=== PATIENT | male | born 1935 | race Caucasian/White ===

== ENCOUNTER 2018-02-28 07:14 | Emergency (ER) | payer MEDICARE, OTHER, SELFPAY ==
[2018-02-28 07:18] VITALS: BP 139/103; PULSE 96; RESP 18; TEMP 36.2; O2SAT 95
[2018-02-28 07:27] VITALS: BP 150/82
--- NOTE | 2018-02-28 07:30 | W.ED.GENAD ---
Discharge Plan Discharge Details Chief Complaint: Urinary Clinical Impression: Hematuria, Acute urinary retention Primary Care Provider: [facility] [facility] Provider: Alyssia Hayward Disposition Patient Disposition: HOME Home Meds and New Rx's Prescriptions: No Action tamsulosin [Flomax] 0.4 mg Capsule 0.4 mg PO DAILY RF: 0 Medical Decision Making <Ashok Padron DO - Last Filed: 02/28/18 08:05> [facility] Narrative Medical decision making narrative: This is a very pleasant 82-year-old male with a past medical history of prostate hypertrophy, who has to catheterize himself occasionally to P, presents for pressure in his bladder, and an inability to urinate, as well as mild hematuria. With the past few days he has been noticing increased urinary clots, and increased need for self-catheterization. He was on Bactrim for a full week and took this as directed. He has not seen a urologist for quite some time at the [facility]. Physical exam demonstrates no significant abnormalities. No blood at the urethral meatus. No significant suprapubic tenderness. He does not take any blood thinners. Differential as to the cause of his hematuria is broad. It may be secondary to infectious cystitis, or his multiple catheterizations. We will check the patient's hemoglobin and platelet levels. We will put in a Tinsley to wash amount. We will check for infection on urinalysis. Out of concern for the patient's multiple self catheterizations as of late feel that it may be indicated to leave the Tinsley in if he can get prompt follow-up with urology. Case will be signed out to my colleague Dr. Hayward. <Alyssia Hayward DO - Last Filed: 02/28/18 11:20> [facility] Narrative Medical decision making narrative: Please see Dr. Padron's note for initial presentation, exam and plan. 82yo M w/ a h/o BPH who has self catheterized for years who presents with worsening urinary retention, suprapubic pressure and hematuria over the past few week. Pt has a h/o dementia and is somewhat of a poor historian but is able to state that he used to self catheterize once weekly but over the past few weeks, has been doing this at least once daily. Pt states he does not think he has ever seen urology. States he was seen at the [facility] 2 weeks ago for these symptoms and was diagnosed with UTI and started on bactrim. Pt denies any change in symptoms with antibiotics. Pt denies fever, dysuria, or testicular pain. Upon my endorsement, Dr. Padron's plan was for tinsley catheter placement, labs, UA and reassessment with plan for home with tinsley and f/u with urology. Marcella Cantu is going to help arrange [facility] or Dr[facility] Rosado if possible. Upon my exam, pt has no fever and appears nontoxic. His abdomen is soft and nontender and testicles nontender and nonerythematous. Urine is clear/pinkish. Labs note a wbc 4.95, Hgb 14, platelet 154. Normal PT/INR. UA notes large blood, > 300 protein but negative nitrite, leukocyte esterase and unable to report WBC. At this point, I do not see obvious infection and would hold on antibiotics. Will send urine culture. Labs also noted a glucose of 238 and urine glucose 250. Normal bicarb and anion gap. Pt denies a h/o diabetes. States he ate a big breakfast right before coming in. Will recheck glucose. 1000 -- d/w Marcella - still awaiting call back from [facility] or Dr. Rosado for follow up. 1100 -- d/w Marcella -urology will call patient for follow-up. Patient and daughter was notified of this plan. Patient feels good to go home. He was instructed to return to the ER with any concerns. Daughter had expressed concern about some urinary leakage around Tinsley catheter. Discussed with nurse and she had placed a 16 Yi catheter which is the standard size. She was concerned about placing a larger catheter due to patient's BPH. I discussed with daughter that it is possible he could be having some bladder spasm or he may be feeling the urge to urinate and is pushing. Patient was instructed to not push and instructed that the catheter will drain his urine. I am going to hold on any urinary spasm medication at this time until patient follows up with urology. Daughter and patient notified to return immediately to the emergency department with any worsening symptoms but otherwise follow-up with urology for further recommendations. This is a pleasant 82-year-old male with past medical history of colon cancer, and prostate hypertrophy who regularly catheterizes himself multiple times throughout the week, and has not seen [facility] for quite some time. He presents today for evaluation of hematuria. Patient states that he noticed some difficulty urinating a week and a half ago, with some associated pressure and small amount of blood, he was seen at the [facility] and started on Bactrim which she has been taking as directed. He completed his course 4-5 days ago. He is continued to have pressure-like sensation, has required increased catheterizations, and is noticed blood and clots whenever he has to catheterize himself. His other symptoms have persisted. He denies any flank pain, nausea, vomiting, diarrhea, abdominal pain, groin pain, testicular pain, numbness, tingling, weakness. He denies any history of bladder cancer. He does not take any blood thinners. He does take tamsulosin and has not been missing his doses. Patient denies any other associated symptoms. Past surgical history is positive for surgery for his colon cancer. He denies any IV or illicit drug use. He denies any pertinent family history. HPI - General Adult <Ashok Padron DO - Last Filed: 02/28/18 08:05> General Date/Time Provider Initiated Documentation: 02/28/18 07:17. Related Data Home Medications Medication Instructions Recorded Confirmed tamsulosin [Flomax] 0.4 mg PO DAILY 02/28/18 02/28/18 Allergies Allergy/AdvReac Type Severity Reaction Status Date / Time No Known Allergies Allergy Unverified 02/28/18 07:25 General Stated Complaint: Urinary TINY: 3 This is a pleasant 82-year-old male with past medical history of colon cancer, and prostate hypertrophy who regularly catheterizes himself multiple times throughout the week, and has not seen [facility] for quite some time. He presents today for evaluation of hematuria. Patient states that he noticed some difficulty urinating a week and a half ago, with some associated pressure and small amount of blood, he was seen at the [facility] and started on Bactrim which she has been taking as directed. He completed his course 4-5 days ago. He is continued to have pressure-like sensation, has required increased catheterizations, and is noticed blood and clots whenever he has to catheterize himself. His other symptoms have persisted. He denies any flank pain, nausea, vomiting, diarrhea, abdominal pain, groin pain, testicular pain, numbness, tingling, weakness. He denies any history of bladder cancer. He does not take any blood thinners. He does take tamsulosin and has not been missing his doses. Patient denies any other associated symptoms. Past surgical history is positive for surgery for his colon cancer. He denies any IV or illicit drug use. He denies any pertinent family history. Review of Systems <Ashok Padron DO - Last Filed: 02/28/18 08:05> Review of Systems 10 point review of systems was performed, pertinent positives and negatives are noted in the history of present illness. Exam <Ashok Padron DO - Last Filed: 02/28/18 08:05> Narrative Exam Narrative: 1.Const: Well-nourished, Well-developed, appearing stated age 2.Eyes: PERRL, no conjunctival injection, and symmetrical lids. 3.ENT: Atraumatic external nose and ears. Moist MM. Neck: Symmetric, trachea midline, No thyromegaly. 4.CVS: +S1/S2, No murmurs or gallops. Peripheral pulses 2+ and equal in all extremities. Brisk capillary refill in all extremities. 5.RESP: Unlabored respiratory effort. Clear to auscultation bilaterally. No wheezes rales or rhonchi 6.GI: Soft, Nontender/Nondistended, No hepatosplenomegaly. No guarding or rebound. Uncircumcised penis. No penile tenderness. No blood at the urethral meatus. No testicular tenderness. 7.MSK: Normocephalic/Atraumatic, Extremities w/o deformity or ttp No cyanosis or clubbing, Normal movement of all extremities 8.Skin: Warm, Dry. No rashes or lesions. 9.Neuro: press puller II-XII grossly intact. Sensation grossly intact, no focal neurologic deficits. 10.Psych: (AAO) x3. Appropriate mood and affect Course <Ashok Padron DO - Last Filed: 02/28/18 08:05> Vital Signs Temperature 36.2 C L 02/28/18 07:18 Pulse 96 H 02/28/18 07:18 Respiratory Rate 18 02/28/18 07:18 Blood Pressure 139/103 H 02/28/18 07:18 Pulse Oximetry 95 02/28/18 07:18 Temperature 36.2 C L 02/28/18 07:18 Pulse 96 H 02/28/18 07:18 Respiratory Rate 18 02/28/18 07:18 Blood Pressure 150/82 H 02/28/18 07:27 Pulse Oximetry 95 02/28/18 07:18 Sign Out <Ashok Padron DO - Last Filed: 02/28/18 08:05> Sign Out Data: Sign Out Comment: hematuria Last updated by Ashok Padron DO at 02/28/18 07:57
--- NOTE | 2018-02-28 07:40 | ED.GENADUL_ITS ---
Discharge Plan Discharge Details Chief Complaint: Urinary Clinical Impression: Hematuria, Acute urinary retention Primary Care Provider: [facility] Provider: Alyssia Hayward Disposition Patient Disposition: HOME Home Meds and New Rx's Prescriptions: No Action tamsulosin [Flomax] 0.4 mg Capsule 0.4 mg PO DAILY RF: 0 Medical Decision Making <Ashok Padron DO - Last Filed: 02/28/18 08:05> [facility] Narrative Medical decision making narrative: This is a very pleasant 82-year-old male with a past medical history of prostate hypertrophy, who has to catheterize himself occasionally to P, presents for pressure in his bladder, and an inability to urinate, as well as mild hematuria. With the past few days he has been noticing increased urinary clots, and increased need for self- catheterization. He was on Bactrim for a full week and took this as directed. He has not seen a urologist for quite some time at the [facility]. Physical exam demonstrates no significant abnormalities. No blood at the urethral meatus. No significant suprapubic tenderness. He does not take any blood thinners. Differential as to the cause of his hematuria is broad. It may be secondary to infectious cystitis, or his multiple catheterizations. We will check the patient's hemoglobin and platelet levels. We will put in a Tinsley to wash amount. We will check for infection on urinalysis. Out of concern for the patient's multiple self catheterizations as of late feel that it may be indicated to leave the Tinsley in if he can get prompt follow-up with urology. Case will be signed out to my colleague Dr. Hayward. <Alyssia Hayward DO - Last Filed: 02/28/18 11:20> [facility] Narrative Medical decision making narrative: Please see Dr. Padron's note for initial presentation, exam and plan. 82yo M w/ a h/o BPH who has self catheterized for years who presents with worsening urinary retention, suprapubic pressure and hematuria over the past few week. Pt has a h/o dementia and is somewhat of a poor historian but is able to state that he used to self catheterize once weekly but over the past few weeks, has been doing this at least once daily. Pt states he does not think he has ever seen urology. States he was seen [facility] the [facility] for these symptoms and was diagnosed with UTI and started on bactrim. Pt denies any change in symptoms with antibiotics. Pt denies fever, dysuria, or testicular pain. Upon my endorsement, Dr. Padron's plan was for tinsley catheter placement, labs, UA and reassessment with plan for home with tinsley and f/u with urology. Marcella Cantu is going to help arrange [facility] or Dr[facility] Rosado if possible. Upon my exam, pt has no fever and appears nontoxic. His abdomen is soft and nontender and testicles nontender and nonerythematous. Urine is clear/pinkish. Labs note a wbc 4.95, Hgb 14, platelet 154. Normal PT/INR. UA notes large blood , > 300 protein but negative nitrite, leukocyte esterase and unable to report WBC. At this point, I do not see obvious infection and would hold on antibiotics. Will send urine culture. Labs also noted a glucose of 238 and urine glucose 250. Normal bicarb and anion gap. Pt denies a h/o diabetes. States he ate a big breakfast right before coming in. Will recheck glucose. 1000 -- d/w Marcella - still awaiting call back from [facility] or Dr. Rosado for follow up. 1100 -- d/w Marcella -urology will call patient for follow-up. Patient and daughter was notified of this plan. Patient feels good to go home. He was instructed to return to the ER with any concerns. Daughter had expressed concern about some urinary leakage around Tinsley catheter. Discussed with nurse and she had placed a 16 [place] catheter which is the standard size. She was concerned about placing a larger catheter due to patient's BPH. I discussed with daughter that it is possible he could be having some bladder spasm or he may be feeling the urge to urinate and is pushing. Patient was instructed to not push and instructed that the catheter will drain his urine. I am going to hold on any urinary spasm medication at this time until patient follows up with urology. Daughter and patient notified to return immediately to the emergency department with any worsening symptoms but otherwise follow-up with urology for further recommendations. This is a pleasant 82-year-old male with past medical history of colon cancer, and prostate hypertrophy who regularly catheterizes himself multiple times throughout the week, and has not seen [facility] for quite some time. He presents today for evaluation of hematuria. Patient states that he noticed some difficulty urinating a week and a half ago, with some associated pressure and small amount of blood, he was seen at the [facility] and started on Bactrim which she has been taking as directed. He completed his course 4-5 days ago. He is continued to have pressure-like sensation, has required increased catheterizations, and is noticed blood and clots whenever he has to catheterize himself. His other symptoms have persisted. He denies any flank pain, nausea, vomiting, diarrhea, abdominal pain, groin pain, testicular pain, numbness, tingling, weakness. He denies any history of bladder cancer. He does not take any blood thinners. He does take tamsulosin and has not been missing his doses. Patient denies any other associated symptoms. Past surgical history is positive for surgery for his colon cancer. He denies any IV or illicit drug use. He denies any pertinent family history. HPI - General Adult <Ashok Padron DO - Last Filed: 02/28/18 08:05> General Date/Time Provider Initiated Documentation: 02/28/18 07:17 . Related Data Home Medications Medication Instructions Recorded Confirmed tamsulosin [Flomax] 0.4 mg PO DAILY 02/28/18 02/28/18 Allergies Allergy/AdvReac Type Severity Reaction Status Date / Time No Known Allergies Allergy Unverified 02/28/18 07:25 General Stated Complaint: Urinary TINY: 3 This is a pleasant 82-year-old male with past medical history of colon cancer, and prostate hypertrophy who regularly catheterizes himself multiple times throughout the week, and has not seen [facility] urology for quite some time. He presents today for evaluation of hematuria. Patient states that he noticed some difficulty urinating a week and a half ago, with some associated pressure and small amount of blood, he was seen at the [facility] and started on Bactrim which she has been taking as directed. He completed his course 4-5 days ago. He is continued to have pressure-like sensation, has required increased catheterizations, and is noticed blood and clots whenever he has to catheterize himself. His other symptoms have persisted. He denies any flank pain, nausea, vomiting, diarrhea, abdominal pain, groin pain, testicular pain, numbness, tingling, weakness. He denies any history of bladder cancer. He does not take any blood thinners. He does take tamsulosin and has not been missing his doses. Patient denies any other associated symptoms. Past surgical history is positive for surgery for his colon cancer. He denies any IV or illicit drug use. He denies any pertinent family history. Review of Systems <Ashok Padron DO - Last Filed: 02/28/18 08:05> Review of Systems 10 point review of systems was performed, pertinent positives and negatives are noted in the history of present illness. Exam <Ashok Padron DO - Last Filed: 02/28/18 08:05> Narrative Exam Narrative: 1.Const: Well-nourished, Well-developed, appearing stated age 2.Eyes: PERRL, no conjunctival injection, and symmetrical lids. 3.ENT: Atraumatic external nose and ears. Moist MM. Neck: Symmetric, trachea midline, No thyromegaly. 4.CVS: +S1/S2, No murmurs or gallops. Peripheral pulses 2+ and equal in all extremities. Brisk capillary refill in all extremities. 5.RESP: Unlabored respiratory effort. Clear to auscultation bilaterally. No wheezes rales or rhonchi 6.GI: Soft, Nontender/Nondistended, No hepatosplenomegaly. No guarding or rebound. Uncircumcised penis. No penile tenderness. No blood at the urethral meatus. No testicular tenderness. 7.MSK: Normocephalic/Atraumatic, Extremities w/o deformity or ttp No cyanosis or clubbing, Normal movement of all extremities 8.Skin: Warm, Dry. No rashes or lesions. 9.Neuro: account coordinator II-XII grossly intact. Sensation grossly intact, no focal neurologic deficits. 10.Psych: (AAO) x3. Appropriate mood and affect Course <Ashok Padron DO - Last Filed: 02/28/18 08:05> Vital Signs Temperature 36.2 C L 02/28/18 07:18 Pulse 96 H 02/28/18 07:18 Respiratory Rate 18 02/28/18 07:18 Blood Pressure 139/103 H 02/28/18 07:18 Pulse Oximetry 95 02/28/18 07:18 Temperature 36.2 C L 02/28/18 07:18 Pulse 96 H 02/28/18 07:18 Respiratory Rate 18 02/28/18 07:18 Blood Pressure 150/82 H 02/28/18 07:27 Pulse Oximetry 95 02/28/18 07:18 Sign Out <Ashok Padron DO - Last Filed: 02/28/18 08:05> Sign Out Data: Sign Out Comment: hematuria Last updated by Ashok Padron DO at 02/28/18 07:57
[2018-02-28 07:46] LABS: Abs Immature Grans 0.01 k/cumm (0.0-0.09); Absolute Basophil Count 0.01 k/cumm (0.0-0.2); Absolute Eosinophil Count 0.01 k/cumm (0.0-0.7); Absolute Lymphocyte Count 0.83 k/cumm (1.2-3.4); Absolute Neutrophil Count 3.89 k/cumm (1.2-6.7); Basophils % 0.2; Eosinophils % 0.2; HCT 40.5 % (40.0-50.0); Immature Grans % 0.2; Lymphocytes % 16.8; Mean Corp. HGB Concentration 34.6 g/dL (32.0-36.0); Mean Corpuscular Hemoglobin 29.5 pg (27.0-33.0); Mean Corpuscular Volume 85.4 fL (80-95); Mean Platelet Volume 10.8 fL (8.0-11.0); Neutrophils % 78.6; Platelet Count 154 x1000/uL (130-400); RBC 4.74 m/cumm (4.50-6.00); RBC Distribution Width 12.8 % (11.8-14.1); White Blood Cell Count 4.95 k/cumm (4.4-10.8)
[2018-02-28 08:04] LABS: Prothrombin Time 9.9 sec (9.3-10.8)
[2018-02-28 08:08] LABS: ALT 20 U/L (12-78); AST 18 U/L (15-37); Albumin 3.8 g/dL (3.4-5.0); Alkaline Phosphatase 72 U/L (46-116); Anion Gap 5.1 mmol/L (3-11); BUN 19 mg/dL (7-18); Bilirubin, Total 0.6 mg/dL (0.2-1.0); CO2 26.9 mmol/L (21.0-32.0); CREATININE 1.64 mg/dL (0.70-1.30); Calcium 8.8 mg/dL (8.5-10.1); Chloride 102 mmol/L (98-107); Estimated GFR 40.42 (mL/min/1.73m2); Glucose 238 mg/dL (70-100); Potassium 3.6 mmol/L (3.5-5.1); Sodium 134 mmol/L (136-145); Total Protein 7.4 g/dL (6.4-8.2)
[2018-02-28 08:13] LABS: Clarity Cloudy; Glucose 250 mg/dL (Negative); Ketones 15 mg/dL (Negative); Leukocyte Esterase Negative (Negative); Nitrite Negative (Negative); Specific Gravity > 1.030 (1.005-1.025); pH 5.5 (5-8)
[2018-02-28 08:14] LABS: Blood Large (Negative); RBC >50 (0-2)
[2018-02-28 08:15] LABS: C & S Indicated? Yes
--- NOTE | 2018-02-28 10:50 | PDOC.ERCMPRO ---
Care Management Progress Note 02/28-Dr. Hayward requested assistance with a urology and Palliative Care appt. Igor is a [facility] patient. Igor and his daughter Mariam would like him to be seen in Urology at [facility]. Patient states he has never been seen in Urology at the [facility], his PCP has been managing. Discussion on cost as Igor does not have a secondary insurance. He has [facility] and [facility]. Mariam and Igor asked if this CM could get an approximate garcia for the Urology visit. Called Nya in Patient accounts. Nya stated that the new patient for urology would be $290 plus any interventions. Explained this to Igor and Mariam and they have elected to see urology at [facility]. Called Urology (Dr. Hayward had requested appt before patient was discharged) and spoke with Kailyn. Kailyn stated that she had spoken with Chyna and had requested that this CM send a written referral for which was done. Kailyn states that Urology will reach out to the patient with an appt. Patient has tinsley catheter in place and Dr. Hayward states (please see provider note) that is should be removed in one week. Dr. Hayward and daughter Mariam aware of the above urology appt. Mariam also requested a Palliative Care consult and requested Dr. Person. This CM discussed with Dr. Hayward who is in agreement and will write an order for Palliative Care. Palliative Care Referral faxed to Palliative Care this . Mariam and Dr. Hayward also aware of the Palliative referral and that Palliative Care will call them with an appt.
--- NOTE | 2018-02-28 10:55 | CMPROGNOTE_ITS ---
Care Management Progress Note 02/28-Dr. Hayward requested assistance with a urology and Palliative Care appt. Igor is a [facility] patient. Igor and his daughter Mariam would like him to be seen in Urology at [facility]. Patient states he has never been seen in [facility]rology at the [facility], his PCP has been managing. Discussion on cost as Igor does not have a secondary insurance. He has [facility] and [facility]. Mariam and Igor asked if this CM could get an approximate garcia for the Urology visit. Called Nya in Patient accounts. Nya stated that the new patient for urology would be $290 plus any interventions. Explained this to Igor and Mariam and they have elected to see urology at [facility]. Called Urology (Dr. Hayward had requested appt before patient was discharged) and spoke with Kailyn. Kailyn stated that she had spoken with Chyna and had requested that this CM send a written referral for which was done. Kailyn states that Urology will reach out to the patient with an appt. Patient has tinsley catheter in place and Dr. Hayward states (please see provider note) that is should be removed in one week. Dr. Hayward and daughter Mariam aware of the above urology appt. Mariam also requested a Palliative Care consult and requested Dr. Person. This CM discussed with Dr. Hayward who is in agreement and will write an order for Palliative Care. Palliative Care Referral faxed to Palliative Care this . Mariam and Dr. Hayward also aware of the Palliative referral and that Palliative Care will call them with an appt.
[2018-02-28 11:30] VITALS: BP 138/70; PULSE 80; RESP 16; TEMP 36.8; O2SAT 99
== END 2018-02-28 11:29 | disposition home or self-care (01) ==
PROVIDERS: Student in an Organized Health Care Education/Training Program; Emergency Provider Physician Assistant
DX: N40.1 Benign prostatic hyperplasia with lower urinary tract symptoms (principal); R33.8 Other retention of urine; R31.9 Hematuria, unspecified
CPT/HCPCS: 36415; 36416; 51702; 80053; 82962; 99283; 81003; 81015; 85025; 85610; 85730; 87086

== ENCOUNTER 2018-02-28 14:54 | Emergency (ER) | payer OTHER, SELFPAY ==
--- NOTE | 2018-02-28 16:48 | NUR.NOTE ---
Nursing Note:On assessment of this patient it seemed as if his catheter was not draining. This verse writer flushed the cath with 30cc of NS. The cath drained the 30cc's. A new cath was placed 20F with 30cc balloon. Again the cath was flushed with 30ccs and it returned back into the syringe. Bladder scanned for around 30cc of urine. Patient still having discomfort. Lots of education was provided on what to expect after having an in dwelling cath. Patient does have some bleeding around the urethral meatus which is not abnormal.
--- NOTE | 2018-02-28 16:53 | W.ED.GENAD ---
Discharge Plan Discharge Details Chief Complaint: Recheck Clinical Impression: Hematuria, Urinary retention, Chronic abdominal pain Primary Care Provider: [facility] Provider: Alyssia Hayward Disposition Patient Disposition: HOME Condition: Stable Home Meds and New Rx's Prescriptions: Continue tamsulosin [Flomax] 0.4 mg Capsule 0.4 mg PO DAILY RF: 0 Discharge Instructions Instructions: Urinary Retention in Men (ED), Chronic Pain (ED), Hematuria (ED) Additional Instructions: You should receive a call from urology regarding follow-up appointment. You should expect to see blood in the urine after Bailey catheter placement. This can occur up to a week after placement. Return to the emergency department any worsening or new concerning symptoms. Discharge Data Discharge Physician: Alyssia Hayward Medical Decision Making [facility] Narrative Medical decision making narrative: 82-year-old male who has self catheterize due to BPH for years who presents with hematuria and abdominal distention and pain. Patient was seen here earlier today for chronic abdominal distention and pain for several years and had a Bailey catheter placed and referred to urology for follow-up. Prior to discharge, patient had some leakage of urine around Bailey catheter. It was discussed with patient at that time that as we used a 16 [place], and with his concern for BPH, we kept his catheter in and instructed to follow-up with urology. Patient was noted to have blood in his urine but no obvious infection and had normal white blood cell count. His creatinine was 1.6 and GFR 40. He presents as a return today for pinkish color urine and occasional clots with persistent leakage around catheter and his chronic abdominal distention and pain. Nurse flushed catheter and it noted to be following. We will plan to change catheter to larger size to see if this resolves problem with leakage. At this point in time, patient appears nontoxic and I do not see any indication for repeat lab work and urinalysis and he is in agreement. 1700 --patient feels better after 20 catheter placed and denies any leakage. He is still complaining of his chronic abdominal distention and pain. His abdomen appears to have less tenderness to palpation. He is offered CT of his abdomen and pelvis to assess any acute abnormalities but he initially declined stating he does not want to pay for it as he is followed at the [facility]. family is requesting possible medication for bladder spasms as I discussed that this could be causing his leakage and chronic abdominal pain and distention. Call placed to Dr. Rosado. 1714 --patient is now agreeable to CT scan. Will obtain a CT abdomen and pelvis without contrast. 1744 --CT abdomen and pelvis noted an enlarged prostate and mild thickening of the bladder wall consistent with chronic urinary bladder outlet obstruction but no other acute findings. Patient states he feels better. Family was notified of CT findings and feel good to go home. There was no response from urology. Will attempt to page again and family offered to stay but they state they would rather go home. I discussed with them that if I hear from urology, I will discuss the workup today and see if there are any other recommendations, however as patient feels better, and he should expect a call from urology tomorrow, I do not see any other urgent need for consultation and they are in agreement. HPI - General Adult General Mode of arrival: ambulatory. Date/Time Provider Initiated Documentation: 02/28/18 15:09. Limitations to Documentation: no limitations. Information obtained by: patient and family. HPI Narrative: Patient is a 82-year-old male who presents with hematuria, abdominal distention and pain since Bailey catheter placed today. Patient had been seen here earlier today for urinary retention and hematuria and had a Bailey catheter placed. Patient had had leakage of urine around the catheter earlier today which he states is still present. Patient states he has had this persistent abdominal pain and distention for several years. States he mainly came here due to the hematuria and urinary leakage around catheter. Related Data Home Medications Medication Instructions Recorded Confirmed tamsulosin [Flomax] 0.4 mg PO DAILY 02/28/18 02/28/18 Allergies Allergy/AdvReac Type Severity Reaction Status Date / Time No Known Allergies Allergy Unverified 02/28/18 07:25 General Stated Complaint: Recheck TINY: 5 Review of Systems Constitutional Denies fever(s), Denies lethargy and Denies weakness Eyes Patient Denies blurry vision ENT Denies vertigo, Denies dizziness and Denies sore throat Cardiovascular Denies chest pain, Denies diaphoresis and Denies dyspnea Respiratory Denies chest congestion and Denies dyspnea Gastrointestinal Denies abdominal pain, Denies diarrhea and Denies vomiting Genitourinary Reports hematuria, Reports difficulty urinating, Denies dysuria, Denies flank pain, Denies penile discharge, Denies testicular mass and Denies testicular pain Musculoskeletal Denies joint swelling Neurologic Denies behavioral changes, Denies vertigo, Denies dizziness and Denies weakness Psychiatric Denies behavioral changes PFSH Social History Smoking/Tobacco Use Status: Never Exam Const General: cooperative and healthy appearing Orientation: alert and awake Eyes EOM: EOM intact bilaterally Neck Neck: normal visual inspection Resp Effort & Inspection: normal respiratory effort Auscultation: clear to auscultation bilaterally Cardio Rate: regular rate Rhythm: regular rhythm GI Inspection: normal to inspection Palpation: no guarding, no hernias, no masses, no pulsatile masses and tender (Diffusely moderately tender) Auscultation: normal bowel sounds Other: Bailey catheter in place with pinkish clear urine in catheter and bag. Skin General skin exam: no rashes or lesions noted Neuro General: alert and awake Extrem General: no edema Psych Appearance: grossly normal Mental Status: mental status grossly normal Speech and Movement: speech and movement normal Attitude: cooperative Thought Process: normal
--- NOTE | 2018-02-28 17:07 | ED.GENADUL_ITS ---
Discharge Plan Discharge Details Chief Complaint: Recheck Clinical Impression: Hematuria, Urinary retention, Chronic abdominal pain Primary Care Provider: [facility] Provider: Alyssia Hayward Disposition Patient Disposition: HOME Condition: Stable Home Meds and New Rx's Prescriptions: Continue tamsulosin [Flomax] 0.4 mg Capsule 0.4 mg PO DAILY RF: 0 Discharge Instructions Instructions: Urinary Retention in Men (ED), Chronic Pain (ED), Hematuria (ED) Additional Instructions: You should receive a call from urology regarding follow-up appointment. You should expect to see blood in the urine after Bailey catheter placement. This can occur up to a week after placement. Return to the emergency department any worsening or new concerning symptoms. Discharge Data Discharge Physician: Alyssia Hayward Medical Decision Making [facility] Narrative Medical decision making narrative: 82-year-old male who has self catheterize due to BPH for years who presents with hematuria and abdominal distention and pain. Patient was seen here earlier today for chronic abdominal distention and pain for several years and had a Bailey catheter placed and referred to urology for follow-up. Prior to discharge, patient had some leakage of urine around Bailey catheter. It was discussed with patient at that time that as we used a 16 [place], and with his concern for BPH, we kept his catheter in and instructed to follow-up with urology. Patient was noted to have blood in his urine but no obvious infection and had normal white blood cell count. His creatinine was 1.6 and GFR 40. He presents as a return today for pinkish color urine and occasional clots with persistent leakage around catheter and his chronic abdominal distention and pain. Nurse flushed catheter and it noted to be following. We will plan to change catheter to larger size to see if this resolves problem with leakage. At this point in time, patient appears nontoxic and I do not see any indication for repeat lab work and urinalysis and he is in agreement. 1700 --patient feels better after 20 catheter placed and denies any leakage. He is still complaining of his chronic abdominal distention and pain. His abdomen appears to have less tenderness to palpation. He is offered CT of his abdomen and pelvis to assess any acute abnormalities but he initially declined stating he does not want to pay for it as he is followed at the [facility]. family is requesting possible medication for bladder spasms as I discussed that this could be causing his leakage and chronic abdominal pain and distention. Call placed to Dr. Rosado. 1714 --patient is now agreeable to CT scan. Will obtain a CT abdomen and pelvis without contrast. 1744 --CT abdomen and pelvis noted an enlarged prostate and mild thickening of the bladder wall consistent with chronic urinary bladder outlet obstruction but no other acute findings. Patient states he feels better. Family was notified of CT findings and feel good to go home. There was no response from urology. Will attempt to page again and family offered to stay but they state they would rather go home. I discussed with them that if I hear from urology, I will discuss the workup today and see if there are any other recommendations, however as patient feels better, and he should expect a call from urology tomorrow, I do not see any other urgent need for consultation and they are in agreement. HPI - General Adult General Mode of arrival: ambulatory . Date/Time Provider Initiated Documentation: 02/28/18 15:09 . Limitations to Documentation: no limitations . Information obtained by: patient and family . HPI Narrative: Patient is a 82-year-old male who presents with hematuria, abdominal distention and pain since Bailey catheter placed today. Patient had been seen here earlier today for urinary retention and hematuria and had a Bailey catheter placed. Patient had had leakage of urine around the catheter earlier today which he states is still present. Patient states he has had this persistent abdominal pain and distention for several years. States he mainly came here due to the hematuria and urinary leakage around catheter. Related Data Home Medications Medication Instructions Recorded Confirmed tamsulosin [Flomax] 0.4 mg PO DAILY 02/28/18 02/28/18 Allergies Allergy/AdvReac Type Severity Reaction Status Date / Time No Known Allergies Allergy Unverified 02/28/18 07:25 General Stated Complaint: Recheck TINY: 5 Review of Systems Constitutional Denies fever(s), Denies lethargy and Denies weakness Eyes Patient Denies blurry vision ENT Denies vertigo, Denies dizziness and Denies sore throat Cardiovascular Denies chest pain, Denies diaphoresis and Denies dyspnea Respiratory Denies chest congestion and Denies dyspnea Gastrointestinal Denies abdominal pain, Denies diarrhea and Denies vomiting Genitourinary Reports hematuria, Reports difficulty urinating, Denies dysuria, Denies flank pain, Denies penile discharge, Denies testicular mass and Denies testicular pain Musculoskeletal Denies joint swelling Neurologic Denies behavioral changes, Denies vertigo, Denies dizziness and Denies weakness Psychiatric Denies behavioral changes PFSH Social History Smoking/Tobacco Use Status: Never Exam Const General: cooperative and healthy appearing Orientation: alert and awake Eyes EOM: EOM intact bilaterally Neck Neck: normal visual inspection Resp Effort & Inspection: normal respiratory effort Auscultation: clear to auscultation bilaterally Cardio Rate: regular rate Rhythm: regular rhythm GI Inspection: normal to inspection Palpation: no guarding, no hernias, no masses, no pulsatile masses and tender ( Diffusely moderately tender) Auscultation: normal bowel sounds Other: Bailey catheter in place with pinkish clear urine in catheter and bag. Skin General skin exam: no rashes or lesions noted Neuro General: alert and awake Extrem General: no edema Psych Appearance: grossly normal Mental Status: mental status grossly normal Speech and Movement: speech and movement normal Attitude: cooperative Thought Process: normal
--- NOTE | 2018-02-28 17:09 | DI.CT_ITS ---
SYMPTOMS/DIAGNOSIS: LOWER ABDOMINAL PAIN, DISTENTION NONCONTRAST CT OF THE ABDOMEN AND PELVIS: Comparison is made with June,. The exam is limited by significant patient motion and lack of IV and oral contrast. The patient is status post resection of a portion of the colon for history of colon cancer. There is a moderate quantity of stool. There are no dilated bowel loops or gross evidence of inflammation. No free air or free fluid is seen. The prostate is noted to be markedly enlarged. There is bladder wall thickening and an indwelling catheter. The heart size appears normal. The lung bases appear clear. There is motion at the region of the gallbladder. The liver is unremarkable. The spleen appears mildly enlarged, unchanged. There is no evidence of hydronephrosis or renal calculi. IMPRESSION: Markedly enlarged prostate with catheter in place. No evidence of hydronephrosis or renal calculi. No evidence of bowel obstruction.
--- NOTE | 2018-02-28 17:44 | DI.VRAD_ITS ---
EXAM: CT Abdomen and Pelvis Without Intravenous Contrast CLINICAL HISTORY: 82 years old, male; Signs and symptoms; Other: Hematuria, lower abd pain, distension TECHNIQUE: Axial computed tomography images of the abdomen and pelvis without intravenous contrast. Coronal and sagittal reformatted images were created and reviewed. COMPARISON: CT - ABD PELVIS WITH CONTRAST 07/20/2016 9:39 AM FINDINGS: Lung bases: Unremarkable. No mass. No consolidation. ABDOMEN: Liver: Unremarkable. Gallbladder and bile ducts: Unremarkable. No calcified stones. No ductal dilation. Pancreas: Unremarkable. No ductal dilation. Spleen: Unremarkable. No splenomegaly. Adrenals: Unremarkable. No mass. Kidneys and ureters: Unremarkable. No obstructing stones. No hydronephrosis. Stomach and bowel: Unremarkable. No obstruction. No mucosal thickening. PELVIS: Appendix: No findings to suggest acute appendicitis. Bladder: Bailey catheter within the urinary bladder. Mild thickening of the urinary bladder wall, likely secondary to underdistention versus hypertrophy from chronic urinary bladder outlet obstruction. No stones. Reproductive: Enlarged prostate measuring 7.2 cm x 6.7 cm x 8.3 cm. ABDOMEN and PELVIS: Intraperitoneal space: Multiple surgical clips and sutures within the left abdomen. No free air. No significant fluid collection. Bones/joints: No acute fracture. No dislocation. Soft tissues: Unremarkable. Vasculature: Mild atherosclerosis of the abdominal aorta and iliac arteries. No abdominal aortic aneurysm. Lymph nodes: Unremarkable. No enlarged lymph nodes. IMPRESSION: No acute findings. Dictated and Authenticated by: Milan Menjivar MD. Ordering:MATILDE TILLMAN MD
== END 2018-02-28 18:30 | disposition home or self-care (01) ==
PROVIDERS: Emergency Provider Physician Assistant
DX: T83.031A Leakage of indwelling urethral catheter, initial encounter (principal); R31.9 Hematuria, unspecified; Y84.9 Medical procedure, unspecified as the cause of abnormal reaction of the patient, or of later complication, without mention of misadventure at the time of the procedure; N40.1 Benign prostatic hyperplasia with lower urinary tract symptoms; R33.8 Other retention of urine; R10.817 Generalized abdominal tenderness; G89.29 Other chronic pain
CPT/HCPCS: 51702; 99284; 74176

== ENCOUNTER → 2018-03-08 08:57 | Outpatient (BNVA) | payer MEDICARE, SELFPAY | PROVIDERS: Visit Provider Nurse Practitioner Gerontology | DX: N40.1 Benign prostatic hyperplasia with lower urinary tract symptoms (principal); R33.8 Other retention of urine | CPT/HCPCS: 51798; 99214 ==

== ENCOUNTER → 2018-04-03 14:05 | Outpatient (BNVA) | payer MEDICARE, OTHER, SELFPAY | PROVIDERS: Visit Provider Nurse Practitioner Gerontology | DX: R31.9 Hematuria, unspecified (principal); R33.9 Retention of urine, unspecified | CPT/HCPCS: 51702; 51798; 99213 ==

== ENCOUNTER → 2018-04-04 13:39 | Outpatient (BNVA) | payer OTHER, SELFPAY | PROVIDERS: Visit Provider Nurse Practitioner Gerontology | DX: R31.9 Hematuria, unspecified (principal); R33.9 Retention of urine, unspecified | CPT/HCPCS: 51702; 99213 ==

== ENCOUNTER → 2018-04-09 10:26 | Outpatient (BNVA) | payer OTHER, MEDICARE, SELFPAY | PROVIDERS: Visit Provider Nurse Practitioner Gerontology | DX: R31.9 Hematuria, unspecified (principal); R33.9 Retention of urine, unspecified | CPT/HCPCS: 99213 ==

== ENCOUNTER 2018-04-17 13:47 | Outpatient (CLI) | payer OTHER, MEDICARE, SELFPAY | END 2018-04-17 14:07 | PROVIDERS: Visit Provider Urology | DX: R30.0 Dysuria (principal); N40.1 Benign prostatic hyperplasia with lower urinary tract symptoms | CPT/HCPCS: 87086 ==

== ENCOUNTER → 2018-05-09 15:26 | Outpatient (BNVA) | payer MEDICARE, OTHER, SELFPAY | PROVIDERS: Visit Provider Nurse Practitioner Gerontology | DX: R69 Illness, unspecified (principal) ==

== ENCOUNTER 2018-05-09 16:59 | Outpatient (CLI) | payer OTHER, SELFPAY ==
--- NOTE | 2018-05-09 16:01 | DI.US_ITS ---
SYMPTOM/DIAGNOSIS: INCREASED SCROTAL PAIN AND SWELLING, N50.82, N50.89 SCROTAL ULTRASOUND: 05/09/18 Scrotal ultrasound was performed according to the usual protocol. The testes are symmetrical in appearance with homogeneous echotexture and normal appearance on Doppler evaluation bilaterally. No intratesticular mass identified. There is a right hydrocele which is large. There is a large left hydrocele. The right hydrocele measures about 7.5 cm in greatest diameter and the left hydrocele measures about 6.1 cm in diameter. Some debris is noted in the left hydrocele and there are septations in the right hydrocele. There is a small left varicocele. CONCLUSION: Bilateral large hydroceles and left varicocele. No intratesticular mass.
== END 2018-05-09 17:19 ==
PROVIDERS: Visit Provider Nurse Practitioner Gerontology
DX: N50.82 Scrotal pain (principal); N50.89 Other specified disorders of the male genital organs; N43.2 Other hydrocele; I86.1 Scrotal varices
CPT/HCPCS: 99213; 76870

== ENCOUNTER 2018-05-16 10:34 | Emergency (ER) | payer MEDICARE, OTHER, SELFPAY ==
[2018-05-16 10:50] VITALS: BP 163/81; PULSE 65; RESP 16; TEMP 36.5; O2SAT 98
--- NOTE | 2018-05-16 11:17 | W.ED.GENAD ---
Discharge Plan Disposition Patient Disposition: HOME Condition: Good Discharge Details Chief Complaint: Urinary Clinical Impression: Urinary catheter (Tinsley) change required, Muscle strain Primary Care Provider: [facility] [place] Provider: Christofer Rojo Home Meds and New Rx's Prescriptions: New cyclobenzaprine 10 mg tablet 10 mg PO HS PRN (Reason: muscle spasm) Qty: 9 RF: 0 No Action oxybutynin chloride 5 mg tablet 5 mg PO .q8hrs PRN (Reason: bladder spasms) Qty: 10 RF: 0 amlodipine 5 mg tablet 5 mg PO DAILY RF: 0 lisinopril 2.5 mg tablet 2.5 mg PO DAILY RF: 0 simethicone 80 mg tablet 80 mg PO QID PRNRF: 0 mirabegron [Myrbetriq] 50 mg tablet extended release 24 hr 50 mg PO DAILY Qty: 30 RF: 11 tamsulosin [Flomax] 0.4 mg Capsule 0.4 mg PO DAILY RF: 0 Discharge Instructions Instructions: Muscle Strain (ED), Tinsley Catheter Placement and Care (ED) Referrals: [facility] Emergency Dept. [Outside] - Return if symptoms worsen Medical Decision Making Will ask nurse to flush the catheter if no success we will replace. Nurse did have to change the catheter. Patient tolerated well. I apprised him of the x-ray results. I will call him if the radiologist finds something I did not see. I prescribed flexeril for the the right the arm shoulder pain. Advised to take at night. Pt advised to return for for worsening symptoms. F/U with Dr. Rosado as previously scheduled. Imaging Data Radiologic Study: Attestation: I personally reviewed and interpreted this imaging study as follows: Imaging: X-Ray My impression: Normal chest and shoulder Radiologist's impression: PA CHEST AND RIGHT RIBS: PA chest and two views of the right ribs were obtained. The heart is not enlarged and the lungs are clear. No pneumothorax or pleural effusion is seen. No rib fracture identified. RIGHT SHOULDER: Four views were obtained. There are degenerative changes of the acromioclavicular and glenohumeral joints. There is no evidence of acute fracture or dislocation. HPI General Date/Time Provider Initiated Documentation: 05/16/18 10:58. Limitations to Documentation: no limitations. Information obtained by: patient and family. History of Present Illness 82 year old M presents to the emergency department with the chief complaint of blocked catheter and rib/axilla pain, described as mild, HPI Narrative: 82 y/o male here with concerns of blocked Tinsley catheter. He had a catheter placed three days ago at the [facility]. The catheter is not draining as well as it did when it was initially placed. concerned about urine leaking around the catheter. Denies any pain or fever. Has appointment with Dr. Rosado on Monday. He also c/o right axilla and shoulder pain. He describes mechanism of injury as reach above his head and feeling pull to tight rib/axilla. Related Data Home Medications Medication Instructions Recorded Confirmed tamsulosin [Flomax] 0.4 mg PO DAILY 02/28/18 05/16/18 mirabegron ER 50 mg 50 mg PO DAILY #30 tab 04/05/18 05/16/18 tablet,extended release 24 hr oxybutynin chloride 5 mg tablet 5 mg PO .q8hrs PRN #10 tab 04/09/18 05/16/18 amlodipine 5 mg tablet 5 mg PO DAILY 04/10/18 05/16/18 lisinopril 2.5 mg tablet 2.5 mg PO DAILY 04/10/18 05/16/18 simethicone 80 mg tablet 80 mg PO QID PRN 04/10/18 05/16/18 cyclobenzaprine 10 mg PO HS PRN #9 tab 05/16/18 05/16/18 Previous Rx's Medication Instructions Recorded mirabegron ER 50 mg 50 mg PO DAILY #30 tab 04/05/18 tablet,extended release 24 hr oxybutynin chloride 5 mg tablet 5 mg PO .q8hrs PRN #10 tab 04/09/18 cyclobenzaprine 10 mg PO HS PRN #9 tab 05/16/18 Allergies Allergy/AdvReac Type Severity Reaction Status Date / Time No Known Allergies Allergy Verified 05/16/18 10:52 General Stated Complaint: Urinary TINY: 3 Review of Systems Cardiovascular Reports system reviewed and no additional complaints, except as docu Respiratory Reports system reviewed and no additional complaints, except as docu Gastrointestinal Reports system reviewed and no additional complaints, except as docu Genitourinary Reports dysuria and Reports other (tinsley catheter clogged) Musculoskeletal Reports arthralgias (intermittent right axilla, chest wall and shoulder chronic. ) Hematologic/Lymphatic Reports system reviewed and no additional complaints, except as docu Exam Const General: cooperative, healthy appearing, comfortable and no acute distress Nutritional Appearance: underweight Orientation: alert, awake and oriented x3 HENMT Head: atraumatic Ears: external ears normal General nose exam: external nose normal Eyes General: appearance normal, both eyes and all related structures Neck Neck: normal visual inspection and full ROM Resp Effort & Inspection: normal respiratory effort Auscultation: clear to auscultation bilaterally Cardio Rate: regular rate Rhythm: regular rhythm GI Palpation: soft, no guarding and nontender Auscultation: normal bowel sounds General: bladder normal to inspection, bladder normal to palpation and No CVA tenderness Male General Exam: No inguinal lymphadenopathy Penis: normal penis, not erythematous and no swelling Meatus: meatus normal Scrotum: edematous (pt states it is better than usual. In scrotal sling ) bilaterally, not erythematous and no hydroceles Back/Spine/Pelvis Back: No no CVA tenderness, No CVA tenderness and No back tenderness Skin General skin exam: no rashes or lesions noted Neuro General: alert, awake, oriented x3 and gait normal Extrem General: normal to inspection, full ROM and normal capillary refill Psych Appearance: grossly normal Mental Status: mental status grossly normal Speech and Movement: speech and movement normal Mood: congruent mood Affect: normal affect Attitude: cooperative Thought Process: normal Thought Content: normal Insight: insight good Judgment: judgment good Course Vital Signs Temperature 36.5 C 05/16/18 10:50 Pulse 65 05/16/18 10:50 Respiratory Rate 16 05/16/18 10:50 Blood Pressure 163/81 H 05/16/18 10:50 Pulse Oximetry 98 05/16/18 10:50 Temperature 36.5 C 05/16/18 10:50 Temperature Source Skin 05/16/18 10:50 Pulse 65 05/16/18 10:50 Respiratory Rate 16 05/16/18 10:50 Respiratory Effort Non-Labored 05/16/18 10:50 Blood Pressure 163/81 H 05/16/18 10:50 Pulse Oximetry 98 05/16/18 10:50 Oxygen Delivery Method Room Air 05/16/18 10:50 Oxygen Flow Rate 0 05/16/18 10:50 Pain Level 0 05/16/18 10:50
--- NOTE | 2018-05-16 11:22 | ED.GENADUL_ITS ---
Discharge Plan Disposition Patient Disposition: HOME Condition: Good Discharge Details Chief Complaint: Urinary Clinical Impression: Urinary catheter (Tinsley) change required, Muscle strain Primary Care Provider: [place] Provider: Christofer Rojo Home Meds and New Rx's Prescriptions: New cyclobenzaprine 10 mg tablet 10 mg PO HS PRN (Reason: muscle spasm) Qty: 9 RF: 0 No Action oxybutynin chloride 5 mg tablet 5 mg PO .q8hrs PRN (Reason: bladder spasms) Qty: 10 RF: 0 amlodipine 5 mg tablet 5 mg PO DAILY RF: 0 lisinopril 2.5 mg tablet 2.5 mg PO DAILY RF: 0 simethicone 80 mg tablet 80 mg PO QID PRNRF: 0 mirabegron [Myrbetriq] 50 mg tablet extended release 24 hr 50 mg PO DAILY Qty: 30 RF: 11 tamsulosin [Flomax] 0.4 mg Capsule 0.4 mg PO DAILY RF: 0 Discharge Instructions Instructions: Muscle Strain (ED), Tinsley Catheter Placement and Care (ED) Referrals: [facility] Emergency Dept. [Outside] - Return if symptoms worsen Medical Decision Making Will ask nurse to flush the catheter if no success we will replace. Nurse did have to change the catheter. Patient tolerated well. I apprised him of the x-ray results. I will call him if the radiologist finds something I did not see. I prescribed flexeril for the the right the arm shoulder pain. Advised to take at night. Pt advised to return for for worsening symptoms. F/U with Dr. Rosado as previously scheduled. Imaging Data Radiologic Study: Attestation: I personally reviewed and interpreted this imaging study as follows: Imaging: X-Ray My impression: Normal chest and shoulder Radiologist's impression: PA CHEST AND RIGHT RIBS: PA chest and two views of the right ribs were obtained. The heart is not enlarged and the lungs are clear. No pneumothorax or pleural effusion is seen. No rib fracture identified. RIGHT SHOULDER: Four views were obtained. There are degenerative changes of the acromioclavicular and glenohumeral joints. There is no evidence of acute fracture or dislocation. HPI General Date/Time Provider Initiated Documentation: 05/16/18 10:58 . Limitations to Documentation: no limitations . Information obtained by: patient and family . History of Present Illness 82 year old M presents to the emergency department with the chief complaint of blocked catheter and rib/axilla pain, described as mild, HPI Narrative: 82 y/o male here with concerns of blocked Tinsley catheter. He had a catheter placed three days ago at the [facility]. The catheter is not draining as well as it did when it was initially placed. concerned about urine leaking around the catheter. Denies any pain or fever. Has appointment with Dr. Rosado on Monday. He also c/o right axilla and shoulder pain. He describes mechanism of injury as reach above his head and feeling pull to tight rib/axilla. Related Data Home Medications Medication Instructions Recorded Confirmed tamsulosin [Flomax] 0.4 mg PO DAILY 02/28/18 05/16/18 mirabegron ER 50 mg 50 mg PO DAILY #30 tab 04/05/18 05/16/18 tablet,extended release 24 hr oxybutynin chloride 5 mg tablet 5 mg PO .q8hrs PRN #10 tab 04/09/18 05/16/18 amlodipine 5 mg tablet 5 mg PO DAILY 04/10/18 05/16/18 lisinopril 2.5 mg tablet 2.5 mg PO DAILY 04/10/18 05/16/18 simethicone 80 mg tablet 80 mg PO QID PRN 04/10/18 05/16/18 cyclobenzaprine 10 mg PO HS PRN #9 tab 05/16/18 05/16/18 Previous Rx's Medication Instructions Recorded mirabegron ER 50 mg 50 mg PO DAILY #30 tab 04/05/18 tablet,extended release 24 hr oxybutynin chloride 5 mg tablet 5 mg PO .q8hrs PRN #10 tab 04/09/18 cyclobenzaprine 10 mg PO HS PRN #9 tab 05/16/18 Allergies Allergy/AdvReac Type Severity Reaction Status Date / Time No Known Allergies Allergy Verified 05/16/18 10:52 General Stated Complaint: Urinary TINY: 3 Review of Systems Cardiovascular Reports system reviewed and no additional complaints, except as docu Respiratory Reports system reviewed and no additional complaints, except as docu Gastrointestinal Reports system reviewed and no additional complaints, except as docu Genitourinary Reports dysuria and Reports other (tinsley catheter clogged) Musculoskeletal Reports arthralgias (intermittent right axilla, chest wall and shoulder chronic. ) Hematologic/Lymphatic Reports system reviewed and no additional complaints, except as docu Exam Const General: cooperative, healthy appearing, comfortable and no acute distress Nutritional Appearance: underweight Orientation: alert, awake and oriented x3 HENMT Head: atraumatic Ears: external ears normal General nose exam: external nose normal Eyes General: appearance normal, both eyes and all related structures Neck Neck: normal visual inspection and full ROM Resp Effort & Inspection: normal respiratory effort Auscultation: clear to auscultation bilaterally Cardio Rate: regular rate Rhythm: regular rhythm GI Palpation: soft, no guarding and nontender Auscultation: normal bowel sounds General: bladder normal to inspection, bladder normal to palpation and No CVA tenderness Male General Exam: No inguinal lymphadenopathy Penis: normal penis, not erythematous and no swelling Meatus: meatus normal Scrotum: edematous (pt states it is better than usual. In scrotal sling ) bilaterally, not erythematous and no hydroceles Back/Spine/Pelvis Back: No no CVA tenderness, No CVA tenderness and No back tenderness Skin General skin exam: no rashes or lesions noted Neuro General: alert, awake, oriented x3 and gait normal Extrem General: normal to inspection, full ROM and normal capillary refill Psych Appearance: grossly normal Mental Status: mental status grossly normal Speech and Movement: speech and movement normal Mood: congruent mood Affect: normal affect Attitude: cooperative Thought Process: normal Thought Content: normal Insight: insight good Judgment: judgment good Course Vital Signs Temperature 36.5 C 05/16/18 10:50 Pulse 65 05/16/18 10:50 Respiratory Rate 16 05/16/18 10:50 Blood Pressure 163/81 H 05/16/18 10:50 Pulse Oximetry 98 05/16/18 10:50 Temperature 36.5 C 05/16/18 10:50 Temperature Source Skin 05/16/18 10:50 Pulse 65 05/16/18 10:50 Respiratory Rate 16 05/16/18 10:50 Respiratory Effort Non-Labored 05/16/18 10:50 Blood Pressure 163/81 H 05/16/18 10:50 Pulse Oximetry 98 05/16/18 10:50 Oxygen Delivery Method Room Air 05/16/18 10:50 Oxygen Flow Rate 0 05/16/18 10:50 Pain Level 0 05/16/18 10:50
[2018-05-16] MEDS: Lidocaine 2% Jelly 11 ML SYR (11:45)
--- NOTE | 2018-05-16 13:40 | DI.RAD_ITS ---
SYMPTOM/DIAGNOSIS: PAIN AFTER FALL PA CHEST AND RIGHT RIBS: PA chest and two views of the right ribs were obtained. The heart is not enlarged and the lungs are clear. No pneumothorax or pleural effusion is seen. No rib fracture identified. RIGHT SHOULDER: Four views were obtained. There are degenerative changes of the acromioclavicular and glenohumeral joints. There is no evidence of acute fracture or dislocation.
[2018-05-16 14:30] VITALS: BP 143/74; PULSE 63; RESP 18; TEMP 36.7; O2SAT 97
== END 2018-05-16 14:38 | disposition home or self-care (01) ==
PROVIDERS: Emergency Provider Nurse Practitioner Family
DX: T83.098A Other mechanical complication of other urinary catheter, initial encounter (principal); S46.911A Strain of unspecified muscle, fascia and tendon at shoulder and upper arm level, right arm, initial encounter; R07.81 Pleurodynia; X50.3XXA Overexertion from repetitive movements, initial encounter
CPT/HCPCS: 51702; 99284; 71046; 71100; 73030

== ENCOUNTER 2018-05-16 18:58 | Emergency (ER) | payer OTHER, SELFPAY ==
[2018-05-16 19:04] VITALS: BP 136/78; PULSE 84; RESP 16; TEMP 36.5; O2SAT 98
[2018-05-16 19:38] LABS: Abs Immature Grans 0.02 k/cumm (0.0-0.09); Absolute Basophil Count 0.01 k/cumm (0.0-0.2); Absolute Eosinophil Count 0.05 k/cumm (0.0-0.7); Absolute Monocyte Count 0.52 k/cumm (0.11-0.7); Absolute Neutrophil Count 5.32 k/cumm (1.2-6.7); Basophils % 0.1; Eosinophils % 0.7; HCT 36.9 % (40.0-50.0); HGB 13.1 g/dL (13.5-17.5); Immature Grans % 0.3; Lymphocytes % 13.2; Mean Corp. HGB Concentration 35.5 g/dL (32.0-36.0); Mean Corpuscular Hemoglobin 30.2 pg (27.0-33.0); Mean Platelet Volume 9.9 fL (8.0-11.0); Monocytes % 7.6; Neutrophils % 78.1; Platelet Count 163 x1000/uL (130-400); RBC 4.34 m/cumm (4.50-6.00); RBC Distribution Width 12.7 % (11.8-14.1); White Blood Cell Count 6.82 k/cumm (4.4-10.8)
[2018-05-16 19:51] LABS: ALT 26 U/L (12-78); AST 20 U/L (15-37); Albumin 3.4 g/dL (3.4-5.0); Alkaline Phosphatase 68 U/L (46-116); Anion Gap 8.5 mmol/L (3-11); BUN 17 mg/dL (7-18); Bilirubin, Total 0.4 mg/dL (0.2-1.0); CO2 27.5 mmol/L (21.0-32.0); CREATININE 1.23 mg/dL (0.70-1.30); Calcium 8.7 mg/dL (8.5-10.1); Chloride 103 mmol/L (98-107); Estimated GFR 56.34 (mL/min/1.73m2); Glucose 119 mg/dL (70-100); Magnesium 2.1 mg/dL (1.8-2.4); Potassium 3.4 mmol/L (3.5-5.1); Sodium 139 mmol/L (136-145); Total Protein 6.6 g/dL (6.4-8.2)
--- NOTE | 2018-05-16 21:01 | W.ED.GENAD ---
Discharge Plan Disposition Patient Disposition: HOME Condition: Improving Discharge Details Chief Complaint: Urinary Clinical Impression: Bladder spasms, Complication of Bailey catheter Primary Care Provider: [place], [place] ED Provider: Kishor Rivera Home Meds and New Rx's Prescriptions: Continue oxybutynin chloride 5 mg tablet 5 mg PO .q8hrs PRN (Reason: bladder spasms) Qty: 10 RF: 0 amlodipine 5 mg tablet 5 mg PO DAILY RF: 0 lisinopril 2.5 mg tablet 2.5 mg PO DAILY RF: 0 simethicone 80 mg tablet 80 mg PO QID PRNRF: 0 mirabegron [Myrbetriq] 50 mg tablet extended release 24 hr 50 mg PO DAILY Qty: 30 RF: 11 cyclobenzaprine 10 mg tablet 10 mg PO HS PRN (Reason: muscle spasm) Qty: 9 RF: 0 tamsulosin [Flomax] 0.4 mg Capsule 0.4 mg PO DAILY RF: 0 Discharge Instructions Instructions: Bailey Catheter Placement and Care (ED) Additional Instructions: Return immediately to the emergency department for any new or significant worsening of symptoms otherwise keep your point with Dr. Rosado as scheduled for next week. Referrals: Rashel Rosado MD [ [facility] STAFF PHYSICIAN] - (As previous scheduled) Discharge Data Discharge Date/Time-TO BE ENTERED AT DEPARTURE: 05/16/18 22:52 Medical Decision Making Patient presenting to the emergency department for chief complaint of bladder spasms and low urine output. Patient reports that he was here earlier today and had catheter placed. Patient does state previous episodes of similar bladder spasms with catheter placement and low output. Patient reports when spasms occur at the urine leaks out around the catheter. There is scant amount of bloody urine noted in urine bag otherwise physical exam is unremarkable with no suprapubic tenderness, bilateral hydrocele is being cared for by Dr. Rosado, no other abdominal findings and patient overall well in appearance. Patient did take 10 mg of Flexeril for bladder spasms approximately 45 minutes prior to arrival which seems to have helped with the spasms. Given low urine output I do feel that labs are warranted but difficult to determine if this is more due to leaking of urine around catheter compared to into urine bag. Bedside ultrasound was utilized to attempt to visualize the bladder which does not look distended. Ordered member of technical staff to irrigate the bladder. Staff informed me that they were having a difficult time irrigating the bladder with an placed catheter to 3 Three-way catheter was ordered Review of labs is nondiagnostic. member of technical staff informed me that patient was still having difficulty with irrigating even with three-way catheter. Requested that patient change positions to see if it is more of a positional issue with the catheter. member of technical staff stated that this did not improve symptoms but when she decreased balloon size to 8ml patient having appropriate irrigation and flow. Irrigation was completely clear with no blood or clots noted. I feel that this is reassuring also given that labs were unremarkable I feel the patient can be safely discharged to keep his appointment with urology as scheduled for next week. Three-way catheter was left in place and inform patient to be very cautious about any movements as not to dislodge the catheter. After discussion of diagnosis and plan of care patient and family have no further needs, questions, or concerns and states clear understanding to return to the emergency department for any worsening symptoms. Lab Data Lab results reviewed: Yes I reviewed the patient's lab results. HPI General Mode of arrival: ambulatory. Date/Time Provider Initiated Documentation: 05/16/18 19:07. Limitations to Documentation: no limitations. Information obtained by: patient, family, RN notes reviewed and old records reviewed. History of Present Illness 82 year old M presents to the emergency department with the chief complaint of Bladder spasms/catheter not working, described as moderate and similar to prior episodes, Quality is described as sharp and other (No current discomfort), and is localized to the abdomen (Bladder). Patient reports no radiation. Patient started experiencing this day(s) (2) and it has been constant. Medication improves symptom(s), No exacerbating factors reported . Patient notes no other symptoms.. Patient did receive the following treatments prior to arrival, other (10 mg flexeril) Related Data Home Medications Medication Instructions Recorded Confirmed tamsulosin [Flomax] 0.4 mg PO DAILY 02/28/18 05/16/18 mirabegron ER 50 mg 50 mg PO DAILY #30 tab 04/05/18 05/16/18 tablet,extended release 24 hr oxybutynin chloride 5 mg tablet 5 mg PO .q8hrs PRN #10 tab 04/09/18 05/16/18 amlodipine 5 mg tablet 5 mg PO DAILY 04/10/18 05/16/18 lisinopril 2.5 mg tablet 2.5 mg PO DAILY 04/10/18 05/16/18 simethicone 80 mg tablet 80 mg PO QID PRN 04/10/18 05/16/18 cyclobenzaprine 10 mg PO HS PRN #9 tab 05/16/18 05/16/18 Previous Rx's Medication Instructions Recorded mirabegron ER 50 mg 50 mg PO DAILY #30 tab 04/05/18 tablet,extended release 24 hr oxybutynin chloride 5 mg tablet 5 mg PO .q8hrs PRN #10 tab 04/09/18 cyclobenzaprine 10 mg PO HS PRN #9 tab 05/16/18 Allergies Allergy/AdvReac Type Severity Reaction Status Date / Time No Known Allergies Allergy Verified 05/16/18 10:52 General Stated Complaint: Urinary TINY: 3 Review of Systems Constitutional Denies body ache(s), Denies chills, Denies fever(s), Denies malaise and Denies weakness Cardiovascular Denies chest pain Respiratory Reports system reviewed and no additional complaints, except as docu Gastrointestinal Denies abdominal pain, Denies nausea and Denies vomiting Genitourinary Reports as per HPI, Reports hematuria, Reports oliguria, Reports difficulty urinating, Reports dysuria and Reports scrotal swelling Neurologic Denies confusion and Denies weakness Psychiatric Denies confusion [facility] [place] Social History Smoking/Tobacco Use Status: Former Tobacco Use alcohol intake: former substance use type: does not use Exam Const General: cooperative and no acute distress Orientation: alert, awake and oriented x3 Resp Effort & Inspection: normal respiratory effort and able to speak in complete sentences GI Palpation: nontender Penis: normal penis and other Scrotum: hydrocele bilaterally Neuro General: alert, awake and oriented x3 Extrem General: normal capillary refill Course Vital Signs Temperature 36.5 C 05/16/18 19:04 Pulse 84 05/16/18 19:04 Respiratory Rate 16 05/16/18 19:04 Blood Pressure 136/78 05/16/18 19:04 Pulse Oximetry 98 05/16/18 19:04 Temperature 36.5 C 05/16/18 19:04 Temperature Source Skin 05/16/18 19:04 Pulse 84 05/16/18 19:04 Respiratory Rate 16 05/16/18 19:04 Blood Pressure 136/78 05/16/18 19:04 Blood Pressure Position Sitting 05/16/18 19:04 Pulse Oximetry 98 05/16/18 19:04 Oxygen Delivery Method Room Air 05/16/18 19:04 Oxygen Flow Rate 0 05/16/18 19:04 Lab/Test Results Lab/Test Results: Laboratory Tests Range/Units 05/16/18 05/16/18 19:30 19:30 WBC (4.4-10.8) k/cumm 6.82 RBC (4.50-6.00) m/cumm 4.34 L Hgb (13.5-17.5) g/dL 13.1 L Hct (40.0-50.0) % 36.9 L MCV (80-95) fL 85.0 MCH (27.0-33.0) pg 30.2 MCHC (32.0-36.0) g/dL 35.5 RDW (11.8-14.1) % 12.7 Plt Count (130-400) x1000/uL 163 MPV (8.0-11.0) fL 9.9 Immature Gran % 0.3 Neutrophils % 78.1 Lymphocytes % 13.2 Monocytes % 7.6 Eosinophils % 0.7 Basophils % 0.1 Absolute Neutrophils (1.2-6.7) k/cumm 5.32 Absolute Lymphocytes (1.2-3.4) k/cumm 0.90 L Absolute Monocytes (0.11-0.7) k/cumm 0.52 Absolute Eosinophils (0.0-0.7) k/cumm 0.05 Absolute Basophils (0.0-0.2) k/cumm 0.01 Sodium (136-145) mmol/L 139 Potassium (3.5-5.1) mmol/L 3.4 L Chloride (98-107) mmol/L 103 Carbon Dioxide (21.0-32.0) mmol/L 27.5 Anion Gap (3-11) mmol/L 8.5 BUN (7-18) mg/dL 17 Creatinine (0.70-1.30) mg/dL 1.23 Estimated GFR/1.73 m2 (mL/min/1.73m2) 56.34 Glucose (70-100) mg/dL 119 H Calcium (8.5-10.1) mg/dL 8.7 Magnesium (1.8-2.4) mg/dL 2.1 Total Bilirubin (0.2-1.0) mg/dL 0.4 AST (15-37) U/L 20 ALT (12-78) U/L 26 Alkaline Phosphatase (46-116) U/L 68 Total Protein (6.4-8.2) g/dL 6.6 Albumin (3.4-5.0) g/dL 3.4
--- NOTE | 2018-05-16 21:04 | ED.GENADUL_ITS ---
Discharge Plan Disposition Patient Disposition: HOME Condition: Improving Discharge Details Chief Complaint: Urinary Clinical Impression: Bladder spasms, Complication of Bailey catheter Primary Care Provider: [place] Provider: Kishor Rivera Home Meds and New Rx's Prescriptions: Continue oxybutynin chloride 5 mg tablet 5 mg PO .q8hrs PRN (Reason: bladder spasms) Qty: 10 RF: 0 amlodipine 5 mg tablet 5 mg PO DAILY RF: 0 lisinopril 2.5 mg tablet 2.5 mg PO DAILY RF: 0 simethicone 80 mg tablet 80 mg PO QID PRNRF: 0 mirabegron [Myrbetriq] 50 mg tablet extended release 24 hr 50 mg PO DAILY Qty: 30 RF: 11 cyclobenzaprine 10 mg tablet 10 mg PO HS PRN (Reason: muscle spasm) Qty: 9 RF: 0 tamsulosin [Flomax] 0.4 mg Capsule 0.4 mg PO DAILY RF: 0 Discharge Instructions Instructions: Bailey Catheter Placement and Care (ED) Additional Instructions: Return immediately to the emergency department for any new or significant worsening of symptoms otherwise keep your point with Dr. Rosado as scheduled for next week. Referrals: Rashel Rosado MD [ [facility] STAFF PHYSICIAN] - (As previous scheduled) Discharge Data Discharge Date/Time-TO BE ENTERED AT DEPARTURE: 05/16/18 22:52 Medical Decision Making Patient presenting to the emergency department for chief complaint of bladder spasms and low urine output. Patient reports that he was here earlier today and had catheter placed. Patient does state previous episodes of similar bladder spasms with catheter placement and low output. Patient reports when spasms occur at the urine leaks out around the catheter. There is scant amount of bloody urine noted in urine bag otherwise physical exam is unremarkable with no suprapubic tenderness, bilateral hydrocele is being cared for by Dr. Rosado, no other abdominal findings and patient overall well in appearance. Patient did take 10 mg of Flexeril for bladder spasms approximately 45 minutes prior to arrival which seems to have helped with the spasms. Given low urine output I do feel that labs are warranted but difficult to determine if this is more due to leaking of urine around catheter compared to into urine bag. Bedside ultrasound was utilized to attempt to visualize the bladder which does not look distended. Ordered staffing operations manager to irrigate the bladder. Staff informed me that they were having a difficult time irrigating the bladder with an placed catheter to 3 Three-way catheter was ordered Review of labs is nondiagnostic. staffing operations manager informed me that patient was still having difficulty with irrigating even with three-way catheter. Requested that patient change positions to see if it is more of a positional issue with the catheter. staffing operations manager stated that this did not improve symptoms but when she decreased balloon size to 8ml patient having appropriate irrigation and flow. Irrigation was completely clear with no blood or clots noted. I feel that this is reassuring also given that labs were unremarkable I feel the patient can be safely discharged to keep his appointment with urology as scheduled for next week. Three-way catheter was left in place and inform patient to be very cautious about any movements as not to dislodge the catheter. After discussion of diagnosis and plan of care patient and family have no further needs, questions, or concerns and states clear understanding to return to the emergency department for any worsening symptoms. Lab Data Lab results reviewed: Yes I reviewed the patient's lab results. HPI General Mode of arrival: ambulatory . Date/Time Provider Initiated Documentation: 05/16/18 19:07 . Limitations to Documentation: no limitations . Information obtained by: patient, family, RN notes reviewed and old records reviewed . History of Present Illness 82 year old M presents to the emergency department with the chief complaint of Bladder spasms/catheter not working, described as moderate and similar to prior episodes, Quality is described as sharp and other (No current discomfort ), and is localized to the abdomen (Bladder). Patient reports no radiation. Patient started experiencing this day(s) (2) and it has been constant. Medication improves symptom(s), No exacerbating factors reported . Patient notes no other symptoms.. Patient did receive the following treatments prior to arrival, other (10 mg flexeril) Related Data Home Medications Medication Instructions Recorded Confirmed tamsulosin [Flomax] 0.4 mg PO DAILY 02/28/18 05/16/18 mirabegron ER 50 mg 50 mg PO DAILY #30 tab 04/05/18 05/16/18 tablet,extended release 24 hr oxybutynin chloride 5 mg tablet 5 mg PO .q8hrs PRN #10 tab 04/09/18 05/16/18 amlodipine 5 mg tablet 5 mg PO DAILY 04/10/18 05/16/18 lisinopril 2.5 mg tablet 2.5 mg PO DAILY 04/10/18 05/16/18 simethicone 80 mg tablet 80 mg PO QID PRN 04/10/18 05/16/18 cyclobenzaprine 10 mg PO HS PRN #9 tab 05/16/18 05/16/18 Previous Rx's Medication Instructions Recorded mirabegron ER 50 mg 50 mg PO DAILY #30 tab 04/05/18 tablet,extended release 24 hr oxybutynin chloride 5 mg tablet 5 mg PO .q8hrs PRN #10 tab 04/09/18 cyclobenzaprine 10 mg PO HS PRN #9 tab 05/16/18 Allergies Allergy/AdvReac Type Severity Reaction Status Date / Time No Known Allergies Allergy Verified 05/16/18 10:52 General Stated Complaint: Urinary TINY: 3 Review of Systems Constitutional Denies body ache(s), Denies chills, Denies fever(s), Denies malaise and Denies weakness Cardiovascular Denies chest pain Respiratory Reports system reviewed and no additional complaints, except as docu Gastrointestinal Denies abdominal pain, Denies nausea and Denies vomiting Genitourinary Reports as per HPI, Reports hematuria, Reports oliguria, Reports difficulty urinating, Reports dysuria and Reports scrotal swelling Neurologic Denies confusion and Denies weakness Psychiatric Denies confusion [facility] Social History Smoking/Tobacco Use Status: Former Tobacco Use alcohol intake: former substance use type: does not use Exam Const General: cooperative and no acute distress Orientation: alert, awake and oriented x3 Resp Effort & Inspection: normal respiratory effort and able to speak in complete sentences GI Palpation: nontender Penis: normal penis and other Scrotum: hydrocele bilaterally Neuro General: alert, awake and oriented x3 Extrem General: normal capillary refill Course Vital Signs Temperature 36.5 C 05/16/18 19:04 Pulse 84 05/16/18 19:04 Respiratory Rate 16 05/16/18 19:04 Blood Pressure 136/78 05/16/18 19:04 Pulse Oximetry 98 05/16/18 19:04 Temperature 36.5 C 05/16/18 19:04 Temperature Source Skin 05/16/18 19:04 Pulse 84 05/16/18 19:04 Respiratory Rate 16 05/16/18 19:04 Blood Pressure 136/78 05/16/18 19:04 Blood Pressure Position Sitting 05/16/18 19:04 Pulse Oximetry 98 05/16/18 19:04 Oxygen Delivery Method Room Air 05/16/18 19:04 Oxygen Flow Rate 0 05/16/18 19:04 Lab/Test Results Lab/Test Results: Laboratory Tests Range/Units 05/16/18 05/16/18 19:30 19:30 WBC (4.4-10.8) k/cumm 6.82 RBC (4.50-6.00) m/cumm 4.34 L Hgb (13.5-17.5) g/dL 13.1 L Hct (40.0-50.0) % 36.9 L MCV (80-95) fL 85.0 MCH (27.0-33.0) pg 30.2 MCHC (32.0-36.0) g/dL 35.5 RDW (11.8-14.1) % 12.7 Plt Count (130-400) x1000/uL 163 MPV (8.0-11.0) fL 9.9 Immature Gran % 0.3 Neutrophils % 78.1 Lymphocytes % 13.2 Monocytes % 7.6 Eosinophils % 0.7 Basophils % 0.1 Absolute Neutrophils (1.2-6.7) k/cumm 5.32 Absolute Lymphocytes (1.2-3.4) k/cumm 0.90 L Absolute Monocytes (0.11-0.7) k/cumm 0.52 Absolute Eosinophils (0.0-0.7) k/cumm 0.05 Absolute Basophils (0.0-0.2) k/cumm 0.01 Sodium (136-145) mmol/L 139 Potassium (3.5-5.1) mmol/L 3.4 L Chloride (98-107) mmol/L 103 Carbon Dioxide (21.0-32.0) mmol/L 27.5 Anion Gap (3-11) mmol/L 8.5 BUN (7-18) mg/dL 17 Creatinine (0.70-1.30) mg/dL 1.23 Estimated GFR/1.73 m2 (mL/min/1.73m2) 56.34 Glucose (70-100) mg/dL 119 H Calcium (8.5-10.1) mg/dL 8.7 Magnesium (1.8-2.4) mg/dL 2.1 Total Bilirubin (0.2-1.0) mg/dL 0.4 AST (15-37) U/L 20 ALT (12-78) U/L 26 Alkaline Phosphatase (46-116) U/L 68 Total Protein (6.4-8.2) g/dL 6.6 Albumin (3.4-5.0) g/dL 3.4
[2018-05-16] MEDS: Lidocaine 2% Jelly 11 ML SYR (21:24)
== END 2018-05-16 22:51 | disposition home or self-care (01) ==
PROVIDERS: Emergency Provider Nurse Practitioner Family
DX: N32.89 Other specified disorders of bladder (principal); Z96.0 Presence of urogenital implants
CPT/HCPCS: 36415; 51702; 80053; 99283; 83735; 85025

== ENCOUNTER 2018-05-18 10:58 | Inpatient (IN) | payer OTHER, MEDICARE, SELFPAY ==
[2018-05-18 11:44] VITALS: BP 127/75; PULSE 81; RESP 16; TEMP 36.6; O2SAT 100
--- NOTE | 2018-05-18 12:44 | ED.GENADUL_ITS ---
Discharge Plan Disposition Patient Disposition: [facility] INPATIENT Condition: Improving Discharge Details Chief Complaint: Urinary Clinical Impression: Complication of Bailey catheter Admit Date/Time: 05/18/18 16:10 Admit Provider: Adam Harden Attending Provider: Adam Harden Primary Care Provider: [facility] [place] [place] ED Provider: Hugh Herron Discharge Instructions Additional Instructions: We were unable to confirm your appointment time with Dr Rosado today due to holiday hours in the operating room. May use oxybutynin as prescribed as well as B&O suppository as provided. Return to the ER for any acute concerns in the interim, otherwise please call Dr Rosado's office first thing Monday morning to confirm your appointment time. Medical Decision Making 82-year-old male with indwelling Bailey catheter and plans for outpatient cystoscopy on Monday with Dr. Rosado. He returns a transient obstruction of overflow incontinence of the catheter at home. Is not had a fever, back pain, vomiting. He states that he has otherwise recently been well. Bailey catheter flushed with no clear flow of urine. Bailey irrigated and seems somewhat positional and dependent on volume sufflation of balloon. Pt recently with lab analysis and do not feel it needs repeating. He has plans for outpatient followup with Dr Rosado on Monday (Cystoscopy per patient, but unable to view OR bookings). Screening urinalysis obtained and pt given B&O suppository. Patient reobstructed a number of times required placement of continuous bladder irrigation. He has ongoing bladder spasms. He will be unable to DC home. Discussed with Dr. Harden patient will be admitted for continuous bladder irrigation. As such, IV to be placed & will check basic chemistries. Patient noted good improvement with administration of Flexeril in the past and I will trial same in addition to the B and O suppository. HPI General Mode of arrival: ambulatory . Date/Time Provider Initiated Documentation: 05/18/18 11:04 . Limitations to Documentation: no limitations . Information obtained by: patient . History of Present Illness 82 year old M presents to the emergency department with the chief complaint of Recurrent Bailey catheter obstruction, described as moderate, Quality is described as aching and dull, and is localized to the abdomen and pelvis. and it has been intermittent. No relieving factors improve symptom(s), No exacerbating factors reported . Patient notes no other symptoms.. Related Data Home Medications Medication Instructions Recorded Confirmed tamsulosin [Flomax] 0.4 mg PO DAILY 02/28/18 05/18/18 mirabegron ER 50 mg 50 mg PO DAILY #30 tab 04/05/18 05/18/18 tablet,extended release 24 hr amlodipine 5 mg tablet 5 mg PO DAILY 04/10/18 05/18/18 lisinopril 2.5 mg tablet 2.5 mg PO DAILY 04/10/18 05/18/18 simethicone 80 mg tablet 80 mg PO QID PRN 04/10/18 05/18/18 cyclobenzaprine 10 mg PO HS PRN #9 tab 05/16/18 05/18/18 belladonna alkaloids-opium 1 supp [place] TID PRN #12 each 05/18/18 oxybutynin chloride 5 mg PO .q8hrs PRN #10 tab 05/18/18 Previous Rx's Medication Instructions Recorded mirabegron ER 50 mg 50 mg PO DAILY #30 tab 04/05/18 tablet,extended release 24 hr cyclobenzaprine 10 mg PO HS PRN #9 tab 05/16/18 belladonna alkaloids-opium 1 supp [place] TID PRN #12 each 05/18/18 oxybutynin chloride 5 mg PO .q8hrs PRN #10 tab 05/18/18 Allergies Allergy/AdvReac Type Severity Reaction Status Date / Time No Known Allergies Allergy Verified 05/18/18 11:49 General Stated Complaint: Urinary TINY: 4 Review of Systems Review of Systems For systems reviewed and otherwise negative PFSH Social History Smoking/Tobacco Use Status: Former Tobacco Use alcohol intake: former substance use type: does not use Exam Narrative Exam Narrative: GEN: awake, alert, oriented 3. Pleasant, well groomed, interactive. HEAD: Normocephalic, atraumatic ENT: Mucous membranes moist, oropharynx unremarkable, External ear exam unremarkable EYES: PERRL, EOMI NECK: Full ROM, no KRISTIAN, no menigismus CHEST/RESP: Nontender, clear to auscultation bilateral, no wheeze/rhonchi/rales CARDIOVASCULAR: RRR, no murmur, rub elias. 2+ Rad pulse bilateral ABDOMEN: Soft, nontender, no mass. +Bowel sounds, no distention. Bailey catheter in place. exam otherwise unremarkable. EXT: Full ROM, no edema, no rash Neuro: Grossly normal neurologic exam, conversant, interactive. Psych: Speech fluent, thoughts congruent, affect normal Course Vital Signs Temperature 36.6 C 05/18/18 11:44 Pulse 81 05/18/18 11:44 Respiratory Rate 16 05/18/18 11:44 Blood Pressure 127/75 05/18/18 11:44 Pulse Oximetry 100 05/18/18 11:44 Temperature 36.6 C 05/18/18 11:44 Temperature Source Skin 05/18/18 11:44 Pulse 81 05/18/18 11:44 Respiratory Rate 16 05/18/18 11:44 Respiratory Effort 05/18/18 11:50 Blood Pressure 127/75 05/18/18 11:44 Blood Pressure Position Sitting 05/18/18 11:44 Pulse Oximetry 100 05/18/18 11:44
[2018-05-18 15:16] LABS: Bilirubin Negative (Negative); Blood Large (Negative); Clarity Sl Cloudy; Glucose Negative (Negative); Ketones Negative (Negative); Leukocyte Esterase Trace (Negative); Nitrite Negative (Negative); Specific Gravity 1.015 (1.005-1.025); Urobilinogen 0.2 EU/dL (Up TO 0.2); pH 8.5 (5-8)
[2018-05-18 15:22] LABS: Bacteria Rare HPF (Negative); Casts Negative LPF (Negative); Crystals Negative HPF (Negative); Epithelial Cells Negative HPF (Negative); Mucus Negative (Negative); Other Cells Negative (Negative); RBC 20-50 (0-2)
[2018-05-18 15:24] LABS: WBC Negative HPF (0-5)
[2018-05-18] MEDS: Cyclobenzaprine 10 MG TAB PO ×2 (16:29→19:51)
[2018-05-18 16:41] VITALS: BP 127/75; PULSE 81; RESP 16; TEMP 36.6; O2SAT 100
[2018-05-18 16:46] LABS: Anion Gap 9.1 mmol/L (3-11); BUN 12 mg/dL (7-18); CO2 28.9 mmol/L (21.0-32.0); Calcium 9.1 mg/dL (8.5-10.1); Chloride 104 mmol/L (98-107); Glucose 107 mg/dL (70-100); Potassium 3.6 mmol/L (3.5-5.1); Sodium 142 mmol/L (136-145)
--- NOTE | 2018-05-18 17:11 | HPE_ITS ---
Date of service: 05/18/18 Time of Service: 17:09 Assessment and Plan (1) Hypertension: Current visit: Yes Status: Chronic blood pressures controlled, continue lisinopril and amlodipine (2) Hematuria: Current visit: Yes Status: Acute admit to med/surg. will continue [address] bladder irrigation. follow CBC, add INR. is scheduled for cystoscopy with Dr Rosado for MondayMay 21. continue pain management (3) BPH (benign prostatic hyperplasia): Current visit: Yes Status: Chronic has indwelling tinsley. History of Present Illness Chief Complaint: bladder spasms/hematuria Narrative: 82-year-old male with indwelling Tinsley catheter and plans for outpatient cystoscopy on Monday with Dr. Rosado. He returns a transient obstruction of overflow incontinence of the catheter at home. Is not had a fever, back pain, vomiting. He states that he has otherwise recently been well. Tinsley catheter flushed with no clear flow of urine. Tinsley irrigated and seems somewhat positional and dependent on volume sufflation of balloon. Was started on continuous irrigation in the ED with good light pink output. plan is to admit to med/surg for continuous bladder irrigation Review of Systems Review of Systems patient is a poor historian with baseline confusion/memory deficit. history obtained with assistance of daughter and All systems reviewed & are unremarkable except as noted in HPI and below Genitourinary Reports other (hematuria and bladder spasms) PFSH Social History Smoking/Tobacco Use Status: Former Tobacco Use alcohol intake: former substance use type: does not use Meds Home Medications Medication Instructions Recorded Confirmed Type tamsulosin [Flomax] 0.4 mg PO DAILY 02/28/18 05/18/18 History mirabegron ER 50 mg 50 mg PO DAILY #30 tab 04/05/18 05/18/18 Rx tablet,extended release 24 hr amlodipine 5 mg tablet 5 mg PO DAILY 04/10/18 05/18/18 History lisinopril 2.5 mg tablet 2.5 mg PO DAILY 04/10/18 05/18/18 History simethicone 80 mg tablet 80 mg PO QID PRN 04/10/18 05/18/18 History cyclobenzaprine 10 mg PO HS PRN #9 tab 05/16/18 05/18/18 Rx belladonna alkaloids-opium 1 supp [place] TID PRN #12 each 05/18/18 Rx oxybutynin chloride 5 mg PO .q8hrs PRN #10 tab 05/18/18 Rx Allergies Allergy/AdvReac Type Severity Reaction Status Date / Time No Known Allergies Allergy Verified 05/18/18 11:49 Exam Const General: cooperative, in distress mild (with spasms) and frail appearing Nutritional Appearance: thin Orientation: alert, oriented to person and confused (family reports baseline) HENMT Head: normal to inspection and atraumatic GI Inspection: normal to inspection and distended Palpation: guarding and tender Other: [address] tinsley catheter with pink tinged drainage on irrigation Neuro Cognition: abnormal cognition (memory impairment and confusion at times at baseline) Speech: speech normal Extrem General: normal to inspection, full ROM and no pedal edema Results Labs : 05/19/18 05:31 05/19/18 05:31 Laboratory Results - last 24 hr 05/18/18 05/18/18 15:05 16:33 Sodium 142 Potassium 3.6 Chloride 104 Carbon Dioxide 28.9 Anion Gap 9.1 BUN 12 Creatinine 1.00 Estimated GFR/1.73 m2 >= 60.00 Glucose 107 H Calcium 9.1 Urine Color [place] Urine Clarity Sl cloudy Urine pH 8.5 H Ur Specific [place] 1.015 Urine Protein 100 H Urine Ketones Negative Urine Blood Large H Urine Nitrite Negative Urine Bilirubin Negative Urine Urobilinogen 0.2 Ur Leukocyte Esterase Trace H Urine RBC 20-50 H Urine WBC Negative Ur Epithelial Cells Negative Urine Crystals Negative Urine Bacteria Rare Urine Casts Negative Urine Mucus Negative Urine Other Negative Ur Culture Indicated? No Urine Glucose Negative Last Vital Signs Temp 36.6 C 05/18/18 16:41 Pulse 81 05/18/18 16:41 Resp 16 05/18/18 16:41 BP 127/75 05/18/18 16:41 Pulse Ox 100 05/18/18 16:41
[2018-05-18 17:37] VITALS: BP 129/79; PULSE 73; RESP 18; TEMP 37; O2SAT 98
--- NOTE | 2018-05-18 19:01 | NUR.NOTE ---
Nursing Note: Patients urinary cath. was found to be clotted off. If was flushed at this time with normal saline multiple times. Large clots were removed. When the Cath. was not being flushed it would clot off. This prompted the order for continuous bladder irrigation.
[2018-05-18] MEDS: Oxybutynin 5 MG TAB PO (19:49)
[2018-05-18 19:56] VITALS: BP 146/83; PULSE 74; RESP 18; TEMP 36.5; O2SAT 99
[2018-05-18] MEDS: Normal Saline Flush 10 ML SYR IVP (22:20)
[2018-05-19] VITALS (9 sets, daily range): BP systolic 109–171; BP diastolic 67–92; PULSE 64–98; RESP 16–19; TEMP 36–37.3; O2SAT 97–100
[2018-05-19 00:14] LABS: C & S Indicated? Yes
[2018-05-19] MEDS: Normal Saline Flush 10 ML SYR IVP ×2 (03:35→08:41)
[2018-05-19 05:53] LABS: Abs Immature Grans 0.01 k/cumm (0.0-0.09); Absolute Basophil Count 0.01 k/cumm (0.0-0.2); Absolute Eosinophil Count 0.09 k/cumm (0.0-0.7); Absolute Lymphocyte Count 1.24 k/cumm (1.2-3.4); Absolute Monocyte Count 0.44 k/cumm (0.11-0.7); Absolute Neutrophil Count 3.37 k/cumm (1.2-6.7); Basophils % 0.2; Eosinophils % 1.7; HCT 40.3 % (40.0-50.0); Immature Grans % 0.2; Mean Corp. HGB Concentration 34.7 g/dL (32.0-36.0); Mean Corpuscular Hemoglobin 29.9 pg (27.0-33.0); Mean Corpuscular Volume 86.1 fL (80-95); Mean Platelet Volume 9.8 fL (8.0-11.0); Monocytes % 8.5; Neutrophils % 65.4; Platelet Count 166 x1000/uL (130-400); RBC 4.68 m/cumm (4.50-6.00); RBC Distribution Width 12.7 % (11.8-14.1); White Blood Cell Count 5.16 k/cumm (4.4-10.8)
[2018-05-19 05:58] LABS: Anion Gap 8.3 mmol/L (3-11); BUN 14 mg/dL (7-18); CO2 30.7 mmol/L (21.0-32.0); CREATININE 1.11 mg/dL (0.70-1.30); Calcium 8.8 mg/dL (8.5-10.1); Chloride 104 mmol/L (98-107); Glucose 87 mg/dL (70-100); Potassium 3.8 mmol/L (3.5-5.1); Sodium 143 mmol/L (136-145)
[2018-05-19 06:01] LABS: Prothrombin Time 9.6 sec (9.3-10.8)
--- NOTE | 2018-05-19 08:24 | PDOC.CMIN ---
- If Service Date Differs Date of service: 05/19/18 Time of Service: 08:24 Care Management Initial Assess REASON FOR HOSPITALIZATION:: Hematuria, BPH, hypertension PAST MEDICAL HISTORY/PAST SURGICAL HISTORY:: Alzheimer's disease, malignant neoplasm of the colon, hypertension, BPH, constipation, hearing loss PREVIOUS FUNCTIONAL STATUS/SOCIAL/FAMILY SUPPORTS:: Igor lives at home with his Tila in [place], [place]. He has 3 children that live locally. 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 We will and was in the , his spouse reports that he is not service connected. He does receive his primary care at [facility]. CURRENT FUNCTIONAL STATUS:: Igor is sitting up in bed his spouse and son Adam are present during CM assessment.Igor has a CBI in place for constant bladder irrigation, and a tinsley cath. Igor is kind and engaged, he appears confused at times. Igor did have an unwitnessed fall today, he reports he hit his head. Family is present and express frustration that he fell. CM did contact Igor's daughter Mariam and report of the fall. Nursing bulk plant supervisor is currently looking for a one-on-one to sit with Pt at the bedside. Provider has been made aware and is in to evaluate patient. CM spoke with daughter Mariam she would like a palliative consult while he is inpatient. CM to request from provider palliative consult with Dr. Person only ADVANCE DIRECTIVES:: On file at [facility] Has patient been provided with information about the portal?: Yes Did the patient sign up for the portal?: No CODE STATUS:: Full Code INSURANCE COVERAGE / FINANCIAL ISSUES:: [place] CURRENT HOME/COMMUNITY SERVICES/EQUIPMENT:: Palliative care referral from previous ED visit with Dr. Person. PRIMARY CARE PHYSICIAN:: [facility], POTENTIAL DISCHARGE NEEDS:: Follow up scheduled with chintan coley at the DC and with PATIENT/FAMILY EDUCATION NEEDS:: Discharge education, limitations and follow up plan of care. ANTICIPATED BARRIERS TO DISCHARGE:: None identified. TRANSPORTATION:: Via family at time of discharge. PLAN:: Igor will remain inpatient today he will discharge home when medically ready per provider. He is scheduled to have a cystoscopy on Monday with . Igor will have a CAT scan today related to his fall in the room. Igor to have a palliative consult while inpatient, CM to contact Dr. Person for palliative care. Anticipation of guidance and care and decision-making. CM to continue to provide support to patient, family, care team ongoing discharge planning and disposition.
[2018-05-19] MEDS: Mirabegron 50 MG TABCR PO (08:40)
[2018-05-19] MEDS: Oxybutynin 5 MG TAB PO ×3 (08:40→19:19)
[2018-05-19] MEDS: Lisinopril 5 MG TAB 2.5 MG PO (08:40)
[2018-05-19] MEDS: amLODIPine 5 MG TAB PO (08:41)
[2018-05-19] MEDS: Tamsulosin 0.4 MG CAPCR PO (08:44)
[2018-05-19] MEDS: Magnesium Oxide 400 MG TAB PO (09:08)
[2018-05-19] MEDS: Potassium Chloride 20 MEQ TABCR PO (09:11)
--- NOTE | 2018-05-19 11:40 | DI.CT_ITS ---
SYMPTOM/DIAGNOSIS: FALL INJURY, STRUCK BACK OF HEAD NONCONTRAST HEAD CT: No intracranial hemorrhage or skull fracture is seen. There is mild atrophy consistent with the patient's age. The ventricles are normal in size No mass or infarct is seen. The sinuses and mastoid air cells are unremarkable. IMPRESSION: negative head CT. CT CERVICAL SPINE: There is no evidence of fracture or subluxation. There are mild degenerative disc changes. There are degenerative changes at the anterior arch of C1 with the odontoid. IMPRESSION: No acute abnormality.
--- NOTE | 2018-05-19 12:18 | DI.VRAD_ITS ---
EXAM: CT Head Without Intravenous Contrast EXAM DATE/TIME: 05/19/2018 10:22 AM CLINICAL HISTORY: 82 years old, male; Injury or trauma; Fall; Initial encounter; Blunt trauma (contusions or hematomas); Consciousness not specified; Injury date: Unknown; Injury details: Blunt trauma to posterior skull after fall. TECHNIQUE: Axial computed tomography images of the head/brain without intravenous contrast. All CT scans at this facility use at least one of these dose optimization techniques: automated exposure control; mA and/or kV adjustment per patient size (includes targeted exams where dose is matched to clinical indication); or iterative reconstruction. Coronal and sagittal reformatted images were created and reviewed. COMPARISON: No relevant prior studies available. FINDINGS: Diffuse atrophy. Chronic white matter changes of probable small vessel disease. No evidence of hemorrhage. No mass effect. No acute intracranial abnormality. No evidence of acute fracture. IMPRESSION: No evidence of acute intracranial process. EXAM: CT Cervical Spine Without Intravenous Contrast EXAM DATE/TIME: 05/19/2018 10:22 AM CLINICAL HISTORY: 82 years old, male; Injury or trauma; Fall; Initial encounter; Blunt trauma (contusions or hematomas); Consciousness not specified; Injury date: Unknown; Injury details: Blunt trauma to posterior skull after fall. TECHNIQUE: Axial computed tomography images of the cervical spine without intravenous contrast. All CT scans at this facility use at least one of these dose optimization techniques: automated exposure control; mA and/or kV adjustment per patient size (includes targeted exams where dose is matched to clinical indication); or iterative reconstruction. Coronal and sagittal reformatted images were created and reviewed. COMPARISON: No relevant prior studies available. FINDINGS: Minimal degenerative disc and facet disease is well within normal limits for the patient's age. No focal subluxation. No acute fracture. Paraspinous soft tissues unremarkable for age. Mild chronic lung disease at the lung apices. IMPRESSION: No evidence of acute bony injury. Dictated and Authenticated by: Victorino Suarez MD. Ordering:MAYURI CHAMBERS MD
--- NOTE | 2018-05-19 12:36 | PHARADMIT ---
Addendum entered by Mario Alberto Flynn III 05/24/18 15:32: Pharmacy Note Subjective H&H down, fears may be bleeding somewhere (Stool neg). Bladder irrigation showed no further bleeding. Patient continues to require restraint and cadre, Seroquel helpful. Objective VS-OK Lytes, SCr,WBC- OK Plts-115 H&H-8.7/25.2 BM yesterday. Assessment Urine culture from yesterday shows no growth. Rocephin ccontinues Plan Continued delirium, MD unsure if it is from Anesthia, Narcotic, constipation history of dementia. Roberto delarosa Original Note: Addendum entered by Margaret Zabala 05/23/18 14:47: Pharmacy Note Subjective Family planning on having him go home on hospice at this time, with primary diagnosis vascular dementia with behavioral disturbance with the suprapubic catheter in place Objective no labs today, BC and UC ordered today Assessment ceftriaxone IV started Plan BC, UC results Original Note: Addendum entered by Mario Alberto Flynn III 05/22/18 14:19: Pharmacy Note Subjective Went to OR today, with , for clot evacuation and suprapubic catheter. Patient has dementia and was reported to be combative overnight. suspects he is and has ordered some Seroquel. Objective VS-OK No Labs FSBS-[address]Dixon spence'preet Flomax & Oxybutinin and ordered Proscar Plan Had Palliative Consult with and family to discuss future disposition Original Note: Addendum entered by Claudine Johnston 05/21/18 17:15: Pharmacy Note Subjective currently has continuous bladder irrigation Objective VS okay, no labs Assessment no med changes cefazolin ordered preop for tomorrow Plan cystoscopy tomorrow and possibly bilateral hydrocelectomy Original Note: Admission Pharmacy Clinical Review problem list: hypertension,hematuria,BPH Code Status Full Code Current Weight 48.081 kg Renally Cleared and Narrow Therapeutic Index Meds crcl ~35ml/min QTc Value / Action Taken na BP Control, Fever 120/68 afebrile Electrolytes reviewed ok DVT Prophylaxis no Opiate Usage / Scheduled Bowel Regimen Order prn/no Plt/SCr for Heparin / Enoxaparin 166/1.11 INR for Warfarin 1.0 not on warfarin H/H stable, WBC/Bands 14.0/40.3 wbc 5.16 Antibiotic appropriateness na Cultures and Sensitivities na Surgical ABX d/c within 24 hr na DM control / Insulin Dosing na Heart Failure (Check EF%) (HELENA's, B-Block, Diuretics) na IV to PO Switch all meds PO Home Meds Reviewed Home Meds Not Ordered all ordered Comments pt had fall , CT ordered, cytoscopy with Dr Rosado scheduled for Monday
--- NOTE | 2018-05-19 15:11 | W.PM.PROGNOT ---
Documented by User: Maris Bernabe NP 05/19/18 15:47 Date of Service Date of service: 05/19/18 Time of Service: 13:00 Assessment and Plan (1) Hypertension: Current visit: Yes Status: Chronic blood pressures controlled, continue lisinopril and amlodipine and monitor (2) Hematuria: Current visit: Yes Status: Acute admit to med/surg. will continue 3 way bladder irrigation, no further bleeding noted. follow CBC, add INR. is scheduled for cystoscopy with Dr Rosado for MondayMay 21. continue pain management (3) BPH (benign prostatic hyperplasia): Current visit: Yes Status: Chronic has indwelling tinsley. urology consult (4) Discharge planning issues: Current visit: Yes Status: Acute plan to discharge home if medically stable. case management following. (5) Delirium: Current visit: Yes Status: Acute safety and fall precautions. can use haldol if needed. Subjective Patient reports: no new complaints Interval history since last seen: this is a 82-year-old male patient who was admitted to medical surgical unit yesterday from the emergency department after he returned again to the emergency department with a obstructed Tinsley catheter due to blood clots and bleeding. He did require a Tinsley changed last evening as they were unable to get urine return. He has been receiving continuous bladder irrigations with no further obstruction. He has been afebrile and hemodynamically stable. This morning he was found on the floor at the side of his bed. Unable to provide us history surrounding his unwitnessed event due to his underlying dementia. Head and neck CT showed no acute findings or injury. He is currently denying any complaints he has full range of motion to all his extremities found to have an abrasion/hematoma to his left elbow and a small area of ecchymosis to his right elbow. No other obvious signs of trauma or injury appreciated. This afternoon he is noted to be more confused than his baseline. Oriented to person only. He has been pleasant and cooperative. Exam Const General: cooperative, comfortable and no acute distress Orientation: alert, awake, not oriented x3, oriented to person, not oriented to place, not oriented to time and confused Limitations: other limitations (Days before stuff just slowly doingIs adementia asked a bunch of questions) Resp Effort & Inspection: normal respiratory effort Auscultation: clear to auscultation bilaterally Cardio Rate: regular rate Rhythm: regular rhythm GI Inspection: normal to inspection Palpation: guarding Auscultation: normal bowel sounds Other: tinsley catheter intact maintained on 3 way irrigation, draining pale clear yellow returns, no further clotting or hematuria observed. Skin General skin exam: ecchymosis (right elbow, left elbow) Lesions: lesion noted (left elbow, ulnar aspect- abrasion and hematoma) Neuro General: alert and awake Cognition: abnormal cognition (demented with acute delirium) Speech: speech normal Motor: muscle tone normal throughout Extrem General: normal to inspection, full ROM and no pedal edema Objective Objective Clinical Data: Abnormal lab results 05/18/18 05/18/18 Range/Units 15:05 16:33 Glucose 107 H (70-100) mg/dL Urine pH 8.5 H (5-8) Urine Protein 100 H (Negative) mg/dL Urine Blood Large H (Negative) Ur Leukocyte Esterase Trace H (Negative) Urine RBC 20-50 H (0-2) Vital Signs Temperature 37.2 C 05/19/18 13:45 Temperature Source Temporal Artery Scan 05/19/18 13:45 Pulse 76 05/19/18 13:45 Pulse Rhythm Regular 05/19/18 08:40 Respiratory Rate 18 05/19/18 13:45 Respiratory Effort Non-Labored 05/19/18 08:40 Respiratory Depth Normal 05/19/18 08:40 Respiratory Pattern Normal 05/19/18 08:40 Blood Pressure 159/92 H 05/19/18 13:45 Blood Pressure Position Sitting 05/18/18 11:44 Pulse Oximetry 98 05/19/18 13:45 Oxygen Delivery Method Room Air 05/19/18 13:45 Oxygen Flow Rate 0 05/19/18 13:45 Pain Level 0 05/19/18 11:30 Comment 05/19/18 08:30 Intake & Output 05/18/18 05/19/18 05/19/18 23:59 11:59 23:59 Intake Total 100 / 100 110 / 110 Balance 100 / 100 110 / 110 Weight 48.081 kg Intake: IV Oral 100 / 100 100 / 100 Other: Urine Color [place] Pale Yellow Urine Appearance Hematuria Clear Clots Comment tinsley changed by machinery repair maintenance supervisor on floor previous tinsley clotted off, attempts by this nurse and machinery repair maintenance supervisor to restore flow were not successful. Hospitalist attemp[desiree to seek bed at [facility] [place] but o a bed was not available, she suggested tinsley to be changed. Suoervisor used a 3 way 24 fr and changed it using sterile technique, flow was restored and has been maintained since draining clear fluid Laboratory Results WBC 5.16 k/cumm (4.4-10.8) 05/19/18 05:31 RBC 4.68 m/cumm (4.50-6.00) 05/19/18 05:31 Hgb 14.0 g/dL (13.5-17.5) 05/19/18 05:31 Hct 40.3 % (40.0-50.0) 05/19/18 05:31 MCV 86.1 fL (80-95) 05/19/18 05:31 MCH 29.9 pg (27.0-33.0) 05/19/18 05:31 MCHC 34.7 g/dL (32.0-36.0) 05/19/18 05:31 RDW 12.7 % (11.8-14.1) 05/19/18 05:31 Plt Count 166 x1000/uL (130-400) 05/19/18 05:31 MPV 9.8 fL (8.0-11.0) 05/19/18 05:31 Immature Gran % 0.2 05/19/18 05:31 Neutrophils % 65.4 05/19/18 05:31 Lymphocytes % 24.0 05/19/18 05:31 Monocytes % 8.5 05/19/18 05:31 Eosinophils % 1.7 05/19/18 05:31 Basophils % 0.2 05/19/18 05:31 Absolute Neutrophils 3.37 k/cumm (1.2-6.7) 05/19/18 05:31 Absolute Lymphocytes 1.24 k/cumm (1.2-3.4) 05/19/18 05:31 Absolute Monocytes 0.44 k/cumm (0.11-0.7) 05/19/18 05:31 Absolute Eosinophils 0.09 k/cumm (0.0-0.7) 05/19/18 05:31 Absolute Basophils 0.01 k/cumm (0.0-0.2) 05/19/18 05:31 PT 9.6 sec (9.3-10.8) 05/19/18 05:31 INR 1.0 (1.0-3.5) 05/19/18 05:31 Sodium 143 mmol/L (136-145) 05/19/18 05:31 Potassium 3.8 mmol/L (3.5-5.1) 05/19/18 05:31 Chloride 104 mmol/L (98-107) 05/19/18 05:31 Carbon Dioxide 30.7 mmol/L (21.0-32.0) 05/19/18 05:31 Anion Gap 8.3 mmol/L (3-11) 05/19/18 05:31 BUN 14 mg/dL (7-18) 05/19/18 05:31 Creatinine 1.11 mg/dL (0.70-1.30) 05/19/18 05:31 Estimated GFR/1.73 m2 >= 60.00 (mL/min/1.73m2) 05/19/18 05:31 Glucose 87 mg/dL (70-100) 05/19/18 05:31 Calcium 8.8 mg/dL (8.5-10.1) 05/19/18 05:31 Urine Color [place] (Yellow) 05/18/18 15:05 Urine Clarity Sl cloudy 05/18/18 15:05 Urine pH 8.5 (5-8) H 05/18/18 15:05 Ur Specific [place] 1.015 (1.005-1.025) 05/18/18 15:05 Urine Protein 100 mg/dL (Negative) H 05/18/18 15:05 Urine Ketones Negative mg/dL (Negative) 05/18/18 15:05 Urine Blood Large (Negative) H 05/18/18 15:05 Urine Nitrite Negative (Negative) 05/18/18 15:05 Urine Bilirubin Negative (Negative) 05/18/18 15:05 Urine Urobilinogen 0.2 EU/dL (Up TO 0.2) 05/18/18 15:05 Ur Leukocyte Esterase Trace (Negative) H 05/18/18 15:05 Urine RBC 20-50 (0-2) H 05/18/18 15:05 Urine WBC Negative HPF (0-5) 05/18/18 15:05 Ur Epithelial Cells Negative HPF (Negative) 05/18/18 15:05 Urine Crystals Negative HPF (Negative) 05/18/18 15:05 Urine Bacteria Rare HPF (Negative) 05/18/18 15:05 Urine Casts Negative LPF (Negative) 05/18/18 15:05 Urine Mucus Negative (Negative) 05/18/18 15:05 Urine Other Negative (Negative) 05/18/18 15:05 Ur Culture Indicated? Yes 05/18/18 15:05 Urine Glucose Negative mg/dL (Negative) 05/18/18 15:05
[2018-05-19] MEDS: Melatonin 3 MG TAB PO (21:20)
[2018-05-19] MEDS: Cyclobenzaprine 10 MG TAB PO (23:27)
[2018-05-20] MEDS: Acetaminophen 325 MG TAB 650 MG PO ×2 (01:46→19:40)
[2018-05-20 04:28] VITALS: BP 121/80; PULSE 75; RESP 18; TEMP 37; O2SAT 98
[2018-05-20] MEDS: Phenazopyridine 200 MG TAB PO ×2 (04:58→18:09)
[2018-05-20 05:58] LABS: Abs Immature Grans 0.01 k/cumm (0.0-0.09); Absolute Basophil Count 0.01 k/cumm (0.0-0.2); Absolute Eosinophil Count 0.06 k/cumm (0.0-0.7); Absolute Lymphocyte Count 0.81 k/cumm (1.2-3.4); Absolute Monocyte Count 0.55 k/cumm (0.11-0.7); Absolute Neutrophil Count 4.62 k/cumm (1.2-6.7); Basophils % 0.2; HCT 37.7 % (40.0-50.0); HGB 13.4 g/dL (13.5-17.5); Immature Grans % 0.2; Lymphocytes % 13.4; Mean Corp. HGB Concentration 35.5 g/dL (32.0-36.0); Mean Corpuscular Volume 84.3 fL (80-95); Mean Platelet Volume 9.1 fL (8.0-11.0); Monocytes % 9.1; Neutrophils % 76.1; Platelet Count 165 x1000/uL (130-400); RBC 4.47 m/cumm (4.50-6.00); RBC Distribution Width 12.3 % (11.8-14.1); White Blood Cell Count 6.06 k/cumm (4.4-10.8)
[2018-05-20 06:02] LABS: Anion Gap 7.8 mmol/L (3-11); BUN 15 mg/dL (7-18); CO2 29.2 mmol/L (21.0-32.0); CREATININE 1.17 mg/dL (0.70-1.30); Calcium 8.8 mg/dL (8.5-10.1); Chloride 102 mmol/L (98-107); Estimated GFR 59.68 (mL/min/1.73m2); Glucose 101 mg/dL (70-100); Potassium 3.8 mmol/L (3.5-5.1); Sodium 139 mmol/L (136-145)
[2018-05-20 07:34] VITALS: BP 152/80; PULSE 82; RESP 18; TEMP 36.1; O2SAT 98
[2018-05-20] MEDS: Lisinopril 5 MG TAB 2.5 MG PO (07:39)
[2018-05-20] MEDS: amLODIPine 5 MG TAB PO (07:39)
[2018-05-20] MEDS: Mirabegron 50 MG TABCR PO (07:39)
[2018-05-20] MEDS: Tamsulosin 0.4 MG CAPCR PO (07:39)
[2018-05-20] MEDS: Oxybutynin 5 MG TAB PO ×3 (07:39→19:40)
[2018-05-20] MEDS: Magnesium Oxide 400 MG TAB PO (09:00)
--- NOTE | 2018-05-20 10:01 | PDOC.CMPRO ---
- If Service Date Differs Date of service: 05/20/18 Time of Service: 10:01 Care Management Progress Note S/O: CM met with family and patient at the bedside, Igor continues to be confused and requires a one on one patient observer. He will have a palliative consult with today and his family. Igor has a urology consult with plan for Cystoscope on Monday which was originally scheduled for Monday per report. He continues to have continuos bladder irrigation, per report he was having spasms over night after the irrigation was decreased and his urine became dark again. No changes in status today. Family does plan to take Igor home at time of discharge. Anticipate he will discharged over the next 48 hours with continue follow up with Palliative services and follow up with primary care and . He has a history of straight cath at home and currently has a chronic tinsley in place. A: Igor is a 82 year old male admitted with hematuria, BPH and hypertension with chronic tinsley P: Igor will have no change in status today he is currently awaiting Urology consult for procedure on Monday. Anticipate he will discharged over the next 48 hours with continue follow up with Palliative services and follow up with primary care and . He has a history of straight cath at home and currently has a chronic tinsley in place. Family will transport Igor home at time of discharge.
[2018-05-20 11:47] VITALS: BP 116/75; PULSE 71; RESP 17; TEMP 36.9; O2SAT 96
--- NOTE | 2018-05-20 12:46 | W.PM.PROGNOT ---
Date of Service Date of service: 05/20/18 Time of Service: 12:46 Assessment and Plan (1) Hematuria: Current visit: Yes Status: Acute Currently on Continuous Bladder Irrigation, with no further bleeding noted. Continue to monitor Hgb. Reinitiated patient's Myrbetriq due to noted spasms. Urology consultation scheduled for MondayMay 21. (2) Hypertension: Current visit: Yes Status: Chronic Continue HELENA-I and CCB. (3) BPH (benign prostatic hyperplasia): Current visit: Yes Status: Chronic Chronic Tinsley Catheter. Per discussion, if easier for patient's ultimate care family is interested in Suprapubic Catheter and other such procedures in a palliative sense. Will defer ultimate decision to Urology. (4) Delirium: Current visit: Yes Status: Acute Acute delirium in the setting of hospitalization, administration of narcotics in ED, discomfort, and constipation. No further narcotics on board. Bowel regimen initiated. No evidence of infection, and CT Head without significant acute abnormalities. Appears somewhat improved today, but remains away from baseline. Continue fall precautions. Minimal dose Haloperidol if needed. (5) Advance directive discussed with patient: Current visit: Yes Status: Acute DNR/DNI per discussion with Palliative Care. Subjective Patient reports: no new complaints Interval history since last seen: 82-year-old man admitted on 05/18 from [facility] Emergency Department with an obstructed Tinsley catheter due to blood clots and bleeding. Patient remains on CBI without any further evidence of obstruction, clots, or hematuria. Awaiting Urology evaluation. He continues to be afebrile and hemodynamically stable but still confused worse than his baseline dementia. on 05/19 he was found on the floor at the side of his bed. Unable to provide us history surrounding his unwitnessed event due to his underlying dementia. Head and neck CT were performed and showed no acute findings or injury, and other than an abrasion to his left elbow and a small area of ecchymosis to his right elbow no signs of injury were found. Patient's urinalysis showed no evidence of infection. He has complained of spasms and discomfort from the tinsley cather and CBI. Palliative Medicine has met with family, and he is now considered DNR/DNI, with a move towards palliative care in the future. No other events reported. He remains afebrile. Exam Narrative Exam Narrative: GEN: awake, alert, not oriented to time or place. Remains very pleasant and interactive. NECK: supple CHEST/RESP: Clear to auscultation bilaterally, no wheeze/rhonchi/crackles CARDIOVASCULAR: RRR, no murmur, rub elias. ABDOMEN: Soft, nontender, no mass. +Bowel sounds, no distention. : Tinsley catheter in place. Vasc: No edema Objective Objective Clinical Data: Abnormal lab results 05/20/18 05/20/18 Range/Units 05:47 05:47 RBC 4.47 L (4.50-6.00) m/cumm Hgb 13.4 L (13.5-17.5) g/dL Hct 37.7 L (40.0-50.0) % Absolute Lymphocytes 0.81 L (1.2-3.4) k/cumm Glucose 101 H (70-100) mg/dL Vital Signs Temperature 36.1 C L 05/20/18 07:34 Temperature Source Tympanic 05/20/18 07:34 Pulse 82 05/20/18 07:34 Pulse Rhythm Regular 05/20/18 10:34 Respiratory Rate 18 05/20/18 07:34 Respiratory Effort Non-Labored 05/20/18 10:34 Respiratory Depth Normal 05/20/18 10:34 Respiratory Pattern Normal 05/20/18 10:34 Blood Pressure 152/80 H 05/20/18 07:34 Blood Pressure Position Sitting 05/18/18 11:44 Pulse Oximetry 98 05/20/18 07:34 Oxygen Delivery Method Room Air 05/20/18 07:34 Oxygen Flow Rate 0 05/20/18 07:34 Pain Level 0 05/20/18 07:34 Comment 05/19/18 08:30 Intake & Output 05/19/18 05/20/18 05/20/18 23:59 11:59 23:59 Intake Total 270 / 270 Balance 270 / 270 Intake: Oral 270 / 270 Other: Urine Color [place] Comment draining clear fluid, appears to be leaking around urethra, campground manager notified and came to bedside, balloon inflated with additional 10cc NS , will continue to monitor bladder scan for 107cc Laboratory Results WBC 6.06 k/cumm (4.4-10.8) 05/20/18 05:47 RBC 4.47 m/cumm (4.50-6.00) L 05/20/18 05:47 Hgb 13.4 g/dL (13.5-17.5) L 05/20/18 05:47 Hct 37.7 % (40.0-50.0) L 05/20/18 05:47 MCV 84.3 fL (80-95) 05/20/18 05:47 MCH 30.0 pg (27.0-33.0) 05/20/18 05:47 MCHC 35.5 g/dL (32.0-36.0) 05/20/18 05:47 RDW 12.3 % (11.8-14.1) 05/20/18 05:47 Plt Count 165 x1000/uL (130-400) 05/20/18 05:47 MPV 9.1 fL (8.0-11.0) 05/20/18 05:47 Immature Gran % 0.2 05/20/18 05:47 Neutrophils % 76.1 05/20/18 05:47 Lymphocytes % 13.4 05/20/18 05:47 Monocytes % 9.1 05/20/18 05:47 Eosinophils % 1.0 05/20/18 05:47 Basophils % 0.2 05/20/18 05:47 Absolute Neutrophils 4.62 k/cumm (1.2-6.7) 05/20/18 05:47 Absolute Lymphocytes 0.81 k/cumm (1.2-3.4) L 05/20/18 05:47 Absolute Monocytes 0.55 k/cumm (0.11-0.7) 05/20/18 05:47 Absolute Eosinophils 0.06 k/cumm (0.0-0.7) 05/20/18 05:47 Absolute Basophils 0.01 k/cumm (0.0-0.2) 05/20/18 05:47 PT 9.6 sec (9.3-10.8) 05/19/18 05:31 INR 1.0 (1.0-3.5) 05/19/18 05:31 Sodium 139 mmol/L (136-145) 05/20/18 05:47 Potassium 3.8 mmol/L (3.5-5.1) 05/20/18 05:47 Chloride 102 mmol/L (98-107) 05/20/18 05:47 Carbon Dioxide 29.2 mmol/L (21.0-32.0) 05/20/18 05:47 Anion Gap 7.8 mmol/L (3-11) 05/20/18 05:47 BUN 15 mg/dL (7-18) 05/20/18 05:47 Creatinine 1.17 mg/dL (0.70-1.30) 05/20/18 05:47 Estimated GFR/1.73 m2 59.68 (mL/min/1.73m2) 05/20/18 05:47 Glucose 101 mg/dL (70-100) H 05/20/18 05:47 Calcium 8.8 mg/dL (8.5-10.1) 05/20/18 05:47 Urine Color [place] (Yellow) 05/18/18 15:05 Urine Clarity Sl cloudy 05/18/18 15:05 Urine pH 8.5 (5-8) H 05/18/18 15:05 Ur Specific [place] 1.015 (1.005-1.025) 05/18/18 15:05 Urine Protein 100 mg/dL (Negative) H 05/18/18 15:05 Urine Ketones Negative mg/dL (Negative) 05/18/18 15:05 Urine Blood Large (Negative) H 05/18/18 15:05 Urine Nitrite Negative (Negative) 05/18/18 15:05 Urine Bilirubin Negative (Negative) 05/18/18 15:05 Urine Urobilinogen 0.2 EU/dL (Up TO 0.2) 05/18/18 15:05 Ur Leukocyte Esterase Trace (Negative) H 05/18/18 15:05 Urine RBC 20-50 (0-2) H 05/18/18 15:05 Urine WBC Negative HPF (0-5) 05/18/18 15:05 Ur Epithelial Cells Negative HPF (Negative) 05/18/18 15:05 Urine Crystals Negative HPF (Negative) 05/18/18 15:05 Urine Bacteria Rare HPF (Negative) 05/18/18 15:05 Urine Casts Negative LPF (Negative) 05/18/18 15:05 Urine Mucus Negative (Negative) 05/18/18 15:05 Urine Other Negative (Negative) 05/18/18 15:05 Ur Culture Indicated? Yes 05/18/18 15:05 Urine Glucose Negative mg/dL (Negative) 05/18/18 15:05
[2018-05-20] MEDS: Cyclobenzaprine 10 MG TAB PO (13:24)
[2018-05-20 18:30] VITALS: BP 124/72; PULSE 80; RESP 18; TEMP 37.2; O2SAT 95
[2018-05-20] MEDS: Polyethylene Glycol 3350 17 GM PACKET PO (19:40)
[2018-05-20] MEDS: Senna TAB 2 TAB PO (21:39)
[2018-05-20] MEDS: Melatonin 3 MG TAB PO (21:39)
[2018-05-21] VITALS (7 sets, daily range): BP systolic 105–135; BP diastolic 66–79; PULSE 56–88; RESP 16–18; TEMP 36.4–37.7; O2SAT 95–99
[2018-05-21] MEDS: Haloperidol 5 MG/ML VIAL 2 MG IM (00:23)
[2018-05-21] MEDS: Phenazopyridine 200 MG TAB PO (06:54)
[2018-05-21] MEDS: Cyclobenzaprine 10 MG TAB PO (06:54)
[2018-05-21] MEDS: Polyethylene Glycol 3350 17 GM PACKET PO ×2 (08:27→19:56)
[2018-05-21] MEDS: Mirabegron 50 MG TABCR PO (08:28)
[2018-05-21] MEDS: Oxybutynin 5 MG TAB PO ×3 (08:28→19:56)
[2018-05-21] MEDS: Tamsulosin 0.4 MG CAPCR PO (08:28)
[2018-05-21] MEDS: Lisinopril 5 MG TAB 2.5 MG PO (08:28)
[2018-05-21] MEDS: amLODIPine 5 MG TAB PO (08:28)
--- NOTE | 2018-05-21 12:35 | PGE_ITS ---
Documented by User: Nahomi Ramirez NP 05/21/18 13:03 Date of Service Date of service: 05/21/18 Time of Service: 12:34 Assessment and Plan (1) Hematuria: Current visit: Yes Status: Acute Currently on Continuous Bladder Irrigation, with no further bleeding noted. Continue to monitor Hgb. Continue Myrbetriq secondary to spasms. Urology consultation pending, however spoke with Dr. Rosado via telephone who plans to take the patient down for cystoscopy, possible bladder biopsy, suprapubic tube and repair of bilateral hydroceles tomorrow 05/22/18. NPO at midnight. (2) Hypertension: Current visit: Yes Status: Chronic Continue HELENA-I and CCB. (3) BPH (benign prostatic hyperplasia): Current visit: Yes Status: Chronic Chronic Tinsley Catheter. Plan of care as above (4) Delirium: Current visit: Yes Status: Acute Acute delirium likely secondary to hospitalization and administration of pain medication. This has improved substantially in the last 24 hrs. Continue PRN Haldol. (5) Advance directive discussed with patient: Current visit: Yes Status: Acute DNR/DNI, Will be discharged on Hospice. Subjective Patient reports: no new complaints Interval history since last seen: Igor is an 82 yo man with acute delirium, alzheimers dementia, hx colon CA, HTN, BPH with chronic tinsley catheter who is currently admitted due to worsening hematuria requiring continuous bladder irrigation. Was planning to undergo outpatient cystoscopy today with Dr. Rosado, however family became increasingly concerned due to clot formation in the tinsley tubing. Yesterday Igor was quite disoriented and combative at times, however family at the bedside report he is doing well today. They have not noticed any blood in the tubing. Marycruz daughter, Mariam, expresses some frustration over her father falling out of bed despite her warning nursing staff that he was a fall risk. She also notice a small skin tear to his L forearm that she believes he sustained after the fall. Exam Narrative Exam Narrative: General: 82 yo cachectic appearing male. Well developed and well nourished. No acute distress. A/Ox2, to self and place. Pleasant and cooperative. HEENT: Normocephalic, Atraumatic. Conjunctiva clear, sclera non-icteric. PERRL. EOMI. Moist mucous membranes, oropharynx clear. Neck supple, no JVD, thyromegaly or lymphadenopathy. Cardiovascular: Regular rate and rhythm, S1S2, no S3 or S4. No murmur, rub, gallop. Respiratory: Chest expansion symmetrical, respirations unlabored. Lungs clear to auscultation, no adventitious breath sounds. GI: Abdomen round, soft, non-tender to palpation. Normoactive bowel sounds in all 4 quadrants. No hepatosplenomegaly or prominent masses. : tinsley draining clear fluid, CBI running Extremities: Lower extremities without deformity or edema Neurological: non-focal. CN 2-12 grossly intact. Psychiatric: pleasant and cooperative. Speech clear and articulate. Mood and affect normal. Objective Objective Clinical Data: Vital Signs Temperature 36.4 C L 05/21/18 08:34 Temperature Source Tympanic 05/21/18 08:34 Pulse 85 05/21/18 08:34 Pulse Rhythm Regular 05/21/18 08:59 Respiratory Rate 18 05/21/18 08:34 Respiratory Effort Non-Labored 05/21/18 08:59 Respiratory Depth Normal 05/21/18 08:59 Respiratory Pattern Normal 05/21/18 08:59 Blood Pressure 105/68 05/21/18 08:34 Blood Pressure Position Sitting 05/18/18 11:44 Pulse Oximetry 98 05/21/18 08:34 Oxygen Delivery Method Room Air 05/21/18 08:34 Oxygen Flow Rate 0 05/21/18 08:34 Pain Level 0 05/21/18 08:34 Comment 05/20/18 16:17 Intake & Output 05/20/18 05/21/18 05/21/18 23:59 11:59 23:59 Intake Total 730 / 730 Balance 730 / 730 Intake: Oral 730 / 730 Other: Urine Color Yellow Yellow Comment no leaking at this time will continue to monitor. Laboratory Results WBC 6.06 k/cumm (4.4-10.8) 05/20/18 05:47 RBC 4.47 m/cumm (4.50-6.00) L 05/20/18 05:47 Hgb 13.4 g/dL (13.5-17.5) L 05/20/18 05:47 Hct 37.7 % (40.0-50.0) L 05/20/18 05:47 MCV 84.3 fL (80-95) 05/20/18 05:47 MCH 30.0 pg (27.0-33.0) 05/20/18 05:47 MCHC 35.5 g/dL (32.0-36.0) 05/20/18 05:47 RDW 12.3 % (11.8-14.1) 05/20/18 05:47 Plt Count 165 x1000/uL (130-400) 05/20/18 05:47 MPV 9.1 fL (8.0-11.0) 05/20/18 05:47 Immature Gran % 0.2 05/20/18 05:47 Neutrophils % 76.1 05/20/18 05:47 Lymphocytes % 13.4 05/20/18 05:47 Monocytes % 9.1 05/20/18 05:47 Eosinophils % 1.0 05/20/18 05:47 Basophils % 0.2 05/20/18 05:47 Absolute Neutrophils 4.62 k/cumm (1.2-6.7) 05/20/18 05:47 Absolute Lymphocytes 0.81 k/cumm (1.2-3.4) L 05/20/18 05:47 Absolute Monocytes 0.55 k/cumm (0.11-0.7) 05/20/18 05:47 Absolute Eosinophils 0.06 k/cumm (0.0-0.7) 05/20/18 05:47 Absolute Basophils 0.01 k/cumm (0.0-0.2) 05/20/18 05:47 PT 9.6 sec (9.3-10.8) 05/19/18 05:31 INR 1.0 (1.0-3.5) 05/19/18 05:31 Sodium 139 mmol/L (136-145) 05/20/18 05:47 Potassium 3.8 mmol/L (3.5-5.1) 05/20/18 05:47 Chloride 102 mmol/L (98-107) 05/20/18 05:47 Carbon Dioxide 29.2 mmol/L (21.0-32.0) 05/20/18 05:47 Anion Gap 7.8 mmol/L (3-11) 05/20/18 05:47 BUN 15 mg/dL (7-18) 05/20/18 05:47 Creatinine 1.17 mg/dL (0.70-1.30) 05/20/18 05:47 Estimated GFR/1.73 m2 59.68 (mL/min/1.73m2) 05/20/18 05:47 Glucose 101 mg/dL (70-100) H 05/20/18 05:47 Calcium 8.8 mg/dL (8.5-10.1) 05/20/18 05:47 Urine Color [place] (Yellow) 05/18/18 15:05 Urine Clarity Sl cloudy 05/18/18 15:05 Urine pH 8.5 (5-8) H 05/18/18 15:05 Ur Specific [place] 1.015 (1.005-1.025) 05/18/18 15:05 Urine Protein 100 mg/dL (Negative) H 05/18/18 15:05 Urine Ketones Negative mg/dL (Negative) 05/18/18 15:05 Urine Blood Large (Negative) H 05/18/18 15:05 Urine Nitrite Negative (Negative) 05/18/18 15:05 Urine Bilirubin Negative (Negative) 05/18/18 15:05 Urine Urobilinogen 0.2 EU/dL (Up TO 0.2) 05/18/18 15:05 Ur Leukocyte Esterase Trace (Negative) H 05/18/18 15:05 Urine RBC 20-50 (0-2) H 05/18/18 15:05 Urine WBC Negative HPF (0-5) 05/18/18 15:05 Ur Epithelial Cells Negative HPF (Negative) 05/18/18 15:05 Urine Crystals Negative HPF (Negative) 05/18/18 15:05 Urine Bacteria Rare HPF (Negative) 05/18/18 15:05 Urine Casts Negative LPF (Negative) 05/18/18 15:05 Urine Mucus Negative (Negative) 05/18/18 15:05 Urine Other Negative (Negative) 05/18/18 15:05 Ur Culture Indicated? Yes 05/18/18 15:05 Urine Glucose Negative mg/dL (Negative) 05/18/18 15:05
--- NOTE | 2018-05-21 14:18 | W.UROLOGYCON ---
Date of service: 05/21/18 Time of Service: 14:18 History of Present Illness Chief Complaint: Hematuria Narrative: This is an 82-year-old gentleman who has a long history of urinary retention. He had been performing intermittent catheterization for 5-10 years with no significant issues. I initially saw him about 2 months ago. His primary care provider had diagnosed him with a urinary tract infection. He had a Bailey catheter placed when he developed gross hematuria. Our recommendations included a cystoscopy and retrograde pyelogram. Patient initially agreed to this plan, but he canceled multiple scheduled procedures That catheter was successfully removed. He resumed his intermittent catheterization, but more recently his primary care providers report that the patient is not catheterizing. He presented to their office with with abdominal distention. A Bailey catheter was placed. He was unable to tolerate the catheter due to spasms. His family members removed the catheter. He then presented to our emergency room unable to urinate. He catheter was initially placed, but he returned when he again developed gross hematuria. He is now admitted with continuous bladder irrigation. He has no history of urologic malignancy, but does have a history of colon cancer. He has been a smoker in the past. He has not had any type of pelvic radiation. He has had a noncontrast CT scan within the past 2 months. He has not had evidence of kidney stones or renal masses. More recently, he has been complaining of scrotal swelling and pain. He had a scrotal ultrasound which documented bilateral hydroceles. He was originally scheduled for an elective hydrocelectomy this week Review of Systems Review of Systems Unobtainable due to mental status [facility] Social History Smoking/Tobacco Use Status: Former Tobacco Use alcohol intake: former substance use type: does not use Exam Narrative Exam Narrative: He is a thin frail appearing gentleman in no current distress. He does not appear septic or toxic. His abdomen is somewhat distended but nontender. He has a urethral catheter in place. The catheter is an irrigating type catheter but irrigation is not running at this time. His urine is grossly clear. The scrotum is enlarged bilaterally. There is no erythema or ecchymosis. There is no fluctuance. He is awake and alert. Results Last Vital Signs Temp 37.1 C 05/21/18 12:44 Pulse 74 05/21/18 12:44 Resp 16 05/21/18 12:44 BP 107/66 05/21/18 12:44 Pulse Ox 98 05/21/18 12:44 Labs : 05/20/18 05:47 05/20/18 05:47 Assessment and Plan (1) Gross hematuria: Current visit: Yes Status: Acute I had a discussion with the patient's , his daughter and his son earlier this morning. We had the patient scheduled for an outpatient surgery today, but I went ahead and canceled that procedure. Instead, I asked our anesthesia providers to come up to the floor to see this gentleman and weigh in on their comfort level in providing him with anesthetic. I would prioritize treatment of his hematuria over that of his hydroceles. He and his family are agreeable to cystoscopy and possible transurethral resection/biopsy of the any visible tumor in the bladder or in the prostate. He is not tolerating his urethral catheter very well and he is certainly no longer able to perform intermittent catheterization, so we will plan on placing a suprapubic tube at the time of his cystoscopy. If he is not able to tolerate the suprapubic tube either, we need may need to consider bigger procedures such as a vaporization of the prostate or transurethral resection of the prostate. Before undertaking this type of procedure, a urodynamic study would be recommended. At this time, after being in retention for so long, we have no be what type of bladder function this gentleman might have. If his bladder is not functioning relatively normally, he might not be able to void on his own even with a TURP. If he tolerates the bladder portion of his procedure tomorrow with no issues, we can certainly still do the bilateral hydrocelectomy under the same anesthetic. If he is not tolerating the procedure or anesthesia very well, the scrotal surgery can wait for another time. After our anesthesia providers had a chance to see this gentleman today, they are in agreement that he is stable for his procedure. We have rescheduled him for tomorrow morning.
--- NOTE | 2018-05-21 15:42 | PDOC.CMPRO ---
- If Service Date Differs Date of service: 05/21/18 Time of Service: 15:43 Care Management Progress Note S/O: CM attempted to meet with the patient he is asleep at this time. His family is present and have several questions r/t DNR/DNI status and hospice care. CM reviewed code status and CM educated on status. Daughter states I just want to know if we can change our mind. Reassured daughter that we would support the patient to honor their decisions. Igor and family met with today for planned procedure tomorrow. CM provided family with resources and explanation of benefits hand outs education on hospice care through [facility]. CM also reviewed medicare benefits in r/t SNF vs home with hospice. No changes in Pt status today. A: Igor is a 82 year old male admitted with hematuria, BPH and hypertension with chronic tinsley P: Igor will have no change in status today, he will have his urology procedure on Monday. CM will contact hospice for consult post surgery for possible discharge with hospice services and to assist with facilitation.
--- NOTE | 2018-05-21 16:07 | CMPROGNOTE_ITS ---
- If Service Date Differs Date of service: 05/21/18 Time of Service: 15:43 Care Management Progress Note S/O: CM attempted to meet with the patient he is asleep at this time. His family is present and have several questions r/t DNR/DNI status and hospice care. CM reviewed code status and CM educated on status. Daughter states I just want to know if we can change our mind. Reassured daughter that we would support the patient to honor their decisions. Igor and family met with today for planned procedure tomorrow. CM provided family with resources and explanation of benefits hand outs education on hospice care through [facility]. CM also reviewed medicare benefits in r/t SNF vs home with hospice. No changes in Pt status today. A: Igor is a 82 year old male admitted with hematuria, BPH and hypertension with chronic tinsley P: Igor will have no change in status today, he will have his urology procedure on Monday. CM will contact hospice for consult post surgery for possible discharge with hospice services and to assist with facilitation.
--- NOTE | 2018-05-21 20:36 | PCNE_ITS ---
Date of service: 05/20/18 History of Present Illness Chief Complaint: weight loss,hematuria, severe BPH,incontinence Narrative: Igor Reyes has been declining over the last year. He has had 3 or 4 ER visits in less than 3 months, mostly around his difficulty urinating and increased confusion. He self-caths. His urine is usually bloody, according to his , Tila. He is unable to tell me. 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 I met with his three children and for about an hour prior to meeting with Igor. They all agree that Igor hates coming to the ER and to the hospital. He doesn't even like going to the [facility], which provides his primary care. He gets easily agitated and confused. He's been talking about dying with his daughter, and has been trying to give things away. His language is not fluent nor am I able to have a meaningful conversation with him. He appears quite anxious. He had been a FULL CODE up until this admission. Dr De La Rosa, the hospitalist on service, asked that I discuss his code wishes with his family. They are all clear that he would not want an extended surgery or admission. They note that he has been losing weight over the last year. His usual weight was about 135 lbs; on admission, he weighed 106, giving him a BMI of 16.6. He has a history of colon cancer treated with surgery by Dr. Fernandez here at [facility] about 8 years ago. He never had chemotherapy or radiation. He did have a colostomy for about 6 months. Reconnecting his colon was a long and complicated surgery. The family reported that they were told to expect a 3-4 hour surgery. Mr. Reyes's surgery, they report, lasted 12 + hours. He said he would never have surgery again. He has agreed--and his family supports his decision--to have a cystoscopy with Dr. Rosado, scheduled for 05/21. Mr Reyes has had terrible problems self- cathing. His family doesn't know if he is repeatedly injuring himself, and thus has hematuria, or if he has gross hematuria at baseline. IF he has a bladder cancer, he and his family do not want any further interventions other than those that would keep him comfortable. We discussed nephrostomy tubes and a suprapubic catheter as possible interventions. They would try to convince their father to accept these if they made him comfortable. We talked about the possibility of him pulling out the tubes. He also suffers from chronic constipation, requiring regular enemas and suppositories. He has not had a recent CT scan of his abdomen and pelvis. He has had a renal u/ s. His kidney function labs are normal. Overall, Igor cannot tell me much about his recent health issues. He said his daughter was his granddaughter at first, then corrected himself. He is anxious, agitated and would like to go home as soon as possible. Consults Consult date: 05/20/18 Requesting physician: Dudley De La Rosa Assessment and Plan (1) Advance directive discussed with patient: Current visit: Yes Status: Acute Discussed Igor's wishes at length with his family, and a bit with him, though he is not able to make his own medical decisions due to his moderate to advanced AD. After discussion of what a code blue would entail, and Igor's stated preference for minimal interventions, family opted to change his CODE STATUS to DNR/DNI. COLST form was filled out. Original to go home with his . Copy put into chart. (2) Discharge planning issues: Current visit: Yes Status: Acute Family states that they would want Igor to go home on hospice for his dementia and multiple co-morbidities regardless of what Dr. Rosado finds on his cystoscopy. Will need hospice admission once he returns home IF Dr. De La Rosa or Igor's PCP , Rachael Rivers from the [facility] in [place], agree that he has life expectancy of 6 months. (3) Gross hematuria: Current visit: Yes Status: Acute CHRONIC issue for Iogr. Seeing Dr. Rosado on 05/21. Unclear cause. To be determined by urology. IF caused by self-cath, family would like to discuss possible placement of suprapubic catheter. (4) Delirium: Current visit: Yes Status: Acute Family reports waxing and waning levels of attentiveness. This could be deliruim (apparently he had morphine in the ER ? during this admission) due to medication or could be HALLMARK of VASCULAR DEMENTIA, giving Igor at least a mixed dementia diagnosis, rather than AD. (5) Constipation: Current visit: No Status: Acute mass and tenderness in RLQ could be stool reliant upon suppositories and enemas. 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, not straightforward AD due to type of progression and other symptoms c/w vascular dementia Risk factors for VD include hypertension and h.o smoking Review of Systems Review of Systems All systems reviewed & are unremarkable except as noted in HPI and below Constitutional Reports difficulty sleeping, Reports fatigue, Reports poor appetite, Reports weakness and Reports weight loss Eyes Reports requires corrective lenses ENT Reports dry mouth and Reports disequilibrium Cardiovascular Reports dyspnea on exertion Respiratory Reports dyspnea on exertion Gastrointestinal Reports abdominal pain, Reports bloating, Reports constipation and Reports cramping Genitourinary Reports hematuria, Reports difficulty urinating, Reports scrotal swelling, Reports urinary incontinence and Reports urinary urgency Musculoskeletal Reports back pain and Reports muscle weakness Neurologic Reports abnormal speech, Reports behavioral changes, Reports confusion, Reports memory loss, Reports disequilibrium and Reports weakness Psychiatric Reports anxiety, Reports behavioral changes, Reports confusion and Reports memory loss Endocrine Reports fatigue PFSH Family History Mother Dementia Father COPD (chronic obstructive pulmonary disease) Sister Pancreatic cancer Nephew Bladder cancer Brother COPD (chronic obstructive pulmonary disease) Medical History Counseling regarding advance directives and goals of care (Acute) Hematuria (Acute) Anxiety (Chronic) BPH (benign prostatic hyperplasia) (Chronic) History of colon cancer (Chronic) History of smoking 25-50 pack years (Chronic) Hypertension (Chronic) Moderate dementia with behavioral disturbance (Chronic) Underweight (Chronic) Unintentional weight loss (Chronic) Social History caregiver/support person: Yes household members: spouse housing: house marital status: lives independently: No number of children: 3 number of grandchildren: 5 retirement: No current occupational status: retired leisure activities: other well-balanced diet: rarely or never eating out: rarely or never reads food labels: seldom or never during the past year weight has: decreased > 10 lbs Smoking/Tobacco Use Status: Former Tobacco Use how long ago did patient quit smoking: about 40 years ago alcohol intake: former substance use type: does not use Surgical History History of partial colectomy (Acute) Exam Const General: cooperative, anxious, frail appearing and ill appearing Nutritional Appearance: thin and underweight Orientation: alert, oriented to person and confused Limitations: altered mental status HENMT Head: normocephalic and atraumatic Ears: hearing grossly impaired General nose exam: external nose normal Face and sinus: dry mucous membranes Eyes Conjunctivae: conjunctivae normal Sclera: sclerae normal Neck Neck: no lymphadenopathy and no JVD Resp Effort & Inspection: normal respiratory effort and able to speak in complete sentences Auscultation: clear to auscultation bilaterally and diminished lung sounds Cardio Jugular venous pressure: no JVD Rate: bradycardic Rhythm: regular rhythm Heart Sounds: S1 normal and S2 normal GI Inspection: distended and scar Palpation: firm and tender Auscultation: hyperactive bowel sounds General: bladder abnormal (tender to palpation in suprapubic region) Penis: normal penis Scrotum: hydrocele Skin General skin exam: dry skin Hair: general thinning Neuro General: alert and moves all extremities Cognition: abnormal cognition Speech: abnormal speech and anomia Sensory Exam: no sensory deficits noted Extrem General: muscle atrophy Psych Appearance: grossly normal Speech and Movement: agitated and restless Mood: anxious mood Affect: anxious affect Attitude: cooperative Thought Process: impoverished Insight: poor Judgment: poor Results Last Vital Signs Temp 99.1 F 05/21/18 18:44 Pulse 56 L 05/21/18 18:44 Resp 17 05/21/18 18:44 BP 111/70 05/21/18 18:44 Pulse Ox 95 05/21/18 18:44 Labs : 05/20/18 05:47 05/20/18 05:47
[2018-05-21] MEDS: Melatonin 3 MG TAB PO (21:18)
[2018-05-21] MEDS: Haloperidol 5 MG/ML VIAL (21:19)
[2018-05-21] MEDS: Senna TAB 2 TAB PO (21:19)
[2018-05-22] VITALS (14 sets, daily range): BP systolic 81–114; BP diastolic 37–84; PULSE 63–95; RESP 12–23; TEMP 36–37.9; O2SAT 92–98
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
[2018-05-22] MEDS: Acetaminophen 325 MG TAB 650 MG PO (06:00)
[2018-05-22] MEDS: Lactated Ringers 1,000 ML 200 ML IV ×3 (07:25→12:37)
[2018-05-22] MEDS: Lidocaine 2% Jelly 11 ML SYR (08:12)
--- NOTE | 2018-05-22 09:41 | BLADDER_PTH ---
PATIENT: Igor Reyes Sr LOC: U#:[id number] AGE/SX: 82/M ROOM: 209 RE05/18/[address]: Dudley De La Rosa : 1935 BED: A DIS: 05/25/2018 SPEC #: [id number] RECD: 05/22/18 12:49 STATUS: ZOHRA REQ #: [id number] KAEL: 05/22/18 09:[address]: Adam Harden DEPT: Surgical Specimen RECD BY: Larissa Lentz ENTERED: 05/22/18 12:51 SP TYPE: Bladder OTHR DR: Rashel Rosado MD [facility] Tissues: 1 - BLADDER CURRETTINGS Procedures: GROSS AND MICRO LEVEL 5 Comments: [id number]
[2018-05-22] MEDS: Bupivacaine 0.25% Pres-Free 30 ML VIAL (10:06)
--- NOTE | 2018-05-22 13:19 | ROE_ITS ---
REPORT OF OPERATIVE PROCEDURE DATE OF PROCEDURE May 22, 2018 PREOPERATIVE DIAGNOSES 1. Hematuria. 2. Bilateral hydroceles. POSTOPERATIVE DIAGNOSES 1. Hematuria. 2. Bilateral spermatoceles. PROCEDURES 1. Cystoscopy, fulguration of prostate and bladder mucosa, clot evacuation, insert suprapubic tube. 2. Bilateral spermatocelectomy. SURGEON Rashel Rosado M.D. ANESTHESIA Spinal with MAC and local. ESTIMATED BLOOD LOSS 100 cc COMPLICATIONS None. HISTORY This is an 82-year-old gentleman who has a long history of urinary retention. He had been performing intermittent catheterization, but this has been more and more difficult for him recently. He has had multiple episodes of abdominal distention for which he has had Bailey catheters. Some of the catheters have been associated with gross hematuria. He currently is admitted with a catheter in place and kiera dder irrigation running. He also has bilateral scrotal swelling which has been causing him symptoms. He had a scrotal ultrasou nd that was read as showing bilateral hydroceles, since he is symptomatic, he is interested in having the hydroceles addressed. DESCRIPTION OF PROCEDURE The patient was brought to the Operating Room on 05/22/2018. He was given a spinal anesthetic and james perry in the dorsal lithotomy position. His indwelling urethral catheter was removed. A #22-Cymro rigid cystoscope was then passed through the urethra into the bladder. The urethra and b ladder were inspected with the 30-degree lens. The pendulous, bulbous and membranous urethras appeared normal with no strictures. Once we got to the prostatic urethra however, there was a large amount of adherent clot and irregularity, especially up at the bladder neck region. There appeared to be some false passages at the bladder neck itself. We were able to maneuver the scope into the bladder. The bladder was fairly small, but had some bullo us edema throughout. There was also quite a bit of erythema on the bladder wall posteriorly along the inspected course of the catheter. I did not identify, what would be what would be a typical appearance of a papillary or nodular bladde r tumor. The overall appearance of the bladder and prostate appeared much more inflammatory. I then switched to a resectoscope and took a few tissue samples from the bladder neck area. I did thi s by transurethral resection. I then switched to a plasma button and cauterized all the visible prost ate and bladder mucosa. Once the cauterization was completed, the urine was just a light pink. We went ahead and placed a sup rapubic tube, as the patient is no longer able to perform intermittent catheterization. I used a curv ed Lowsley retractor to pass the instrument through the urethra to the bladder. I then brought the ti p of the Lowsley retractor up against the abdominal wall. We made an incision in this area and sagar t the tip of the Lowsley retractor, through the incision. We opened the jaws, and grasped an #18-Cymro catheter and pulled the catheter back down through the suprapubic tract into the bladder. The positioning of the catheter was confirmed with cystoscopy. The catheter balloon was inflated with 10 cc of sterile water. In irrigating the catheter, we still obtained some clots, so we decided to place a urethral catheter that would allow us to run bladder irrigation, just temporarily. I passed a #20-Cymro Coude tip cath eter through the urethra into the bladder. We inflated the catheter balloon with 10 cc of sterile raoul er. We ran continuous bladder irrigation with saline through the suprapubic tube and back out the ure thral catheter. This should allow the suprapubic tube to remain free of clots. I would expect that we would be able to remove both the irrigation and urethral catheter within 24 hours. His spinal anesthetic was still working well and he was comfortable throughout the case, so we went a head and addressed his scrotal masses. We made a midline scrotal incision and extended our incision d own through the dartos muscle. We began on the patient's right side and entered the right hemiscrotu m. We delivered the testis through the incision and on inspection of his anatomy, it appeared that he had a large spermatocele rather than a hydrocele. We dissected the spermatocele free down to its sma ll attachment to the epididymis. We transected the spermatocele in this region. We cauterized its att achment to the epididymis. We then closed the defect caused by the spermatocele using a simple interrupted #2-0 Chromic suture. We did a cord block with 0.25% Marcaine and delivered the testis back within the right hemiscrotum. W e then closed the dartos over top of the testis using a segment of running #2-0 Chromic suture. The same procedure was then performed on the patient's left side. Again, on entering the left hemiscr otum, we identified a large spermatocele rather than a hydrocele, the spermatocele was dissected off of the epididymis, and was transected. We elected not to send either of these specimens to pathology. The base of the spermatocele was then cauterized. The defect was closed with a simple interrupted #2- 0 Chromic suture. The testis was then delivered back within the left hemiscrotum. We closed the dartos muscle using a s egment of running #4-0 Chromic. We then closed the scrotal skin using simple interrupted #2-0 Chromic . Fluff dressing and scrotal support were then applied. The patient tolerated this procedure well with no complications. He was taken to the Recovery Room in stable condition.
[2018-05-22] MEDS: Mirabegron 50 MG TABCR PO (14:20)
[2018-05-22] MEDS: Ketorolac 15 MG/ML VIAL IVP ×2 (15:06→21:09)
[2018-05-22] MEDS: Simethicone 80 MG CHEW PO (15:12)
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
--- NOTE | 2018-05-22 15:41 | PDOC.CMPRO ---
- If Service Date Differs Date of service: 05/22/18 Time of Service: 15:41 Care Management Progress Note S/O:CM met patient at the bedside and his family he did have a procedure today and a supra pubic cath placed. Igor will return home with family and hospice services. CM contacted Home health and spoke with admission. CM did provide the family with a Hospice guide and reviewed services. A: Igor is a 82 year old male admitted with hematuria, BPH and hypertension now status post, Cystoscopy, fulguration of prostate and bladder mucosa, clot evacuation, insert suprapubic tube. Bilateral spermatocelectomy. P: Igor will have no change in status today, he will be discharged home when medically ready on Hospice services and to assist with facilitation. [facility] aware of the plan will need a CTI completed by and hospitalist.
--- NOTE | 2018-05-22 16:11 | CMPROGNOTE_ITS ---
- If Service Date Differs Date of service: 05/22/18 Time of Service: 15:41 Care Management Progress Note S/O:CM met patient at the bedside and his family he did have a procedure today and a supra pubic cath placed. Igor will return home with family and hospice services. CM contacted Home health and spoke with admission. CM did provide the family with a Hospice guide and reviewed services. A: Igor is a 82 year old male admitted with hematuria, BPH and hypertension now status post, Cystoscopy, fulguration of prostate and bladder mucosa, clot evacuation, insert suprapubic tube. Bilateral spermatocelectomy. P: Igor will have no change in status today, he will be discharged home when medically ready on Hospice services and to assist with facilitation. [facility] aware of the plan will need a CTI completed by and hospitalist.
[2018-05-22] MEDS: QUEtiapine 25 MG TAB PO ×2 (16:17→19:47)
[2018-05-22] MEDS: Lactated Ringers 1,000 ML 75 ML IV (19:28)
[2018-05-22] MEDS: Polyethylene Glycol 3350 17 GM PACKET PO (19:47)
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
[2018-05-22] MEDS: Melatonin 3 MG TAB PO (21:10)
[2018-05-22] MEDS: Normal Saline Flush 10 ML SYR IVP (21:10)
[2018-05-22] MEDS: Senna TAB 2 TAB PO (21:10)
[2018-05-23] VITALS (11 sets, daily range): BP systolic 94–128; BP diastolic 61–76; PULSE 76–95; RESP 16–20; TEMP 37–38.4; O2SAT 93–98
[2018-05-23] MEDS: Ketorolac 15 MG/ML VIAL IVP ×4 (03:57→21:15)
[2018-05-23] MEDS: Normal Saline 500 ML 999 ML IV (08:10)
[2018-05-23] MEDS: QUEtiapine 25 MG TAB PO ×2 (09:17→19:56)
[2018-05-23] MEDS: Finasteride 5 MG TAB PO (09:17)
[2018-05-23] MEDS: Mirabegron 50 MG TABCR PO (09:17)
[2018-05-23] MEDS: Polyethylene Glycol 3350 17 GM PACKET PO (09:17)
[2018-05-23] MEDS: Lactated Ringers 1,000 ML 75 ML IV (09:22)
--- NOTE | 2018-05-23 10:30 | DI.RAD_ITS ---
SYMPTOM/DIAGNOSIS: ELEVATED TEMP PORTABLE AP CHEST: Comparison is made with05/16/18. The heart size is normal. The lungs are reasonably well inflated and appear clear. No infiltrate or effusion is seen. IMPRESSION: No acute abnormality.
[2018-05-23 11:36] LABS: Bilirubin Small (Negative); Blood Large (Negative); Clarity Cloudy; Glucose Negative (Negative); Ketones 40 mg/dL (Negative); Leukocyte Esterase Trace (Negative); Nitrite Positive (Negative); Urobilinogen 0.2 EU/dL (Up TO 0.2); pH 5.5 (5-8)
[2018-05-23 11:50] LABS: C & S Indicated? C&S Done As Ordered; RBC >50 (0-2)
[2018-05-23 11:56] LABS: Abs Immature Grans 0.02 k/cumm (0.0-0.09); Absolute Basophil Count 0.01 k/cumm (0.0-0.2); Absolute Eosinophil Count 0.03 k/cumm (0.0-0.7); Absolute Lymphocyte Count 0.54 k/cumm (1.2-3.4); Absolute Monocyte Count 0.57 k/cumm (0.11-0.7); Absolute Neutrophil Count 6.62 k/cumm (1.2-6.7); Basophils % 0.1; Eosinophils % 0.4; HCT 28.4 % (40.0-50.0); Immature Grans % 0.3; Lymphocytes % 6.9; Mean Corp. HGB Concentration 35.2 g/dL (32.0-36.0); Mean Corpuscular Hemoglobin 30.2 pg (27.0-33.0); Mean Corpuscular Volume 85.8 fL (80-95); Mean Platelet Volume 10.6 fL (8.0-11.0); Monocytes % 7.3; Platelet Count 140 x1000/uL (130-400); RBC 3.31 m/cumm (4.50-6.00); RBC Distribution Width 12.2 % (11.8-14.1); White Blood Cell Count 7.79 k/cumm (4.4-10.8)
[2018-05-23 12:09] LABS: BUN 34 mg/dL (7-18); CREATININE 1.01 mg/dL (0.70-1.30); Chloride 102 mmol/L (98-107); Glucose 126 mg/dL (70-100); Potassium 4.4 mmol/L (3.5-5.1); Sodium 134 mmol/L (136-145)
[2018-05-23 12:14] LABS: Calcium 7.8 mg/dL (8.5-10.1)
--- NOTE | 2018-05-23 12:32 | PDOC.CMPRO ---
- If Service Date Differs Date of service: 05/23/18 Time of Service: 12:32 Care Management Progress Note S/O: Igor was sleeping with his , Tila, at bedside when CM visited this morning. Per Tila, Igor has been sleeping all morning since experiencing complications with the discontinuation of his tinsley catheter. CM spoke with Tila regarding discharge plan; patient will discharge on home hospice. MATHEW spoke with [facility] regarding Igor's plan for hospice. Katerina at [facility] inquired about Igor's [facility] connection; Tila is uncertain of the percentage of his connection but reports that Igor has his MD appointments with them. A: Igor is a 82 year old male admitted with hematuria, BPH and hypertension now status post, Cystoscopy, fulguration of prostate and bladder mucosa, clot evacuation, insert suprapubic tube. Bilateral spermatocelectomy. P: Igor will have no change in status today, he will be discharged home when medically ready on Hospice services. will assist with facilitation and will meet again with Igor and his family prior to discharge or at home if necessary. Per [facility], CTI will be completed with Dr. Person and faxed to for hospitalist's signature. Igor will transport via private vehicle with his family at discharge. will continue to offer support to patient, family, and care team regarding discharge planning and disposition.
--- NOTE | 2018-05-23 12:39 | CMPROGNOTE_ITS ---
- If Service Date Differs Date of service: 05/23/18 Time of Service: 12:32 Care Management Progress Note S/O: Igor was sleeping with his , Tila, at bedside when CM visited this morning. Per Tila, Igor has been sleeping all morning since experiencing complications with the discontinuation of his tinsley catheter. CM spoke with Tila regarding discharge plan; patient will discharge on home hospice. MATHEW spoke with [facility] regarding Igor's plan for hospice. Katerina at [facility] inquired about Igor's [facility] connection; Tila is uncertain of the percentage of his connection but reports that Igor has his MD appointments with them. A: gIor is a 82 year old male admitted with hematuria, BPH and hypertension now status post, Cystoscopy, fulguration of prostate and bladder mucosa, clot evacuation, insert suprapubic tube. Bilateral spermatocelectomy. P: Igor will have no change in status today, he will be discharged home when medically ready on Hospice services. will assist with facilitation and will meet again with Igor and his family prior to discharge or at home if necessary. Per [facility], CTI will be completed with Dr. Person and faxed to for hospitalist's signature. Igor will transport via private vehicle with his family at discharge. will continue to offer support to patient, family, and care team regarding discharge planning and disposition.
[2018-05-23] MEDS: Acetaminophen 325 MG TAB 650 MG PO (14:14)
--- NOTE | 2018-05-23 14:20 | W.PM.HP.N ---
Assessment and Plan (1) Hematuria: Current visit: Yes Status: Acute Underwent Continuous Bladder Irrigation, with no further bleeding noted. Had a cystoscopy today with fulguration of prostate and bladder mucosa, clot evacuation, and insertion of a suprapubic tube. Mr. Reyes also underwent bilateral Spermatocelectomy. Appears stable with clear urine output currently. (2) Hypertension: Current visit: Yes Status: Chronic Continue HELENA-I and CCB. (3) BPH (benign prostatic hyperplasia): Current visit: Yes Status: Chronic Chronic Bailey Catheter, now s/p cystoscopy and change to suprapubic catheter. (4) Delirium: Current visit: Yes Status: Chronic Acute delirium in the setting of hospitalization, administration of narcotics in ED, discomfort, and constipation. No further narcotics on board. Bowel regimen initiated and patient reportedly moving his bowels. No evidence of infection, and CT Head without significant acute abnormalities. Became combative overnight and likely sundowning. Will initiate very low dose Seroquel in addition to minimal dose Haloperidol. Continue fall precautions. Patient will likely do well with return to home once stable. (5) Advance directive discussed with patient: Current visit: Yes Status: Acute DNR/DNI per discussion with Palliative Care. (6) Fever: Current visit: Yes Status: Acute Meds Home Medications Medication Instructions Recorded Confirmed Type tamsulosin [Flomax] 0.4 mg PO DAILY 02/28/18 05/18/18 History amlodipine 5 mg tablet 5 mg PO DAILY 04/10/18 05/18/18 History lisinopril 2.5 mg tablet 2.5 mg PO DAILY 04/10/18 05/18/18 History simethicone 80 mg tablet 80 mg PO QID PRN 04/10/18 05/18/18 History cyclobenzaprine 10 mg PO HS PRN #9 tab 05/16/18 05/18/18 Rx belladonna alkaloids-opium 1 supp AR TID PRN #12 each 05/18/18 Rx oxybutynin chloride 5 mg PO .q8hrs PRN #10 tab 05/18/18 Rx mirabegron ER 50 mg 50 mg PO DAILY #30 tab 05/22/18 05/22/18 Rx tablet,extended release 24 hr Allergies Allergy/AdvReac Type Severity Reaction Status Date / Time morphine AdvReac Intermediate Agitation Unverified 05/19/18 16:55 Exam Narrative Exam Narrative: Exam Deferred as patient is post-op and resting. Results Imaging Additional studies: Exam(s) a RAD:XR portable chest AP SYMPTOM/DIAGNOSIS: ELEVATED TEMP PORTABLE AP CHEST: Comparison is made with05/16/18. The heart size is normal. The lungs are reasonably well inflated and appear clear. No infiltrate or effusion is seen. IMPRESSION: No acute abnormality. Labs : 05/23/18 11:15 05/23/18 11:15 Laboratory Results - last 24 hr 05/23/18 05/23/18 05/23/18 11:15 11:15 11:28 WBC 7.79 RBC 3.31 L Hgb 10.0 L Hct 28.4 L MCV 85.8 MCH 30.2 MCHC 35.2 RDW 12.2 Plt Count 140 MPV 10.6 Immature Gran % 0.3 Neutrophils % 85.0 Lymphocytes % 6.9 Monocytes % 7.3 Eosinophils % 0.4 Basophils % 0.1 Absolute Neutrophils 6.62 Absolute Lymphocytes 0.54 L Absolute Monocytes 0.57 Absolute Eosinophils 0.03 Absolute Basophils 0.01 Sodium 134 L Potassium 4.4 Chloride 102 Carbon Dioxide 26.0 Anion Gap 6.0 BUN 34 H Creatinine 1.01 Estimated GFR/1.73 m2 >= 60.00 Glucose 126 H Calcium 7.8 L Magnesium 2.0 Urine Color Brown Urine Clarity Cloudy Urine pH 5.5 Ur Specific [place] 1.020 Urine Protein >=300 H Urine Ketones 40 H Urine Blood Large H Urine Nitrite Positive H Urine Bilirubin Small H Urine Urobilinogen 0.2 Ur Leukocyte Esterase Trace H Urine RBC >50 H Urine WBC Not Applicable Ur Epithelial Cells Not Applicable Urine Crystals Not Applicable Urine Bacteria Not Applicable Urine Mucus Not Applicable Ur Culture Indicated? C&s done as ordered Urine Glucose Negative Last Vital Signs Temp 38.4 C H 05/23/18 14:14 Pulse 92 H 05/23/18 12:30 Resp 20 05/23/18 12:30 BP 118/67 05/23/18 12:30 Pulse Ox 97 05/23/18 12:30
--- NOTE | 2018-05-23 14:51 | PGE_ITS ---
Date of Service Date of service: 05/23/18 Time of Service: 15:16 Assessment and Plan (1) Hematuria: Current visit: Yes Status: Acute Underwent Continuous Bladder Irrigation, with no further bleeding noted. Had a cystoscopy 05/22 with fulguration of prostate and bladder mucosa, clot evacuation, and insertion of a suprapubic tube. Mr. Reyes also underwent bilateral Spermatocelectomy. Bleeding this morning following removal of tinsley cath expected per discussion with Urology, and based on creation of numerous false lumens with prior patient self catheterizations, and the bleeding stopped following application of pressure and ice. If recurs could consider application of repeat tinsley cath to act as tamponade on the area of bleeding. For now appears stable, with a mild drop in Hgb which will be monitored closely. (2) Fever: Current visit: Yes Status: Acute CXR negative. Patient over 24 hours post-op, with now 2 seperate occurances of fevers. Urinalysis with positive Nitrite and LE, Microscopic evaluation for WBCs was not undertaken due to the presence of copious RBCs obscuring the field. CBC without leukocytosis. Will initiate Ceftriaxone and monitor gram stain and culture closely. Blood Cultures also obtained. (3) Hypertension: Current visit: Yes Status: Chronic Continue HELENA-I and CCB. Current blood pressure appropriate, but did require IVF bolus during bleeding episode this morning. (4) BPH (benign prostatic hyperplasia): Current visit: Yes Status: Chronic Chronic Tinsley Catheter, now s/p cystoscopy and change to suprapubic catheter. (5) Delirium: Current visit: Yes Status: Chronic Acute delirium in the setting of hospitalization, administration of narcotics in ED, discomfort, and constipation. No further narcotics on board. Bowel regimen initiated and patient reportedly moving his bowels. No evidence of infection previously, now with potential UTI, and CT Head without significant acute abnormalities. Became combative overnight and likely sundowning previously. Appears to have done well with very low dose standing Seroquel in addition to minimal dose Haloperidol on a prn basis. Continue fall precautions. Patient will likely do well with return to home once stable. (6) Advance directive discussed with patient: Current visit: Yes Status: Acute DNR/DNI per discussion with Palliative Care. Subjective Patient reports: no new complaints Interval history since last seen: 82-year-old man admitted on 05/18 from [facility] Emergency Department with an obstructed Tinsley catheter due to blood clots and bleeding. Mr. Reyes has a history of advanced Dementia, likely Alzheimer's. He also has a history of BPH with urinary retention that he had performed intermittent self catherization for, but with increasing difficulty in recent times leading to insertion of a tinsley catheterization. He had onset of hematuria with blood clots, with a repeat ED visit and this time leading to admission for a planned cystoscopy. Patient remained on CBI without any further evidence of obstruction, clots, or hematuria. He underwent Urology evaluation, and on 05/22 underwent a cystoscopy with insertion of a suprapubic catheter. This morning following removal of his tinsley catheter there was significant bleeding from the penis. Per discussion with Urology this was expected secondary to formation of numerous false lumens with prior patient self catheterizations, and the bleeding stopped following application of pressure and ice. Later in the morning however his temperature became elevated and he had a fever with a temp of 38.1 and again at 38.4. Labwork was unremarkable with the exception of a mild drop in hgb. Urinalysis however was positive for Nitrite and trace Leukocyte Esterase - Microscopic evaluation for WBCs was not undertaken due to the presence of copious RBCs obscuring the field. His CXR was negative. The patient has been experiencing intermittently worsening mental status, with initial work-up negative, combative overnight previously. He was started on low dose seroquel with good results since.Palliative Medicine has also met with family, and he is now considered DNR/DNI, with a move towards palliative care in the future, with plans for discharge with home hospice. No other events reported. He remains afebrile. Exam Narrative Exam Narrative: General:Thin appearing male. Awake, not oriented. NAD. Neck: Supple CV: RRR, S1S2, no r/m/g Pulmonary: CTAB without crackles, rhonchi, wheezing Abdomen: +BS, s/nt/nd : Suprapubic catheter noted. Copious bleeding from tip of penis following removal of tinsley catheter - stopped following application of pressure. Extremities: No edema Objective Objective Clinical Data: Abnormal lab results 05/23/18 05/23/18 05/23/18 Range/Units 11:15 11:15 11: RBC 3.31 L (4.50-6.00) m/cumm Hgb 10.0 L (13.5-17.5) g/dL Hct 28.4 L (40.0-50.0) % Absolute Lymphocytes 0.54 L (1.2-3.4) k/cumm Sodium 134 L (136-145) mmol/L BUN 34 H (7-18) mg/dL Glucose 126 H (70-100) mg/dL Calcium 7.8 L (8.5-10.1) mg/dL Urine Protein >=300 H (Negative) mg/dL Urine Ketones 40 H (Negative) mg/dL Urine Blood Large H (Negative) Urine Nitrite Positive H (Negative) Urine Bilirubin Small H (Negative) Ur Leukocyte Esterase Trace H (Negative) Urine RBC >50 H (0-2) Vital Signs Temperature 38.4 C H 05/23/18 14:14 Temperature Source Tympanic 05/23/18 12:30 Pulse 92 H 05/23/18 12:30 Pulse Rhythm Regular 05/23/18 07:40 Respiratory Rate 20 05/23/18 12:30 Respiratory Effort Non-Labored 05/23/18 07:40 Respiratory Depth Normal 05/23/18 07:40 Respiratory Pattern Normal 05/23/18 07:40 Blood Pressure 118/67 05/23/18 12:30 Blood Pressure Position Sitting 05/18/18 11:44 Pulse Oximetry 97 05/23/18 12:30 Respiratory End-tidal CO2 32 05/22/18 12:00 Oxygen Delivery Method Room Air 05/23/18 12:30 Oxygen Flow Rate 0 05/23/18 12:30 Pain Level 0 05/23/18 09:27 Comment 05/23/18 07:50 Intake & Output 05/22/18 05/23/18 05/23/18 23:59 11:59 23:59 Intake Total 1553.333 / 6962.747 8836 / 1120 Output Total 1300 / 1300 Balance 253.333 / 540.153 1964 / 1120 Intake: IV 1553.333 / 4694.422 1162 / 1000 Oral 120 / 120 Output: Urine 1300 / 1300 Other: Urine Color Yellow Light Arabella Straw Urine Appearance Clear Clear Comment TITRATED FOR FLOW AND COLOR urethral catherter d/c'd. multiple large clots came out of urethra. large amount of spurting blood coming from penile opening. pressure and ice applied for 20 minuets. Chyna from urology came down to assist. presuure relive and bleeding had stopped. will continue to monitor Pt. for s/sx of bleeding and hypovolemia. Stool Size Large Small Stool Characteristics Soft Soft Liquid Brown Brown Emesis Description None Laboratory Results WBC 7.79 k/cumm (4.4-10.8) 05/23/18 11:15 RBC 3.31 m/cumm (4.50-6.00) L 05/23/18 11:15 Hgb 10.0 g/dL (13.5-17.5) L 05/23/18 11:15 Hct 28.4 % (40.0-50.0) L 05/23/18 11:15 MCV 85.8 fL (80-95) 05/23/18 11:15 MCH 30.2 pg (27.0-33.0) 05/23/18 11:15 MCHC 35.2 g/dL (32.0-36.0) 05/23/18 11:15 RDW 12.2 % (11.8-14.1) 05/23/18 11:15 Plt Count 140 x1000/uL (130-400) 05/23/18 11:15 MPV 10.6 fL (8.0-11.0) 05/23/18 11:15 Immature Gran % 0.3 05/23/18 11:15 Neutrophils % 85.0 05/23/18 11:15 Lymphocytes % 6.9 05/23/18 11:15 Monocytes % 7.3 05/23/18 11:15 Eosinophils % 0.4 05/23/18 11:15 Basophils % 0.1 05/23/18 11:15 Absolute Neutrophils 6.62 k/cumm (1.2-6.7) 05/23/18 11:15 Absolute Lymphocytes 0.54 k/cumm (1.2-3.4) L 05/23/18 11:15 Absolute Monocytes 0.57 k/cumm (0.11-0.7) 05/23/18 11:15 Absolute Eosinophils 0.03 k/cumm (0.0-0.7) 05/23/18 11:15 Absolute Basophils 0.01 k/cumm (0.0-0.2) 05/23/18 11:15 PT 9.6 sec (9.3-10.8) 05/19/18 05:31 INR 1.0 (1.0-3.5) 05/19/18 05:31 Sodium 134 mmol/L (136-145) L 05/23/18 11:15 Potassium 4.4 mmol/L (3.5-5.1) 05/23/18 11:15 Chloride 102 mmol/L (98-107) 05/23/18 11:15 Carbon Dioxide 26.0 mmol/L (21.0-32.0) 05/23/18 11:15 Anion Gap 6.0 mmol/L (3-11) 05/23/18 11:15 BUN 34 mg/dL (7-18) H 05/23/18 11:15 Creatinine 1.01 mg/dL (0.70-1.30) 05/23/18 11:15 Estimated GFR/1.73 m2 >= 60.00 (mL/min/1.73m2) 05/23/18 11:15 Glucose 126 mg/dL (70-100) H 05/23/18 11:15 Calcium 7.8 mg/dL (8.5-10.1) L 05/23/18 11:15 Magnesium 2.0 mg/dL (1.8-2.4) 05/23/18 11:15 Urine Color Brown (Yellow) 05/23/18 11:28 Urine Clarity Cloudy 05/23/18 11:28 Urine pH 5.5 (5-8) 05/23/18 11:28 Ur Specific [place] 1.020 (1.005-1.025) 05/23/18 11:28 Urine Protein >=300 mg/dL (Negative) H 05/23/18 11:28 Urine Ketones 40 mg/dL (Negative) H 05/23/18 11:28 Urine Blood Large (Negative) H 05/23/18 11:28 Urine Nitrite Positive (Negative) H 05/23/18 11:28 Urine Bilirubin Small (Negative) H 05/23/18 11:28 Urine Urobilinogen 0.2 EU/dL (Up TO 0.2) 05/23/18 11:28 Ur Leukocyte Esterase Trace (Negative) H 05/23/18 11:28 Urine RBC >50 (0-2) H 05/23/18 11:28 Urine WBC Not Applicable 05/23/18 11:28 Ur Epithelial Cells Not Applicable 05/23/18 11:28 Urine Crystals Not Applicable 05/23/18 11:28 Urine Bacteria Not Applicable 05/23/18 11:28 Urine Casts Negative LPF (Negative) 05/18/18 15:05 Urine Mucus Not Applicable 05/23/18 11:28 Urine Other Negative (Negative) 05/18/18 15:05 Ur Culture Indicated? C&s done as ordered 05/23/18 11:28 Urine Glucose Negative mg/dL (Negative) 05/23/18 11:28 Objective Narrative Objective Narrative: Exam(s) a RAD:XR portable chest AP SYMPTOM/DIAGNOSIS: ELEVATED TEMP PORTABLE AP CHEST: Comparison is made with05/16/18. The heart size is normal. The lungs are reasonably well inflated and appear clear. No infiltrate or effusion is seen. IMPRESSION: No acute abnormality.
[2018-05-23] MEDS: Normal Saline Flush 10 ML SYR IVP ×2 (15:56→21:16)
[2018-05-23] MEDS: Senna TAB 2 TAB PO (21:16)
[2018-05-23] MEDS: Melatonin 3 MG TAB PO (21:16)
[2018-05-24] MEDS: Lactated Ringers 1,000 ML 75 ML IV (01:12)
[2018-05-24 04:00] VITALS: BP 113/67; PULSE 89; RESP 18; TEMP 37.5; O2SAT 94
[2018-05-24] MEDS: Ketorolac 15 MG/ML VIAL IVP ×2 (04:04→10:55)
[2018-05-24] MEDS: Normal Saline Flush 10 ML SYR IVP ×3 (04:05→15:10)
[2018-05-24 07:09] LABS: Abs Immature Grans 0.01 k/cumm (0.0-0.09); Absolute Basophil Count 0.01 k/cumm (0.0-0.2); Absolute Eosinophil Count 0.05 k/cumm (0.0-0.7); Absolute Lymphocyte Count 0.64 k/cumm (1.2-3.4); Absolute Monocyte Count 0.46 k/cumm (0.11-0.7); Absolute Neutrophil Count 4.11 k/cumm (1.2-6.7); Basophils % 0.2; Eosinophils % 0.9; HCT 25.7 % (40.0-50.0); HGB 8.7 g/dL (13.5-17.5); Immature Grans % 0.2; Lymphocytes % 12.1; Mean Corp. HGB Concentration 33.9 g/dL (32.0-36.0); Mean Corpuscular Hemoglobin 29.5 pg (27.0-33.0); Mean Corpuscular Volume 87.1 fL (80-95); Mean Platelet Volume 10.3 fL (8.0-11.0); Monocytes % 8.7; Neutrophils % 77.9; Platelet Count 115 x1000/uL (130-400); RBC 2.95 m/cumm (4.50-6.00); RBC Distribution Width 12.2 % (11.8-14.1); White Blood Cell Count 5.28 k/cumm (4.4-10.8)
[2018-05-24 07:15] LABS: Anion Gap 6.7 mmol/L (3-11); BUN 20 mg/dL (7-18); CO2 27.3 mmol/L (21.0-32.0); CREATININE 0.93 mg/dL (0.70-1.30); Calcium 7.7 mg/dL (8.5-10.1); Chloride 104 mmol/L (98-107); Glucose 95 mg/dL (70-100); Potassium 4.4 mmol/L (3.5-5.1); Sodium 138 mmol/L (136-145)
[2018-05-24 07:35] VITALS: O2SAT 94
[2018-05-24 08:00] VITALS: BP 146/60; PULSE 98; RESP 17; TEMP 37.4; O2SAT 96
[2018-05-24] MEDS: Acetaminophen 325 MG TAB 650 MG PO (08:27)
[2018-05-24] MEDS: Finasteride 5 MG TAB PO (08:27)
[2018-05-24] MEDS: Lisinopril 5 MG TAB 2.5 MG PO (08:27)
[2018-05-24] MEDS: amLODIPine 5 MG TAB PO (08:27)
[2018-05-24] MEDS: Mirabegron 50 MG TABCR PO (08:27)
[2018-05-24] MEDS: QUEtiapine 25 MG TAB PO ×2 (08:27→19:53)
[2018-05-24] MEDS: Simethicone 80 MG CHEW PO ×2 (08:42→18:49)
--- NOTE | 2018-05-24 12:30 | W.PM.PROGNOT ---
Date of Service Date of service: 05/24/18 Time of Service: 12:31 Assessment and Plan (1) Gross hematuria: Current visit: Yes Status: Acute After seeing the amount of trauma and the false passage in his urethra, I was not surprised by the release of blood from the urethra after his catheter was removed. In fact, he had similar episodes around his catheter in the days leading up to his hospitalization. As long as his urine is diverted by the suprapubic tube, and his bladder/urethral spasms have subsided, the urethral mucosa will heal itself without any particular intervention Once his labs have stabilized and his fever has resolved, he should be able to go home just with the suprapubic tube to gravity. We should probably start teaching his family to change the dressing around the catheter daily. They should already be familiar with catheter drainage bag care. He would need a follow-up appointment in 4-6 weeks for his first suprapubic tube change. I have discontinued his anticholinergics as well as his BNO suppositories. Both of these can be associated with mental status change. I have also discontinued his [id number] Toradol and switch to as needed oral Toradol should he develop any pain. Again, we want to avoid narcotics in this gentleman with dementia. Subjective Interval history since last seen: The patients urethral catheter was removed yesterday morning. He had a large release of blood products (from all of his urethral trauma/false passages) initially, but has had much less urethral bleeding since. More importantly, he has had no bladder/urethral spasms since his urethral catheter was removed. He tells me he feels great and is comfortable with his SP tube. He still has some scrotal discomfort after his spermatocele surgery. Exam Narrative Exam Narrative: He looks remarkably well sitting up in the chair and eating lunch. His vital signs are stable. His urine is draining through the suprapubic tube. The urine output is clear. He has ecchymosis on the penile and scrotal skin. There is minimal bloody drainage from the urethra. He is awake and alert Objective Objective Clinical Data: Abnormal lab results 05/24/18 05/24/18 Range/Units 06:38 06:38 RBC 2.95 L (4.50-6.00) m/cumm Hgb 8.7 L (13.5-17.5) g/dL Hct 25.7 L (40.0-50.0) % Plt Count 115 L (130-400) x1000/uL Absolute Lymphocytes 0.64 L (1.2-3.4) k/cumm BUN 20 H D (7-18) mg/dL Calcium 7.7 L (8.5-10.1) mg/dL Vital Signs Temperature 37.4 C 05/24/18 08:00 Temperature Source Tympanic 05/24/18 08:00 Pulse 98 H 05/24/18 08:00 Pulse Rhythm Regular 05/24/18 11:23 Respiratory Rate 17 05/24/18 08:00 Respiratory Effort Non-Labored 05/24/18 11:23 Respiratory Depth Normal 05/24/18 11:23 Respiratory Pattern Normal 05/24/18 11:23 Blood Pressure 146/60 H 05/24/18 08:00 Blood Pressure Position Sitting 05/18/18 11:44 Pulse Oximetry 96 05/24/18 08:00 Respiratory End-tidal CO2 32 05/22/18 12:00 Oxygen Delivery Method Room Air 05/24/18 08:00 Oxygen Flow Rate 0 05/24/18 08:00 Pain Level 0 05/24/18 10:55 Comment 05/23/18 07:50 Intake & Output 05/23/18 05/24/18 05/24/18 23:59 11:59 23:59 Intake Total 1810 / 1810 10 10 Output Total 1500 / 1500 1650 / 1650 Balance 310 / 310 -1640 / -1640 Intake: IV 1570 / 1570 10 Oral 240 / 240 Output: Urine 1500 / 1500 1650 / 1650 Other: Urine Color Dark Arabella Yellow Dark Red Urine Appearance Clear Clear Comment pt had a small amount of bleeding from his penis Stool Size Moderate Stool Characteristics Liquid Brown Laboratory Results WBC 5.28 k/cumm (4.4-10.8) D 05/24/18 06:38 RBC 2.95 m/cumm (4.50-6.00) L 05/24/18 06:38 Hgb 8.7 g/dL (13.5-17.5) L 05/24/18 06:38 Hct 25.7 % (40.0-50.0) L 05/24/18 06:38 MCV 87.1 fL (80-95) 05/24/18 06:38 MCH 29.5 pg (27.0-33.0) 05/24/18 06:38 MCHC 33.9 g/dL (32.0-36.0) 05/24/18 06:38 RDW 12.2 % (11.8-14.1) 05/24/18 06:38 Plt Count 115 x1000/uL (130-400) L 05/24/18 06:38 MPV 10.3 fL (8.0-11.0) 05/24/18 06:38 Immature Gran % 0.2 05/24/18 06:38 Neutrophils % 77.9 05/24/18 06:38 Lymphocytes % 12.1 05/24/18 06:38 Monocytes % 8.7 05/24/18 06:38 Eosinophils % 0.9 05/24/18 06:38 Basophils % 0.2 05/24/18 06:38 Absolute Neutrophils 4.11 k/cumm (1.2-6.7) 05/24/18 06:38 Absolute Lymphocytes 0.64 k/cumm (1.2-3.4) L 05/24/18 06:38 Absolute Monocytes 0.46 k/cumm (0.11-0.7) 05/24/18 06:38 Absolute Eosinophils 0.05 k/cumm (0.0-0.7) 05/24/18 06:38 Absolute Basophils 0.01 k/cumm (0.0-0.2) 05/24/18 06:38 PT 9.6 sec (9.3-10.8) 05/19/18 05:31 INR 1.0 (1.0-3.5) 05/19/18 05:31 Sodium 138 mmol/L (136-145) 05/24/18 06:38 Potassium 4.4 mmol/L (3.5-5.1) 05/24/18 06:38 Chloride 104 mmol/L (98-107) 05/24/18 06:38 Carbon Dioxide 27.3 mmol/L (21.0-32.0) 05/24/18 06:38 Anion Gap 6.7 mmol/L (3-11) 05/24/18 06:38 BUN 20 mg/dL (7-18) H D 05/24/18 06:38 Creatinine 0.93 mg/dL (0.70-1.30) 05/24/18 06:38 Estimated GFR/1.73 m2 >= 60.00 (mL/min/1.73m2) 05/24/18 06:38 Glucose 95 mg/dL (70-100) 05/24/18 06:38 Calcium 7.7 mg/dL (8.5-10.1) L 05/24/18 06:38 Magnesium 2.0 mg/dL (1.8-2.4) 05/23/18 11:15 Urine Color Brown (Yellow) 05/23/18 11:28 Urine Clarity Cloudy 05/23/18 11:28 Urine pH 5.5 (5-8) 05/23/18 11:28 Ur Specific [place] 1.020 (1.005-1.025) 05/23/18 11:28 Urine Protein >=300 mg/dL (Negative) H 05/23/18 11:28 Urine Ketones 40 mg/dL (Negative) H 05/23/18 11:28 Urine Blood Large (Negative) H 05/23/18 11:28 Urine Nitrite Positive (Negative) H 05/23/18 11:28 Urine Bilirubin Small (Negative) H 05/23/18 11:28 Urine Urobilinogen 0.2 EU/dL (Up TO 0.2) 05/23/18 11:28 Ur Leukocyte Esterase Trace (Negative) H 05/23/18 11:28 Urine RBC >50 (0-2) H 05/23/18 11:28 Urine WBC Not Applicable 05/23/18 11:28 Ur Epithelial Cells Not Applicable 05/23/18 11:28 Urine Crystals Not Applicable 05/23/18 11:28 Urine Bacteria Not Applicable 05/23/18 11:28 Urine Casts Negative LPF (Negative) 05/18/18 15:05 Urine Mucus Not Applicable 05/23/18 11:28 Urine Other Negative (Negative) 05/18/18 15:05 Ur Culture Indicated? C&s done as ordered 05/23/18 11:28 Urine Glucose Negative mg/dL (Negative) 05/23/18 11:28
--- NOTE | 2018-05-24 12:55 | PDOC.CMPRO ---
- If Service Date Differs Date of service: 05/24/18 Time of Service: 12:55 Care Management Progress Note S/O: Igor was lying in bed when CM visits this morning. His , Tila, is at his bedside. He is engaged in conversation, is talkative, and seems much clearer mentation barnett than in past days. Igor will be returning home on hospice and CM spoke with Igor and Tila about equipment needs. Tila is unsure if she has room for a hospital bed at home. She and Igor have raised toilets but no commode, and have DME equipment. MATHEW relayed this information to Katerina at [facility]. Katerina will be faxing the CTI form to for signing by the hospitalist. A: Igor is a 82 year old male admitted with hematuria, BPH and hypertension now status post, Cystoscopy, fulguration of prostate and bladder mucosa, clot evacuation, insert suprapubic tube. Bilateral spermatocelectomy. P: Igor will discharge home with hospice services when medically ready per MD. Dr. Person will assist with facilitation and will meet again with Igor and his family prior to discharge or at home if necessary. Per [facility], CTI will be completed with Dr. Person and faxed to for hospitalist's signature. Igor will transport via private vehicle with his family at discharge. CM will continue to offer support to patient, family, and care team regarding discharge planning and disposition.
--- NOTE | 2018-05-24 13:24 | PGE_ITS ---
Date of Service Date of service: 05/24/18 Time of Service: 13:15 Assessment and Plan (1) Hematuria: Current visit: Yes Status: Acute Underwent Continuous Bladder Irrigation, with no further bleeding noted. Had a cystoscopy 05/22 with fulguration of prostate and bladder mucosa, clot evacuation, and insertion of a suprapubic tube. Mr. Reyes also underwent bilateral Spermatocelectomy. Bleeding on the morning of 05/23 following removal of tinsley cath expected per discussion with Urology, and based on creation of numerous false lumens with prior patient self catheterizations, and the bleeding stopped following application of pressure and ice. If recurs could consider application of repeat tinsley cath to act as tamponade on the area of bleeding. For now appears stable, but with a continued drop in Hgb which will be monitored closely - repeat H/H this afternoon. (2) Fever: Current visit: Yes Status: Acute CXR negative. Patient was over 24 hours post-op, but with 2 seperate occurances of fevers. Urinalysis with positive Nitrite and LE, Microscopic evaluation for WBCs was not undertaken due to the presence of copious RBCs obscuring the field. CBC without leukocytosis. Urine Culture so far without growth. Continue Ceftriaxone day #2 and monitor gram stain and culture closely. Blood Cultures also obtained. (3) Hypertension: Current visit: Yes Status: Chronic Continue HELENA-I and CCB. Current blood pressure appropriate. (4) BPH (benign prostatic hyperplasia): Current visit: Yes Status: Chronic Chronic Tinsley Catheter, now s/p cystoscopy and change to suprapubic catheter. (5) Delirium: Current visit: Yes Status: Chronic Acute delirium in the setting of hospitalization, administration of narcotics in ED, discomfort, and constipation in patient with history of Dementia. No further narcotics on board. Bowel regimen initiated and patient reportedly moving his bowels. No evidence of infection previously, now with potential UTI on antibiotics, and CT Head without significant acute abnormalities. Became combative overnight and likely ing previously. Appears to have done well with very low dose standing Seroquel in addition to minimal dose Haloperidol on a prn basis. Continue fall precautions. Patient will likely do well with return to home once stable. (6) Advance directive discussed with patient: Current visit: Yes Status: Acute DNR/DNI per discussion with Palliative Care. (7) DVT prophylaxis: Current visit: Yes Status: Acute SCDs, TEDS in setting of continued bleeding. (8) Advanced directives, counseling/discussion: Current visit: Yes Status: Acute DNR/DNI Subjective Patient reports: no new complaints Interval history since last seen: 82-year-old man admitted on 05/18 from [facility] Emergency Department with an obstructed Tinsley catheter due to blood clots and bleeding. Mr. Reyes has a history of advanced Dementia, likely Alzheimer's. He also has a history of BPH with urinary retention that he had performed intermittent self catherization for, but with increasing difficulty in recent times leading to insertion of a tinsley catheterization. He had onset of hematuria with blood clots, with a repeat ED visit and this time leading to admission for a planned cystoscopy. Patient remained on CBI without any further evidence of obstruction, clots, or hematuria. He underwent Urology evaluation, and on 05/22 underwent a cystoscopy with concurrent insertion of a suprapubic catheter. On the morning of 05/23 following removal of his tinsley catheter there was significant bleeding from the penis. Per discussion with Urology this was expected secondary to formation of numerous false lumens with prior patient self catheterizations, and the bleeding stopped following application of pressure and ice. Later in the morning however the patient's temperature became elevated and he had a fever with a temp of 38.1 and again at 38.4. Labwork was unremarkable with the exception of a mild drop in hgb. Urinalysis however was positive for Nitrite and trace Leukocyte Esterase - Microscopic evaluation for WBCs was not undertaken due to the presence of copious RBCs obscuring the field. His CXR was negative. He was started on IV Ceftriaxone and defervesced - however cultures so far are negative. Mr. Reyes's Hgb as also continued to drop this morning in setting of recent cystoscopy, bleeding episode yesterday, and IVF administration. The patient had also been experiencing intermittently worsening mental status, with initial work -up negative. He had an episode of combative behavior previously requiring administration of Haldol and restraints. He was started on low dose seroquel with good results since. Palliative Medicine has also met with family, and he is now considered DNR/DNI, with a move towards palliative care in the future, with plans for discharge with home hospice. No other events reported. He remains afebrile. Exam Narrative Exam Narrative: General:Thin appearing male. Awake, not oriented. NAD. Very pleasant and cooperative. Neck: Supple CV: RRR, S1S2, no r/m/g Pulmonary: CTAB without crackles, rhonchi, wheezing Abdomen: +BS, s/nt/nd : Suprapubic catheter noted. Extremities: No edema Objective Objective Clinical Data: Abnormal lab results 05/24/18 05/24/18 Range/Units 06:38 06:38 RBC 2.95 L (4.50-6.00) m/cumm Hgb 8.7 L (13.5-17.5) g/dL Hct 25.7 L (40.0-50.0) % Plt Count 115 L (130-400) x1000/uL Absolute Lymphocytes 0.64 L (1.2-3.4) k/cumm BUN 20 H D (7-18) mg/dL Calcium 7.7 L (8.5-10.1) mg/dL Vital Signs Temperature 37.4 C 05/24/18 08:00 Temperature Source Tympanic 05/24/18 08:00 Pulse 98 H 05/24/18 08:00 Pulse Rhythm Regular 05/24/18 11:23 Respiratory Rate 17 05/24/18 08:00 Respiratory Effort Non-Labored 05/24/18 11:23 Respiratory Depth Normal 05/24/18 11:23 Respiratory Pattern Normal 05/24/18 11:23 Blood Pressure 146/60 H 05/24/18 08:00 Blood Pressure Position Sitting 05/18/18 11:44 Pulse Oximetry 96 05/24/18 08:00 Respiratory End-tidal CO2 32 05/22/18 12:00 Oxygen Delivery Method Room Air 05/24/18 08:00 Oxygen Flow Rate 0 05/24/18 08:00 Pain Level 0 05/24/18 10:55 Comment 05/23/18 07:50 Intake & Output 05/23/18 05/24/18 05/24/18 23:59 11:59 23:59 Intake Total 1810 / 1810 Output Total 1500 / 1500 1650 / 1650 Balance 310 / 310 -1640 / -1640 Intake: IV 1570 / 1570 Oral 240 / 240 Output: Urine 1500 / 1500 1650 / 1650 Other: Urine Color Dark Arabella Yellow Dark Red Urine Appearance Clear Clear Comment pt had a small amount of bleeding from his penis Stool Size Moderate Stool Characteristics Liquid Brown Laboratory Results WBC 5.28 k/cumm (4.4-10.8) D 05/24/18 06:38 RBC 2.95 m/cumm (4.50-6.00) L 05/24/18 06:38 Hgb 8.7 g/dL (13.5-17.5) L 05/24/18 06:38 Hct 25.7 % (40.0-50.0) L 05/24/18 06:38 MCV 87.1 fL (80-95) 05/24/18 06:38 MCH 29.5 pg (27.0-33.0) 05/24/18 06:38 MCHC 33.9 g/dL (32.0-36.0) 05/24/18 06:38 RDW 12.2 % (11.8-14.1) 05/24/18 06:38 Plt Count 115 x1000/uL (130-400) L 05/24/18 06:38 MPV 10.3 fL (8.0-11.0) 05/24/18 06:38 Immature Gran % 0.2 05/24/18 06:38 Neutrophils % 77.9 05/24/18 06:38 Lymphocytes % 12.1 05/24/18 06:38 Monocytes % 8.7 05/24/18 06:38 Eosinophils % 0.9 05/24/18 06:38 Basophils % 0.2 05/24/18 06:38 Absolute Neutrophils 4.11 k/cumm (1.2-6.7) 05/24/18 06:38 Absolute Lymphocytes 0.64 k/cumm (1.2-3.4) L 05/24/18 06:38 Absolute Monocytes 0.46 k/cumm (0.11-0.7) 05/24/18 06:38 Absolute Eosinophils 0.05 k/cumm (0.0-0.7) 05/24/18 06:38 Absolute Basophils 0.01 k/cumm (0.0-0.2) 05/24/18 06:38 PT 9.6 sec (9.3-10.8) 05/19/18 05:31 INR 1.0 (1.0-3.5) 05/19/18 05:31 Sodium 138 mmol/L (136-145) 05/24/18 06:38 Potassium 4.4 mmol/L (3.5-5.1) 05/24/18 06:38 Chloride 104 mmol/L (98-107) 05/24/18 06:38 Carbon Dioxide 27.3 mmol/L (21.0-32.0) 05/24/18 06:38 Anion Gap 6.7 mmol/L (3-11) 05/24/18 06:38 BUN 20 mg/dL (7-18) H D 05/24/18 06:38 Creatinine 0.93 mg/dL (0.70-1.30) 05/24/18 06:38 Estimated GFR/1.73 m2 >= 60.00 (mL/min/1.73m2) 05/24/18 06:38 Glucose 95 mg/dL (70-100) 05/24/18 06:38 Calcium 7.7 mg/dL (8.5-10.1) L 05/24/18 06:38 Magnesium 2.0 mg/dL (1.8-2.4) 05/23/18 11:15 Urine Color Brown (Yellow) 05/23/18 11:28 Urine Clarity Cloudy 05/23/18 11:28 Urine pH 5.5 (5-8) 05/23/18 11:28 Ur Specific [place] 1.020 (1.005-1.025) 05/23/18 11:28 Urine Protein >=300 mg/dL (Negative) H 05/23/18 11:28 Urine Ketones 40 mg/dL (Negative) H 05/23/18 11:28 Urine Blood Large (Negative) H 05/23/18 11:28 Urine Nitrite Positive (Negative) H 05/23/18 11:28 Urine Bilirubin Small (Negative) H 05/23/18 11:28 Urine Urobilinogen 0.2 EU/dL (Up TO 0.2) 05/23/18 11:28 Ur Leukocyte Esterase Trace (Negative) H 05/23/18 11:28 Urine RBC >50 (0-2) H 05/23/18 11:28 Urine WBC Not Applicable 05/23/18 11:28 Ur Epithelial Cells Not Applicable 05/23/18 11:28 Urine Crystals Not Applicable 05/23/18 11:28 Urine Bacteria Not Applicable 05/23/18 11:28 Urine Casts Negative LPF (Negative) 05/18/18 15:05 Urine Mucus Not Applicable 05/23/18 11:28 Urine Other Negative (Negative) 05/18/18 15:05 Ur Culture Indicated? C&s done as ordered 05/23/18 11:28 Urine Glucose Negative mg/dL (Negative) 05/23/18 11:28
[2018-05-24 14:26] LABS: HCT 25.2 % (40.0-50.0); HGB 8.7 g/dL (13.5-17.5)
--- NOTE | 2018-05-24 15:04 | CMPROGNOTE_ITS ---
- If Service Date Differs Date of service: 05/24/18 Time of Service: 12:55 Care Management Progress Note S/O: Igor was lying in bed when CM visits this morning. His , Tila, is at his bedside. He is engaged in conversation, is talkative, and seems much clearer mentation barnett than in past days. Igor will be returning home on hospice and CM spoke with Igor and Tila about equipment needs. Tila is unsure if she has room for a hospital bed at home. She and Igor have raised toilets but no commode, and have DME equipment. MATHEW relayed this information to Katerina at [facility]. Katerina will be faxing the CTI form to for signing by the hospitalist. A: Igor is a 82 year old male admitted with hematuria, BPH and hypertension now status post, Cystoscopy, fulguration of prostate and bladder mucosa, clot evacuation, insert suprapubic tube. Bilateral spermatocelectomy. P: Igor will discharge home with hospice services when medically ready per MD. Dr. Person will assist with facilitation and will meet again with Igor and his family prior to discharge or at home if necessary. Per [facility], CTI will be completed with Dr. Person and faxed to for hospitalist's signature. Igor will transport via private vehicle with his family at discharge. CM will continue to offer support to patient, family, and care team regarding discharge planning and disposition.
[2018-05-24 16:00] VITALS: BP 117/74; PULSE 77; RESP 18; TEMP 37.4; O2SAT 96
[2018-05-24] MEDS: Polyethylene Glycol 3350 17 GM PACKET PO (19:53)
[2018-05-24] MEDS: Senna TAB 2 TAB PO (19:53)
[2018-05-24] MEDS: Melatonin 3 MG TAB PO (19:53)
[2018-05-24 20:43] VITALS: BP 123/69; PULSE 79; RESP 17; TEMP 37.3; O2SAT 98
[2018-05-24 23:35] VITALS: BP 114/69; PULSE 87; RESP 20; TEMP 36.3; O2SAT 100
[2018-05-25 08:30] VITALS: BP 110/50; PULSE 69; RESP 17; TEMP 36.4; O2SAT 95
[2018-05-25] MEDS: Mirabegron 50 MG TABCR PO (08:40)
[2018-05-25] MEDS: Finasteride 5 MG TAB PO (08:40)
[2018-05-25] MEDS: Polyethylene Glycol 3350 17 GM PACKET PO (08:40)
[2018-05-25] MEDS: Lisinopril 5 MG TAB 2.5 MG PO (08:40)
[2018-05-25] MEDS: amLODIPine 5 MG TAB PO (08:40)
[2018-05-25] MEDS: QUEtiapine 25 MG TAB PO (08:40)
[2018-05-25] MEDS: Simethicone 80 MG CHEW PO ×2 (09:09→15:39)
--- NOTE | 2018-05-25 09:13 | PGE_ITS ---
Date of Service Date of service: 05/25/18 Time of Service: 07:03 Assessment and Plan (1) Urinary retention: Current visit: Yes Status: Acute He seems to have stabilized quite nicely. I suspect the fever that he developed after his catheter was removed was related to a release of colonized bacteria in the lower urinary tract. As long as his urine culture is negative, I do not think he will need additional antibiotics other than the IV ceftriaxone given acutely. We will need to teach the family to change the dressing around the suprapubic tube daily. He will need to come into my office in about 4 weeks for the first suprapubic tube change. Subjective Interval history since last seen: The patient was seen earlier this morning, but I was then able to document on the chart at that time. He had a good night with no fevers. He is quite comfortable with no bladder spasms. He is hoping to go home today Exam Narrative Exam Narrative: His vital signs are documented in the chart. His urine is clear from his suprapubic tube. His urethral bleeding is minimal. Objective Objective Clinical Data: Abnormal lab results 05/24/18 Range/Units 14:08 Hgb 8.7 L (13.5-17.5) g/dL Hct 25.2 L (40.0-50.0) % Vital Signs Temperature 36.3 C L 05/24/18 23:35 Temperature Source Tympanic 05/24/18 23:35 Pulse 87 05/24/18 23:35 Pulse Rhythm Regular 05/24/18 23:35 Respiratory Rate 20 05/24/18 23:35 Respiratory Effort Non-Labored 05/24/18 23:35 Respiratory Depth Normal 05/24/18 23:35 Respiratory Pattern Normal 05/24/18 23:35 Blood Pressure 114/69 05/24/18 23:35 Blood Pressure Position Sitting 05/18/18 11:44 Pulse Oximetry 100 05/24/18 23:35 Respiratory End-tidal CO2 32 05/22/18 12:00 Oxygen Delivery Method Room Air 05/24/18 23:35 Oxygen Flow Rate 0 05/24/18 23:35 Pain Level 0 05/24/18 23:35 Comment 05/23/18 07:50 Intake & Output 05/24/18 05/24/18 05/25/18 11:59 23:59 11:59 Intake Total 592.5 / 592.5 Output Total 1650 / 1650 1200 / 1200 1150 / 1150 Balance -1640 / -1640 -607.5 / -607.5 -1150 / -1150 Intake: IV 52.5 / 52.5 Oral 540 / 540 Output: Urine 1650 / 1650 1200 / 1200 1150 / 1150 Other: Urine Color Yellow Yellow Yellow Urine Appearance Clear Clear Clots Urine Odor Normal Voiding Methods Indwelling Catheter Laboratory Results WBC 5.28 k/cumm (4.4-10.8) D 05/24/18 06:38 RBC 2.95 m/cumm (4.50-6.00) L 05/24/18 06:38 Hgb 8.7 g/dL (13.5-17.5) L 05/24/18 14:08 Hct 25.2 % (40.0-50.0) L 05/24/18 14:08 MCV 87.1 fL (80-95) 05/24/18 06:38 MCH 29.5 pg (27.0-33.0) 05/24/18 06:38 MCHC 33.9 g/dL (32.0-36.0) 05/24/18 06:38 RDW 12.2 % (11.8-14.1) 05/24/18 06:38 Plt Count 115 x1000/uL (130-400) L 05/24/18 06:38 MPV 10.3 fL (8.0-11.0) 05/24/18 06:38 Immature Gran % 0.2 05/24/18 06:38 Neutrophils % 77.9 05/24/18 06:38 Lymphocytes % 12.1 05/24/18 06:38 Monocytes % 8.7 05/24/18 06:38 Eosinophils % 0.9 05/24/18 06:38 Basophils % 0.2 05/24/18 06:38 Absolute Neutrophils 4.11 k/cumm (1.2-6.7) 05/24/18 06:38 Absolute Lymphocytes 0.64 k/cumm (1.2-3.4) L 05/24/18 06:38 Absolute Monocytes 0.46 k/cumm (0.11-0.7) 05/24/18 06:38 Absolute Eosinophils 0.05 k/cumm (0.0-0.7) 05/24/18 06:38 Absolute Basophils 0.01 k/cumm (0.0-0.2) 05/24/18 06:38 PT 9.6 sec (9.3-10.8) 05/19/18 05:31 INR 1.0 (1.0-3.5) 05/19/18 05:31 Sodium 138 mmol/L (136-145) 05/24/18 06:38 Potassium 4.4 mmol/L (3.5-5.1) 05/24/18 06:38 Chloride 104 mmol/L (98-107) 05/24/18 06:38 Carbon Dioxide 27.3 mmol/L (21.0-32.0) 05/24/18 06:38 Anion Gap 6.7 mmol/L (3-11) 05/24/18 06:38 BUN 20 mg/dL (7-18) H D 05/24/18 06:38 Creatinine 0.93 mg/dL (0.70-1.30) 05/24/18 06:38 Estimated GFR/1.73 m2 >= 60.00 (mL/min/1.73m2) 05/24/18 06:38 Glucose 95 mg/dL (70-100) 05/24/18 06:38 Calcium 7.7 mg/dL (8.5-10.1) L 05/24/18 06:38 Magnesium 2.0 mg/dL (1.8-2.4) 05/23/18 11:15 Urine Color Brown (Yellow) 05/23/18 11:28 Urine Clarity Cloudy 05/23/18 11:28 Urine pH 5.5 (5-8) 05/23/18 11:28 Ur Specific [place] 1.020 (1.005-1.025) 05/23/18 11:28 Urine Protein >=300 mg/dL (Negative) H 05/23/18 11:28 Urine Ketones 40 mg/dL (Negative) H 05/23/18 11:28 Urine Blood Large (Negative) H 05/23/18 11:28 Urine Nitrite Positive (Negative) H 05/23/18 11:28 Urine Bilirubin Small (Negative) H 05/23/18 11:28 Urine Urobilinogen 0.2 EU/dL (Up TO 0.2) 05/23/18 11:28 Ur Leukocyte Esterase Trace (Negative) H 05/23/18 11:28 Urine RBC >50 (0-2) H 05/23/18 11:28 Urine WBC Not Applicable 05/23/18 11:28 Ur Epithelial Cells Not Applicable 05/23/18 11:28 Urine Crystals Not Applicable 05/23/18 11:28 Urine Bacteria Not Applicable 05/23/18 11:28 Urine Casts Negative LPF (Negative) 05/18/18 15:05 Urine Mucus Not Applicable 05/23/18 11:28 Urine Other Negative (Negative) 05/18/18 15:05 Ur Culture Indicated? C&s done as ordered 05/23/18 11:28 Urine Glucose Negative mg/dL (Negative) 05/23/18 11:28
[2018-05-25 11:20] VITALS: BP 102/61; PULSE 66; RESP 18; TEMP 36.9; O2SAT 97
[2018-05-25] MEDS: Normal Saline Flush 10 ML SYR IVP (13:13)
--- NOTE | 2018-05-25 14:30 | PDOC.CMDIS ---
- If Service Date Differs Date of service: 05/25/18 Time of Service: 14:30 LACE Index Scoring Tool - Questions: Length of Stay (in days): 7 - 13 Acuity (Admit via E.D.?): Yes Comorbidities: Any Tumor, Dementia, Metastatic Solid Tumor E.D. Visits: 3 - Answers: Total Score: 16 Risk of Readmission: High Risk Care Management Discharge Reason for Hospitalization: Hematuria, BPH, hypertension Discharge Plan: Igor will discharge home with hospice when medically ready per MD. MATHEW has faxed the signed CTI to [facility] and hospice will arrange for any needed equipment. Equipment list has been discussed with patient and Jacqueline at [facility]. Igor will transport via private vehicle with his , Tila. Patient/Family Education Needs: Discharge education, any limitations and follow up plan of care. Ask Me Three discussion. Services Needed at Discharge: Home Health Care Services (Hospice care. )
--- NOTE | 2018-05-25 14:33 | CMDISCH_ITS ---
- If Service Date Differs Date of service: 05/25/18 Time of Service: 14:30 LACE Index Scoring Tool - Questions: Length of Stay (in days): 7 - 13 Acuity (Admit via E.D.?): Yes Comorbidities: Any Tumor, Dementia, Metastatic Solid Tumor E.D. Visits: 3 - Answers: Total Score: 16 Risk of Readmission: High Risk Care Management Discharge Reason for Hospitalization: Hematuria, BPH, hypertension Discharge Plan: Igor will discharge home with hospice when medically ready per MD. MATHEW has faxed the signed CTI to [facility] and hospice will arrange for any needed equipment. Equipment list has been discussed with patient and Jacqueline at [facility]. Igor will transport via private vehicle with his , Tila. Patient/Family Education Needs: Discharge education, any limitations and follow up plan of care. Ask Me Three discussion. Services Needed at Discharge: Home Health Care Services (Hospice care. )
--- NOTE | 2018-05-25 14:43 | W.PM.DS.N ---
Date of service: 05/25/18 Time of Service: 14:44 DS: Diagnosis Discharge Diagnosis (1) Urinary retention: Status: Acute (2) Fever: Status: Acute (3) Gross hematuria: Status: Acute (4) Delirium: Status: Chronic (5) Constipation: Status: Acute Discharge Plan Disposition Patient Disposition: HOME Condition: Improving Discharge Details Reason For Visit: HEMATURIA Admit Date/Time: 05/18/18 16:10 Admit Provider: Adam Harden Attending Provider: Adam Harden Primary Care Provider: [facility],[place] Hospital Course Hospital Course: CC: Hematuria HPI: 82-year-old man admitted on 05/18 from [facility] Emergency Department with an obstructed Tinsley catheter due to blood clots and bleeding. Mr. Reyes has a history of advanced Dementia, likely Alzheimer's. He also has a history of BPH with urinary retention that he had performed intermittent self catherization for, but with increasing difficulty in recent times leading to insertion of a tinsley catheterization. He had onset of hematuria with blood clots, with a repeat ED visit and this time leading to admission for a planned cystoscopy. Patient remained on CBI without any further evidence of obstruction, clots, or hematuria. He underwent Urology evaluation, and on 05/22 underwent a cystoscopy with concurrent insertion of a suprapubic catheter. On the morning of 05/23 following removal of his tinsley catheter there was significant bleeding from the penis. Per discussion with Urology this was expected secondary to formation of numerous false lumens with prior patient self catheterizations, and the bleeding stopped following application of pressure and ice. Later in the morning however the patient's temperature became elevated and he had a fever with a temp of 38.1 and again at 38.4. Labwork was unremarkable with the exception of a mild drop in hgb. Urinalysis however was positive for Nitrite and trace Leukocyte Esterase - Microscopic evaluation for WBCs was not undertaken due to the presence of copious RBCs obscuring the field. Urine Culture however with No Growth X24 hours. His CXR was negative. He was started on IV Ceftriaxone and defervesced. Blood Cultures also remained negative. Mr. Reeys's Hgb dropped yesterday morning in setting of recent cystoscopy, bleeding episode following tinsley removal, and IVF administration. The patient had also been experiencing intermittently worsening mental status, with initial work-up negative. He had an episode of combative behavior previously requiring administration of Haldol and restraints. He was started on low dose seroquel with good results since. Palliative Medicine has also met with family, and he is now considered DNR/DNI, with a move towards palliative care in the future, with plans for discharge with home hospice. No other events reported. He remains afebrile. Hospital Course: (1) Hematuria: Underwent Continuous Bladder Irrigation, with no further bleeding noted. Had a cystoscopy 05/22 with fulguration of prostate and bladder mucosa, clot evacuation, and insertion of a suprapubic tube. Mr. Reyes also underwent bilateral Spermatocelectomy. Bleeding on the morning of 05/23 following removal of tinsley cath expected per discussion with Urology, and based on creation of numerous false lumens with prior patient self catheterizations, and the bleeding stopped following application of pressure and ice. Appears stable. Follow-up with Urology has been scheduled. (2) Fever: CXR negative. Patient was over 24 hours post-op, but with 2 seperate occurances of fevers. Urinalysis with positive Nitrite and LE, Microscopic evaluation for WBCs was not undertaken due to the presence of copious RBCs obscuring the field. Urine Culture negative. CBC without leukocytosis. Urine Culture so far without growth. Likely due to release of colonized bacteria in the lower urinary tract following removal of tinsley catheter, with a transient bacteremia. Per review of Urology recommendations no further antibiotics will be provided other than what was already given here - 3 days of Ceftriaxone. Blood Cultures also negative. (3) Hypertension: Continue HELENA-I and CCB. (4) BPH (benign prostatic hyperplasia): Chronic Tinsley Catheter, now s/p cystoscopy and change to suprapubic catheter. (5) Delirium: Acute delirium in the setting of hospitalization, administration of narcotics in ED, discomfort, and constipation in patient with history of Dementia. No further narcotics on board. Bowel regimen initiated and patient reportedly moving his bowels. No evidence of infection previously, with fever work-up as above, and CT Head without significant acute abnormalities. Became combative overnight and likely sundowning previously. Appears to have done well with very low dose standing Seroquel in addition to minimal dose Haloperidol on a prn basis. Patient will be discharged with low dose Seroquel, to be reevaluated as an outpatient. (6) Advance directive discussed with patient: DNR/DNI per discussion with Palliative Care. (7) Disposition Home with home hospice Home Meds and New Rx's Prescriptions: New belladonna alkaloids-opium 16.2-60 mg suppository 1 supp DC TID PRN (Reason: bladder spasms) Qty: 12 RF: 0 quetiapine 25 mg Tablet 25 mg PO BID Qty: 60 RF: 0 mirabegron [Myrbetriq] 50 mg Tablet Extended Release 24 Hr 50 mg PO DAILY Qty: 30 RF: 0 oxybutynin chloride 5 mg tablet 5 mg PO BID Qty: 60 RF: 0 Continue amlodipine 5 mg tablet 5 mg PO DAILY RF: 0 lisinopril 2.5 mg tablet 2.5 mg PO DAILY RF: 0 simethicone 80 mg tablet 80 mg PO QID PRNRF: 0 mirabegron [Myrbetriq] 50 mg tablet extended release 24 hr 50 mg PO DAILY Qty: 30 RF: 11 cyclobenzaprine 10 mg tablet 10 mg PO HS PRN (Reason: muscle spasm) Qty: 9 RF: 0 tamsulosin [Flomax] 0.4 mg Capsule 0.4 mg PO DAILY RF: 0 Discontinued oxybutynin chloride 5 mg tablet 5 mg PO .q8hrs PRN (Reason: bladder spasms) Qty: 10 RF: 0 Discharge Instructions Instructions: Hematuria (GEN) Additional Instructions: We were unable to confirm your appointment time with Dr Rosado today due to holiday hours in the operating room. May use oxybutynin as prescribed as well as B&O suppository as provided. Return to the ER for any acute concerns in the interim, otherwise please call Dr Rosado's office first thing Monday to confirm your appointment time. Stand Alone Forms: Nursing Discharge Form Referrals: Rashel Rosado MD [ [facility] STAFF PHYSICIAN] - 06/21/18 10:00 am Activity:: No strenuous activity Equipment/Supplies:: No Equipment Needed Diet:: As Tolerated Discharge Orders Discharge Orders: Discharge Order (Routine); Ordered 05/25/18 Ordered By: Dudley De La Rosa Exam Narrative Exam Narrative: General:Thin appearing male. Awake, not oriented. NAD. Very pleasant and cooperative, dementia at baseline. Neck: Supple CV: RRR, S1S2, no r/m/g Pulmonary: CTAB without crackles, rhonchi, wheezing Abdomen: +BS, s/nt/nd : Suprapubic catheter noted. Extremities: No edema DS: Data Vitals/I&O Vitals and I&O: Vital Signs Temperature 36.9 C 05/25/18 11:20 Temperature Source Temporal Artery Scan 05/25/18 11:20 Pulse 66 05/25/18 11:20 Pulse Rhythm Regular 05/25/18 08:30 Respiratory Rate 18 05/25/18 11:20 Respiratory Effort 05/25/18 08:30 Respiratory Depth Normal 05/25/18 08:30 Respiratory Pattern Normal 05/25/18 08:30 Blood Pressure 102/61 05/25/18 11:20 Blood Pressure Position Sitting 05/18/18 11:44 Pulse Oximetry 97 05/25/18 11:20 Respiratory End-tidal CO2 32 05/22/18 12:00 Oxygen Delivery Method Room Air 05/25/18 11:20 Oxygen Flow Rate 0 05/25/18 11:20 Pain Level 0 05/24/18 23:35 Comment 05/23/18 07:50 Intake & Output 05/24/18 05/25/18 05/25/18 23:59 11:59 23:59 Intake Total 592.5 / 592.5 250 / 250 50 / 50 Output Total 1200 / 1200 1150 / 1150 225 / 225 Balance -607.5 / -607.5 -900 / -900 -175 / -175 Intake: IV 52.5 / 52.5 10 / 10 50 / 50 Oral 540 / 540 240 / 240 Output: Urine 1200 / 1200 1150 / 1150 225 / 225 Other: Urine Color Yellow Yellow Yellow Urine Appearance Clear Clear Clots Urine Odor Normal Comment 1 small blood clot noted in tinsley bag. Voiding Methods Indwelling Catheter Completed studies during hospitalization [Text1]: Exam(s) a RAD:XR portable chest AP SYMPTOM/DIAGNOSIS: ELEVATED TEMP PORTABLE AP CHEST: Comparison is made with05/16/18. The heart size is normal. The lungs are reasonably well inflated and appear clear. No infiltrate or effusion is seen. IMPRESSION: No acute abnormality. Labs on day of discharge: Preliminary micro results at discharge 05/23/18 14:50 Blood Culture - Preliminary Blood NO GROWTH 24 HOURS 05/23/18 14:35 Blood Culture - Preliminary Blood NO GROWTH 24 HOURS 05/23/18 10:32 Urine Culture - Preliminary Urine - Voided PFSH Counseling regarding advance directives and goals of care (Acute) Hematuria (Acute) Anxiety (Chronic) BPH (benign prostatic hyperplasia) (Chronic) History of colon cancer (Chronic) History of smoking 25-50 pack years (Chronic) Hypertension (Chronic) Moderate dementia with behavioral disturbance (Chronic) Underweight (Chronic) Unintentional weight loss (Chronic) Family History Mother Dementia Father COPD (chronic obstructive pulmonary disease) Sister Pancreatic cancer Nephew Bladder cancer Brother COPD (chronic obstructive pulmonary disease) History of partial colectomy (Acute) Social History caregiver/support person: Yes household members: spouse housing: house lives independently: No number of children: 3 number of grandchildren: 5 fpc: No current occupational status: retired leisure activities: other well-balanced diet: rarely or never eating out: rarely or never reads food labels: seldom or never during the past year weight has: decreased > 10 lbs Smoking/Tobacco Use Status: Former Tobacco Use how long ago did patient quit smoking: about 40 years ago alcohol intake: former substance use type: does not use
[2018-05-25 15:56] VITALS: BP 117/71; PULSE 79; RESP 18; TEMP 37.4; O2SAT 96
== END 2018-05-25 17:02 | disposition home or self-care (01) | DRG 666 ==
LOC: ER 16:11 → MS 17:43
PROVIDERS: Nurse Practitioner Acute Care; Urology; Admitting Provider Family Medicine; Emergency Provider Emergency Medicine; Visit Provider Internal Medicine
PROC: 0V508ZZ Destruction of Prostate, Via Natural or Artificial Opening Endoscopic (ICD-10-PCS; CPT 52214; 2018-05-22 07:30)
PROC: 0V508ZZ Destruction of Prostate, Via Natural or Artificial Opening Endoscopic (ICD-10-PCS; CPT 51102; 2018-05-22 07:30)
DX: N30.01 Acute cystitis with hematuria (principal); F05 Delirium due to known physiological condition; F02.81 Dementia in other diseases classified elsewhere, unspecified severity, with behavioral disturbance; F01.51 Vascular dementia, unspecified severity, with behavioral disturbance; N30.21 Other chronic cystitis with hematuria; N43.3 Hydrocele, unspecified; T83.091A Other mechanical complication of indwelling urethral catheter, initial encounter; N36.5 Urethral false passage; R50.9 Fever, unspecified; R82.998 Other abnormal findings in urine; N40.1 Benign prostatic hyperplasia with lower urinary tract symptoms; R33.8 Other retention of urine; G30.9 Alzheimer's disease, unspecified; Z66 Do not resuscitate; I10 Essential (primary) hypertension; S50.312A Abrasion of left elbow, initial encounter; W06.XXXA Fall from bed, initial encounter; Z91.81 History of falling; Y92.230 Patient room in hospital as the place of occurrence of the external cause; Z51.5 Encounter for palliative care; K59.09 Other constipation
CPT/HCPCS: 52214; 52204; 51102; 54840; 36410; 36415; 80048; 87040; 88305; 99221; 99223; 99232; 99233; 99239; 99252; 99255; 99285; NC; 70450; 71045; 72125; 81003; 81015; 83735; 85014; 85018; 85025; 85610; 87086; 88307; 99284; J0690; J0696; J1630; J1885

== ENCOUNTER → 2018-05-21 08:00 | Outpatient (BNVA) | payer MEDICARE, SELFPAY | PROVIDERS: Visit Provider Urology | DX: N30.01 Acute cystitis with hematuria (principal); N30.21 Other chronic cystitis with hematuria; N43.3 Hydrocele, unspecified; T83.091A Other mechanical complication of indwelling urethral catheter, initial encounter; N36.5 Urethral false passage; N40.1 Benign prostatic hyperplasia with lower urinary tract symptoms; R33.8 Other retention of urine | CPT/HCPCS: 51102; 52204; 52214; 54840; 99221 ==

== ENCOUNTER 2018-07-16 11:48 | Outpatient (REF) | payer OTHER, MEDICARE, SELFPAY | END 2018-07-16 12:08 | LOC: LBN 11:48 | PROVIDERS: Visit Provider Urology | DX: R31.0 Gross hematuria (principal) | CPT/HCPCS: 87077; 87086; 87186 ==

== ENCOUNTER → 2018-10-01 08:58 | Outpatient (BNVA) | payer MEDICARE, SELFPAY | PROVIDERS: Visit Provider Nurse Practitioner Gerontology | DX: R33.9 Retention of urine, unspecified (principal) | CPT/HCPCS: 51705; 99213 ==

== ENCOUNTER → 2018-12-03 08:01 | Outpatient (BNVA) | payer MEDICARE, SELFPAY | PROVIDERS: Visit Provider Urology | DX: R33.9 Retention of urine, unspecified; Z46.6 Encounter for fitting and adjustment of urinary device; I10 Essential (primary) hypertension; N32.89 Other specified disorders of bladder | CPT/HCPCS: 51705; 99212; 99213 ==

== ENCOUNTER 2019-02-28 06:26 | Day surgery (SDC) | payer OTHER, MEDICARE, SELFPAY ==
[2019-02-28 06:33] VITALS: BP 162/97; PULSE 67; RESP 16; TEMP 36.7; O2SAT 99
--- NOTE | 2019-02-28 06:51 | W.PM.HP.N ---
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 If his spasms decrease, we can eventually switch back to every month. History of Present Illness Chief Complaint: Bladder spasm Narrative: This is an 83-year-old gentleman who has a history of urinary retention. Initially, he was performing intermittent catheterization. Eventually, he was no longer able to self cath, so we placed a suprapubic tube. We have been changing his tube monthly. He continues to have symptomatic bladder spasms in spite of the use of beta 3 agonists. He has been unable to tolerate anticholinergics because of mental status changes. He presents now for an injection of Botox into the detrusor muscle. Since he has a catheter in place already, we will use the 200 unit dose of Botox. Review of Systems Review of Systems No fevers or chills No vision change or dysphasia. Decreased hearing acuity. No diabetes or thyroid No shortness of breath, cough or hemoptysis No chest pain or palpitations No nausea, vomiting, hepatitis, ulcers, jaundice No seizures, strokes or peripheral neuropathy No bleeding disorders or anemia No gout PFSH Social History Smoking/Tobacco Use Status: Former Tobacco Use Alcohol Intake: former Drug use: Never Substance use type: does not use Caregiver/Support person: Yes Household members: spouse Housing: house Number of Children: 3 number of grandchildren: 5 What type of physical activity do you participate in: walking Do you feel safe in your relationship?: Yes Meds Home Medications Medication Instructions Recorded Confirmed Type simethicone 80 mg tablet 80 mg PO QID PRN 04/10/18 02/28/19 History docusate sodium [Dulcolax Stool 100 mg PO DAILY 07/19/18 02/28/19 History Softener (dss)] docusate sodium [Enemeez] 283 mg NC DAILY PRN 07/19/18 02/28/19 History glycerin (adult) 1 supp NC DAILY PRN 07/19/18 02/28/19 History sennosides [senna] 8.6 mg PO BID PRN 07/19/18 02/28/19 History mirabegron 50 mg tablet,extended 50 mg PO DAILY #30 tab 07/25/18 02/28/19 Rx release 24 hr urinary bag #4 packet 08/14/18 02/12/19 Rx Allergies Allergy/AdvReac Type Severity Reaction Status Date / Time oxybutynin Allergy cognitive Verified 02/28/19 06:30 changes haloperidol [From Haldol] AdvReac Severe Lasting Verified 02/28/19 06:30 agitation, hallucination quetiapine [From Seroquel] AdvReac Severe Lasting Verified 02/28/19 06:30 agitation, hallucination morphine AdvReac Intermediate Agitation Verified 02/28/19 06:30 Exam Narrative Exam Narrative: He is a pleasant older gentleman in no current distress. He is cooperative but confused. His vital signs are documented elsewhere. His neck is supple with no mass. His chest wall motion is normal. His lungs are clear Cardiac exam reveals a regular rate and rhythm His abdomen is flat and soft with no masses. His suprapubic tube is in place and is draining He is awake and alert. Results Last Vital Signs Temp 36.7 C 02/28/19 06:33 Pulse 67 02/28/19 06:33 Resp 16 02/28/19 06:33 BP 162/97 H 02/28/19 06:33 Pulse Ox 99 02/28/19 06:33
[2019-02-28] MEDS: Lactated Ringers 1,000 ML 80 ML IV (07:00)
[2019-02-28] MEDS: ceFAZolin 1 GM/50 ML BAG IVPB (07:43)
[2019-02-28] MEDS: Lidocaine 2% Jelly 6 ML SYR (07:50)
--- NOTE | 2019-02-28 08:06 | W.PM.DSUDISC ---
Discharge Plan Disposition Patient Disposition: HOME Condition: Stable Discharge Details Attending Provider: Rashel Rosado Primary Care Provider: Rachael Godinez Home Meds and New Rx's Prescriptions: No Action simethicone 80 mg tablet 80 mg PO QID PRNRF: 0 Myrbetriq 50 mg tablet extended release 24 hr 50 mg PO DAILY Qty: 30 RF: 12 (DME) Urinary Leg Bag misc See Dose Instructions .ROUTE .MEDSUPPLY Qty: 4 RF: 12 sennosides [senna] 8.6 mg Tablet 8.6 mg PO BID PRNRF: 0 docusate sodium [Dulcolax Stool Softener (dss)] 100 mg Capsule 100 mg PO DAILY RF: 0 glycerin (adult) Suppository 1 supp FL DAILY PRNRF: 0 Enemeez 283 mg/5 mL Enema 283 mg FL DAILY PRNRF: 0 Discharge Instructions Additional Instructions: Pt already has appt for his next catheter change Activity:: Activity as Tolerated Shower/Bathe:: 24 hours Diet:: As Tolerated Discharge Orders Discharge Orders: Discharge Order (Routine); Ordered 02/28/19 Ordered By: Rashel Rosado DS: Diagnosis Discharge Diagnosis (1) Bladder spasms: Status: Acute (2) Suprapubic catheter: Status: Chronic
[2019-02-28] MEDS: Phenazopyridine 200 MG TAB PO (08:30)
[2019-02-28 08:35] VITALS: BP 119/80; PULSE 55; RESP 14; TEMP 36.1; O2SAT 99
--- NOTE | 2019-03-01 07:04 | ROE_ITS ---
REPORT OF OPERATIVE PROCEDURE DATE OF SURGERY: February 28, 2019 PREOPERATIVE DIAGNOSIS: Bladder spasms. POSTOPERATIVE DIAGNOSIS: Bladder spasms. PROCEDURE PERFORMED: Cystoscopy with transurethral injection of Botox into the detrusor muscle. SURGEON: Rashel Rosado M.D. ANESTHESIA: Monitored Anesthesia Care. COMPLICATIONS: None. HISTORY: The patient is an 83-year-old gentleman who has a history of urinary retention. He has an indwelling suprapubic tube, but has continued bladder spasms. He has had adverse reactions to anticholinergic medications. He is already on a maximum dose of beta 3 agonist. 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 OPERATIVE REPORT: The patient was brought to the Operating Room on 02/28/2019. He was left in the supine position. His indwelling suprapubic tube was removed. The stoma site was then prepped and draped. A #20-Persian urethrotome sheath was passed through the suprapubic tract into the bladder. The bladder was inspected with the 30-degree lens. The bladder mucosa was hemorrhagic, but I did not see any evidence of papillary or nodular lesions. I injected a total of 200 units of Botox into the detrusor muscle. We injected in a total of 20 diffe rent locations. The solution that we injected was 200 units of Botox and 20 ml of saline. At the completion of the procedure, the scope was removed and a new #18-Persian catheter was passed th rough the suprapubic tract back into the bladder. The catheter balloon was inflated with 10 cc of tone rile water and the catheter was hooked to gravity drainage. The patient tolerated the procedure well with no complications. CC: Rachael Godinez M.D.
== END 2019-02-28 09:08 | disposition home or self-care (01) ==
PROVIDERS: PCP Nurse Practitioner Primary Care; Visit Provider Urology
PROC: (CPT 52287; principal; 2019-02-28 07:30)
DX: N32.89 Other specified disorders of bladder (principal); Z93.59 Other cystostomy status; R33.9 Retention of urine, unspecified
CPT/HCPCS: 52287; 51705; J0585; NC; J0690

== ENCOUNTER 2019-06-21 23:34 | Emergency (ER) | payer OTHER, MEDICARE, SELFPAY ==
[2019-06-21 23:37] VITALS: BP 158/95; PULSE 78; RESP 18; TEMP 36.7; O2SAT 100
--- NOTE | 2019-06-21 23:50 | ED.GENADUL_ITS ---
Discharge Plan Disposition Patient Disposition: HOME Condition: Stable Discharge Details Chief Complaint: Urinary Clinical Impression: Bladder spasm Primary Care Provider: Rachael Godinez ED Provider: Christofer Go Home Meds and New Rx's Prescriptions: New cyclobenzaprine 10 mg tablet 10 mg PO TID PRN (Reason: muscle spasm) Qty: 14 RF: 0 Continued simethicone 80 mg tablet 80 mg PO QID PRNRF: 0 Myrbetriq 50 mg tablet extended release 24 hr 50 mg PO DAILY Qty: 90 RF: 3 (DME) Urinary Leg Bag misc See Dose Instructions .ROUTE .MEDSUPPLY Qty: 4 RF: 12 sennosides [senna] 8.6 mg Tablet 8.6 mg PO BID PRNRF: 0 glycerin (adult) Suppository 1 supp MN DAILY PRNRF: 0 docusate sodium [Enemeez] 283 mg/5 mL Enema 283 mg MN DAILY PRNRF: 0 docusate sodium [Dulcolax Stool Softener (dss)] 100 mg capsule 100 mg PO BID RF: 0 Discharge Instructions Additional Instructions: follow up with Dr. 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 Denies any vomit, fevers, changes in urinary drainage and urine in catheter bag is clear. Has spasms around suprapubic region, no testicle swelling or pain and feels like prior bladder spasms. No abdominal tenderness. Seems consistent with bladder spasms, would like to try additional meds so he can at least sleep, will try flexeril as he can't take oxybutynin and reassess. pt's pain is gone. Had discussion with family of side effects of flexeril and they would like to have this in case spasms return and understand he will be drowsy and need to stay in bed for a few horus. He has f/u with Dr. Rosado, return precautions given Differential Diagnosis Differential Diagnosis: bladder spasm, muscle spasm HPI General Mode of arrival: ambulatory . Date/Time Provider Initiated Documentation: 06/21/19 23:35 . Limitations to Documentation: no limitations . Information obtained by: patient and family . History of Present Illness 83 year old M presents to the emergency department with the chief complaint of bladder spasms, described as moderate, Quality is described as other (spasm), and it has been intermittent. No relieving factors improve symptom(s), No exacerbating factors reported . Related Data Home Medications Medication Instructions Recorded Confirmed simethicone 80 mg tablet 80 mg PO QID PRN 04/10/18 06/21/19 docusate sodium [Enemeez] 283 mg MN DAILY PRN 07/19/18 06/21/19 glycerin (adult) 1 supp MN DAILY PRN 07/19/18 06/21/19 sennosides [senna] 8.6 mg PO BID PRN 07/19/18 06/21/19 urinary bag #4 packet 08/14/18 05/29/19 docusate sodium 100 mg capsule 100 mg PO BID cap 05/02/19 06/21/19 mirabegron 50 mg tablet,extended 50 mg PO DAILY #90 tab 05/29/19 06/21/19 release 24 hr cyclobenzaprine 10 mg PO TID PRN #14 tab 06/22/19 Previous Rx's Medication Instructions Recorded urinary bag #4 packet 08/14/18 mirabegron 50 mg tablet,extended 50 mg PO DAILY #90 tab 05/29/19 release 24 hr cyclobenzaprine 10 mg PO TID PRN #14 tab 06/22/19 Allergies Allergy/AdvReac Type Severity Reaction Status Date / Time oxybutynin Allergy cognitive Verified 06/21/19 23:40 changes haloperidol [From Haldol] AdvReac Severe Lasting Verified 06/21/19 23:40 agitation, hallucination quetiapine [From Seroquel] AdvReac Severe Lasting Verified 06/21/19 23:40 agitation, hallucination morphine AdvReac Intermediate Agitation Verified 06/21/19 23:40 General Stated Complaint: Urinary TINY: 4 Review of Systems All systems reviewed & are unremarkable except as noted in HPI and below Constitutional Constitutional: Denies chills, Denies fever(s) and Denies weakness Cardiovascular Cardiovascular: Denies dyspnea Respiratory Respiratory: Denies cough and Denies dyspnea Gastrointestinal Gastrointestinal: Denies nausea and Denies vomiting Genitourinary Genitourinary: Denies dysuria Musculoskeletal Musculoskeletal: Denies joint swelling Neurologic Neurologic: Denies weakness [facility] Medical History (Updated 03/05/19 @ 19:13 by Blanche Person MD) Anxiety (Chronic) 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 Bladder spasms (Acute) BPH (benign prostatic hyperplasia) (Chronic) Counseling regarding advance directives and goals of care (Acute) Hematuria (Acute) History of colon cancer (Chronic) History of smoking 25-50 pack years (Chronic) Hypertension (Chronic) Moderate dementia with behavioral disturbance (Chronic) Palliative care patient (Chronic) Suprapubic catheter (Chronic) Underweight (Chronic) Unintentional weight loss (Resolved) Vascular dementia (Chronic) Surgical History History of partial colectomy (Acute) Social History (Updated 03/05/19 @ 18:52 by Blanche Person MD) Smoking/Tobacco Use Status: Former Tobacco Use Tobacco: How many years used: 45 Second Hand Exposure: No Alcohol Intake: former Drug use: Never Substance use type: does not use Caregiver/Support person: Yes Household members: spouse Housing: house Number of Children: 3 number of grandchildren: 5 Communication Needs: Hard of Hearing and Corrective Lenses Education Level: high school Do you need help understanding health information?: Always current occupation: retired What is your relationship status?: How often do you talk on the phone with friends or family?: once per week How often do you get together with friends or relatives?: three or more times per week Panel score (0-1 are the most socially isolated patients): 2 What type of physical activity do you participate in: walking Duration: 45-60 minutes/day Frequency: 5-6 times per week Special carissa needs: No Seatbelt use: always Working smoke detector in home: Yes Do you feel safe at home: Yes Do you feel safe in your relationship?: Yes Additional Social history: daughter Mariam and Tila are his caregivers; Tila there all the time; Mariam lives across the street and sees her father nearly daily. Mariam worries about his climbing ladders; his balance is worse lately. Would like to investigate [facility] as possible option. Wants PT for help with balance. Exam Const General: no acute distress Orientation: alert HENMT Head: normal to inspection Ears: external ears normal General nose exam: external nose normal Mouth: moist mucous membranes Eyes General: appearance normal, both eyes and all related structures Neck Neck: normal visual inspection Resp Effort & Inspection: normal respiratory effort and able to speak in complete sentences Cardio Rate: regular rate Skin General skin exam: no rashes or lesions noted Neuro General: alert and oriented x3 Extrem General: normal to inspection Psych Mental Status: mental status grossly normal Course Vital Signs Vital signs: Vital Signs Temperature 36.7 C 06/21/19 23:37 Pulse 78 06/21/19 23:37 Respiratory Rate 18 06/21/19 23:37 Blood Pressure 158/95 H 06/21/19 23:37 Pulse Oximetry 100 06/21/19 23:37 Temperature 36.7 C 06/21/19 23:37 Temperature Source Temporal Artery Scan 06/21/19 23:37 Pulse 78 06/21/19 23:37 Respiratory Rate 18 06/21/19 23:37 Respiratory Effort Non-Labored 06/21/19 23:37 Blood Pressure 158/95 H 06/21/19 23:37 Blood Pressure Position Sitting 06/21/19 23:37 Pulse Oximetry 100 06/21/19 23:37 Oxygen Delivery Method Room Air 06/21/19 23:37 Oxygen Flow Rate 0 06/21/19 23:37 Pain Level 8 06/21/19 23:37
[2019-06-21] MEDS: Ibuprofen 600 MG TAB PO (23:51)
[2019-06-21] MEDS: Cyclobenzaprine 10 MG TAB PO (23:51)
[2019-06-22] MEDS: Cyclobenzaprine 10 MG TAB, 3 TABS/BTL PO (00:40)
== END 2019-06-22 00:45 | disposition home or self-care (01) ==
PROVIDERS: Emergency Provider Emergency Medicine; PCP Nurse Practitioner Primary Care
DX: N32.89 Other specified disorders of bladder (principal); Z96.0 Presence of urogenital implants; I10 Essential (primary) hypertension
CPT/HCPCS: 99283

== ENCOUNTER 2019-06-22 19:39 | Emergency (ER) | payer OTHER, MEDICARE, SELFPAY ==
[2019-06-22 19:50] VITALS: BP 189/90; PULSE 84; RESP 20; TEMP 37.1; O2SAT 98
[2019-06-22 20:12] VITALS: BP 135/72
--- NOTE | 2019-06-22 20:27 | W.ED.GENAD ---
Discharge Plan Disposition Patient Disposition: HOME Condition: Good Discharge Details Chief Complaint: Urinary Clinical Impression: Catheter (urine) change required Primary Care Provider: Rachael Godinez ED Provider: Ashok Padron Home Meds and New Rx's Prescriptions: No Action simethicone 80 mg tablet 80 mg PO QID PRNRF: 0 Myrbetriq 50 mg tablet extended release 24 hr 50 mg PO DAILY Qty: 90 RF: 3 (DME) Urinary Leg Bag misc See Dose Instructions .ROUTE .MEDSUPPLY Qty: 4 RF: 12 sennosides [senna] 8.6 mg Tablet 8.6 mg PO BID PRNRF: 0 glycerin (adult) Suppository 1 supp [place] DAILY PRNRF: 0 docusate sodium [Enemeez] 283 mg/5 mL Enema 283 mg [place] DAILY PRNRF: 0 docusate sodium [Dulcolax Stool Softener (dss)] 100 mg capsule 100 mg PO BID RF: 0 morphine concentrate 100 mg/5 mL (20 mg/mL) Solution 0.25 mg PO PRN PRNRF: 0 cyclobenzaprine 10 mg tablet 10 mg PO TID PRN (Reason: muscle spasm) Qty: 14 RF: 0 Discharge Instructions Additional Instructions: At this time you do not show any clinical evidence of urinary tract infection. If you do develop fever chills flank pain mental status change or any evidence of concerning symptoms return immediately for reassessment. I believe that the pain that you were having was secondary to your Bailey catheter not working appropriately. With a now being changed this will likely resolve the issue. Drink plenty of fluids! Please continue to follow closely with Dr. Rosado. We will send your urine for culture, if there are concerning abnormalities on the urine culture he will be contacted. If you notice any worsening of your symptoms, or any new symptoms such as vomiting, diarrhea, fever, chills, shortness of breath, chest pain, numbness, weakness, or fainting , please return immediately to the emergency department for reevaluation. Please follow up with your primary care provider as soon as possible for reassessment and reevaluation. As always, it was a pleasure participating in your medical care today. Referrals: Rashel Rosado MD [ [facility] STAFF PHYSICIAN] - Medical Decision Making Pleasant 83-year-old male with a past medical history of suprapubic catheter who presents for spasm. Exam demonstrates a distended bladder, we are unable to draw a urine from the Bailey catheter. Suprapubic region does demonstrate mild distention though, bedside ultrasound reveals a notably distended bladder with an enlarged prostate. Does have tenderness on palpation. Suprapubic catheter was draining slightly, we did slightly decrease the balloon size and this led to no change. We are not able to retract any urine from the catheter with syringe. Balloon was deflated and catheter was removed and urine immediately squirted out. He self drained his entire bladder this way. Utilizing sterile technique a new suprapubic 16 [place]i catheter was placed successfully and is draining urine well. Urine is slightly cloudy. The patient and family who is at bedside notably deny fever or chills, exam after urine drainage demonstrates no suprapubic tenderness, flank tenderness. Signs and symptoms are inconsistent with pyelonephritis or significant infection. I do suspect that there is notable colonization. We will get urinalysis and send for culture. Currently the patient is notably asymptomatic with no evidence of clinical infection whatsoever. I did contact Dr. Rosado and did discuss the case to him prior to removal of the suprapubic catheter, he did recommend an additional alternative for spasm if it continued would be belladonna opium suppositories, however after removal of the catheter and complete drainage of urine with replacement Bailey, the patient has no pain or symptoms whatsoever family is requesting to hold off on any additional medications. Dr. Rosado did agree with holding off on treatment until cultures return as the patient is asymptomatic at this time. I had a long discussion with family regarding red flags which to return as well as signs and symptoms concerning for clinical evidence of infection. Patient will follow closely with Dr. Rosado at his scheduled appointment. Discussed red flags which to return. I have extensively reviewed the treatment plan and discharge instructions with the patient and their family. I have addressed all patient concerns at this time. The patient and family was made aware of what symptoms to monitor for that would warrant a return to the emergency department. Discussed the plan with the patient and family, they demonstrate verbal understanding and agreement with our assessment and plan at this time. HPI General Date/Time Provider Initiated Documentation: 06/22/19 19:52. HPI Narrative: This is an 83-year-old male with a past medical history of notable prostatic hypertrophy who used to have multiple chronic Bailey catheters and now has transitioned to a suprapubic catheter. He presents today for suprapubic pain and spasm. He has been taking Myrbetriq but has not been helping. He is also been taking Flexeril without significant improvement. He was here last night, Bailey cath, as well as Flexeril but these have not been helping. The suprapubic catheter has been draining urine. He was seen last night, his catheter was draining well, his pain resolved, and he was discharged home. He states that he has been in pain throughout the day, he describes it as a spasm-like sensation. He denies any fever, chills, hematuria, nausea vomiting or diarrhea. He did have an enema today and had a regular bowel movement. He denies any other complaints at this time. He does see Dr. Rosado in scheduled follow-up in 6 days. No other complaints at this time. No other modifying factors. Related Data Home Medications Medication Instructions Recorded Confirmed simethicone 80 mg tablet 80 mg PO QID PRN 04/10/18 06/22/19 docusate sodium [Enemeez] 283 mg [place] DAILY PRN 07/19/18 06/22/19 glycerin (adult) 1 supp [place] DAILY PRN 07/19/18 06/22/19 sennosides [senna] 8.6 mg PO BID PRN 07/19/18 06/22/19 urinary bag #4 packet 08/14/18 05/29/19 docusate sodium 100 mg capsule 100 mg PO BID cap 05/02/19 06/22/19 mirabegron 50 mg tablet,extended 50 mg PO DAILY #90 tab 05/29/19 06/22/19 release 24 hr cyclobenzaprine 10 mg PO TID PRN #14 tab 06/22/19 06/22/19 morphine concentrate 0.25 mg PO PRN PRN 06/22/19 06/22/19 Previous Rx's Medication Instructions Recorded urinary bag #4 packet 08/14/18 mirabegron 50 mg tablet,extended 50 mg PO DAILY #90 tab 05/29/19 release 24 hr cyclobenzaprine 10 mg PO TID PRN #14 tab 06/22/19 Allergies Allergy/AdvReac Type Severity Reaction Status Date / Time oxybutynin Allergy cognitive Verified 06/22/19 19:57 changes haloperidol [From Haldol] AdvReac Severe Lasting Verified 06/22/19 19:57 agitation, hallucination quetiapine [From Seroquel] AdvReac Severe Lasting Verified 12 19:57 agitation, hallucination morphine AdvReac Intermediate Agitation Verified 06/22/19 19:57 General Stated Complaint: Urinary TINY: 3 Review of Systems All systems reviewed & are unremarkable except as noted in HPI and below PFSH Medical History (Updated 03/05/19 @ 19:13 by Blanche Person MD) Anxiety (Chronic) 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 Bladder spasms (Acute) BPH (benign prostatic hyperplasia) (Chronic) Counseling regarding advance directives and goals of care (Acute) Hematuria (Acute) History of colon cancer (Chronic) History of smoking 25-50 pack years (Chronic) Hypertension (Chronic) Moderate dementia with behavioral disturbance (Chronic) Palliative care patient (Chronic) Suprapubic catheter (Chronic) Underweight (Chronic) Unintentional weight loss (Resolved) Vascular dementia (Chronic) Surgical History History of partial colectomy (Acute) Social History (Updated 03/05/19 @ 18:52 by Blanche Person MD) Smoking/Tobacco Use Status: Former Tobacco Use Tobacco: How many years used: 45 Second Hand Exposure: No Alcohol Intake: former Drug use: Never Substance use type: does not use Caregiver/Support person: Yes Household members: spouse Housing: house Number of Children: 3 number of grandchildren: 5 Communication Needs: Hard of Hearing and Corrective Lenses Education Level: high school Do you need help understanding health information?: Always current occupation: retired What is your relationship status?: How often do you talk on the phone with friends or family?: once per week How often do you get together with friends or relatives?: three or more times per week Panel score (0-1 are the most socially isolated patients): 2 What type of physical activity do you participate in: walking Duration: 45-60 minutes/day Frequency: 5-6 times per week Special carissa needs: No Seatbelt use: always Working smoke detector in home: Yes Do you feel safe at home: Yes Do you feel safe in your relationship?: Yes Additional Social history: daughter Mariam and Tila are his caregivers; Tila there all the time; Mariam lives across the street and sees her father nearly daily. Mariam worries about his climbing ladders; his balance is worse lately. Would like to investigate [place] as possible option. Wants PT for help with balance. Exam Narrative Exam Narrative: 1.Const: Well-nourished, Well-developed, appearing stated age 2.Eyes: PERRL, no conjunctival injection, and symmetrical lids. 3.ENT: Atraumatic external nose and ears. Moist MM. Neck: Symmetric, trachea midline, No thyromegaly. 4.CVS: +S1/S2, No murmurs or gallops. Peripheral pulses 2+ and equal in all extremities. Brisk capillary refill in all extremities. 5.RESP: Unlabored respiratory effort. Clear to auscultation bilaterally. No wheezes rales or rhonchi 6.GI: Soft, Nontender/Nondistended, No hepatosplenomegaly. No guarding or rebound. Suprapubic region does demonstrate mild distention though, bedside ultrasound reveals a notably distended bladder with an enlarged prostate. Does have tenderness on palpation. Suprapubic catheter was draining slightly, we did slightly decrease the balloon size and this led to no change. We are not able to retract any urine from the catheter with syringe. Balloon was deflated and catheter was removed and urine immediately squirted out. He self drained his entire bladder this way. Utilizing sterile technique a new suprapubic 16 [place] catheter was placed successfully and is draining urine well. Urine is slightly cloudy. No flank tenderness. Genital exam demonstrates an uncircumcised penis, no urethral drainage, no tenderness, not tender testicles, normal cremasteric reflex bilaterally. No abnormality on genital exam. 7.MSK: Normocephalic/Atraumatic, Extremities w/o deformity or ttp No cyanosis or clubbing, Normal movement of all extremities 8.Skin: Warm, Dry. No rashes or lesions. 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 Sensation grossly intact, no focal neurologic deficits. 10.Psych: (AAO) x3. Appropriate mood and affect Course Vital Signs Vital signs: Vital Signs Temperature 37.1 C 06/22/19 19:50 Pulse 84 06/22/19 19:50 Respiratory Rate 20 06/22/19 19:50 Blood Pressure 189/90 H 06/22/19 19:50 Pulse Oximetry 98 06/22/19 19:50 Temperature 37.1 C 06/22/19 19:50 Temperature Source Temporal Artery Scan 06/22/19 19:50 Pulse 84 06/22/19 19:50 Respiratory Rate 20 06/22/19 19:50 Blood Pressure 189/90 H 06/22/19 19:50 Blood Pressure Position Supine 06/22/19 19:50 Pulse Oximetry 98 06/22/19 19:50 Oxygen Delivery Method Room Air 06/22/19 19:50 Oxygen Flow Rate 0 06/22/19 19:50 Comment 06/22/19 19:50
[2019-06-22 21:08] LABS: Bilirubin Negative (Negative); Blood Large (Negative); Clarity Cloudy (Clear); Glucose Negative (Negative); Ketones Negative (Negative); Leukocyte Esterase Large (Negative); Nitrite Positive (Negative); Specific Gravity 1.015 (1.005-1.025); Urobilinogen 0.2 EU/dL (Up TO 0.2); pH 8.5 (5-8)
[2019-06-22 21:13] LABS: C & S Indicated? C&S Done As Ordered
[2019-06-22 21:15] LABS: Bacteria Many HPF (Negative); Casts Negative LPF (Negative); Crystals Negative HPF (Negative); Mucus Negative (Negative); RBC >50 HPF (0-2); WBC >50 HPF (0-5)
--- NOTE | 2019-06-22 21:42 | NUR.NOTE ---
pt verbalized that he felt much better. his abd is no longer distended . he put out 500 cc urine plus the stoma leaked urine when old caatheter was removed Nursing Note:
== END 2019-06-22 21:20 | disposition home or self-care (01) ==
PROVIDERS: Emergency Provider Student in an Organized Health Care Education/Training Program; PCP Nurse Practitioner Primary Care
DX: T83.091A Other mechanical complication of indwelling urethral catheter, initial encounter (principal); N40.1 Benign prostatic hyperplasia with lower urinary tract symptoms; R33.8 Other retention of urine; Z97.0 Presence of artificial eye; I10 Essential (primary) hypertension
CPT/HCPCS: 51702; 87077; 99283; 81003; 81015; 87086; 87186

== ENCOUNTER 2019-07-12 05:37 | Emergency (ER) | payer OTHER, MEDICARE, SELFPAY ==
[2019-07-12 05:39] VITALS: BP 207/107; PULSE 68; RESP 16; TEMP 36.4; O2SAT 99
--- NOTE | 2019-07-12 05:57 | W.ED.GENAD ---
Discharge Plan Disposition Patient Disposition: HOME Condition: Good Discharge Details Chief Complaint: Urinary Clinical Impression: Suprapubic catheter dysfunction Primary Care Provider: Rachael Godinez ED Provider: Dong Trent Home Meds and New Rx's Prescriptions: Continued simethicone 80 mg tablet 80 mg PO QID PRNRF: 0 Myrbetriq 50 mg tablet extended release 24 hr 50 mg PO DAILY Qty: 90 RF: 3 (DME) Urinary Leg Bag misc See Dose Instructions .ROUTE .MEDSUPPLY Qty: 4 RF: 12 sennosides [senna] 8.6 mg Tablet 8.6 mg PO BID PRNRF: 0 glycerin (adult) Suppository 1 supp [place] DAILY PRNRF: 0 docusate sodium [Enemeez] 283 mg/5 mL Enema 283 mg [place] DAILY PRNRF: 0 docusate sodium [Dulcolax Stool Softener (dss)] 100 mg capsule 100 mg PO BID RF: 0 morphine concentrate 100 mg/5 mL (20 mg/mL) Solution 0.25 mg PO PRN PRNRF: 0 cyclobenzaprine 10 mg tablet 10 mg PO TID PRN (Reason: muscle spasm) Qty: 14 RF: 0 Discharge Instructions Additional Instructions: Resume previous care and medications. Contact Dr. Rosado's office for follow-up and catheter change every 3 to 4 weeks as before. Return to ED for problems. Referrals: Rashel Rosado MD [ [facility] STAFF PHYSICIAN] - Rachael Godinez [Primary Care Provider] - Medical Decision Making Old suprapubic catheter removed and new 18 [place] Bailey placed without difficulty. Immediate return of urine. Patient afebrile and does otherwise not feel ill. Urine not sent for culture as he is likely colonized. Patient discharged home. HPI General Mode of arrival: ambulatory. Date/Time Provider Initiated Documentation: 07/12/19 05:57. Limitations to Documentation: no limitations. Information obtained by: patient, family and RN notes reviewed. HPI Narrative: Patient presents to ED with a blocked suprapubic catheter. He has significant suprapubic pressure and distention. He has had no fevers or chills. He otherwise feels well. Related Data Home Medications Medication Instructions Recorded Confirmed simethicone 80 mg tablet 80 mg PO QID PRN 04/10/18 06/22/19 docusate sodium [Enemeez] 283 mg [place] DAILY PRN 07/19/18 06/22/19 glycerin (adult) 1 supp [place] DAILY PRN 07/19/18 06/22/19 sennosides [senna] 8.6 mg PO BID PRN 07/19/18 06/22/19 urinary bag #4 packet 08/14/18 05/29/19 docusate sodium 100 mg capsule 100 mg PO BID cap 05/02/19 06/22/19 mirabegron 50 mg tablet,extended 50 mg PO DAILY #90 tab 05/29/19 06/22/19 release 24 hr cyclobenzaprine 10 mg PO TID PRN #14 tab 06/22/19 06/22/19 morphine concentrate 0.25 mg PO PRN PRN 06/22/19 06/22/19 Previous Rx's Medication Instructions Recorded urinary bag #4 packet 08/14/18 mirabegron 50 mg tablet,extended 50 mg PO DAILY #90 tab 05/29/19 release 24 hr cyclobenzaprine 10 mg PO TID PRN #14 tab 06/22/19 Allergies Allergy/AdvReac Type Severity Reaction Status Date / Time oxybutynin Allergy cognitive Verified 07/12/19 05:45 changes haloperidol [From Haldol] AdvReac Severe Lasting Verified 07/12/19 05:45 agitation, hallucination quetiapine [From Seroquel] AdvReac Severe Lasting Verified 07/12/19 05:45 agitation, hallucination morphine AdvReac Intermediate Agitation Verified 07/12/19 05:45 General Stated Complaint: Urinary TINY: 3 Review of Systems Constitutional Constitutional: Denies chills and Denies fever(s) Genitourinary Genitourinary: Denies hematuria and Denies flank pain [facility] Medical History Anxiety (Chronic) 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 Bladder spasms (Acute) BPH (benign prostatic hyperplasia) (Chronic) Counseling regarding advance directives and goals of care (Acute) Hematuria (Acute) History of colon cancer (Chronic) History of smoking 25-50 pack years (Chronic) Hypertension (Chronic) Moderate dementia with behavioral disturbance (Chronic) Palliative care patient (Chronic) Suprapubic catheter (Chronic) Underweight (Chronic) Unintentional weight loss (Resolved) Vascular dementia (Chronic) Surgical History History of partial colectomy (Acute) Social History Smoking/Tobacco Use Status: Former Tobacco Use Tobacco: How many years used: 45 Second Hand Exposure: No Alcohol Intake: former Drug use: Never Substance use type: does not use Caregiver/Support person: Yes Household members: spouse Housing: house Number of Children: 3 number of grandchildren: 5 Communication Needs: Hard of Hearing and Corrective Lenses Education Level: high school Do you need help understanding health information?: Always current occupation: retired What is your relationship status?: How often do you talk on the phone with friends or family?: once per week How often do you get together with friends or relatives?: three or more times per week Panel score (0-1 are the most socially isolated patients): 2 What type of physical activity do you participate in: walking Duration: 45-60 minutes/day Frequency: 5-6 times per week Special carissa needs: No Seatbelt use: always Working smoke detector in home: Yes Do you feel safe at home: Yes Do you feel safe in your relationship?: Yes Additional Social history: daughter Mariam and Tila are his caregivers; Tila there all the time; Mariam lives across the street and sees her father nearly daily. Mariam worries about his climbing ladders; his balance is worse lately. Would like to investigate [place] as possible option. Wants PT for help with balance. Exam Const General: cooperative, comfortable and no acute distress GI Other: Suprapubic catheter in place with obvious suprapubic/bladder distention and tenderness. Abdomen otherwise benign. Course Vital Signs Vital signs: Vital Signs Temperature 97.5 F L 07/12/19 05:39 Pulse 68 07/12/19 05:39 Respiratory Rate 16 07/12/19 05:39 Blood Pressure 207/107 H 07/12/19 05:39 Pulse Oximetry 99 07/12/19 05:39 Temperature 97.5 F L 07/12/19 05:39 Temperature Source Oral 07/12/19 05:39 Pulse 68 07/12/19 05:39 Respiratory Rate 16 07/12/19 05:39 Respiratory Effort 07/12/19 05:39 Blood Pressure 207/107 H 07/12/19 05:39 Pulse Oximetry 99 07/12/19 05:39 Oxygen Delivery Method Room Air 07/12/19 05:39 Oxygen Flow Rate 0 07/12/19 05:39 Procedures Catheter Insertion (Urinary) Patient has the following: other Prophylactic Antibiotics Given: No Bladder Scan/US before Catheterization: No Preparation: Other Type of Catheter Inserted: Bailey Catheter [place] Size: 18 Catheter Balloon Size (mls): 5 Topical Anesthesia Used: No Results: successfully catherized-immediate flow Patient Tolerated Procedure: well Complications: none Additional Comments: Suprapubic catheter site prepped with chlorhexidine. Old catheter removed and new 18 [place] Bailey placed without difficulty with immediate drainage of urine in decompression of distended bladder.
[2019-07-12 06:05] VITALS: BP 149/68; PULSE 74; RESP 16; O2SAT 99
== END 2019-07-12 06:05 | disposition home or self-care (01) ==
PROVIDERS: Emergency Provider Emergency Medicine; PCP Nurse Practitioner Primary Care
DX: T83.091A Other mechanical complication of indwelling urethral catheter, initial encounter (principal); N40.1 Benign prostatic hyperplasia with lower urinary tract symptoms; R33.8 Other retention of urine; Z96.0 Presence of urogenital implants; I10 Essential (primary) hypertension
CPT/HCPCS: 51702; 99283

== ENCOUNTER → 2019-08-14 08:59 | Outpatient (BNVA) | payer MEDICARE, SELFPAY | PROVIDERS: PCP Nurse Practitioner Primary Care; Referring Provider Nurse Practitioner Primary Care; Visit Provider Nurse Practitioner Gerontology | DX: R33.9 Retention of urine, unspecified (principal) | CPT/HCPCS: 51705; 99213 ==

== ENCOUNTER → 2019-08-20 14:20 | Outpatient (BNVA) | payer OTHER, SELFPAY | PROVIDERS: PCP Nurse Practitioner Primary Care; Referring Provider Nurse Practitioner Primary Care; Visit Provider Nurse Practitioner Gerontology | DX: N40.1 Benign prostatic hyperplasia with lower urinary tract symptoms (principal); R33.9 Retention of urine, unspecified | CPT/HCPCS: 51705; 99213 ==

== ENCOUNTER 2019-08-30 03:37 | Outpatient (CLI) | payer OTHER, SELFPAY ==
--- NOTE | 2019-08-30 14:37 | DI.RAD_ITS ---
EXAM: XR ABDOMEN FLAT UPRIGHT INDICATION: ASSESS FOR STOOL, ? STRICTURE CAUSING CONSTIPATION, [place]IP[place], [place] [id number] COMPARISON: [facility] from 02/28/2018 TECHNIQUE: 2D digital imaging was performed. FINDINGS: There are surgical clips seen in the left side of the abdomen. There is a large quantity of stool s een throughout the colon, greatest in the rectum. There are no dilated loops of small bowel. The josep ng bases are clear. The heart size appears normal. No urinary tract calculi or organomegaly is visi ble. IMPRESSION: Large quantity of fecal material. DATA REPOSITORY: RADIATION DOSE DELIVERED:
== END 2019-08-30 03:57 ==
PROVIDERS: PCP Nurse Practitioner Primary Care; Visit Provider Nurse Practitioner Primary Care
DX: K59.00 Constipation, unspecified (principal)
CPT/HCPCS: 74019

== ENCOUNTER → 2019-09-17 09:49 | Outpatient (BNVA) | payer OTHER, SELFPAY | PROVIDERS: PCP Nurse Practitioner Primary Care; Referring Provider Nurse Practitioner Primary Care; Visit Provider Nurse Practitioner Gerontology | DX: R33.9 Retention of urine, unspecified (principal) | CPT/HCPCS: 51705; 99213 ==

== ENCOUNTER 2019-09-25 21:45 | Emergency (ER) | payer OTHER, SELFPAY ==
--- NOTE | 2019-09-25 21:50 | ED.GENADUL_ITS ---
Discharge Plan Disposition Patient Disposition: HOME Condition: Good Discharge Details Chief Complaint: Urinary Clinical Impression: Encounter for suprapubic catheter care Primary Care Provider: Rashel Rosado ED Provider: Dong Trent Home Meds and New Rx's Prescriptions: Continued simethicone 80 mg tablet 80 mg PO QID PRNRF: 0 Myrbetriq 50 mg tablet extended release 24 hr 50 mg PO DAILY Qty: 90 RF: 3 (DME) Urinary Leg Bag misc See Dose Instructions .ROUTE .MEDSUPPLY Qty: 4 RF: 12 cyclobenzaprine 10 mg tablet 10 mg PO TID PRN (Reason: muscle spasm) Qty: 30 RF: 12 sennosides [senna] 8.6 mg Tablet 8.6 mg PO BID PRNRF: 0 glycerin (adult) Suppository 1 supp FL DAILY PRNRF: 0 docusate sodium [Enemeez] 283 mg/5 mL Enema 283 mg FL DAILY PRNRF: 0 docusate sodium [Dulcolax Stool Softener (dss)] 100 mg capsule 100 mg PO BID RF: 0 morphine concentrate 100 mg/5 mL (20 mg/mL) Solution 0.25 mg PO PRN PRNRF: 0 Discharge Instructions Additional Instructions: Resume previous care and medications. Follow-up with primary care and/or urolo gy as needed. Return to ED if problems. Referrals: Primary Care Provider [Outside] Rashel Rosado MD [Primary Care Provider] - Medical Decision Making Patient here with blockage of his suprapubic catheter. He does have small amount of drainage but he clearly has a distended, tender bladder. A new 18 [place] Bailey was obtained. Skin was swabbed with chlorhexidine. Old suprapubic tube was removed and new suprapubic tube passed without any difficulty. Patient drained over a liter of urine out. Feels much better. Will discharge home. F ollow-up with primary care and/or urology as needed. Return to ED for further problems. Medical Records Medical records reviewed: Yes I reviewed the patient's medical records. HPI General Mode of arrival: ambulatory . Date/Time Provider Initiated Documentation: 09/25/19 21:46 . Limitations to Documentation: no limitations . Information obtained by: patient and old records reviewed . HPI Narrative: Patient presents to ED with blocked suprapubic catheter. He is having a lot of suprapubic discomfort and pain. He has otherwise been well. He has had no fever. Catheter blocked just a few hours ago. Related Data Home Medications Medication Instructions Recorded Confirmed simethicone 80 mg tablet 80 mg PO QID PRN 04/10/18 09/25/19 docusate sodium [Enemeez] 283 mg FL DAILY PRN 07/19/18 09/25/19 glycerin (adult) 1 supp FL DAILY PRN 07/19/18 09/25/19 sennosides [senna] 8.6 mg PO BID PRN 07/19/18 09/25/19 urinary bag #4 packet 08/14/18 09/25/19 docusate sodium 100 mg capsule 100 mg PO BID cap 05/02/19 09/25/19 mirabegron 50 mg tablet,extended 50 mg PO DAILY #90 tab 05/29/19 09/25/19 release 24 hr morphine concentrate 0.25 mg PO PRN PRN 06/22/19 09/25/19 cyclobenzaprine 10 mg tablet 10 mg PO TID PRN #30 tab 07/30/19 09/25/19 Previous Rx's Medication Instructions Recorded urinary bag #4 packet 08/14/18 mirabegron 50 mg tablet,extended 50 mg PO DAILY #90 tab 05/29/19 release 24 hr cyclobenzaprine 10 mg tablet 10 mg PO TID PRN #30 tab 07/30/19 Allergies Allergy/AdvReac Type Severity Reaction Status Date / Time oxybutynin Allergy cognitive Verified 09/25/19 22:17 changes haloperidol [From Haldol] AdvReac Severe Lasting Verified 09/25/19 22:17 agitation, hallucination quetiapine [From Seroquel] AdvReac Severe Lasting Verified 09/25/19 22:17 agitation, hallucination morphine AdvReac Intermediate Agitation Verified 09/25/19 22:17 General TINY: 3 Review of Systems Constitutional Constitutional: Denies chills and Denies fever(s) Cardiovascular Cardiovascular: Denies dyspnea Respiratory Respiratory: Denies cough and Denies dyspnea Gastrointestinal Gastrointestinal: Reports abdominal pain Genitourinary Comments: blocked catheter [facility] Medical History Anxiety (Chronic) 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 Bladder spasms (Acute) BPH (benign prostatic hyperplasia) (Chronic) Counseling regarding advance directives and goals of care (Acute) Hematuria (Acute) History of colon cancer (Chronic) History of smoking 25-50 pack years (Chronic) Hypertension (Chronic) Moderate dementia with behavioral disturbance (Chronic) Palliative care patient (Chronic) Suprapubic catheter (Chronic) Underweight (Chronic) Unintentional weight loss (Resolved) Vascular dementia (Chronic) Surgical History History of partial colectomy (Acute) Social History Smoking/Tobacco Use Status: Former Tobacco Use Tobacco: How many years used: 45 Second Hand Exposure: No Alcohol Intake: former Drug use: Never Substance use type: does not use Caregiver/Support person: Yes Household members: spouse Housing: house Number of Children: 3 number of grandchildren: 5 Communication Needs: Hard of Hearing and Corrective Lenses Education Level: high school Do you need help understanding health information?: Always current occupation: retired What is your relationship status?: How often do you talk on the phone with friends or family?: once per week How often do you get together with friends or relatives?: three or more times per week Panel score (0-1 are the most socially isolated patients): 2 What type of physical activity do you participate in: walking Duration: 45-60 minutes/day Frequency: 5-6 times per week Special carissa needs: No Seatbelt use: always Working smoke detector in home: Yes Do you feel safe at home: Yes Do you feel safe in your relationship?: Yes Additional Social history: daughter Mariam and Tila are his caregivers; Tila there all the time; Maraim lives across the street and sees her father nearly daily. Mariam worries about his climbing ladders; his balance is worse lately. Would like to investigate [facility] as possible option. Wants PT for help with balance. Exam Const General: cooperative, comfortable and no acute distress Orientation: alert and awake Resp Effort & Inspection: normal respiratory effort GI Inspection: distended (suprapubic ) Palpation: tender suprapubicly
[2019-09-25 21:51] VITALS: PULSE 85; RESP 20; TEMP 36.5; O2SAT 97
[2019-09-25 22:10] VITALS: PULSE 85; RESP 20; TEMP 36.5; O2SAT 97
== END 2019-09-25 22:20 | disposition home or self-care (01) ==
PROVIDERS: Emergency Provider Emergency Medicine; PCP Urology
DX: T83.090A Other mechanical complication of cystostomy catheter, initial encounter (principal); I10 Essential (primary) hypertension
CPT/HCPCS: 51705

== ENCOUNTER → 2019-10-02 12:59 | Outpatient (BNVA) | payer MEDICARE, OTHER, SELFPAY | PROVIDERS: PCP Urology; Referring Provider Nurse Practitioner Primary Care; Visit Provider Nurse Practitioner Gerontology | DX: R33.8 Other retention of urine; Z46.6 Encounter for fitting and adjustment of urinary device | CPT/HCPCS: 51705; 99213 ==

== ENCOUNTER → 2019-10-16 08:38 | Outpatient (BNVA) | payer OTHER, SELFPAY | PROVIDERS: PCP Urology; Referring Provider Nurse Practitioner Primary Care; Visit Provider Nurse Practitioner Gerontology | DX: R33.8 Other retention of urine (principal); Z46.6 Encounter for fitting and adjustment of urinary device | CPT/HCPCS: 51705; 99213 ==

== ENCOUNTER 2019-10-25 10:47 | Emergency (ER) | payer OTHER, SELFPAY ==
[2019-10-25 10:50] VITALS: BP 183/109; PULSE 68; RESP 18; TEMP 36.5; O2SAT 98
--- NOTE | 2019-10-25 11:00 | DI.CT_ITS ---
EXAM: CT ABDOMEN AND PELVIS W CLINICAL HISTORY: LOWER ABDOMINAL DISCOMFORT AND FIRMNESS TECHNIQUE: Imaging Protocol: Axial computed tomography images with coronal and sagittal reformatted images were created and reviewed CONTRAST MATERIAL: Intravenous: Omnipaque 350 Contrast volume:100 mL Oral: Yes COMPARISON: ABD PELVIS WITH CONTRAST from 03/15/2011 DI.CTAPWO from 02/28/2018 FINDINGS: ABDOMEN: Lung Bases: Atelectatic changes in the lung bases. Liver: Normal density. No measurable mass. Portal, Superior Mesenteric, and Splenic Veins: Unremarkable. Gallbladder and Biliary Tract: No radiodense calculus or dilation. Pancreas: Normal density, no abnormal calcifications or inflammatory process. Spleen: Normal. Stable cysts seen within the spleen. Adrenals: Stable adrenal nodularity. Kidneys: Normal size, contour and axis. No radiodense stones or obstructive uropathy. No masses seen. Tiny hypodensity seen in the kidneys. They are too small for further characterization but likely re flect small cysts. Abdominal Aorta: Abdominal portion non-dilated. Atherosclerosis. Bowel: No obstruction or bowel wall thickening. No evidence to suggest an acute appendicitis. Large amount of retained stool throughout the colon. No transition point to suggest obstruction. Peritoneal Cavity: No ascites, collection or mesenteric inflammatory response. There is a trace amoun t of free fluid in the pelvis. Lymph Nodes: Within normal limits. Bones: Degenerative changes. Osteopenia. Soft Tissues: Unremarkable. PELVIS: Bladder: There is again seen diffuse thickening of the wall of the urinary bladder, likely reflecting chronic bladder outlet obstruction. Inflammatory/infectious process cannot be excluded. Please cor relate clinically. There has been interval placement of a suprapubic catheter. No focal fluid colle ction or inflammatory changes are seen around the catheter. Reproductive Organs: There is again seen marked enlargement of the prostate gland. It measures 8.4 x 7.3 cm. Lymph Nodes: Within normal limits. Bones: Degenerative changes. Osteopenia. IMPRESSION: 1. Suprapubic catheter in place. No inflammatory process is seen around the catheter. 2. There is again seen diffuse thickening of the wall of the urinary bladder. This likely reflects c hronic bladder outlet obstruction. Inflammatory or infectious process cannot be entirely excluded. Please correlate clinically. 3. Large amount of retained stool throughout the colon. 4. The findings were discussed with the Emergency Department on the date of the examination. RADIATION DOSE DELIVERED: Total DLP DATA REPOSITORY: All CT scans at this facility are submitted to the National Radiology Data Registry (NRDR) Dose Index Registry (DIR) with the [employer] (ACR). RADIATION OPTIMIZATION: All CT scans at this facility use at least one of these dose optimization te chniques: automated exposure control; mA and/or kV adjustment per patient size (includes targeted exa ms where dose is matched to clinical indication); or iterative reconstruction.
--- NOTE | 2019-10-25 11:01 | ED.GENADUL_ITS ---
Discharge Plan Disposition Patient Disposition: HOME Condition: Good Discharge Details Chief Complaint: Abd Prob Clinical Impression: Constipation Primary Care Provider: Rashel Rosado ED Provider: Cora Brody Home Meds and New Rx's Prescriptions: Continued simethicone 80 mg tablet 80 mg PO QID PRNRF: 0 Myrbetriq 50 mg tablet extended release 24 hr 50 mg PO DAILY Qty: 90 RF: 3 (DME) Urinary Leg Bag misc See Dose Instructions .ROUTE .MEDSUPPLY Qty: 4 RF: 12 cyclobenzaprine 10 mg tablet 10 mg PO TID PRN (Reason: muscle spasm) Qty: 30 RF: 12 sennosides [senna] 8.6 mg Tablet 8.6 mg PO BID PRNRF: 0 glycerin (adult) Suppository 1 supp [place] DAILY PRNRF: 0 docusate sodium [Enemeez] 283 mg/5 mL Enema 283 mg [place] DAILY PRNRF: 0 docusate sodium [Dulcolax Stool Softener (dss)] 100 mg capsule 100 mg PO BID RF: 0 morphine concentrate 100 mg/5 mL (20 mg/mL) Solution 0.25 mg PO PRN PRNRF: 0 Discharge Instructions Instructions: Constipation (ED) Additional Instructions: Please continue to encourage water intake. Labs are very reassuring at this time. Imaging suggests constipation a large amount of stool and gas. This may be causing some of the discomfort. Please continue with the simethicone as needed for gas discomfort. Please contact primary care provider to schedule follow-up appointment next week. If you develop fever/chills, vomiting no blood in your stool or other new/worsening symptoms please seek care urgently once again. Referrals: Rashel Rosado MD [Primary Care Provider] - Discharge Data Discharge Date/Time-TO BE ENTERED AT DEPARTURE: 10/25/19 14:28 Medical Decision Making Patient is a pleasantly confused 84 year old male who initially presented for unknown reason. At this time, we are limiting visitors secondary to COVID-19. Patient denies any ailments, pain, nausea, CHAVEZ, visual changes, change in appetite, cough, fevers/chills, CP, SOB, issues with his suprapubic catheter. He does report chronic constipation but he states that this is chronic and that he has found a daily regimen that works well for him. Spoke with patients daughter in law, Deidre, . She advised that patient has been endorsing abdominal pain. He has a suprapubic catheter. He has been evaluated by urologist and they do not believe that this is linked to the catheter. She states that pain has been intermittent but pain has been more consistent since last night. No fevers/chills. She does not know about his bowel habits. [facility] for CT [facility]. She states that the patients daughter, Mariam, more closely follows his daily activities and may be able to describe his discomfort furhter. In the patients confused state, I have asked that Deidre come in with him, she brought him to the ED today. Spoke with patients daughter, Mariam [phone]. She states that Monday the patient was endorse severe abdominal pain. She states that she followed the direction of urology and was able to flush the catheter well. She states that they have been having issues with his suprapubic catheter clogging and that she was taught how to care for this at home. She has been doing well so far. States that the pain has been intermittent. He indicates around the umbilicus as area of pain. She denies change in his appetite, no N/V. She states he has chronic constipation as was noted by the patient. She noted a hard area of his abdomen this morning prompting them to seek care. States that his current state is baseline, his confusion often worsens when not in his home environment. On exam, he appears nervous and confused but very pleasant. His lungs are clear, normal cardiac exam. Abdomen is generally soft but there is an area of firmness between the suprapubic catheter and his umbilicus. He expresses no pain with palpation about this area. Catheter appears to be draining clear yellow urine, appears appropriately placed. He has a small area of scar tissue on the left inferior boarder but no fluctuance, warmth or pain with palpation. Unable to palpate his bladder. No CVA tenderness. No peritoneal findings. With the area of firmness and difficulty obtaining history from the patient, plan for CT and labs. Discussed with patient and family who are in agreement. Labs reviewed. No leukocytosis. CMP is without abnormality. Lipase is within normal limits. Lactate is not elevated. Creatinine is normal. Urinalysis significant for large no leukocyte esterase and few RBCs. He has few bacteria. He has had his catheter manipulated recently and I am wondering if this is what could be leading to some of the pyuria. As he is otherwise asymptomatic, I would prefer to hold off on antibiotics at this time until culture has been obtained. I did discuss this plan at length with the patient as well as his [id number]. CT was reviewed by radiologist. He notes an enlarged prostate and stool burden. He does not see any evidence of obstruction or mass. No acute abnormality noted on his abdominal CT. I did note a large amount of gas which may have been the area that was palpable. This may, along with eh stool burden, contributed to his abdominal discomfort. Discussed findings with patient and both family members. He continues to be pain free at this time. Will give simethicone to help with gas. We discussed his enlarged prostate. Family seems to be doing a good job with the care of the catheter. I encouraged close f/u with PCP to continue to discuss his stool burden and continued regimen. I did encourage water intake. They were given strict return precautions. At the tiem of his discharge, BP 155/101, this is baseline for the patient. All of their questions and concerns were addressed, they are in agreement with this plan. HPI General Mode of arrival: ambulatory . Date/Time Provider Initiated Documentation: 10/25/19 11:01 . Limitations to Documentation: altered mental status (hx of dementia) . Information obtained by: patient, family and EMS . HPI Narrative: Patient is a pleasant 84 year old male, brought in by daughter in law with c/c of abdominal pain. PMH includes bladder spasms, urinary retention, vascular dementia with behavior disturbance, delirium, constipation, Alzheimer's, neoplasm of colon, HTN, BPH. Patient is currently confused on why he is here. He denies any pain. He states he has struggled with constipation for years but has been brigida routine regimen. He does not believe he has had any fevers. He denies N/V. Has a suprapubic catheter but states this has been in place for quite some time without issue. While patient is agreeable, he is very confused and history will need to be obtained by family. They are not here seconary to pandemic. Related Data Home Medications Medication Instructions Recorded Confirmed simethicone 80 mg tablet 80 mg PO QID PRN 04/10/18 10/16/19 docusate sodium [Enemeez] 283 mg IA DAILY PRN 07/19/18 10/16/19 glycerin (adult) 1 supp IA DAILY PRN 07/19/18 10/16/19 sennosides [senna] 8.6 mg PO BID PRN 07/19/18 10/16/19 urinary bag #4 packet 08/14/18 10/16/19 docusate sodium 100 mg capsule 100 mg PO BID cap 05/02/19 10/25/19 mirabegron 50 mg tablet,extended 50 mg PO DAILY #90 tab 05/29/19 10/25/19 release 24 hr morphine concentrate 0.25 mg PO PRN PRN 06/22/19 10/16/19 cyclobenzaprine 10 mg tablet 10 mg PO TID PRN #30 tab 07/30/19 10/16/19 Previous Rx's Medication Instructions Recorded urinary bag #4 packet 08/14/18 mirabegron 50 mg tablet,extended 50 mg PO DAILY #90 tab 05/29/19 release 24 hr cyclobenzaprine 10 mg tablet 10 mg PO TID PRN #30 tab 07/30/19 Allergies Allergy/AdvReac Type Severity Reaction Status Date / Time oxybutynin Allergy cognitive Verified 10/25/19 12:06 changes haloperidol [From Haldol] AdvReac Severe Lasting Verified 10/25/19 12:06 agitation, hallucination quetiapine [From Seroquel] AdvReac Severe Lasting Verified 10/25/19 12:06 agitation, hallucination morphine AdvReac Intermediate Agitation Verified 10/25/19 12:06 General Stated Complaint: Abd Prob TINY: 3 Review of Systems Unobtainable due to mental condition [facility] Medical History Anxiety (Chronic) 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 Bladder spasms (Acute) BPH (benign prostatic hyperplasia) (Chronic) Counseling regarding advance directives and goals of care (Acute) Hematuria (Acute) History of colon cancer (Chronic) History of smoking 25-50 pack years (Chronic) Hypertension (Chronic) Moderate dementia with behavioral disturbance (Chronic) Palliative care patient (Chronic) Suprapubic catheter (Chronic) Underweight (Chronic) Unintentional weight loss (Resolved) Vascular dementia (Chronic) Surgical History History of partial colectomy (Acute) Social History Smoking/Tobacco Use Status: Former Tobacco Use Tobacco: How many years used: 45 Second Hand Exposure: No Alcohol Intake: former Drug use: Never Substance use type: does not use Caregiver/Support person: Yes Household members: spouse Housing: house Number of Children: 3 number of grandchildren: 5 Communication Needs: Hard of Hearing and Corrective Lenses Education Level: high school Do you need help understanding health information?: Always current occupation: retired What is your relationship status?: How often do you talk on the phone with friends or family?: once per week How often do you get together with friends or relatives?: three or more times per week Panel score (0-1 are the most socially isolated patients): 2 What type of physical activity do you participate in: walking Duration: 45-60 minutes/day Frequency: 5-6 times per week Special carissa needs: No Seatbelt use: always Working smoke detector in home: Yes Do you feel safe at home: Yes Do you feel safe in your relationship?: Yes Additional Social history: daughter Mariam and Tila are his caregivers; Tila there all the time; Mariam lives across the street and sees her father nearly daily. Mariam worries about his climbing ladders; his balance is worse lately. Would like to investigate [facility] as possible option. Wants PT for help with balance. Exam Const General: cooperative, healthy appearing, comfortable, no acute distress and well developed Nutritional Appearance: average body habitus and well nourished Orientation: alert, awake, oriented to person, oriented to place and confused HENMT Head: normal to inspection Mouth: moist mucous membranes Resp Effort & Inspection: normal respiratory effort, able to speak in complete sentences and no respiratory distress Auscultation: clear to auscultation bilaterally, no rales, no rhonchi and no wheezes Cardio Rate: regular rate Rhythm: regular rhythm Heart Sounds: S1 normal and S2 normal GI Inspection: scar (well healed surgical incisions), no visible pulsation, No visible peristalsis and other (suprapubic catheter in place) Palpation: no hepatosplenomegaly, firm (firm area superior to catheter to the umbilicus), guarding, no hernias, no pulsatile masses, not rigid and nontender Percussion: normal to percussion Auscultation: normal bowel sounds Back/Spine/Pelvis Back: no CVA tenderness Skin General skin exam: no rashes or lesions noted Trauma: no lacerations or abrasions Neuro General: patient alert, patient awake and oriented Patient Orientation: Person, Place and Confused (pleasantly confused) Cognition: normal cognition Speech: speech normal Gait: normal gait Psych Appearance: grossly normal and well kempt Mental Status: mental status grossly normal Speech and Movement: speech and movement normal Course Vital Signs Vital signs: Vital Signs Temperature 36.5 C 10/25/19 10:50 Pulse 68 10/25/19 10:50 Respiratory Rate 18 10/25/19 10:50 Blood Pressure 183/109 H 10/25/19 10:50 Pulse Oximetry 98 10/25/19 10:50 Temperature 36.5 C 10/25/19 10:50 Temperature Source Skin 10/25/19 10:50 Pulse 68 10/25/19 10:50 Respiratory Rate 18 10/25/19 10:50 Respiratory Effort 10/25/19 11:00 Blood Pressure 183/109 H 10/25/19 10:50 Pulse Oximetry 98 10/25/19 10:50 Pain Level 0 10/25/19 10:50
[2019-10-25 11:26] LABS: Abs Immature Grans 0.02 k/cumm (0.0-0.09); Absolute Basophil Count 0.01 k/cumm (0.0-0.2); Absolute Eosinophil Count 0.03 k/cumm (0.0-0.7); Absolute Lymphocyte Count 1.36 k/cumm (1.2-3.4); Absolute Monocyte Count 0.39 k/cumm (0.11-0.7); Absolute Neutrophil Count 5.57 k/cumm (1.2-6.7); Basophils % 0.1; Eosinophils % 0.4; HGB 14.8 g/dL (13.5-17.5); Immature Grans % 0.3 %; Lymphocytes % 18.4; Mean Corp. HGB Concentration 36.1 g/dL (32.0-36.0); Mean Corpuscular Hemoglobin 30.6 pg (27.0-33.0); Mean Corpuscular Volume 84.9 fL (80-95); Monocytes % 5.3; Neutrophils % 75.5; Platelet Count 156 x1000/uL (130-400); RBC 4.83 m/cumm (4.50-6.00); RBC Distribution Width 12.7 % (11.8-14.1); White Blood Cell Count 7.38 k/cumm (4.4-10.8)
[2019-10-25] MEDS: Omnipaque 350 MG/ML 50 ML BTL IJ (11:29)
[2019-10-25] MEDS: Normal Saline 1,000 ML 500 ML IV (11:30)
[2019-10-25] MEDS: Breeza Beverage 473 ML BTL PO (11:31)
[2019-10-25 11:33] LABS: Lactate 0.7 mmol/L (0.6-1.4)
[2019-10-25 11:33] LABS: Lipase 100 U/L (73-393)
[2019-10-25 11:44] LABS: ALT 27 U/L (16-63); AST 28 U/L (15-37); Alkaline Phosphatase 66 U/L (46-116); Anion Gap 6.4 mmol/L (3-11); BUN 17 mg/dL (7-18); Bilirubin, Total 0.5 mg/dL (0.2-1.0); CO2 31.6 mmol/L (21.0-32.0); CREATININE 1.07 mg/dL (0.70-1.30); Chloride 102 mmol/L (98-107); Glucose 101 mg/dL (74-106); Magnesium 2.3 mg/dL (1.8-2.4); Sodium 140 mmol/L (136-145); Total Protein 7.6 g/dL (6.4-8.2)
[2019-10-25 11:57] LABS: Bilirubin Negative (Negative); Blood Trace-intact (Negative); Clarity Clear (Clear); Glucose Negative (Negative); Ketones Negative (Negative); Leukocyte Esterase Large (Negative); Nitrite Negative (Negative); Specific Gravity 1.015 (1.005-1.025); Urobilinogen 0.2 EU/dL (Up TO 0.2); pH 7.5 (5-8)
[2019-10-25 12:08] LABS: Bacteria Few HPF (Negative); Epithelial Cells Rare HPF (Negative); Other Cells Rare Renal (Negative); WBC >50 HPF (0-5)
[2019-10-25 12:09] LABS: C & S Indicated? Yes; Casts Negative LPF (Negative); Crystals Negative HPF (Negative); Mucus Negative (Negative)
[2019-10-25] MEDS: Omnipaque 350 MG/ML 100 ML BTL IJ (13:07)
[2019-10-25] MEDS: Normal Saline - Diluent 50 ML VIAL IV (13:08)
[2019-10-25] MEDS: Simethicone 80 MG CHEW 160 MG PO (13:32)
[2019-10-25 13:35] VITALS: BP 155/101; PULSE 67; RESP 14; O2SAT 99
[2019-10-25 14:16] VITALS: BP 155/101; PULSE 67; RESP 14; O2SAT 99
== END 2019-10-25 14:28 | disposition home or self-care (01) ==
PROVIDERS: Emergency Provider Physician Assistant; PCP Urology
DX: K59.09 Other constipation (principal); F01.51 Vascular dementia, unspecified severity, with behavioral disturbance; I10 Essential (primary) hypertension; Z96.0 Presence of urogenital implants; N40.1 Benign prostatic hyperplasia with lower urinary tract symptoms; R33.8 Other retention of urine; Z85.038 Personal history of other malignant neoplasm of large intestine
CPT/HCPCS: 36415; 80053; 83690; 87077; 96360; 96361; 99285; 74177; 81003; 81015; 83605; 83735; 85025; 87086; 87186; J3490; Q9967

== ENCOUNTER → 2020-04-29 14:33 | Outpatient (BNVA) | payer MEDICARE, SELFPAY | PROVIDERS: PCP Nurse Practitioner Gerontology; Referring Provider Nurse Practitioner Gerontology; Visit Provider Nurse Practitioner Gerontology | DX: N40.1 Benign prostatic hyperplasia with lower urinary tract symptoms (principal); R33.8 Other retention of urine; Z46.6 Encounter for fitting and adjustment of urinary device; K59.00 Constipation, unspecified; I10 Essential (primary) hypertension | CPT/HCPCS: 51705; 99213 ==

== ENCOUNTER 2020-06-24 15:59 | Outpatient (REF) | payer MEDICARE, SELFPAY ==
[2020-06-24 13:39] LABS: Abs Immature Grans 0.02 10^3/uL (0.0-0.06); Absolute Basophil Count 0.02 10^3/uL (0.0-0.2); Absolute Eosinophil Count 0.08 10^3/uL (0.0-0.7); Absolute Lymphocyte Count 1.01 10^3/uL (1.2-3.4); Absolute Monocyte Count 0.33 10^3/uL (0.1-0.8); Absolute Neutrophil Count 4.33 10^3/uL (1.2-6.7); Basophils % 0.3; Eosinophils % 1.4; HCT 40.4 % (40.0-50.0); HGB 13.9 g/dL (13.5-17.5); Immature Grans % 0.3; Lymphocytes % 17.4; MCH 30.3 pg (27.0-33.0); MCHC 34.4 % (32.0-36.0); MPV 11.2 fL (8.0-11.0); Monocytes % 5.7; Neutrophils % 74.9; Nucleated RBC 0 %; Platelet Count 150 10^3/uL (130-400); RBC 4.59 10^6/uL (4.36-5.78); RDW 12.6 % (11.8-14.1); RDW-SD 40.2 fL; WBC 5.79 10^3/uL (4.4-10.8)
[2020-06-24 13:46] LABS: ALT 41 U/L (16-63); AST 31 U/L (15-37); Albumin 3.6 g/dL (3.4-5.0); Alkaline Phosphatase 65 U/L (46-116); Anion Gap 7.6 mmol/L (3-11); BUN 17 mg/dL (7-18); Bilirubin, Total 0.5 mg/dL (0.2-1.0); CO2 29.4 mmol/L (21.0-32.0); CREATININE 1.06 mg/dL (0.70-1.30); Calcium 8.9 mg/dL (8.5-10.1); Chloride 104 mmol/L (98-107); Glucose 98 mg/dL (74-106); Potassium 3.9 mmol/L (3.5-5.1); Sodium 141 mmol/L (136-145); Total Protein 6.6 g/dL (6.4-8.2)
[2020-06-24 13:55] LABS: Bilirubin Negative (Negative); Blood Trace-intact (Negative); Clarity Clear (Clear); Glucose Negative (Negative); Ketones Negative (Negative); Leukocyte Esterase Large (Negative); Nitrite Positive (Negative); Urobilinogen 0.2 EU/dL (Up TO 0.2); pH 7.5 (5-8)
[2020-06-24 14:04] LABS: Bacteria Few HPF (Negative); C & S Indicated? Yes; Casts Negative LPF (Negative); Crystals Negative HPF (Negative); Epithelial Cells Rare HPF (Negative); Mucus Negative (Negative)
== END 2020-06-24 16:19 ==
LOC: LBN 15:59
PROVIDERS: PCP Nurse Practitioner Gerontology; Visit Provider Internal Medicine
DX: I10 Essential (primary) hypertension (principal); F02.81 Dementia in other diseases classified elsewhere, unspecified severity, with behavioral disturbance; G30.9 Alzheimer's disease, unspecified; R82.998 Other abnormal findings in urine
CPT/HCPCS: 80053; 81003; 81015; 84443; 85025; 87086

== ENCOUNTER 2020-08-14 11:22 | Emergency (ER) | payer MEDICARE, OTHER, SELFPAY ==
[2020-08-14 11:26] VITALS: BP 184/97; PULSE 80; RESP 18; TEMP 36.3; O2SAT 98
--- NOTE | 2020-08-14 12:01 | W.ED.GENAD ---
Discharge Plan Disposition Patient Disposition: HOME Condition: Improving Discharge Details Clinical Impression: Bladder spasms Primary Care Provider: Rashel Rosado ED Provider: Hugh Herron Home Meds and New Rx's Prescriptions: New hyoscyamine sulfate [Levsin/SL] 0.125 mg tablet, sublingual 0.125 mg PO BID-QID PRN (Reason: spasms) Qty: 14 RF: 0 Continued Myrbetriq 50 mg tablet extended release 24 hr 50 mg PO DAILY Qty: 90 RF: 3 (DME) Urinary Leg Bag misc See Dose Instructions .ROUTE .MEDSUPPLY Qty: 4 RF: 12 divalproex [Depakote] 125 mg tablet,delayed release (DR/EC) 125 mg PO TID Qty: 90 RF: 1 sennosides [senna] 8.6 mg Tablet 8.6 mg PO BID PRNRF: 0 docusate sodium [Enemeez] 283 mg/5 mL Enema 283 mg [place] DAILY PRNRF: 0 docusate sodium [Dulcolax Stool Softener (dss)] 100 mg capsule 100 mg PO BID RF: 0 amlodipine 2.5 mg Tablet 2.5 mg PO DAILY RF: 0 simethicone 80 mg Tablet,Chewable 80 mg PO BID RF: 0 Discharge Instructions Additional Instructions: Continue your regularly prescribed medications including Myrbetriq. May also use the prescribed Levsin as needed for persistent spasms. Many of the other medications used to treat spasms can cause confusion or sedation. I discussed your case with Dr. Rosado. The urology clinic is available to see you in follow-up. Home to rest today. May benefit from increase oral hydration today. Return to the ER for any acute concerns. Medical Decision Making 84-year-old male with indwelling suprapubic catheter for which she is followed by Dr. Rosado in urology. Develop intermittent low pelvis spasms over the past 2 to 3 days time. No fever, no vomiting. He does take mirabegron which he took this morning. No changes to medications. Patient is afebrile, interactive, no acute distress. His suprapubic catheter site appears to have a well-healed tract and no signs of cellulitis. Patient given a B&O suppository, urinalysis obtained. UA: With large leuk esterase, small blood, negative nitrites. Culture pending. Discussed with Dr. Rosado. Will await urine culture. Given the patient's history of wandering behavior, ataxia, agitation and dementia, we will continue his Myrbetriq, and add as needed use of Levsin sublingual. He is improved following B and O suppository. Stable for outpatient management. HPI General Mode of arrival: ambulatory. Date/Time Provider Initiated Documentation: 08/14/20 11:28. Limitations to Documentation: no limitations. Information obtained by: patient. History of Present Illness 84 year old M presents to the emergency department with the chief complaint of Bladder spasm, indwelling suprapubic catheter, described as moderate and similar to prior episodes, Quality is described as dull, and is localized to the abdomen, pelvis and genitals. Patient started experiencing this day(s) and it has been intermittent. No relieving factors improve symptom(s), No exacerbating factors reported . Patient notes denies fever/chills, loss of appetite and nausea/vomiting. Patient did receive the following treatments prior to arrival, none and other (Took regular medications) Related Data Home Medications Medication Instructions Recorded Confirmed docusate sodium [Enemeez] 283 mg [place] DAILY PRN 07/19/18 08/14/20 sennosides [senna] 8.6 mg PO BID PRN 07/19/18 08/14/20 urinary bag #4 packet 08/14/18 12/19/19 docusate sodium 100 mg capsule 100 mg PO BID cap 05/02/19 08/14/20 mirabegron 50 mg tablet,extended 50 mg PO DAILY #90 tab 05/29/19 08/14/20 release 24 hr divalproex 125 mg tablet,delayed 125 mg PO TID #90 tab 07/03/20 08/14/20 release amlodipine 2.5 mg PO DAILY 08/14/20 08/14/20 hyoscyamine sulfate [Levsin/SL] 0.125 mg PO BID-QID PRN #14 tab 08/14/20 simethicone 80 mg PO BID 08/14/20 08/14/20 Previous Rx's Medication Instructions Recorded urinary bag #4 packet 08/14/18 mirabegron 50 mg tablet,extended 50 mg PO DAILY #90 tab 05/29/19 release 24 hr divalproex 125 mg tablet,delayed 125 mg PO TID #90 tab 07/03/20 release hyoscyamine sulfate [Levsin/SL] 0.125 mg PO BID-QID PRN #14 tab 08/14/20 Allergies Allergy/AdvReac Type Severity Reaction Status Date / Time oxybutynin Allergy cognitive Verified 08/14/20 11:59 changes haloperidol [From Haldol] AdvReac Severe Lasting Verified 08/14/20 11:59 agitation, hallucination quetiapine [From Seroquel] AdvReac Severe Lasting Verified 08/14/20 11:59 agitation, hallucination morphine AdvReac Intermediate Agitation Verified 08/14/20 11:59 General Stated Complaint: Urinary TINY: 3 Review of Systems Narrative: No fever, no back pain, no vomiting or abdominal pain. Pain is intermittent and spasmodic. Took his mirabegron this morning. Follows with Dr. Rosado. 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 Bladder spasms BPH (benign prostatic hyperplasia) Counseling regarding advance directives and goals of care Discharge planning issues DNI (do not intubate) DNR (do not resuscitate) Hallucinations due to late onset dementia Hematuria History of colon cancer History of smoking 25-50 pack years Hypertension Mixed type delusional disorder Moderate dementia with behavioral disturbance Palliative care patient POLST (Physician Orders for Life-Sustaining Treatment) Suprapubic catheter Underweight Unintentional weight loss Vascular dementia his dementia is mixed AD and vascular Wandering behavior due to his dementia worse when daughter away Surgical History History of partial colectomy Family History Mother , age 87 from dementia Dementia Father , age 78 from COPD COPD (chronic obstructive pulmonary disease) Sister , age 70 from pancreatic cancer Pancreatic cancer Nephew Bladder cancer Brother , of COPD aged 80 COPD (chronic obstructive pulmonary disease) Daughter Visual acuity reduced Anxiety Caregiver stress Son No problems noted. Son No problems noted. Social History (Updated 05/28/20 @ 19:07 by Blanche Person MD) Smoking/Tobacco Use Status: Former Tobacco Use Tobacco: How many years used: 45 Second Hand Exposure: No Smoking risk assessment performed?: Yes Alcohol Intake: former Drug use: Never Substance use type: does not use Caregiver/Support person: Yes Household members: spouse Housing: house Number of Children: 3 number of grandchildren: 5 Communication Needs: Hard of Hearing and Corrective Lenses Education Level: high school Do you need help understanding health information?: Always current occupation: retired Pets and animals: No Current gender identity: male What is your relationship status?: How often do you talk on the phone with friends or family?: once per week How often do you get together with friends or relatives?: three or more times per week Panel score (0-1 are the most socially isolated patients): 2 What type of physical activity do you participate in: walking Duration: 45-60 minutes/day Frequency: 5-6 times per week Special carissa needs: No Seatbelt use: always Working smoke detector in home: Yes Fire extinguisher in home: Yes Do you feel safe at home: Yes Do you feel safe in your relationship?: Yes Additional Social history: daughter Mariam and Tila are his caregivers; Tila there all the time; Mariam lives across the street and sees her father nearly daily. Mariam worries about his climbing ladders; his balance is worse lately. Mariam does take her father for walks nearly every day. Encouraged them to continue this. Gait wnl on 05/28/20 visit. Exam Narrative Exam Narrative: GEN: awake, alert, oriented 3. Pleasant, well groomed, interactive. HEAD: Normocephalic, atraumatic ENT: Mucous membranes moist, oropharynx unremarkable, External ear exam unremarkable EYES: PERRL, EOMI NECK: Full ROM, no KRISTIAN, no menigismus CHEST/RESP: Nontender, clear to auscultation bilateral, no wheeze/rhonchi/rales CARDIOVASCULAR: RRR, no murmur, rub elias. 2+ Rad pulse bilateral ABDOMEN: Soft, nontender, no mass. +Bowel sounds, suprapubic catheter in place, clean dry and intact. EXT: Full ROM, no edema, no rash Neuro: Grossly normal neurologic exam, conversant, interactive. Psych: Speech fluent, thoughts congruent, affect normal Course Vital Signs Vital signs: Vital Signs Temperature 36.3 C L 08/14/20 11:26 Pulse 80 08/14/20 11:26 Respiratory Rate 18 08/14/20 11:26 Blood Pressure 184/97 H 08/14/20 11:26 Pulse Oximetry 98 08/14/20 11:26 Temperature 36.3 C L 08/14/20 11:26 Temperature Source Skin 08/14/20 11:26 Pulse 80 08/14/20 11:26 Respiratory Rate 18 08/14/20 11:26 Respiratory Effort 08/14/20 11:34 Blood Pressure 184/97 H 08/14/20 11:26 Blood Pressure Position Sitting 08/14/20 11:26 Pulse Oximetry 98 08/14/20 11:26 Oxygen Delivery Method Room Air 08/14/20 11:26 Oxygen Flow Rate 0 08/14/20 11:26 Pain Level 7 08/14/20 11:36
[2020-08-14 12:28] LABS: Bilirubin Negative (Negative); Blood Small (Negative); Clarity Cloudy (Clear); Glucose Negative (Negative); Ketones Negative (Negative); Leukocyte Esterase Large (Negative); Nitrite Negative (Negative); Specific Gravity 1.015 (1.005-1.025); Urobilinogen 0.2 EU/dL (Up TO 0.2); pH >= 9.0 (5-8)
[2020-08-14 12:43] LABS: Bacteria Many HPF (Negative); Casts Negative LPF (Negative); Crystals Negative HPF (Negative); Epithelial Cells Negative HPF (Negative); Mucus Negative (Negative); RBC 20-50 HPF (0-2); WBC >50 HPF (0-5)
[2020-08-14 12:44] LABS: C & S Indicated? Yes
[2020-08-14] MEDS: Hyoscyamine 0.125 MG SL/ORAL/CHEW SL (13:14)
[2020-08-14 13:41] VITALS: BP 170/105; PULSE 88; RESP 20; O2SAT 98
--- NOTE | 2020-08-17 09:33 | W.ED.FU ---
Follow Up Plan: Urine cultures returned as positive for Klebsiella. Patient currently not being treated for UTI. I discussed patient with Chyna Hunter of urology, who reports the patient has an appointment with urology today in 30 minutes (10am), states she is aware of culture results and will discuss with patient.
== END 2020-08-14 13:50 | disposition home or self-care (01) ==
PROVIDERS: Emergency Provider Emergency Medicine; PCP Urology
DX: N32.89 Other specified disorders of bladder (principal); Z93.59 Other cystostomy status; I10 Essential (primary) hypertension
CPT/HCPCS: 87077; 99283; 81003; 81015; 87086; 87186; J3490

== ENCOUNTER 2020-10-06 18:06 | Outpatient (REF) | payer MEDICARE, SELFPAY ==
[2020-10-12 10:44] LABS: COVID-19 RT-PCR UVMMC Result Positive (Negative)
== END 2020-10-06 18:07 | disposition home or self-care (01) ==
LOC: LBN 18:06
PROVIDERS: PCP Urology; Visit Provider Nurse Practitioner Primary Care
DX: Z20.822 Contact with and (suspected) exposure to COVID-19 (principal)
CPT/HCPCS: U0003

== ENCOUNTER → 2020-11-16 10:57 | Outpatient (BNVA) | payer MEDICARE, SELFPAY | PROVIDERS: PCP Urology; Referring Provider Urology; Visit Provider Nurse Practitioner Gerontology | DX: R33.8 Other retention of urine (principal); R23.8 Other skin changes; Z93.59 Other cystostomy status; Z46.6 Encounter for fitting and adjustment of urinary device | CPT/HCPCS: 51705; 99214 ==

== ENCOUNTER 2020-12-15 15:44 | Outpatient (REF) | payer MEDICARE, SELFPAY ==
[2020-12-15 17:47] LABS: Bilirubin Negative (Negative); Blood Trace-lysed (Negative); Clarity Sl Cloudy (Clear); Glucose Negative (Negative); Ketones Negative (Negative); Leukocyte Esterase Small (Negative); Nitrite Positive (Negative); Urobilinogen 0.2 EU/dL (Up TO 0.2)
[2020-12-15 17:56] LABS: Bacteria Many HPF (Negative); C & S Indicated? C&S Done As Ordered; Crystals Negative HPF (Negative); Epithelial Cells Negative HPF (Negative); Mucus Negative (Negative); Other Cells Mod Transitional (Negative); WBC >50 HPF (0-5)
== END 2020-12-15 15:45 | disposition home or self-care (01) ==
LOC: LBN 15:44
PROVIDERS: PCP Urology; Visit Provider Family Medicine
DX: C18.9 Malignant neoplasm of colon, unspecified (principal); G30.9 Alzheimer's disease, unspecified; F01.51 Vascular dementia, unspecified severity, with behavioral disturbance; R33.9 Retention of urine, unspecified; R82.998 Other abnormal findings in urine
CPT/HCPCS: 87077; 81003; 81015; 87086; 87186

== ENCOUNTER 2020-12-18 18:59 | Emergency (ER) | payer MEDICARE, OTHER, SELFPAY ==
[2020-12-18 19:04] VITALS: BP 134/106; PULSE 82; RESP 16; TEMP 36.7; O2SAT 99
--- NOTE | 2020-12-18 19:19 | W.ED.GENAD ---
Discharge Plan Disposition Patient Disposition: HOME Condition: Stable Discharge Details Clinical Impression: Hematuria, UTI (urinary tract infection) Primary Care Provider: Rashel Rosado ED Provider: Leeann Hassan Home Meds and New Rx's Prescriptions: New cephalexin 500 mg tablet 500 mg PO BID 7 Days Qty: 14 RF: 0 No Action Myrbetriq 50 mg tablet extended release 24 hr 50 mg PO DAILY Qty: 90 RF: 3 cephalexin 500 mg capsule 500 mg PO Q8H PRN (Reason: recurrent UTIs) Qty: 21 RF: 1 acetic acid 0.25 % solution 1 irrig irrigation .weekly Qty: 1000 RF: 2 divalproex [Depakote] 125 mg tablet,delayed release (DR/EC) 125 mg PO BID RF: 0 (DME) Urinary Leg Bag misc See Dose Instructions .ROUTE .MEDSUPPLY Qty: 4 RF: 12 sennosides [senna] 8.6 mg Tablet 8.6 mg PO BID PRNRF: 0 docusate sodium [Enemeez] 283 mg/5 mL Enema 283 mg [place] DAILY PRNRF: 0 docusate sodium [Dulcolax Stool Softener (dss)] 100 mg capsule 100 mg PO BID RF: 0 simethicone 80 mg Tablet,Chewable 80 mg PO BID RF: 0 Discharge Instructions Instructions: Urinary Tract Infection in Men (ED), Hematuria (ED) Additional Instructions: Continue to observe catheter output. Irrigate with 250 cc of sterile normal saline or sterile water as needed for clot and blood in the catheter. Take antibiotics as directed. He was given the first dose here in the department. A prescription was sent to the pharmacy we have on file. Follow up with primary care provider in 3-5 days. Return to ED sooner if any worsening or concerns. Increase oral fluids. Follow-up with urology Dr. Rosado in the next 3 to 5 days. Return to the ED if catheter is not draining any complaints of abdominal pain or pressure Referrals: Rashel Rosado MD [Primary Care Provider] - Medical Decision Making 85-year-old male presents with his caregiver with chief complaint of hematuria noted to his suprapubic catheter which began today. Caregiver states that his catheter was changed out 2 days ago by hospice nurse and was clear until about 3 PM this afternoon. On initial exam there is dark red blood noted in the Bailey catheter bag no active drainage at this time. There is a large clot noted in Bailey bag. Patient denies any abdominal pain or pressure however abdomen is distended bladder does feel full upon examination. Patient has a past medical history Alzheimer's dementia he is a hospice care patient, has a recurrent UTI, BPH, colon cancer, bladder spasm, he is a DNR/DNI, 1933: Bladder scan shows 145 cc, bladder irrigated with 250 cc by senior staff specialized employment, did get pink-tinged return of 200 cc no clots. At this time Bailey is clamped to obtain a urinalysis. We will continue to observe for drainage and blood return. Urinalysis shows large blood positive nitrite small leukocytes greater than 50 RBCs inconclusive micro culture is pending at this time. We will place patient on cephalexin for presumed UTI. Discussed home care of Bailey catheter with patient's family who verbalized understanding. Bailey was draining pink-tinged yellow urine prior to discharge. Bailey bag was changed out by senior staff specialized employment prior to discharge. Instructed to follow-up with PCP discussed strict return instructions. Patient remained hemodynamically stable and was improved upon this disposition. HPI General Mode of arrival: ambulatory. Date/Time Provider Initiated Documentation: 12/18/20 19:00. Limitations to Documentation: no limitations. Information obtained by: patient and family (Caregiver). HPI Narrative: 85-year-old male presents with his caregiver with chief complaint of hematuria noted to his suprapubic catheter which began today. Caregiver states that his catheter was changed out 2 days ago by hospice nurse and was clear until about 3 PM this afternoon. On initial exam there is dark red blood noted in the Bailey catheter bag no active drainage at this time. There is a large clot noted in Bailey bag. Patient denies any abdominal pain or pressure however abdomen is distended bladder does feel full upon examination. Patient has a past medical history Alzheimer's dementia he is a hospice care patient, has a recurrent UTI, BPH, colon cancer, bladder spasm, he is a DNR/DNI, Related Data Home Medications Medication Instructions Recorded Confirmed docusate sodium [Enemeez] 283 mg [place] DAILY PRN 07/19/18 11/16/20 sennosides [senna] 8.6 mg PO BID PRN 07/19/18 11/16/20 urinary bag #4 packet 08/14/18 12/07/20 docusate sodium 100 mg capsule 100 mg PO BID cap 05/02/19 11/16/20 mirabegron 50 mg tablet,extended 50 mg PO DAILY #90 tab 05/29/19 12/07/20 release 24 hr simethicone 80 mg PO BID 08/14/20 11/16/20 acetic acid 0.25 % irrigation 1 irrig IRRIGATION .weekly #1000 ml 08/25/20 11/16/20 solution cephalexin 500 mg capsule 500 mg PO Q8H PRN #21 cap 09/30/20 09/30/20 divalproex 125 mg tablet,delayed 125 mg PO BID tab 11/16/20 11/16/20 release cephalexin 500 mg PO BID 7 Days #14 tab 12/18/20 Previous Rx's Medication Instructions Recorded urinary bag #4 packet 08/14/18 mirabegron 50 mg tablet,extended 50 mg PO DAILY #90 tab 05/29/19 release 24 hr acetic acid 0.25 % irrigation 1 irrig IRRIGATION .weekly #1000 ml 08/25/20 solution cephalexin 500 mg capsule 500 mg PO Q8H PRN #21 cap 09/30/20 cephalexin 500 mg PO BID 7 Days #14 tab 12/18/20 Allergies Allergy/AdvReac Type Severity Reaction Status Date / Time oxybutynin Allergy cognitive Verified 12/18/20 19:10 changes risperidone [From Risperdal] Allergy AMS Verified 12/18/20 19:10 haloperidol [From Haldol] AdvReac Severe Lasting Verified 12/18/20 19:10 agitation, hallucination quetiapine [From Seroquel] AdvReac Severe Lasting Verified 12/18/20 19:10 agitation, hallucination morphine AdvReac Intermediate Agitation Verified 12/18/20 19:10 General Stated Complaint: Urinary TINY: 3 Review of Systems All systems reviewed & are unremarkable except as noted in HPI and below Genitourinary Genitourinary: Reports as per HPI, Reports hematuria and Reports difficulty urinating [facility] Medical History Agitation due to dementia Anxiety 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 Bladder spasms BPH (benign prostatic hyperplasia) Cachexia Counseling regarding advance directives and goals of care COVID-19 Discharge planning issues DNI (do not intubate) DNR (do not resuscitate) Hallucinations due to late onset dementia Hematuria History of colon cancer History of smoking 25-50 pack years Hospice care patient admitted 10/14/20 Hypertension 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 Moderate dementia with behavioral disturbance Obtunded Palliative care patient Paranoia (psychosis) POLST (Physician Orders for Life-Sustaining Treatment) Recurrent UTI Suprapubic catheter Underweight Unintentional weight loss Vascular dementia his dementia is mixed 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 vascular Wandering behavior due to his dementia Surgical History History of partial colectomy Family History Mother , age 87 from dementia Dementia Father , age 78 from COPD COPD (chronic obstructive pulmonary disease) Sister , age 70 from pancreatic cancer Pancreatic cancer Nephew Bladder cancer Brother , of COPD aged 80 COPD (chronic obstructive pulmonary disease) Daughter Visual acuity reduced Anxiety Caregiver stress Son Migraine Son Migraine Social History Smoking/Tobacco Use Status: Former Tobacco Use Tobacco: How many years used: 45 Second Hand Exposure: No Smoking risk assessment performed?: Yes Alcohol Intake: former Drug use: Never Substance use type: does not use Caregiver/Support person: Yes Household members: spouse Housing: house Number of Children: 3 number of grandchildren: 5 Communication Needs: Hard of Hearing and Corrective Lenses Education Level: high school Do you need help understanding health information?: Always current occupation: retired Pets and animals: No Current gender identity: male What is your relationship status?: How often do you talk on the phone with friends or family?: once per week How often do you get together with friends or relatives?: three or more times per week Panel score (0-1 are the most socially isolated patients): 2 What type of physical activity do you participate in: walking Duration: 45-60 minutes/day Frequency: 5-6 times per week Special carissa needs: No Seatbelt use: always Working smoke detector in home: Yes Fire extinguisher in home: Yes Do you feel safe at home: Yes Do you feel safe in your relationship?: Yes Additional Social history: daughter Mariam and Tila and now his son Adam are his caregivers; Tila there all the time; Mariam lives across the street. Adam or other son Amrit. Both Igor and Tila are covid +. Igor's son Adam and daughter Mariam are hands on caring for him during my visit. Amrit and Tila in other room. Igor appears to be actively dying on 10/14/20, but I did share stories of recovery from Covid-19 even in older frail patients. We will see. Exam Narrative Exam Narrative: Constitutional: Alert pleasantly confused. Appears stated age. Thin body habitus. Head: Normocephalic, no trauma. Eyes: Pupils PERRLA, Red reflex noted, EOM's intact. Eyelids symmetrical without lesions, discharge, or swelling. ENT: Bilateral TM's WNL, External ear normal to inspection, no mastoid TTP, swelling, or erythema, Nasal turbinates WNL, no nasal discharge. Normal dentition, Posterior pharynx WNL, no exudate. Chest: RRR, Normal S1, S2, distal pulses intact. Resp: Lungs clear to auscultation bilaterally, no wheezes, rales, or rhonchi. Abdomen: See exam below Musculoskeletal: Normal gait, 5/5 strength to all four extremities. Skin: No suspicious rashes or lesions. Capillary refill less than 2 sec. Neurologic: Cranial nerves II-XII intact. Alert and oriented x 3. DTR's intact. Hematologic/Lymphatic: No ecchymosis, no lymphadenopathy. Suprapubic catheter noted, there is dried blood around the insertion site, letter is distended. Dark red blood noted in the Bailey bag and clot. General: bladder abnormal distended Distended: Yes Up to where: umbillicus and other Course Vital Signs Vital signs: Vital Signs Temperature 36.7 C 12/18/20 19:04 Pulse 82 12/18/20 19:04 Respiratory Rate 16 12/18/20 19:04 Blood Pressure 134/106 H 12/18/20 19:04 Pulse Oximetry 99 12/18/20 19:04 Temperature 36.7 C 12/18/20 19:04 Temperature Source Temporal Artery Scan 12/18/20 19:04 Pulse 82 12/18/20 19:04 Respiratory Rate 16 12/18/20 19:04 Respiratory Effort Non-Labored 12/18/20 19:07 Blood Pressure 134/106 H 12/18/20 19:04 Blood Pressure Position Sitting 12/18/20 19:04 Pulse Oximetry 99 12/18/20 19:04 Oxygen Delivery Method Room Air 12/18/20 19:04 Oxygen Flow Rate 0 12/18/20 19:04 Pain Level 0 12/18/20 19:04
[2020-12-18 20:35] LABS: Bilirubin Negative (Negative); Blood Large (Negative); Clarity Cloudy (Clear); Glucose Negative (Negative); Ketones Negative (Negative); Leukocyte Esterase Small (Negative); Nitrite Positive (Negative); Urobilinogen 0.2 EU/dL (Up TO 0.2)
[2020-12-18 20:43] LABS: C & S Indicated? Yes; RBC >50 HPF (0-2)
[2020-12-18] MEDS: Cephalexin 500 MG CAP PO (21:48)
[2020-12-18] MEDS: Cephalexin 500 MG CAP, 4 CAPS/BTL PO (21:48)
[2020-12-18 21:49] VITALS: BP 134/70; PULSE 82; RESP 16; TEMP 36.7; O2SAT 99
== END 2020-12-18 21:50 | disposition home or self-care (01) ==
PROVIDERS: Emergency Provider Registered Nurse Emergency; PCP Urology
DX: N39.0 Urinary tract infection, site not specified (principal); R31.9 Hematuria, unspecified
CPT/HCPCS: 87077; 99283; 81003; 81015; 87086; 87186

== ENCOUNTER 2020-12-29 16:49 | Emergency (ER) | payer OTHER, MEDICARE, SELFPAY ==
[2020-12-29 17:02] VITALS: BP 193/102; PULSE 79; RESP 16; TEMP 36.8; O2SAT 98
--- NOTE | 2020-12-29 17:48 | W.ED.GENAD ---
Discharge Plan Disposition Patient Disposition: HOME Condition: Stable Discharge Details Clinical Impression: Recurrent UTI Primary Care Provider: Rashel Rosado ED Provider: Larissa Hawkins Home Meds and New Rx's Prescriptions: No Action Myrbetriq 50 mg tablet extended release 24 hr 50 mg PO DAILY Qty: 90 RF: 3 acetic acid 0.25 % solution 1 irrig irrigation .weekly Qty: 1000 RF: 2 divalproex [Depakote] 125 mg tablet,delayed release (DR/EC) 125 mg PO BID RF: 0 (DME) Urinary Leg Bag misc See Dose Instructions .ROUTE .MEDSUPPLY Qty: 4 RF: 12 sennosides [senna] 8.6 mg Tablet 8.6 mg PO BID PRNRF: 0 docusate sodium [Enemeez] 283 mg/5 mL Enema 283 mg OK DAILY PRNRF: 0 docusate sodium [Dulcolax Stool Softener (dss)] 100 mg capsule 100 mg PO BID RF: 0 simethicone 80 mg Tablet,Chewable 80 mg PO BID PRNRF: 0 cyclobenzaprine 10 mg tablet 10 mg PO PRN PRN (Reason: Bladder Spasms) RF: 0 lorazepam 1 mg tablet 0.5 - 1 mg PO Q4H PRN PRNRF: 0 Discharge Instructions Additional Instructions: Dr Justin has evaluated you and will follow-up with regarding your urine specimen please return and follow-up with Dr Justin should new concerns arise Medical Decision Making Patient is alert and cooperative throughout my brief evaluation This is a hospice care patient therefore Dr. Justin was involved in the emergency room immediately upon presentation which is quite helpful She has made joint decision making with patient's daughter and will follow up on a urinalysis that was ordered in the emergency room, patient is found prior to the results of this urinalysis interpretation They are instructed to call Dr. Justin should any new concerns arise they will return with any concerns at the direction of Dr. Justin No additional laboratory evaluation or additional diagnostic ordered at the direction of hospice who is managing this patient's care, decision for me and in the presence of patient's daughter and DPOA Differential Diagnosis Differential Diagnosis: Urinary tract infection, dementia, acute psychosis, paranoia Medical Records Medical records reviewed: Yes I reviewed the patient's medical records. HPI General Mode of arrival: ambulatory. Date/Time Provider Initiated Documentation: 12/29/20 17:14. Limitations to Documentation: no limitations. Information obtained by: patient. HPI Narrative: This 85-year-old gentleman with history of mixed Alzheimer's dementia, hospice care, recurrent urinary tract infection presents with some increasing agitation reportedly at home. Patient is cared for by his daughter reportedly. Dr. Justin contacted and will be presenting to the emergency room for assessment. Daughter is requesting testing for urinary tract infection as she states that her father typically presents in this manner when he is ill Related Data Home Medications Medication Instructions Recorded Confirmed docusate sodium [Enemeez] 283 mg OK DAILY PRN 07/19/18 12/29/20 sennosides [senna] 8.6 mg PO BID PRN 07/19/18 12/29/20 urinary bag #4 packet 08/14/18 12/07/20 docusate sodium 100 mg capsule 100 mg PO BID cap 05/02/19 12/29/20 mirabegron 50 mg tablet,extended 50 mg PO DAILY #90 tab 05/29/19 12/29/20 release 24 hr simethicone 80 mg PO BID PRN 08/14/20 12/29/20 acetic acid 0.25 % irrigation 1 irrig IRRIGATION .weekly #1000 ml 08/25/20 12/29/20 solution divalproex 125 mg tablet,delayed 125 mg PO BID tab 11/16/20 12/29/20 release cyclobenzaprine 10 mg PO PRN PRN 12/29/20 12/29/20 lorazepam 0.5 - 1 mg PO Q4H PRN PRN 12/29/20 12/29/20 Previous Rx's Medication Instructions Recorded urinary bag #4 packet 08/14/18 mirabegron 50 mg tablet,extended 50 mg PO DAILY #90 tab 05/29/19 release 24 hr acetic acid 0.25 % irrigation 1 irrig IRRIGATION .weekly #1000 ml 08/25/20 solution Allergies Allergy/AdvReac Type Severity Reaction Status Date / Time oxybutynin Allergy cognitive Verified 12/29/20 16:59 changes risperidone [From Risperdal] Allergy AMS Verified 12/29/20 16:59 haloperidol [From Haldol] AdvReac Severe Lasting Verified 12/29/20 16:59 agitation, hallucination quetiapine [From Seroquel] AdvReac Severe Lasting Verified 12/29/20 16:59 agitation, hallucination morphine AdvReac Intermediate Agitation Verified 12/29/20 16:59 General Stated Complaint: GenMedical TINY: 2 [facility] Medical History Agitation due to dementia Anxiety 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 Bladder spasms BPH (benign prostatic hyperplasia) Cachexia Counseling regarding advance directives and goals of care COVID-19 Discharge planning issues DNI (do not intubate) DNR (do not resuscitate) Hallucinations due to late onset dementia Hematuria History of colon cancer History of smoking 25-50 pack years Hospice care patient admitted 10/14/20 Hypertension 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 Moderate dementia with behavioral disturbance Obtunded Palliative care patient Paranoia (psychosis) POLST (Physician Orders for Life-Sustaining Treatment) Recurrent UTI Suprapubic catheter Underweight Unintentional weight loss Vascular dementia his dementia is mixed AD and vascular Wandering behavior due to his dementia Surgical History History of partial colectomy Family History Mother , age 87 from dementia Dementia Father , age 78 from COPD COPD (chronic obstructive pulmonary disease) Sister , age 70 from pancreatic cancer Pancreatic cancer Nephew Bladder cancer Brother , of COPD aged 80 COPD (chronic obstructive pulmonary disease) Daughter Visual acuity reduced Anxiety Caregiver stress Son Migraine Son Migraine Social History Smoking/Tobacco Use Status: Former Tobacco Use Tobacco: How many years used: 45 Second Hand Exposure: No Smoking risk assessment performed?: Yes Alcohol Intake: former Drug use: Never Substance use type: does not use Caregiver/Support person: Yes Household members: spouse Housing: house Number of Children: 3 number of grandchildren: 5 Communication Needs: Hard of Hearing and Corrective Lenses Education Level: high school Do you need help understanding health information?: Always current occupation: retired Pets and animals: No Current gender identity: male What is your relationship status?: How often do you talk on the phone with friends or family?: once per week How often do you get together with friends or relatives?: three or more times per week Panel score (0-1 are the most socially isolated patients): 2 What type of physical activity do you participate in: walking Duration: 45-60 minutes/day Frequency: 5-6 times per week Special carissa needs: No Seatbelt use: always Working smoke detector in home: Yes Fire extinguisher in home: Yes Do you feel safe at home: Yes Do you feel safe in your relationship?: Yes Additional Social history: daughter Mariam and Tila and now his son Adam are his caregivers; Tila there all the time; Mariam lives across the street. Adam or other son Amrit. Both Igor and Tila are covid +. Igor's son Adam and daughter Mariam are hands on caring for him during my visit. Amrit and Tila in other room. Igor appears to be actively dying on 10/14/20, but I did share stories of recovery from Covid-19 even in older frail patients. We will see. Exam Const General: cooperative, comfortable and no acute distress Orientation: alert and awake HENMT Head: normal to inspection Eyes Pupils: PERRL Resp Effort & Inspection: normal respiratory effort Cardio Rate: regular rate Neuro General: patient alert Course Vital Signs Vital signs: Vital Signs Temperature 36.8 C 12/29/20 17:02 Pulse 79 12/29/20 17:02 Respiratory Rate 16 12/29/20 17:02 Blood Pressure 193/102 H 12/29/20 17:02 Pulse Oximetry 98 12/29/20 17:02 Temperature 36.8 C 12/29/20 17:02 Temperature Source Temporal Artery Scan 12/29/20 17:02 Pulse 79 12/29/20 17:02 Respiratory Rate 16 12/29/20 17:02 Respiratory Effort Non-Labored 12/29/20 17:07 Blood Pressure 193/102 H 12/29/20 17:02 Blood Pressure Position Sitting 12/29/20 17:02 Pulse Oximetry 98 12/29/20 17:02 Oxygen Delivery Method Room Air 12/29/20 17:02 Oxygen Flow Rate 0 12/29/20 17:02 Pain Level 0 12/29/20 17:02
[2020-12-29 18:05] LABS: Bilirubin Negative (Negative); Blood Small (Negative); Clarity Clear (Clear); Glucose Negative (Negative); Ketones Negative (Negative); Leukocyte Esterase Trace (Negative); Nitrite Negative (Negative); Specific Gravity 1.015 (1.005-1.025); Urobilinogen 0.2 EU/dL (Up TO 0.2); pH 7.5 (5-8)
[2020-12-29 18:18] LABS: WBC 0-2 HPF (0-5)
[2020-12-29 18:19] LABS: Bacteria Negative HPF (Negative); C & S Indicated? Yes; Crystals Negative HPF (Negative); Epithelial Cells Negative HPF (Negative); Mucus Negative (Negative)
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
== END 2020-12-29 18:02 | disposition home or self-care (01) ==
PROVIDERS: Emergency Provider Physician Assistant; PCP Urology
DX: N39.0 Urinary tract infection, site not specified (principal); Z87.440 Personal history of urinary (tract) infections; G30.9 Alzheimer's disease, unspecified; F02.81 Dementia in other diseases classified elsewhere, unspecified severity, with behavioral disturbance; F01.51 Vascular dementia, unspecified severity, with behavioral disturbance; Z51.5 Encounter for palliative care
CPT/HCPCS: 99283; 81003; 81015; 87086

== ENCOUNTER 2021-01-04 10:04 | Emergency (ER) | payer OTHER, SELFPAY ==
[2021-01-04 10:06] VITALS: BP 181/80; PULSE 69; TEMP 36.4; O2SAT 100
--- NOTE | 2021-01-04 10:30 | DI.RAD_ITS ---
Exam(s) XR LUMBAR SPINE COMPLETE EXAM: XR LUMBAR SPINE COMPLETE CLINICAL HISTORY: fall/pain. TECHNIQUE: 2D digital imaging was performed. COMPARISON: No exams were available for comparison FINDINGS: There is no evidence of acute fracture or listhesis. No pars defects. Disc spaces exhibit normal he ight at each level in the lumbar spine. There is age-related osteopenia. No osseous lesions. No pr ominent facet arthropathy. IMPRESSION: Osteopenia. No fractures. No disc space narrowing. DATA REPOSITORY: RADIATION DOSE DELIVERED:
--- NOTE | 2021-01-04 10:30 | DI.RAD_ITS ---
Exam(s) XR SACRUM COCCYX EXAM: XR SACRUM COCCYX CLINICAL HISTORY: fall/pain. TECHNIQUE: 2D digital imaging was performed. COMPARISON: No exams were available for comparison FINDINGS: No obvious sacral fracture nor abnormal widening of the presacral-retrorectal space. No diastasis of the sacroiliac joints. There is a radiopaque density which has density of a foreign body within the pelvis bowel loops. IMPRESSION: No fracture evident. Radiopaque foreign body in the pelvis. This round foreign body measures approximately 9 x 9 millimet ers. DATA REPOSITORY: RADIATION DOSE DELIVERED:
--- NOTE | 2021-01-04 10:30 | DI.RAD_ITS ---
Exam(s) XR CHEST 2V PA LATERAL EXAM: XR CHEST 2V PA LATERAL CLINICAL HISTORY: fall/ pain. TECHNIQUE: 2D digital imaging was performed. COMPARISON: CR XR shoulder RT complete 2+V from 05/16/2018 CR XR ribs RT PA chest 3V from 05/16/2018 CR XR ribs RT PA chest 3V from 05/16/2018 CR XR PORTABLE CHEST AP from 05/23/2018 FINDINGS: Heart size is normal. The mediastinum is not widened. Right lung is clear. There is some vertical platelike atelectasis in the left lower lobe posterior basal segment. No pleu ral effusions. No pneumothorax. IMPRESSION: Vertical platelike atelectasis versus scarring left lower lobe.This is more evident on prior studies. No other pulmonary findings nor pleural effusions DATA REPOSITORY: RADIATION DOSE DELIVERED:
--- NOTE | 2021-01-04 11:00 | DI.RAD_ITS ---
Exam(s) XR HIP RT COMPLETE AP PELVIS EXAM: XR HIP RT COMPLETE AP PELVIS CLINICAL HISTORY: fall/pain. TECHNIQUE: 2D digital imaging was performed. COMPARISON: No exams were available for comparison FINDINGS: There is no evidence of pelvic nor obvious right hip fracture. No hip joint space narrowing. No cristobal stasis of the symphysis pubis and sacroiliac joints. Incidentally noted is a round 9 millimeter metallic radiopaque foreign body which is shown to be with in the pelvis as per lateral view of the sacrum performed today. This is probably ingested foreign b juan. IMPRESSION: DATA REPOSITORY: RADIATION DOSE DELIVERED:
[2021-01-04 11:01] VITALS: BP 178/87; PULSE 67; RESP 16; TEMP 36.3; O2SAT 100
--- NOTE | 2021-01-04 11:53 | ED.GENADUL_ITS ---
Discharge Plan Disposition Patient Disposition: HOME Condition: Stable Discharge Details Clinical Impression: Back pain, Fall Primary Care Provider: Rashel Rosado ED Provider: Lorenzo Yusuf Home Meds and New Rx's Prescriptions: Continued Myrbetriq 50 mg tablet extended release 24 hr 50 mg PO DAILY Qty: 90 RF: 3 acetic acid 0.25 % solution 1 irrig irrigation .weekly Qty: 1000 RF: 2 divalproex [Depakote] 125 mg tablet,delayed release (DR/EC) 125 mg PO BID RF: 0 (DME) Urinary Leg Bag misc See Dose Instructions .ROUTE .MEDSUPPLY Qty: 4 RF: 12 sennosides [senna] 8.6 mg Tablet 8.6 mg PO BID PRNRF: 0 docusate sodium [Enemeez] 283 mg/5 mL Enema 283 mg PA DAILY PRNRF: 0 docusate sodium [Dulcolax Stool Softener (dss)] 100 mg capsule 100 mg PO BID RF: 0 simethicone 80 mg Tablet,Chewable 80 mg PO BID PRNRF: 0 morphine concentrate 100 mg/5 mL (20 mg/mL) solution 0.25 - 1 mg PO Q1H RF: 0 prochlorperazine maleate 10 mg tablet 10 mg PO Q6H PRNRF: 0 hyoscyamine sulfate 0.125 mg tablet, sublingual 0.125 mg PO Q4H RF: 0 cyclobenzaprine 10 mg tablet 10 mg PO PRN PRN (Reason: Bladder Spasms) RF: 0 lorazepam 1 mg tablet 0.5 - 1 mg PO Q4H PRN PRNRF: 0 Discharge Instructions Instructions: Back Pain (ED) Additional Instructions: X-rays do not reveal any obvious bony abnormality. Incidental bowel foreign body. Please watch for new or worsening symptoms and return to the ER for any concerns. You could have a repeat outpatient abdominal plain film to be sure that foreign body has passed in the next 48 hours. Gentle stretching as tolerated. Cool compresses every 2 hours for 20 minutes. [id number] Tylenol and/or Lidoderm patches as directed for symptomatic control. Please contact your hospice team to discuss ER visit and need for outpatient reevaluation. Medical Decision Making This is a very pleasant 85-year-old gentleman, DNR, DNI, hospice patient, presenting via EMS with his daughter for evaluation of a fall over the weekend. Daughter states that he has been complaining of intermittent back and leg pain. Patient has no complaints at this time. The fall was not witnessed but there is no signs of head injury and he appears to be acting at his baseline mental status. I was able to speak with both the patient's daughter and son, given he is a hospice patient, they do not want aggressive therapy but would like to obtain plain films and treat his discomfort. Right now he has no discomfort, no indication for pain medication to be given. Plan was to obtain chest x-ray and lumbar spine, family request that we also obtain x-ray of his right hip and coccyx. X-rays of chest, lumbar spine, right hip and pelvis, coccyx no acute bony abnormality, incidental foreign body Upon reevaluation patient is resting comfortably, sleeping, wakes easily to verbal stimuli. He is pleasant, no acute distress, denies any pain. Discussed results with patient and family. Recommend [id number] Tylenol and Lidoderm patches if they are able to pinpoint a location of discomfort. Otherwise they will reach out to their hospice team for outpatient reevaluation. Standard discharge and return precautions given. We did discuss the incidental foreign body, will likely pass over the next 24-48 hours. They will watch for abdominal pain, fever, nausea, vomiting and return to the ER for new or wo rsening symptoms. Discussed to be thorough they could get a repeat plain film of the abdomen and pelvis in 48 hours to see if the foreign body has passed. Patient's daughter is comfortable this plan and has no additional questions or concerns. Medical Records Medical records reviewed: Yes I reviewed the patient's medical records. Imaging Data Radiologic Study: Attestation: I personally reviewed and interpreted this imaging study as follows: Radiologist's impression: XR CHEST 2V PA LATERAL EXAM: XR CHEST 2V PA LATERAL CLINICAL HISTORY: fall/ pain. TECHNIQUE: 2D digital imaging was performed. COMPARISON: CR XR shoulder RT complete 2+V from 05/16/2018 CR XR ribs RT PA chest 3V from 05/16/2018 CR XR ribs RT PA chest 3V from 05/16/2018 CR XR PORTABLE CHEST AP from 05/23/2018 FINDINGS: Heart size is normal. The mediastinum is not widened. Right lung is clear. There is some vertical platelike atelectasis in the left lower lobe posterior basal segment. No pleural effusions. No pneumothorax. Radiologic Study #2: Attestation: I personally reviewed and interpreted this imaging study as follows: Imaging: X-Ray Radiologist's impression: XR LUMBAR SPINE COMPLETE EXAM: XR LUMBAR SPINE COMPLETE CLINICAL HISTORY: fall/pain. TECHNIQUE: 2D digital imaging was performed. COMPARISON: No exams were available for comparison FINDINGS: There is no evidence of acute fracture or listhesis. No pars defects. Disc spaces exhibit normal height at each level in the lumbar spine. There is age-related osteopenia. No osseous lesions. No prominent facet arthropathy. IMPRESSION: Osteopenia. No fractures. No disc space narrowing. Radiologic Study #3: Attestation: I personally reviewed and interpreted this imaging study as follows: Imaging: X-Ray Radiologist's impression: XR SACRUM COCCYX EXAM: XR SACRUM COCCYX CLINICAL HISTORY: fall/pain. TECHNIQUE: 2D digital imaging was performed. COMPARISON: No exams were available for comparison FINDINGS: No obvious sacral fracture nor abnormal widening of the presacral-retrorectal space. No diastasis of the sacroiliac joints. There is a radiopaque density which has density of a foreign body within the pelvis bowel loops. IMPRESSION: No fracture evident. Radiopaque foreign body in the pelvis. This round foreign body measures approximately 9 x 9 millimeters. Radiologic Study #4: Attestation: I personally reviewed and interpreted this imaging study as follows: Imaging: X-Ray Radiologist's impression: XR HIP RT COMPLETE AP PELVIS EXAM: XR HIP RT COMPLETE AP PELVIS CLINICAL HISTORY: fall/pain. TECHNIQUE: 2D digital imaging was performed. COMPARISON: No exams were available for comparison FINDINGS: There is no evidence of pelvic nor obvious right hip fracture. No hip joint space narrowing. No diastasis of the symphysis pubis and sacroiliac joints. Incidentally noted is a round 9 millimeter metallic radiopaque foreign body which is shown to be within the pelvis as per lateral view of the sacrum performed today. This is probably ingested foreign body. HPI General Mode of arrival: EMS . Date/Time Provider Initiated Documentation: 01/04/21 10:12 . Limitations to Documentation: other (Dementia) . Information obtained by: patient, family and EMS . HPI Narrative: This is a 85-year-old gentleman, DNR, DNI, hospice patient, past medical history includes hypertension, dementia, paranoia, anxiety, BPH, presenting to the ER via EMS with his daughter, complaining of back pain after a fall on Monday. Patient apparently fell out of bed on Monday morning, this was not witnessed. Since that time has been complaining intermittently of back and leg pain. Patient has been ambulatory and able to bear weight ever since. No other obvious injuries. Currently patient denies any pain whatsoever. Denies headache, visual changes, neck pain, chest pain, shortness of breath, abdominal pain, change in bowel or bladder function, numbness, tingling, weakness. I was able to speak with the patient's daughter and son, they state that there is confusion, they are not sure whether he is a hospice or palliative care patient. Discussed expectations of today's visit, they would like x-rays to be obtained and adequate pain control. I was able to talk with our palliative care-hospice team here, they confirmed the patient is a hospice patient. Related Data Home Medications Medication Instructions Recorded Confirmed docusate sodium [Enemeez] 283 mg PA DAILY PRN 07/19/18 01/04/21 sennosides [senna] 8.6 mg PO BID PRN 07/19/18 01/04/21 urinary bag #4 packet 08/14/18 12/07/20 docusate sodium 100 mg capsule 100 mg PO BID cap 05/02/19 01/04/21 mirabegron 50 mg tablet,extended 50 mg PO DAILY #90 tab 05/29/19 01/04/21 release 24 hr simethicone 80 mg PO BID PRN 08/14/20 01/04/21 acetic acid 0.25 % irrigation 1 irrig IRRIGATION .weekly #1000 ml 08/25/20 01/04/21 solution divalproex 125 mg tablet,delayed 125 mg PO BID tab 11/16/20 01/04/21 release cyclobenzaprine 10 mg PO PRN PRN 12/29/20 01/04/21 lorazepam 0.5 - 1 mg PO Q4H PRN PRN 12/29/20 01/04/21 hyoscyamine sulfate 0.125 mg PO Q4H 01/04/21 01/04/21 morphine concentrate 0.25 - 1 mg PO Q1H 01/04/21 01/04/21 prochlorperazine maleate 10 mg PO Q6H PRN 01/04/21 01/04/21 Previous Rx's Medication Instructions Recorded urinary bag #4 packet 08/14/18 mirabegron 50 mg tablet,extended 50 mg PO DAILY #90 tab 05/29/19 release 24 hr acetic acid 0.25 % irrigation 1 irrig IRRIGATION .weekly #1000 ml 08/25/20 solution Allergies Allergy/AdvReac Type Severity Reaction Status Date / Time oxybutynin Allergy cognitive Verified 01/04/21 11:14 changes risperidone [From Risperdal] Allergy AMS Verified 01/04/21 11:14 haloperidol [From Haldol] AdvReac Severe Lasting Verified 01/04/21 11:14 agitation, hallucination quetiapine [From Seroquel] AdvReac Severe Lasting Verified 01/04/21 11:14 agitation, hallucination morphine AdvReac Intermediate Agitation Verified 01/04/21 11:14 General Stated Complaint: Nk/Back Pain TINY: 3 Review of Systems Constitutional Constitutional: Denies fever(s) and Denies headache(s) ENT Ears, Nose, Mouth, and Throat: Denies headache(s) Cardiovascular Cardiovascular: Denies chest pain and Denies dyspnea Respiratory Respiratory: Denies dyspnea Gastrointestinal Gastrointestinal: Denies abdominal pain, Denies nausea and Denies vomiting Genitourinary Genitourinary: Denies dysuria Musculoskeletal Musculoskeletal: Reports back pain, Denies numbness, Denies stiffness and Reports tingling (Right leg paresthesias over the weekend?) Integumentary/Breasts Skin/Breast: Denies rash Neurologic Neurologic: Denies headache(s) and Denies numbness [facility] Medical History Agitation due to dementia Anxiety 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 Bladder spasms BPH (benign prostatic hyperplasia) Cachexia Counseling regarding advance directives and goals of care COVID-19 Discharge planning issues DNI (do not intubate) DNR (do not resuscitate) Hallucinations due to late onset dementia Hematuria History of colon cancer History of smoking 25-50 pack years Hospice care patient admitted 10/14/20 Hypertension 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 Moderate dementia with behavioral disturbance Obtunded Palliative care patient Paranoia (psychosis) POLST (Physician Orders for Life-Sustaining Treatment) Recurrent UTI Suprapubic catheter Underweight Unintentional weight loss Vascular dementia his dementia is mixed AD and vascular Wandering behavior due to his dementia Surgical History History of partial colectomy Family History Mother , age 87 from dementia Dementia Father , age 78 from COPD COPD (chronic obstructive pulmonary disease) Sister , age 70 from pancreatic cancer Pancreatic cancer Nephew Bladder cancer Brother , of COPD aged 80 COPD (chronic obstructive pulmonary disease) Daughter Visual acuity reduced Anxiety Caregiver stress Son Migraine Son Migraine Social History Smoking/Tobacco Use Status: Former Tobacco Use Tobacco: How many years used: 45 Second Hand Exposure: No Smoking risk assessment performed?: Yes Alcohol Intake: former Drug use: Never Substance use type: does not use Caregiver/Support person: Yes Household members: spouse Housing: house Number of Children: 3 number of grandchildren: 5 Communication Needs: Hard of Hearing and Corrective Lenses Education Level: high school Do you need help understanding health information?: Always current occupation: retired Pets and animals: No Current gender identity: male What is your relationship status?: How often do you talk on the phone with friends or family?: never How often do you get together with friends or relatives?: three or more times per week Panel score (0-1 are the most socially isolated patients): 2 What type of physical activity do you participate in: walking Duration: 45-60 minutes/day Frequency: daily Special carissa needs: No Seatbelt use: always Working smoke detector in home: Yes Fire extinguisher in home: Yes Do you feel safe at home: Yes Do you feel safe in your relationship?: Yes Additional Social history: daughter Mariam and Tila and his son Adam are his caregivers; Tila there all the time; Mariam lives across the street. Igor appeared to be actively dying on 10/14/20, at time of admission to hospice, but I did share stories of recovery from Covid-19 even in older frail patients. Obviously, Igor recovered. Daughter Mariam gets very stressed. Brother Adam tends to present as calmer. Tila not present in ER on 12/29. Exam Const General: cooperative, healthy appearing, comfortable and no acute distress Orientation: alert, awake, oriented to person and oriented to place [facility] Head: normal to inspection, normocephalic and atraumatic Face and sinus: normal facial exam Mouth: moist mucous membranes Eyes General: appearance normal, both eyes and all related structures Conjunctivae: conjunctivae normal Neck Neck: normal visual inspection, full ROM, trachea midline, supple and nontender Chest Chest: normal inspection of the chest and normal palpation of entire chest wall Resp Effort & Inspection: normal respiratory effort and able to speak in complete sentences Auscultation: clear to auscultation bilaterally Cardio Rate: regular rate Rhythm: regular rhythm GI Palpation: soft and nontender Back/Spine/Pelvis Back: no CVA tenderness, ecchymosis and back tenderness Thoracic/Lumbar Spine: straight leg raise negative bilaterally Pelvis: no pain with anterior-posterior compression and no pain with lateral compression Back/spine/pelvis image: 1. Mild ecchymosis with minimal discomfort to palpation. Skin General skin exam: no rashes or lesions noted Neuro General: patient alert, patient awake, moves all extremities and no focal motor deficits Speech: speech normal Gait: normal gait Motor: muscle tone normal throughout and strength 5/5 throughout Sensory Exam: no sensory deficits noted Extrem General: normal to inspection, full ROM and capillary refill normal Psych Appearance: grossly normal Mental Status: mental status grossly normal Course Vital Signs Vital signs: Vital Signs Temperature 36.4 C L 01/04/21 10:06 Pulse 69 01/04/21 10:06 Blood Pressure 181/80 H 01/04/21 10:06 Pulse Oximetry 100 01/04/21 10:06 Temperature 36.3 C L 01/04/21 11:01 Temperature Source Skin 01/04/21 11:01 Pulse 67 01/04/21 11:01 Respiratory Rate 16 01/04/21 11:01 Respiratory Effort Non-Labored 01/04/21 10:51 Blood Pressure 178/87 H 01/04/21 11:01 Blood Pressure Position Sitting 01/04/21 10:06 Pulse Oximetry 100 01/04/21 11:01 Oxygen Delivery Method Room Air 01/04/21 11:01 Oxygen Flow Rate 0 01/04/21 11:01 Pain Level 0 01/04/21 11:01
[2021-01-04 14:22] VITALS: BP 152/77; PULSE 62; RESP 16; TEMP 36.3; O2SAT 100
== END 2021-01-04 15:08 | disposition home or self-care (01) ==
PROVIDERS: Emergency Provider Physician Assistant; PCP Urology
DX: M54.9 Dorsalgia, unspecified (principal); W06.XXXA Fall from bed, initial encounter
CPT/HCPCS: 36416; 82962; 99284; 71046; 72110; 72220; 73502

== ENCOUNTER 2021-02-05 19:21 | Outpatient (REF) | payer MEDICARE, SELFPAY ==
[2021-02-05 21:17] LABS: Bilirubin Small (Negative); Blood Large (Negative); Clarity Cloudy (Clear); Glucose Negative (Negative); Ketones 15 mg/dL (Negative); Leukocyte Esterase Large (Negative); Nitrite Positive (Negative); Specific Gravity 1.015 (1.005-1.025); pH 8.5 (5-8)
[2021-02-05 21:23] LABS: Bacteria Moderate HPF (Negative); C & S Indicated? C&S Done As Ordered; Casts Negative LPF (Negative); Crystals Negative HPF (Negative); Epithelial Cells Rare HPF (Negative); Mucus Negative (Negative); WBC >50 HPF (0-5)
== END 2021-02-05 19:22 | disposition home or self-care (01) ==
LOC: LBN 19:21
PROVIDERS: Visit Provider Student in an Organized Health Care Education/Training Program
DX: R30.0 Dysuria (principal)
CPT/HCPCS: 81003; 81015; 87086

== ENCOUNTER → 2021-02-19 13:52 | Outpatient (BNVA) | payer MEDICARE, SELFPAY | PROVIDERS: PCP Family Medicine; Referring Provider Family Medicine; Visit Provider Urology | DX: R69 Illness, unspecified (principal) ==

== ENCOUNTER 2021-03-29 20:17 | Outpatient (REF) | payer MEDICARE, SELFPAY ==
[2021-03-30 10:00] LABS: Bilirubin Negative (Negative); Blood Small (Negative); Clarity Sl Cloudy (Clear); Glucose Negative (Negative); Ketones 15 mg/dL (Negative); Leukocyte Esterase Small (Negative); Nitrite Negative (Negative); Specific Gravity 1.025 (1.005-1.025); Urobilinogen 0.2 EU/dL (Up TO 0.2); pH 6.5 (5-8)
[2021-03-30 10:09] LABS: Bacteria Many HPF (Negative); C & S Indicated? Yes; Casts 3-5 Coarse Granular LPF (Negative); Crystals Negative HPF (Negative); Epithelial Cells Few HPF (Negative); Mucus Trace (Negative)
== END 2021-03-29 20:18 | disposition home or self-care (01) ==
LOC: LBN 20:17
PROVIDERS: PCP Family Medicine; Visit Provider Nurse Practitioner
DX: R30.0 Dysuria (principal)
CPT/HCPCS: 87077; 81003; 81015; 87086; 87186

== ENCOUNTER 2021-04-26 21:32 | Outpatient (REF) | payer MEDICARE, SELFPAY ==
[2021-04-26 18:50] LABS: Bilirubin Color Interference (Negative); Blood Color Interference (Negative); Clarity Cloudy (Clear); Ketones Color Interference mg/dL (Negative); Urobilinogen Color Interference EU/dL (Up TO 0.2)
[2021-04-26 18:51] LABS: Glucose Color Interference mg/dL (Negative); Leukocyte Esterase Color Interference (Negative); Nitrite Color Interference (Negative)
[2021-04-26 18:56] LABS: WBC Negative HPF (0-5)
[2021-04-26 18:57] LABS: C & S Indicated? No; RBC >50 HPF (0-2)
== END 2021-04-26 21:33 | disposition home or self-care (01) ==
LOC: LBN 21:32
PROVIDERS: PCP Family Medicine; Visit Provider Family Medicine
DX: N39.0 Urinary tract infection, site not specified (principal); R31.9 Hematuria, unspecified
CPT/HCPCS: 81003; 81015

== ENCOUNTER 2021-06-02 17:08 | Outpatient (REF) | payer MEDICARE, SELFPAY ==
[2021-06-02 19:05] LABS: Bilirubin Negative (Negative); Blood Moderate (Negative); Clarity Cloudy (Clear); Glucose Negative (Negative); Ketones Trace mg/dL (Negative); Leukocyte Esterase Large (Negative); Nitrite Positive (Negative); pH 7.5 (5-8)
[2021-06-02 19:43] LABS: Bacteria Many HPF (Negative); C & S Indicated? C&S Done As Ordered; Casts Negative LPF (Negative); Crystals Negative HPF (Negative); Epithelial Cells Negative HPF (Negative); Mucus Negative (Negative); RBC >50 HPF (0-2); WBC >50 HPF (0-5)
== END 2021-06-02 17:09 | disposition home or self-care (01) ==
LOC: LBN 17:08
PROVIDERS: PCP Family Medicine; Visit Provider Family Medicine
DX: F01.51 Vascular dementia, unspecified severity, with behavioral disturbance (principal); U07.1 COVID-19; G30.9 Alzheimer's disease, unspecified
CPT/HCPCS: 87077; 81003; 81015; 87086; 87186

== ENCOUNTER 2021-07-19 15:11 | Outpatient (REF) | payer MEDICARE, SELFPAY ==
[2021-07-21 10:56] LABS: COVID-19 RT-PCR UVMMC Result Negative (Negative)
== END 2021-07-19 15:12 | disposition home or self-care (01) ==
LOC: LBN 15:11
PROVIDERS: PCP Family Medicine; Visit Provider Family Medicine
DX: Z20.822 Contact with and (suspected) exposure to COVID-19 (principal)
CPT/HCPCS: U0003; U0005

== ENCOUNTER 2021-09-09 12:45 | Inpatient (IN) | payer OTHER, SELFPAY ==
[2021-09-09 16:41] VITALS: BP 230/112; PULSE 74; RESP 12; TEMP 36.7; O2SAT 99
[2021-09-09 17:01] VITALS: BP 230/112; PULSE 74; RESP 12; TEMP 36.7; O2SAT 99
--- NOTE | 2021-09-09 17:35 | HPE_ITS ---
Date of service: 09/09/21 Time of Service: 17:36 Assessment and Plan Assessment and plan (1) Mixed Alzheimer's and vascular dementia: Status: Acute Assessment and plan: Advanced. He is on hospice for this Dx. (2) Cachexia: Status: Acute Assessment and plan: He is thin but his family reports that he is eating and drinking well. (3) Hypertension: Status: Chronic Assessment and plan: >200/100 on admission. He was in pain at the time of admission. Improved after his catheter was flushed. Continue amlodipine. (4) Fall: Status: Acute Assessment and plan: He has had falls at home in the past. (5) Recurrent UTI: Status: Acute (6) Bladder spasms: Status: Chronic Assessment and plan: Severe and continuous as reported by family. He had urine in his bladder on bladder scan at time of admission. His suprapubic catheter was flushed which appears to have helped. They have tried MS oral concentrate and lorazepam, which helps at times and appears to increase agitation at times. Trial valium 2 mg BID. Continue morphine and lorazepam PRN. (7) Suprapubic catheter: Status: Chronic Assessment and plan: As above. (8) Constipation: Status: Acute Assessment and plan: His family gives enemas PRN. He has been moving his bowels with this regimen. (9) DNI (do not intubate): Status: Acute (10) DNR (do not resuscitate): Status: Acute (11) Hospice care patient: Status: Acute Assessment and plan: He is admitted to [facility] for hospice symptom management for bladder spasms, HTN. Plan as above. History of Present Illness Narrative: Igor is an 85 year old man with a past medical history significant for advanced dementia, for which he is on hospice, as well as urinary retention with a suprapubic catheter, frequent UTIs, HTN who is being admitted to hospice symptom management. He has been having bladder spasms for a couple of weeks, after his catheter was changed. The spasms have been consistent throughout the day. He has also had increased agitation intermittently at home. The history was provided by his daughter due to his advanced dementia and inability to accurately give history. His family has been using lorazepam PRN and morphine PRN for the spasms. Mariam reports that the lorazepam and morphine sometimes help and sometimes seem to cause increased agitation. They recently tried flexaril but he became more confused, agitated and had increased hallucinations. They were concerned that the flexaril was interacting with his celexa and stopped both medications. His celexa has since been restarted. Upon admission, nursing did a bladder scan and noted that he had urine in his bladder. His catheter was flushed and he appears more comfortable. His daughter and primary caregiver, Mariam, is questioning whether Dr. Rosado will see him during his hospitalization. We will see how he does with the catheter being flushed and with the addition of valium before consulting urology. She has agreed to trying valium for the spasms. His BP was also checked on admission and noted to be >200/100. Upon recheck it was 183/98. Review of Systems Narrative: Hx provided by his daughter, Mariam. He is unable to provide history due to ad vanced dementia. 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) DNI (do not intubate) (Acute) DNR (do not resuscitate) (Acute) POLST (Physician Orders for Life-Sustaining Treatment) (Acute) Wandering behavior (Chronic) due to his dementia Anxiety (Chronic) 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 Bladder spasms (Chronic) Hearing aid worn (Chronic) Palliative care patient (Chronic) Suprapubic catheter (Chronic) Vascular dementia (Chronic) his dementia is mixed AD and vascular Urinary retention (Acute) Advanced directives, counseling/discussion (Acute) DVT prophylaxis (Acute) Fever (Acute) Vascular dementia with behavior disturbance (Chronic) Gross hematuria (Acute) Advance directive discussed with patient (Acute) Delirium (Chronic) Constipation (Acute) Sensorineural hearing loss, bilateral (Acute) Alzheimer's disease (Chronic) Malignant neoplasm of colon (Chronic) Hypertension (Chronic) Benign prostatic hyperplasia with lower urinary tract symptoms (Acute) Medical History (Updated 09/10/21 @ 10:11 by Blanche Person MD) BPH (benign prostatic hyperplasia) Counseling regarding advance directives and goals of care COVID-19 Discharge planning issues Hematuria History of colon cancer History of smoking 25-50 pack years Moderate dementia with behavioral disturbance Obtunded Underweight Unintentional weight loss Surgical History History of partial colectomy Family History Mother , age 87 from dementia Dementia Father , age 78 from COPD COPD (chronic obstructive pulmonary disease) Sister , age 70 from pancreatic cancer Pancreatic cancer Nephew Bladder cancer Brother , of COPD aged 80 COPD (chronic obstructive pulmonary disease) Daughter Visual acuity reduced Anxiety Caregiver stress Son Migraine Son Migraine Social History Smoking/Tobacco Use Status: Former Tobacco Use Tobacco: How many years used: 45 Second Hand Exposure: No Smoking risk assessment performed?: Yes Alcohol Intake: former Drug use: Never Substance use type: does not use Caregiver/Support person: Yes Household members: spouse Housing: house Number of Children: 3 number of grandchildren: 5 Communication Needs: Hard of Hearing and Corrective Lenses Education Level: high school Do you need help understanding health information?: Always current occupation: retired Pets and animals: No Current gender identity: male What is your relationship status?: How often do you talk on the phone with friends or family?: never How often do you get together with friends or relatives?: three or more times per week Panel score (0-1 are the most socially isolated patients): 2 What type of physical activity do you participate in: walking Duration: 45-60 minutes/day Frequency: daily Special carissa needs: No Seatbelt use: always Working smoke detector in home: Yes Fire extinguisher in home: Yes Do you feel safe at home: Yes Do you feel safe in your relationship?: Yes Additional Social history: daughter Mariam and Tila and his son Adam are his caregivers; Tila there all the time; Mariam lives across the street. Igor appeared to be actively dying on 10/14/20, at time of admission to hospice, but I did share stories of recovery from Covid-19 even in older frail patients. Obviously, Igor recovered. Daughter Mariam gets very stressed. Brother Adam tends to present as calmer. Tila not present in ER on 12/29. Meds Allergies and Home Medications Allergies Allergy/AdvReac Type Severity Reaction Status Date / Time oxybutynin Allergy cognitive Verified 01/04/21 11:14 changes risperidone [From Risperdal] Allergy AMS Verified 09/09/21 17:58 haloperidol [From Haldol] AdvReac Severe Lasting Verified 09/09/21 17:58 agitation, hallucination quetiapine [From Seroquel] AdvReac Severe Lasting Verified 09/09/21 17:58 agitation, hallucination cyclobenzaprine AdvReac Intermediate Agitation Verified 09/09/21 17:58 donepezil [From Aricept] AdvReac Intermediate Other (See Unverified 09/09/21 17:58 Comment) morphine AdvReac Intermediate Agitation Verified 01/04/21 11:14 Home Medications Medication Instructions Recorded Confirmed Type docusate sodium 283 mg/5 mL enema 283 mg ME DAILY PRN 07/19/18 09/09/21 History (Enemeez) urinary bag (Urinary Leg Bag) #4 packet 08/14/18 09/09/21 Rx mirabegron 50 mg tablet,extended 50 mg PO DAILY #90 tab 05/29/19 09/09/21 Rx release 24 hr (Myrbetriq) cyclobenzaprine 10 mg tablet 10 mg PO PRN PRN 12/29/20 09/09/21 History lorazepam 1 mg tablet 0.5 - 1 mg PO Q4H PRN PRN 12/29/20 09/09/21 History hyoscyamine sulfate 0.125 mg 0.125 mg PO Q4H 01/04/21 09/09/21 History sublingual tablet fentanyl 12 mcg/hr transdermal 1 patch TRANSDERMAL Q72H #5 ea MDD 03/26/21 09/09/21 Rx patch 1 patch divalproex 125 mg tablet,delayed 125 mg PO BID #60 tab 04/23/21 09/09/21 Rx release (Depakote) cephalexin 500 mg capsule 500 mg PO TID #21 cap 04/26/21 09/09/21 Rx citalopram 10 mg tablet 10 mg PO DAILY #14 tab 08/11/21 09/09/21 Rx morphine concentrate 100 mg/5 mL 5 mg PO Q1H MDD 24 ml 09/09/21 09/09/21 History (20 mg/mL) oral solution Exam Narrative Exam Narrative: General: very thin, elderly man, laying in hospital bed, awake and alert, watching TV. He is pleasant and talkative. He does not answer questions appropriately. HEENT: normocephalic, atraumatic, EOMI, wearing glasses, mucous membranes moist. Neck: supple, no JVD. Cardiovascular: heart sounds regular, nontachycardic. Respiratory: respirations appear even and unlabored, lung sounds are clear throughout. GI: +BS, abdomen is soft, nontender on palpation, nondistended. : suprapubic catheter in place, +granuloma at site. Draining clear yellow urine. Extremities: moves all 4 extremities freely. Results Last Vital Signs Temp 36.7 C 09/09/21 17:01 Pulse 74 09/09/21 17:01 Resp 12 09/09/21 17:01 BP 230/112 H 09/09/21 17:01 Pulse Ox 99 09/09/21 17:01
[2021-09-09] MEDS: Divalproex 125 MG TABEC PO (21:23)
[2021-09-09] MEDS: diazePAM 2 MG TAB PO (21:23)
[2021-09-10] MEDS: Mirabegron 50 MG TABCR PO (08:54)
[2021-09-10] MEDS: amLODIPine 2.5 MG TAB PO (08:54)
[2021-09-10] MEDS: diazePAM 2 MG TAB PO ×2 (08:54→19:43)
[2021-09-10] MEDS: Divalproex 125 MG TABEC PO ×2 (08:55→19:43)
[2021-09-10] MEDS: Citalopram 20 MG TAB 10 MG PO (08:55)
--- NOTE | 2021-09-10 09:59 | PGE_ITS ---
Date of Service Date of service: 09/10/21 Time of Service: 09:10 Assessment and Plan Assessment and plan (1) Painful bladder spasm: Status: Acute Assessment and plan: Will continue with myrbetriq for now. Consult placed to urology for help managing these spasms. Also added vinegar to his daily diet to see if this helps with reduction of bladder sediment. (2) Hypertension: Status: Chronic Assessment and plan: please check BP daily expect the very high values on admission were due to anxiety (3) Mixed Alzheimer's and vascular dementia: Status: Acute Assessment and plan: reason he is on hospice family is not sure they can continue to care for him at home Igor is a [facility] patient will check with Allyssa Tena RN from the [facility] about possible placement (4) Hospice care patient: Status: Acute Assessment and plan: Remains on symptom management Expect he will be here through the weekend (5) Paranoia (psychosis): Status: Acute Assessment and plan: Refused to take meds from nurses this am He likes to feel he is control A significant part of his dementia.... (6) Cachexia: Status: Acute Assessment and plan: Ate 50% of his meals Offer snacks (7) Agitation due to dementia: Status: Chronic (8) Anxiety: Status: Chronic Assessment and plan: Has both scheduled oral diazepam and prn IM ordered (9) Mixed type delusional disorder: Status: Chronic Subjective Subjective Interval history since last seen: Igor was admitted last night with bladder spasms and increased agitation. He is here on hospice symptom management. His BP was very high on admission. He was quite anxious. We have not taken it again. Order entered for daily BP while he is here--unless he gets agitated. Then ok to d/c. He refused to take his medication this am, spitting it out when given by the nurse. When I visited, he was calmer. He appeared to recognize me. He took his diazepam and his myrbetriq. We did not force the issue on other meds. He ate about half his breakfast. He is quite cachectic, but has always been thin. Our goal is get his bladder spasms and agitation under better control. I spoke to his daughter and DPOA, Mariam Guevara, this am. She is willing to have her father trial a new anti-psychotic, invega, but this has to be ordered as it is not in our usual formulary. It will not arrive until Monday. Nursing also reported a lot of sediment in his catheter tube. Suggest 1 table of vinegar orally daily to see if this helps. Exam Narrative Exam Narrative: General: very thin, elderly man, lying in hospital bed, awake and alert. Had been refusing medications from nurses prior to my arrival. Was able to convince him to take diazepam and myrbetriq while I was in the room. HEENT: normocephalic, atraumatic, EOMI, wearing glasses, mucous membranes moist. No oral lesions. Neck: supple, no JVD, no LAD Cardiovascular: heart sounds regular, nontachycardic. no murmur noted. Respiratory: respirations appear even and unlabored, lung sounds are clear throughout. No increased work of breathing. GI: +BS, abdomen is firm, due to lack of abdominal adiposity, nontender on palpation, nondistended. : suprapubic catheter in place, +granuloma at site. Draining clear yellow urine. No obvious sediment in the tube this am, but was there earlier, per nurses. Extremities: moves all 4 extremities freely. Neuro. He is oriented to self only. He cannot hold a conversation. He talks but he is not focused at all. Sentences make no sense. Psych: was paranoid with nurses prior to my arrival. willing to take his diazepam. agreed to having [employer]ark[employer] music playing, to see if this calms him, too. Advised his daughter NOT to visit today, to see if we can calm him a bit first. Skin: no rashes. He does bruise easily. Objective Last Vital Signs Temp 98.1 F 09/09/21 17:01 Pulse 74 09/09/21 17:01 Resp 12 09/09/21 17:01 BP 230/112 H 09/09/21 17:01 Pulse Ox 99 09/09/21 17:01 Laboratory Results - last 24 hr 09/09/21 17:03 COVID-19 Source Cancelled SARS-CoV-2 (PCR) Cancelled
--- NOTE | 2021-09-10 10:58 | PDOC.CMPRO ---
- If Service Date Differs Date of service: 09/10/21 Time of Service: 10:58 Care Management Progress Note S/O: Igor is at [facility] for Hospice symptom management. Per Hospice provider, his family is unsure if they can continue to care for him at home. [facility]. Per report, he has been agitated, refusing to take medications. The goal for this hospice symptom management admission is to get his bladder spasms and agitation under better control. He was sitting up in bed using his busy blanket, provided by CM, and he was very pleasant in conversation. CM will continue to follow. A: Igor is an 85 year old male admitted to [facility] on 09/09/21 for Hospice symptom management for AMS, bladder spasms. P: Igor will likely return home once his symptoms have been effectively managed. He may require SNF placement, which Hospice will arrange. Transport will likely be EMS due to confusion. He will follow up with her PCP and discharge plan of care. CM will continue to follow.
[2021-09-10 15:02] LABS: Source Nasal/Nares
[2021-09-10 15:43] LABS: COVID-19 PCR Negative (Negative)
[2021-09-10] MEDS: LORazepam 1 MG TAB PO (16:43)
[2021-09-11] MEDS: Acetaminophen 500 MG TAB PO ×2 (06:40→17:18)
[2021-09-11] MEDS: Divalproex 125 MG TABEC PO ×2 (07:37→21:32)
[2021-09-11] MEDS: diazePAM 2 MG TAB PO ×3 (07:37→21:32)
[2021-09-11] MEDS: Mirabegron 50 MG TABCR PO (07:37)
[2021-09-11] MEDS: amLODIPine 2.5 MG TAB PO (07:38)
[2021-09-11] MEDS: Citalopram 20 MG TAB 10 MG PO (07:38)
--- NOTE | 2021-09-11 09:32 | W.PM.PROGNOT ---
Date of Service Date of service: 09/11/21 Time of Service: 08:30 Assessment and Plan Assessment and plan (1) Painful bladder spasm: Status: Acute Assessment and plan: Will continue with myrbetriq for now. Dr. Person placed a Consult for urology to help managing the spasms. He appears to be tolerating valium 2 mg BID but he continues to have spasms. Increase Valium to 2 mg TID. (2) Hypertension: Status: Chronic Assessment and plan: Improved. Continue home Rx, amlodipine 2.5 mg daily. (3) Cachexia: Status: Acute Assessment and plan: He is eating well at this point. (4) Agitation due to dementia: Status: Chronic Assessment and plan: Invega ordered by Dr. Person (will be available 09/13). His daughter is aware and agrees to try for mood stabilization. (5) Constipation: Status: Acute Assessment and plan: He has not moved his bowels since he was admitted. His family uses enemas at home. Try adding senna at . (6) Anxiety: Status: Chronic Assessment and plan: Has both scheduled oral diazepam and prn IM ordered (7) Mixed Alzheimer's and vascular dementia: Status: Acute Assessment and plan: He is on hospice for this diagnosis. His family is not sure they can continue to care for him at home. [facility] Plan is to check with [facility] Tena RN [facility] the [place] about possible placement. (8) Hospice care patient: Status: Acute Assessment and plan: Continue Hospice symptom management. Subjective Subjective Interval history since last seen: Igor remains at [facility] for hospice symptom management. Nursing reports that he appeared to be in pain this morning and was holding his abdomen. He received the scheduled valium and appears more comfortable. Nursing does not think that the valium has made him more sleepy. His catheter is draining clear, yellow urine. He has not moved his bowels since he was admitted, which could potentially contribute to his abdominal pain. He is eating all of his meals. He was agitated with nursing and spit his morning medications out yesterday. He denies pain when questioned. Exam Narrative Exam Narrative: General: very thin, elderly man, lying in hospital bed. He was sleeping with his breakfast sitting in front of him but he awakened easily to verbal stimuli. HEENT: normocephalic, atraumatic, EOMI, wearing glasses, mucous membranes moist. No oral lesions. Neck: supple, no JVD. Cardiovascular: heart sounds regular, nontachycardic. no murmur noted. Respiratory: respirations appear even and unlabored, lung sounds are clear throughout. No increased work of breathing. GI: +BS, abdomen is soft, nontender on palpation, nondistended. : suprapubic catheter in place, +granuloma at site. Draining clear yellow urine. No obvious sediment in the tube. Extremities: moves all 4 extremities freely. Neuro. He is oriented to self only. He cannot hold a conversation. He talks but he is not focused at all. Sentences make no sense. Objective Last Vital Signs Temp 36.7 C 09/09/21 17:01 Pulse 74 09/09/21 17:01 Resp 12 09/09/21 17:01 BP 230/112 H 09/09/21 17:01 Pulse Ox 99 09/09/21 17:01 Laboratory Results - last 24 hr 09/10/21 14:45 COVID-19 Source Nasal/Nares SARS-CoV-2 (PCR) Negative
[2021-09-11] MEDS: MORPHine Oral Concentrate 20 MG/ML 5 MG JT (17:19)
[2021-09-11] MEDS: Senna TAB 1 TAB PO (21:32)
[2021-09-12] MEDS: MORPHine Oral Concentrate 20 MG/ML 5 MG JT ×3 (07:24→20:12)
[2021-09-12 08:49] VITALS: BP 122/69; PULSE 69
[2021-09-12] MEDS: Citalopram 20 MG TAB 10 MG PO (08:51)
[2021-09-12] MEDS: amLODIPine 2.5 MG TAB PO (08:51)
[2021-09-12] MEDS: Divalproex 125 MG TABEC PO ×2 (08:52→19:28)
[2021-09-12] MEDS: Mirabegron 50 MG TABCR PO (08:52)
[2021-09-12] MEDS: diazePAM 2 MG TAB PO ×3 (08:52→19:28)
--- NOTE | 2021-09-12 13:13 | W.PM.PROGNOT ---
Date of Service Date of service: 09/12/21 Time of Service: 13:14 Assessment and Plan Assessment and plan (1) Painful bladder spasm: Status: Acute Assessment and plan: Will continue with myrbetriq for now. Dr. Person placed a Consult for urology to help managing the spasms. He appears to be having less spasms with Valium to 2 mg TID. (2) Hypertension: Status: Chronic Assessment and plan: Improved. Continue home Rx, amlodipine 2.5 mg daily. (3) Cachexia: Status: Acute Assessment and plan: He is eating well. (4) Agitation due to dementia: Status: Chronic Assessment and plan: Invega ordered by Dr. Person (will be available 09/13). His daughter is aware and agrees to try for mood stabilization. (5) Constipation: Status: Acute Assessment and plan: He has not moved his bowels since he was admitted. His family uses enemas at home. Increase PO fluid intake. Increase Senna to BID. Add miralax. (6) Anxiety: Status: Chronic Assessment and plan: Has both scheduled oral diazepam and prn IM ordered (7) Mixed Alzheimer's and vascular dementia: Status: Acute Assessment and plan: He is on hospice for this diagnosis. His family is not sure they can continue to care for him at home. [facility]. Plan is to check with Allyssa Tena RN from the [place] about possible placement. (8) Hospice care patient: Status: Acute Assessment and plan: Continue Hospice symptom management. I left a voicemail for his daughter, Mariam, I was calling to check in and update her on Igor. Subjective Subjective Interval history since last seen: Nursing reports that Igor had one episode that they suspected was a bladder spasm last night. He reported pain and held his abdomen. The night nurse tried to medicate him with APAP but he spit it out. He continues to have intermittent agitation. He is currently taking valium 2 mg TID for bladder spasms, which may also help with agitation. He has been awake and alert during the day. He had an episode this morning where he was slumped over in the chair and he did not respond to nursing. His eyes were open. By the time they bathed him, he had returned to his baseline. He is eating well. After the episode this morning he ate all of his breakfast and by the time I arrived to see him, he was calm and pleasant. He has not had a BM since he was admitted. Nursing is encouraging him to drink more fluids. Will add more bowel medications. Exam Narrative Exam Narrative: General: very thin, elderly man, sitting up in the recliner in his hospital room, watching TV. He appears calm and comfortable. He does not appear to be in any distress. HEENT: normocephalic, atraumatic, EOMI, wearing glasses, mucous membranes moist. No oral lesions. Neck: supple, no JVD. Cardiovascular: heart sounds regular, nontachycardic. no murmur noted. Respiratory: respirations appear even and unlabored, lung sounds are clear throughout. No increased work of breathing. GI: +BS, abdomen is soft/flat, nontender on palpation, nondistended. : suprapubic catheter in place, +granuloma at site. Draining clear yellow urine. No obvious sediment in the tube. Extremities: moves all 4 extremities freely. Neuro. He is oriented to self only. He cannot hold a conversation. He talks but he is not focused at all. Sentences make no sense. Objective Last Vital Signs Temp 36.7 C 09/09/21 17:01 Pulse 69 09/12/21 08:49 Resp 12 09/09/21 17:01 BP 122/69 09/12/21 08:49 Pulse Ox 99 09/09/21 17:01
[2021-09-12] MEDS: Bisacodyl 10 MG SUPP PR (14:30)
--- NOTE | 2021-09-13 07:48 | W.PM.PROGNOT ---
Date of Service Date of service: 09/13/21 Time of Service: 07:48 Assessment and Plan Assessment and plan (1) Painful bladder spasm: Status: Acute Assessment and plan: per staff, still present. ON diazepam. Clear urine. WIll assess again tonight (2) Fall: Status: Acute Assessment and plan: Falls at home. Presently no falling (3) Hypertension: Status: Chronic Assessment and plan: presently stable. Was very high at admission (4) Hematuria: Status: Acute Assessment and plan: resolving Should be receiving antibiotic today (5) Cachexia: Status: Acute Assessment and plan: secondary to dementia (6) Mixed Alzheimer's and vascular dementia: Status: Acute Assessment and plan: Difficult historian. WIll visit again this evening when family will probably be here (7) Hospice care patient: Status: Acute Assessment and plan: Remains on symptom management. If bowels and bladder remain stable, may d/c Tues or Wed Subjective Subjective Interval history since last seen: Pt was unable to give me any hx. Staff states that he is still having bladder spasms, did have a BM yesterday and hasbeen having a good UO Exam Const Nutritional Appearance: thin Orientation: confused Limitations: altered mental status Eyes Eyelids: eyelids normal Neck Neck: normal visual inspection Resp Effort & Inspection: normal respiratory effort Auscultation: diminished lung sounds Cardio Rate: regular rate GI Palpation: soft and no hepatosplenomegaly Other: suprapubic cath in place. UO is clear Neuro General: patient confused Extrem Other: Left sock off; right sock on; no edema Psych Appearance: disheveled Objective Last Vital Signs Temp 98.1 F 09/09/21 17:01 Pulse 69 09/12/21 08:49 Resp 12 09/09/21 17:01 BP 122/69 09/12/21 08:49 Pulse Ox 99 09/09/21 17:01
[2021-09-13 08:56] VITALS: BP 128/73; PULSE 73; RESP 16
--- NOTE | 2021-09-13 10:23 | W.NUTRFU ---
Date of service: 09/13/21 Time of Service: 10:23 Nutrition Note NOTE: Igor here on symptom management and in hospice. Will provide meal preferences, support and follow. Time Spent in Nutritional Counseling and Treatment: 0
[2021-09-13] MEDS: amLODIPine 2.5 MG TAB PO (10:45)
[2021-09-13] MEDS: Citalopram 20 MG TAB 10 MG PO (10:45)
[2021-09-13] MEDS: Mirabegron 50 MG TABCR PO (10:46)
[2021-09-13] MEDS: Polyethylene Glycol 3350 17 GM PACKET PO (10:46)
[2021-09-13] MEDS: Divalproex 125 MG TABEC PO (10:46)
[2021-09-13] MEDS: diazePAM 2 MG TAB PO (10:46)
[2021-09-13] MEDS: [UNRECOGNIZED DRUG - OTHER] PO (10:47)
[2021-09-13] MEDS: Senna TAB 1 TAB PO (10:47)
--- NOTE | 2021-09-13 11:00 | CMPROGNOTE_ITS ---
- If Service Date Differs Date of service: 09/13/21 Time of Service: 11:00 Care Management Progress Note S/O: Igor was sleeping when CM attempted to meet with him. CM chose not to wake him, as he remains at [facility] for hospice symptom management. Per report, he will likely return home once his symptoms are well controlled. He had a urology consult today, who made recommendations for treatment of his bladder spasms. CM will continue to follow. A: Igor is an 85 year old male admitted to [facility] on 09/09/21 for Hospice symptom management for AMS, bladder spasms. P: Igor will likely return home once his symptoms have been effectively managed. He may require SNF placement, which Hospice will arrange. Transport will likely be EMS due to confusion. He will follow up with her PCP and discharge plan of care. CM will continue to follow.
--- NOTE | 2021-09-13 16:26 | W.UROLOGYCON ---
Date of service: 09/13/21 Time of Service: 16:26 Assessment and Plan Assessment and plan (1) Painful bladder spasm: Status: Acute Assessment and plan: He is already on Myrbetriq. The other class of bladder relaxers (anticholinergics) can be associated with worsening mental status changes. I certainly would not want to use longer term anticholinergic medicines, but we could consider some of the shorter acting preparations to use on a as needed basis. These 2 options would be sublingual Hyoscamine or Belladonna and Opium rectal suppositories. Both of these options should wear out of his system in 4 to 6 hours, so any side effects would not last termite renewal inspector. It sounds as if his spasms are especially severe after catheter changes. Premedicating him with 1 of these bladder relaxers may be helpful. The only other treatment I can think of would involve a surgical injection of Botox into the detrusor muscle. These injections may help for up to 6 months, but the patient would need to be anesthetized which may worsen his mental status even more. In terms of the debris within the catheter drainage tubing, we generally recommend increasing fluids and increasing citric acid intake. I do not believe we can expect this patient to do so on his own, but we have sometimes been able to add a vitamin C supplement (500 mg up to 4 times a day). In addition to the vitamin C, he has already been started on apple cider vinegar which can also be helpful. History of Present Illness History of Present Illness Chief Complaint: Bladder spasms Narrative: This is an 85-year-old gentleman who has a history of urinary retention. He is managed with an indwelling suprapubic tube. He has developed a smaller contracted bladder which has led to issues with bladder spasms and pain. He has dementia and mental status changes, so we have utilized Myrbetriq but have avoided anticholinergics for this gentleman. Previously, he had some cognitive changes when he was on an extended release oxybutynin. He has received single doses of B and O suppositories and hyoscamine when he has presented to the emergency room previously. He is currently hospitalized as a respite patient. His and daughter are his primary caregivers at home and his behavior has made it difficult for them to manage him. When I saw him today, his and daughter are at the bedside. The patient himself is sedated. I did not interact with the patient but was able to discuss the situation with his and daughter. It sounds as if some of the worst bladder spasms are triggered by his catheter changes and by catheter irrigation. In addition to the spasms, he has had some blood in the urine with each catheter change. He is also had some whitish, mucousy debris in the catheter drainage bag. The catheter has not actually become occluded from this debris. 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) DNI (do not intubate) (Acute) DNR (do not resuscitate) (Acute) POLST (Physician Orders for Life-Sustaining Treatment) (Acute) Wandering behavior (Chronic) due to his dementia Anxiety (Chronic) 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 Bladder spasms (Chronic) Hearing aid worn (Chronic) Palliative care patient (Chronic) Suprapubic catheter (Chronic) Vascular dementia (Chronic) his dementia is mixed AD and vascular Urinary retention (Acute) Advanced directives, counseling/discussion (Acute) DVT prophylaxis (Acute) Fever (Acute) Vascular dementia with behavior disturbance (Chronic) Gross hematuria (Acute) Advance directive discussed with patient (Acute) Delirium (Chronic) Constipation (Acute) Sensorineural hearing loss, bilateral (Acute) Alzheimer's disease (Chronic) Malignant neoplasm of colon (Chronic) Hypertension (Chronic) Benign prostatic hyperplasia with lower urinary tract symptoms (Acute) Medical History (Updated 09/10/21 @ 10:11 by Blanche Person MD) BPH (benign prostatic hyperplasia) Counseling regarding advance directives and goals of care COVID-19 Discharge planning issues Hematuria History of colon cancer History of smoking 25-50 pack years Moderate dementia with behavioral disturbance Obtunded Underweight Unintentional weight loss Surgical History History of partial colectomy Family History Mother , age 87 from dementia Dementia Father , age 78 from COPD COPD (chronic obstructive pulmonary disease) Sister , age 70 from pancreatic cancer Pancreatic cancer Nephew Bladder cancer Brother , of COPD aged 80 COPD (chronic obstructive pulmonary disease) Daughter Visual acuity reduced Anxiety Caregiver stress Son Migraine Son Migraine Social History Smoking/Tobacco Use Status: Former Tobacco Use Tobacco: How many years used: 45 Second Hand Exposure: No Smoking risk assessment performed?: Yes Alcohol Intake: former Drug use: Never Substance use type: does not use Caregiver/Support person: Yes Household members: spouse Housing: house Number of Children: 3 number of grandchildren: 5 Communication Needs: Hard of Hearing and Corrective Lenses Education Level: high school Do you need help understanding health information?: Always current occupation: retired Pets and animals: No Current gender identity: male What is your relationship status?: How often do you talk on the phone with friends or family?: never How often do you get together with friends or relatives?: three or more times per week Panel score (0-1 are the most socially isolated patients): 2 What type of physical activity do you participate in: walking Duration: 45-60 minutes/day Frequency: daily Special carissa needs: No Seatbelt use: always Working smoke detector in home: Yes Fire extinguisher in home: Yes Do you feel safe at home: Yes Do you feel safe in your relationship?: Yes Additional Social history: daughter Mariam and Tila and his son Adam are his caregivers; Tila there all the time; Mariam lives across the street. Igor appeared to be actively dying on 10/14/20, at time of admission to hospice, but I did share stories of recovery from Covid-19 even in older frail patients. Obviously, Igor recovered. Daughter Mariam gets very stressed. Brother Adam tends to present as calmer. Tila not present in ER on 12/29. Exam Narrative Exam Narrative: The patient is sedated. His catheter is draining yellow urine with some whitish debris in the drainage tubing Results Last Vital Signs Temp 36.7 C 09/09/21 17:01 Pulse 73 09/13/21 08:56 Resp 16 09/13/21 08:56 BP 128/73 09/13/21 08:56 Pulse Ox 99 09/09/21 17:01
[2021-09-14] MEDS: MORPHine Oral Concentrate 20 MG/ML 5 MG JT ×2 (03:37→19:08)
--- NOTE | 2021-09-14 11:36 | W.PM.PROGNOT ---
Date of Service Date of service: 09/14/21 Time of Service: 10:50 Assessment and Plan Assessment and plan (1) Painful bladder spasm: Status: Acute Assessment and plan: Will continue with jeremiahtriq for now. Appreciate Urology consult and recommendations. He appeared to be doing well with the valium, however, he is overly sedated today so this will be held as well as other sedating medications. PRN morphine or valium may be used for spasms. (2) Hypertension: Status: Chronic Assessment and plan: Improved. Continue home Rx, amlodipine 2.5 mg daily if he becomes more alert. (3) Cachexia: Status: Acute Assessment and plan: Secondary to dementia. He is too sedated to eat or drink at this time. (4) Agitation due to dementia: Status: Chronic Assessment and plan: Invega started yesterday. He only had one dose and was sedated prior to the dose yesterday. He is not agitated at this time. Hold all sedating medications. PRN lorazepam available. (5) Constipation: Status: Acute Assessment and plan: He had a suppository and moved his bowels 2 days ago. (6) Anxiety: Status: Chronic Assessment and plan: He is unresponsive at this time. (7) Mixed Alzheimer's and vascular dementia: Status: Acute Assessment and plan: He is on hospice for this diagnosis. His family is not sure they can continue to care for him at home. Consider placement if he returns to baseline, however, if he continues to decline, his family would want to take him home to . [facility]. (8) Hospice care patient: Status: Acute Assessment and plan: Continue Hospice symptom management. Subjective Subjective Interval history since last seen: Igor was seen in his hospital room, he is very sedated. Nursing reports that he was sedated yesterday morning. He was not given his oral mediations until 1100 due to his level of sedation. He took his first dose of Invega at that time. He was not given any of his evening medications due to sedation. This morning, nursing reports that he has not awakened despite repositioning and personal care. His morning medications were held again this morning. Discussed his care with his daughter, Mariam. Plan to hold all sedating medications and monitor. It is possible that he is over-sedated due to medications, however he may also be transitioning to the end of his life. Mariam verbalizes understanding. She will visit today. Nursing reports that he was alert enough to eat at one point yesterday. He also moved his bowels 2 days ago. He has not taken in anything by mouth yet today. He received MS oral concentrate overnight for pain. Exam Narrative Exam Narrative: General: very thin, elderly man, laying in bed. He is sedated, he did not respond to verbal or tactile stimuli. He does not appear to be in any distress. HEENT: normocephalic, atraumatic. He opened his eyes briefly but did not make eye contact, he looked up towards the ceiling. Neck: supple, no JVD. Cardiovascular: heart sounds regular, no murmur appreciated. Respiratory: respirations appear even and unlabored, lung sounds are clear throughout. No increased work of breathing. GI: +BS, abdomen is soft/flat, does not appear tender on palpation, nondistended. : suprapubic catheter in place, +granuloma at site. Draining medium yellow urine. Extremities: thin, no edema. Neuro: He is unresponsive at this time. Objective Last Vital Signs Temp 36.7 C 09/09/21 17:01 Pulse 73 09/13/21 08:56 Resp 16 09/13/21 08:56 BP 128/73 09/13/21 08:56 Pulse Ox 99 09/09/21 17:01
--- NOTE | 2021-09-14 12:23 | PDOC.CMPRO ---
- If Service Date Differs Date of service: 09/14/21 Time of Service: 12:23 Care Management Progress Note S/O: Igor was sleeping when CM attempted to meet with him. Per report, he has been sedated since starting a new medication yesterday. It is unclear if the sedation is due to starting the new medication, or a general decline. His medications will be stopped today to see if he perks up at all. If his symptoms are managed well, he will likely return home. If the family does not think they can manage his behaviors, they may need to place him either in a facility or in a private intermediate. Mariam, his daughter, will reach out to [facility], to inquire about space in her home. CM will assist Hospice's case management social worker with placement, if needed. CM reviewed the visitor policy with Mariam. Mariam stated that if Igor was to have any significant change overnight (or any time), she would like to be contacted. CM will continue to follow. A: Igor is an 85 year old male admitted to [facility] on 09/09/21 for Hospice symptom management for AMS, bladder spasms. P: Igor will likely return home once his symptoms have been effectively managed. He may require SNF placement, which Hospice will arrange. Transport will likely be EMS due to confusion. He will follow up with her PCP and discharge plan of care. CM will continue to follow.
--- NOTE | 2021-09-14 16:34 | CHAPLAIN ---
Igor was sleeping when I visited. His daughter, Mariam, was with him. He is a hospice patient here for symptom management. Mariam explained that hospice staff have taken Igor off his medication to determine which is making him so sedated. It has been a roller coaster, Mariam said of Igor's behavior. He has been agitated at times and difficult to deal with at times. He lives at home with his . Mariam said this is giving her mom a needed rest as well, as she is determined to care for him. 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 Mariam said he did not sit still often and that is likely why he as been restless, until yesterday when he became sedated. Mariam asked if Newton Restrepo RN was working in the ICU. (He's stone spreader operator and not scheduled until 09/17) Newton was Igor home health nurse, and Igor like him, Mariam said and gave me permission to let Newton know that Igor his here so he can visit if Igor is still here. I sent Newton an email to let him know that Igor is here.
[2021-09-14] MEDS: Senna TAB 1 TAB PO (20:16)
[2021-09-15 07:51] VITALS: BP 126/73; PULSE 66; RESP 13; TEMP 36.4; O2SAT 98
[2021-09-15] MEDS: Mirabegron 50 MG TABCR PO (09:38)
[2021-09-15] MEDS: Senna TAB 1 TAB PO ×2 (09:38→19:29)
[2021-09-15] MEDS: amLODIPine 2.5 MG TAB PO (09:39)
[2021-09-15] MEDS: Polyethylene Glycol 3350 17 GM PACKET PO (09:41)
--- NOTE | 2021-09-15 17:13 | W.PM.PROGNOT ---
Date of Service Date of service: 09/15/21 Time of Service: 16:15 Assessment and Plan Assessment and plan (1) Painful bladder spasm: Status: Acute Assessment and plan: Continue with [place]. Appreciate Urology consult and recommendations. Discussed with Mariam, she plans to pre-medicate prior to catheter changes. Continue PRN morphine or valium for spasms. (2) Hypertension: Status: Chronic Assessment and plan: Improved. Continue home Rx, amlodipine 2.5 mg daily. (3) Cachexia: Status: Acute Assessment and plan: Secondary to dementia. He is eating and drinking well. (4) Agitation due to dementia: Status: Chronic Assessment and plan: He is not agitated at this time. All sedating medications placed on hold due to somnolence yesterday and the day before. He is alert today. Add medications back in slowly as needed. PRN lorazepam available. (5) Constipation: Status: Acute Assessment and plan: Continue bowel regimen. He is having small BMs. (6) Anxiety: Status: Chronic Assessment and plan: He is calm and pleasant today. (7) Mixed Alzheimer's and vascular dementia: Status: Acute Assessment and plan: He is on hospice for this diagnosis. His family is not sure they can continue to care for him at home. They have been provided with names of facilities that are contracted with [facility] since [facility] is [facility]. They would like to take him home and hire a caregiver to help. They are currently looking for a caregiver. They will consider placement if it is too difficult at home. (8) Hospice care patient: Status: Acute Assessment and plan: Continue Hospice symptom management. He is likely for discharge tomorrow if he remains calm and comfortable. Mariam is aware and plans to pick him up. Subjective Subjective Interval history since last seen: Igor was seen in his hospital room with his daughter, Mariam and his son, Igor were present. Igor is on Hospice Symptom Management. He was agitated and having painful bladder spasms at home prior to his admission. He went on to be somnolent for nearly 2 days. All sedating medications were held. Nursing reports that he has had a better day today. He has been up walking around in the halls with staff. He has been eating and drinking well. At the time of his visit today, he is sitting up in the recliner. He is alert, he is talkative. He is calm and pleasant. He fed himself dinner. His daughter and primary caregiver, Mariam, would prefer to monitor him and only add back medications as needed. She is agreeable to taking him home tomorrow if he remains calm and comfortable. Exam Narrative Exam Narrative: General: very thin, pleasant, elderly man, sitting up in the recliner with his feet elevated. He appears calm, comfortable and relaxed. He does not appear to be in any distress. HEENT: normocephalic, atraumatic, EOMI, wearing glasses, mucous membranes moist. Neck: supple, no JVD. Cardiovascular: heart sounds regular, no murmur appreciated. Respiratory: respirations appear even and unlabored, lungs sound clear throughout. No increased work of breathing. He is unable to follow directions to take deep breaths. GI: +BS, abdomen is soft/flat, does not appear tender on palpation, nondistended. : suprapubic catheter in place, +granuloma at site. Draining light yellow urine. Extremities: thin, moves all 4 extremities freely, no edema. Objective Last Vital Signs Temp 36.4 C L 09/15/21 07:51 Pulse 66 09/15/21 07:51 Resp 13 09/15/21 07:51 BP 126/73 09/15/21 07:51 Pulse Ox 98 09/15/21 07:51
--- NOTE | 2021-09-15 18:42 | PDOC.CMPRO ---
- If Service Date Differs Date of service: 09/15/21 Time of Service: 18:42 Care Management Progress Note S/O: Igor was sitting up in his chair when CM met with him. He was pleasant in interaction, although his speech was difficult to understand, as he mumbles most words. CM brought the busy blanket over to him, which he enjoys looking at. Per provider, he may return home tomorrow if his symptoms continue to improve. CM will continue to follow. A: Igor is an 85 year old male admitted to [facility] on 09/09/21 for Hospice symptom management for AMS, bladder spasms. P: Igor will likely return home once his symptoms have been effectively managed. He may require SNF placement, which Hospice will arrange. Transport will likely be EMS due to confusion. He will follow up with her PCP and discharge plan of care. CM will continue to follow.
[2021-09-15] MEDS: Acetaminophen 500 MG TAB PO (19:29)
[2021-09-15] MEDS: LORazepam 2 MG/1 ML Oral Concentrate PO (19:30)
[2021-09-16 07:41] VITALS: BP 99/46; PULSE 69; RESP 14; TEMP 37; O2SAT 98
[2021-09-16] MEDS: Senna TAB 1 TAB PO (08:20)
[2021-09-16] MEDS: Mirabegron 50 MG TABCR PO (08:20)
[2021-09-16] MEDS: amLODIPine 2.5 MG TAB PO (08:20)
[2021-09-16] MEDS: Polyethylene Glycol 3350 17 GM PACKET PO (08:21)
--- NOTE | 2021-09-16 09:40 | W.PM.DS.N ---
DS: Diagnosis Discharge Diagnosis (1) Painful bladder spasm: Status: Acute Asessment and Plan: Better with acidification of his diet and with minimal manipulation of his catheter. Thanks to Dr Rosado for his help. Agree with plan to use hyocyamine PRN for spasms and to pretreat with this med prior to catheter changes. Added vitamin C to his scheduled med list to help limit sludge. (2) Hypertension: Status: Chronic Asessment and Plan: When Igor is stressed, his BP gets critically elevated. Was low today. He is only on amlodipine 2.5 mg daily. Encourage fluid intake to help with hypotension noted today. (3) Cachexia: Status: Acute Asessment and Plan: Igor has always been thin. When he is stressed, he gets suspicious and doesn't eat what is offered. Doing better today. Feed ad eli. 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 Was over-sedated until yesterday, when Amy Lopez NP help all his sedating meds. Had a great day on 09/15. Was a bit suspicious of nursing this am when they suggested a shower. Will try invega at renal dosing of 1.5 mg daily. Has not had a true trial of this medication yet. If he tolerates it today, will send him home with it. (5) Constipation: Status: Acute Asessment and Plan: Has bowel meds ordered. Better. (6) Anxiety: Status: Chronic Asessment and Plan: Lifelong problem but worse with his dementia. Had a great day yesterday. Will continue to use lorazepam prn. Trying invega for longer-term control. (7) Mixed Alzheimer's and vascular dementia: Status: Acute Asessment and Plan: Primary Hospice diagnosis. Family very much needed a break during his admission for symptom management. Symptoms are under better control. Therefore, will be discharged later today, late afternoon at family's request. (8) Hospice care patient: Status: Acute Asessment and Plan: Continue with hospice care at home for now. [place]gor [place] and does have a benefit for inpatient/[place]NF [place] care at a [place] facility. Discharge Plan Disposition Patient Disposition: HOME W/HOME HEALTH SERVICE Condition: Fair Discharge Details Reason For Visit: AMS,Bladder Spasms Admit Date/Time: 09/09/21 12:45 Admit Provider: Blanche Person Attending Provider: Blanche Person Primary Care Provider: Blanche Person Hospital Course Hospital Course: Admitted with painful bladder spasms and agitated dementia. Bladder spasms better. Changes include using hyoscyamine prior to catheter changes, addition of vitamin C to help decrease sludge. Continue with myrbetriq. Continue with advice from urology NOT to adjust or touch his catheter if at all possible. Any manipulation of his catheter increases his spasm intensity and duration. His agitation was treated with benzodiazepines primarily. Was supposed to try invega, a new anti-psychotic, starting on 09/13 but given his over-sedation from the benzos, he only received one dose, not enough for a sufficient trial. Restarted this medication on day of discharge. Home Meds and New Rx's Prescriptions: New Acetaminophen [Tylenol] 325 mg PO Q6H PRN PRNQty: 90 1RF amlodipine 2.5 mg Tablet 2.5 mg PO DAILY 14 Days Qty: 14 0RF ascorbic acid (vitamin C) [Vitamin C] 500 mg Tablet 500 mg PO TID Qty: 90 0RF sennosides [Senokot] 8.6 mg Tablet 8.6 mg PO BID Qty: 30 3RF polyethylene glycol 3350 17 gram Powder In Packet 17 g PO DAILY PRN PRN (Reason: Constipation) Qty: 14 0RF bisacodyl 10 mg Suppository 10 mg [place] DAILY PRN PRNQty: 14 0RF lorazepam 2 mg/mL Concentrate 0.5 - 1 mg PO QID PRN PRNQty: 30 2RF paliperidone 1.5 mg Tablet Extended Release 24 Hr 1.5 mg PO DAILY Qty: 14 0RF Continued Myrbetriq 50 mg tablet extended release 24 hr 50 mg PO DAILY Qty: 90 3RF divalproex [Depakote] 125 mg tablet,delayed release (DR/EC) 125 mg PO BID Qty: 60 2RF Rx Instructions: for mood stabilization docusate sodium [Enemeez] 283 mg/5 mL Enema 283 mg [place] DAILY PRN0RF hyoscyamine sulfate 0.125 mg tablet, sublingual 0.125 mg PO Q4H 0RF Label Comments: TAKE 1 TO 2 TABLETS BY MOUTH/UNDER TONGUE EVERY 4 HOURS NEEDED FOR SECRETIONS cyclobenzaprine 10 mg tablet 10 mg PO PRN PRN (Reason: Bladder Spasms) 0RF Label Comments: TAKE ONE TABLET BY MOUTH THREE TIMES A DAY NEEDED FOR MUSCLE SPASM. Do not take with celexa morphine concentrate 100 mg/5 mL (20 mg/mL) solution 5 mg PO Q1H MDD 24 ml 0RF Rx Instructions: hospice Discontinued fentanyl 12 mcg/hr patch 72 hour 1 patch transdermal Q72H MDD 1 patch Qty: 5 0RF Rx Instructions: Hospice cephalexin 500 mg capsule 500 mg PO TID Qty: 21 0RF Rx Instructions: hospice citalopram 10 mg tablet 10 mg PO DAILY Qty: 14 0RF Label Comments: Do not take with Flexeril Rx Instructions: hospice lorazepam 1 mg tablet 0.5 - 1 mg PO Q4H PRN PRN0RF Label Comments: TAKE 1/2 TO 1 TABLET BY MOUTH EVERY 4 HOURS NEEDED FOR ANXIETY AGITATION DYSPNEA NAUSEA No Action (DME) Urinary Leg Bag misc See Dose Instructions .ROUTE .MEDSUPPLY Qty: 4 12RF Dose Instruction: As directed Rx Instructions: change weekly - bag size 900ml Discharge Instructions Additional Instructions: Please give hyoscyamine prior to any catheter changes. Please minimize any touching or interaction with his catheter. Started his trial of invega today; dose given approx 11 am on day of discharge. Activity:: Activity as Tolerated Equipment/Supplies:: No Equipment Needed Diet:: As Tolerated DS: Summary Time Spent with Patient providing and/or coordinating discharge services: Greater than 30 minutes Status at Discharge Functional status at discharge: independent ambulation Overall status at discharge: patient is progressing back to baseline Mental Status: mental status grossly normal Speech and Movement: restless Mood: anxious mood Affect: anxious affect Exam Narrative Exam Narrative: General: very thin, pleasant, elderly man, sitting up in the recliner with his feet elevated. He appears calm, comfortable and relaxed. He does not appear to be in any distress. HEENT: normocephalic, atraumatic, EOMI, wearing glasses, mucous membranes moist. Neck: supple, no JVD. Cardiovascular: heart sounds regular, no murmur appreciated. Respiratory: respirations appear even and unlabored, lungs sound clear throughout. No increased work of breathing. He is unable to follow directions to take deep breaths. GI: +BS, abdomen is soft/flat, does not appear tender on palpation, nondistended. : suprapubic catheter in place, +granuloma at site. Draining light yellow urine. Extremities: thin, moves all 4 extremities freely, no edema. Neuro: orientated to self only. Was suspicious of nurses' suggestion for him to shower this am. Refused, firmly but politely. Psych: no unusual anxiety Skin: some bruises, no lacerations Psych Mental Status: mental status grossly normal Speech and Movement: restless Mood: anxious mood Affect: anxious affect DS: Data Vitals/I&O Vitals and I&O: Vital Signs Temperature 98.6 F 09/16/21 07:41 Temperature Source Tympanic 09/16/21 07:41 Pulse 69 09/16/21 07:41 Pulse Rhythm Regular 09/09/21 16:41 Respiratory Rate 14 09/16/21 07:41 Respiratory Effort Non-Labored 09/09/21 16:41 Respiratory Depth Normal 09/09/21 16:41 Respiratory Pattern Normal 09/09/21 16:41 Blood Pressure 99/46 L 09/16/21 07:41 Pulse Oximetry 98 09/16/21 07:41 Oxygen Delivery Method Room Air 09/16/21 07:41 Oxygen Flow Rate 0 09/16/21 07:41 Pain Level 0 09/16/21 07:41 Intake & Output 09/15/21 09/15/21 09/16/21 11:59 23:59 11:59 Intake Total 540 / 830 290 / 830 1120 / 1120 Output Total 350 / 1000 650 / 1000 300 / 300 Balance 190 / -170 -360 / -170 820 / 820 Intake: Oral 540 / 830 290 / 830 1120 / 1120 Output: Urine 350 / 1000 650 / 1000 300 / 300 Other: Urine Color Yellow Yellow Yellow Light Arabella Urine Appearance Cloudy Cloudy Cloudy Stool Size Small Moderate Stool Characteristics Soft Formed Formed PFSH All Active Problems Painful bladder spasm (Acute) Back pain (Acute) Fall (Acute) Hypertension (Chronic) Hematuria (Acute) UTI (urinary tract infection) (Acute) Cachexia (Acute) Mixed Alzheimer's and vascular dementia (Acute) Hospice care patient (Acute) admitted 10/14/20 Paranoia (psychosis) (Acute) Recurrent UTI (Acute) Agitation due to dementia (Chronic) DNI (do not intubate) (Acute) DNR (do not resuscitate) (Acute) POLST (Physician Orders for Life-Sustaining Treatment) (Acute) Wandering behavior (Chronic) due to his dementia Anxiety (Chronic) 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 Bladder spasms (Chronic) Hearing aid worn (Chronic) Palliative care patient (Chronic) Suprapubic catheter (Chronic) Vascular dementia (Chronic) his dementia is mixed AD and vascular Urinary retention (Acute) Advanced directives, counseling/discussion (Acute) DVT prophylaxis (Acute) Fever (Acute) Vascular dementia with behavior disturbance (Chronic) Gross hematuria (Acute) Advance directive discussed with patient (Acute) Delirium (Chronic) Constipation (Acute) Sensorineural hearing loss, bilateral (Acute) Alzheimer's disease (Chronic) Malignant neoplasm of colon (Chronic) Hypertension (Chronic) Benign prostatic hyperplasia with lower urinary tract symptoms (Acute) Medical History BPH (benign prostatic hyperplasia) Counseling regarding advance directives and goals of care COVID-19 Discharge planning issues Hematuria History of colon cancer History of smoking 25-50 pack years Moderate dementia with behavioral disturbance Obtunded Underweight Unintentional weight loss Surgical History History of partial colectomy Family History Mother , age 87 from dementia Dementia Father , age 78 from COPD COPD (chronic obstructive pulmonary disease) Sister , age 70 from pancreatic cancer Pancreatic cancer Nephew Bladder cancer Brother , of COPD aged 80 COPD (chronic obstructive pulmonary disease) Daughter Visual acuity reduced Anxiety Caregiver stress Son Migraine Son Migraine Social History (Updated 09/16/21 @ 09:54 by Blanche Person MD) Smoking/Tobacco Use Status: Former Tobacco Use Tobacco: How many years used: 45 Second Hand Exposure: No Smoking risk assessment performed?: Yes Alcohol Intake: former Drug use: Never Substance use type: does not use Caregiver/Support person: Yes Household members: spouse Housing: house Number of Children: 3 number of grandchildren: 5 Communication Needs: Hard of Hearing and Corrective Lenses Education Level: high school Do you need help understanding health information?: Always current occupation: retired Pets and animals: No Current gender identity: male What is your relationship status?: How often do you talk on the phone with friends or family?: never How often do you get together with friends or relatives?: three or more times per week Panel score (0-1 are the most socially isolated patients): 2 What type of physical activity do you participate in: walking Duration: 30-45 minutes/day Frequency: daily Special carissa needs: No Agree to transfusion: No Seatbelt use: always Working smoke detector in home: Yes Fire extinguisher in home: Yes Do you feel safe at home: Yes Do you feel safe in your relationship?: Yes Additional Social history: daughter Mariam and Tila and his son Adam are his caregivers; Tila there all the time; Mariam lives across the street. Igor appeared to be actively dying on 10/14/20, at time of admission to hospice. He recovered. Remained on hospice due to his long history of advanced dementia, mixed AD and vascular. Daughter Mariam gets very stressed. Brother Adam tends to present as calmer.
[2021-09-16] MEDS: [UNRECOGNIZED DRUG - OTHER] PO (10:54)
[2021-09-16] MEDS: LORazepam 2 MG/1 ML Oral Concentrate PO (12:30)
[2021-09-16] MEDS: Ascorbic Acid 500 MG TAB PO (14:33)
--- NOTE | 2021-09-16 14:34 | PDOC.CMDIS ---
- If Service Date Differs Date of service: 09/16/21 Time of Service: 14:35 LACE Index Scoring Tool - Questions: Length of Stay (in days): 7 - 13 Acuity (Admit via E.D.?): No Comorbidities: Any Tumor, Dementia E.D. Visits: 3 - Answers: Total Score: 13 Risk of Readmission: High Risk Care Management Discharge Reason for Hospitalization: AMS, bladder spasms, hospice symptom management. Discharge Plan: Igor will return home with his family today, as his symptoms have been well managed. His daughter, Mariam, will drive him home via private vehicle. He will continue to be followed closely by Hospice. He is happy to be going home. Patient/Family Education Needs: Review discharge instructions and limitations, discussion of self care needs and goals of care. Services Needed at Discharge: Home Health Care Services (Hospice)
== END 2021-09-16 14:45 | disposition home health service (06) | DRG 696 ==
PROVIDERS: Admitting Provider Family Medicine; PCP Family Medicine; Visit Provider Family Medicine
DX: R30.1 Vesical tenesmus (principal); F02.81 Dementia in other diseases classified elsewhere, unspecified severity, with behavioral disturbance; R64 Cachexia; Z68.1 Body mass index [BMI] 19.9 or less, adult; G30.9 Alzheimer's disease, unspecified; I10 Essential (primary) hypertension; F01.50 Vascular dementia, unspecified severity, without behavioral disturbance, psychotic disturbance, mood disturbance, and anxiety; Z51.5 Encounter for palliative care; R33.9 Retention of urine, unspecified; Z93.51 Cutaneous-vesicostomy status; Z66 Do not resuscitate; K59.00 Constipation, unspecified; Z87.440 Personal history of urinary (tract) infections; W19.XXXA Unspecified fall, initial encounter; F22 Delusional disorders; Z91.83 Wandering in diseases classified elsewhere; F41.9 Anxiety disorder, unspecified; G31.89 Other specified degenerative diseases of nervous system; R31.0 Gross hematuria; N40.1 Benign prostatic hyperplasia with lower urinary tract symptoms; Z85.038 Personal history of other malignant neoplasm of large intestine
CPT/HCPCS: 87635; J3490

== ENCOUNTER 2021-09-24 12:48 | Inpatient (IN) | payer OTHER, SELFPAY ==
[2021-09-24 15:21] VITALS: BP 185/89; PULSE 68; RESP 12; TEMP 37.4; O2SAT 99
[2021-09-24 15:24] VITALS: BP 185/89; PULSE 68; RESP 12; TEMP 37.4; O2SAT 99
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
[2021-09-24 16:37] LABS: Source Nasal/Nares
[2021-09-24 19:20] LABS: COVID-19 PCR Negative (Negative)
[2021-09-25] MEDS: Hyoscyamine 0.125 MG SL/ORAL/CHEW SL ×2 (08:31→19:52)
--- NOTE | 2021-09-25 10:57 | INITIAL_ITS ---
- If Service Date Differs Date of service: 09/25/21 Time of Service: 10:57 Care Management Initial Assess REASON FOR HOSPITALIZATION:: hospice respite PAST MEDICAL HISTORY/PAST SURGICAL HISTORY:: All Active Problems . Painful bladder spasm (Acute). Back pain (Acute). UTI (urinary tract infection) (Acute). Cachexia (Acute). Mixed Alzheimer's and vascular dementia (Acute). Hospice care patient (Acute). admitted 10/14/20. Recurrent UTI (Acute). Agitation due to dementia (Chronic). DNI (do not intubate) (Acute). DNR (do not resuscitate) (Acute). POLST (Physician Orders for Life-Sustaining Treatment) (Acute). Wandering behavior (Chronic). due to his dementia. Anxiety (Chronic). 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 Bladder spasms (Chronic). Hearing aid worn (Chronic). Suprapubic catheter (Chronic). Vascular dementia (Chronic). his dementia is mixed AD and vascular. Urinary retention (Acute). Advanced directives, counseling/discussion (Acute). DVT prophylaxis (Acute). Fever (Acute). Vascular dementia with behavior disturbance (Chronic). Gross hematuria (Acute). Advance directive discussed with patient (Acute). Delirium (Chronic). Sensorineural hearing loss, bilateral (Acute). Alzheimer's disease (Chronic). Malignant neoplasm of colon (Chronic). Hypertension (Chronic). Khalif ign prostatic hyperplasia with lower urinary tract symptoms (Acute). Medical History . BPH (benign prostatic hyperplasia). Counseling regarding advance directives and goals of care. COVID-19. Discharge planning issues. Hematuria. History of colon cancer. History of smoking 25-50 pack years. Hypertension. Mixed type delusional disorder. Moderate dementia with behavioral disturbance. Obtunded. Palliative care patient. Paranoia (psychosis). Underweight. Unintentional weight loss. Surgical History . History of partial colectomy PREVIOUS FUNCTIONAL STATUS/SOCIAL/FAMILY SUPPORTS:: Igor lives at home with his and is on hospice. CURRENT FUNCTIONAL STATUS:: Igor was sitting up in a chair when CM met with him. He was very talkative but also very confused. He has end stage dementia and is at [facility] for hospice respite. His family hopes to find placement for hhim by the time his respite ends on Friday 09/29. [facility] another [facility] run by Carmelita Shen ([facility]). Has patient been provided with info about the portal/API?: No Did the patient sign up for the portal?: No CODE STATUS:: DNR/DNI CODE STATUS COMMENT:: hospice INSURANCE COVERAGE / FINANCIAL ISSUES:: [facility] (hospice) CURRENT HOME/COMMUNITY SERVICES/EQUIPMENT:: on hospice PRIMARY CARE PHYSICIAN:: Dr. Person TRANSPORTATION:: via ambulance PLAN:: Igor's family is hoping to secure placement for him in a hospice house by the time his respite stay is over (Monday09/29/21).Cm will offer support to Igor and his family during his respite stay.
[2021-09-25] MEDS: LORazepam 2 MG/1 ML Oral Concentrate 1 MG PO ×2 (13:23→16:17)
[2021-09-25] MEDS: Ascorbic Acid 500 MG TAB PO (19:52)
[2021-09-25] MEDS: Senna TAB PO (19:52)
[2021-09-25] MEDS: Divalproex 125 MG TABEC PO (19:53)
[2021-09-26] MEDS: LORazepam 2 MG/1 ML Oral Concentrate 1 MG PO ×2 (01:17→16:25)
--- NOTE | 2021-09-26 01:43 | NUR.NOTE ---
At about 0130, Omaira HUNT gave pt Morphine and Ativan
[2021-09-26] MEDS: Divalproex 125 MG TABEC PO (20:02)
[2021-09-26] MEDS: Ascorbic Acid 500 MG TAB PO (20:03)
[2021-09-26] MEDS: Senna TAB PO (20:03)
[2021-09-26] MEDS: Bisacodyl 10 MG SUPP PR (23:07)
[2021-09-27] MEDS: LORazepam 2 MG/1 ML Oral Concentrate 1 MG PO ×2 (03:30→19:08)
--- NOTE | 2021-09-27 08:09 | W.PM.PROGNOT ---
Date of Service Date of service: 09/27/21 Time of Service: 08:09 Assessment and Plan Assessment and plan (1) Painful bladder spasm: Status: Acute Assessment and plan: Continue present meds. He does have catheter in place (2) Hospice care patient: Status: Acute Assessment and plan: He continues on respite care. (3) Mixed Alzheimer's and vascular dementia: Status: Acute Assessment and plan: I am going to add some subcu medication so that the staff will have them available if necessary. Per staff and my observations he does appear to be winding down as he is not taking much in the way of p.o. He will continue on respite care until September 29. Hopefully placement will be found before then Subjective Subjective Interval history since last seen: Igor is lying in bed. He did respond to my voice but did not open his eyes. Staff states that he has not been taking much in the way of p.o. He does not have an IV access. He was a little agitated yesterday. Staff feels that they need some medications that could be given subcu if necessary. Placement is being sought. Care management is working on this Exam Narrative Exam Narrative: Igor is lying in bed. He did respond to my voice but not opening his eyes. His heart was regular. Breathing is smooth without any episodes of apnea. I do not hear any rales. He is presently quiet Objective Last Vital Signs Temp 99.3 F 09/24/21 15:24 Pulse 68 09/24/21 15:24 Resp 12 09/24/21 15:24 BP 185/89 H 09/24/21 15:24 Pulse Ox 99 09/24/21 15:24
--- NOTE | 2021-09-27 18:50 | CMPROGNOTE_ITS ---
- If Service Date Differs Date of service: 09/27/21 Time of Service: 18:50 Care Management Progress Note S/O: Igor remains on Hospice respite, which will end after day 5. Per report, Hospice is working on referrals to [facility] and [facility] [place]. CM will contact the [facility] to determine if they need any additional information for review. If no placement is obtained prior to the end of this respite stay, he will likely return home with his family, and placement can be coordinated in the community. CM will continue to follow. A: Igor is an 86 year old male admitted to [facility] on 09/24/21 for Hospice Respite. P: Igor will go to [facility] [place] vs [facility] vs Home with continued support from Hospice, once his respite is complete. He will transport via family vs EMS. CM will continue to support Igor and his family with discharge planning considerations.
[2021-09-28] MEDS: LORazepam 2 MG/1 ML Oral Concentrate 1 MG PO ×4 (03:32→18:15)
[2021-09-28 05:57] VITALS: BP 157/64; PULSE 62; RESP 18; TEMP 35; O2SAT 100
[2021-09-28 06:05] VITALS: BP 157/64; PULSE 62; RESP 18; TEMP 35; O2SAT 100
[2021-09-28 07:15] VITALS: BP 133/79; PULSE 65; RESP 16; TEMP 37; O2SAT 93
[2021-09-28 15:44] VITALS: BP 134/75; PULSE 63; RESP 16; TEMP 36.1; O2SAT 98
--- NOTE | 2021-09-28 16:11 | CHAPLAIN ---
Igor is here for hospice respite. He's been sleeping a lot at home, but also aggressive when he's awake, according to his daughter. He lives at home with his . Igor's and daughter are both in the room when I visit. His daughter said he's been sleeping since they go here and they are not sure if this is the affect of the medication or not. They asked to see a nurse yesterday and today, but did not, according his daughter. She said they also asked to be called, and weren't. I offered to track down their nurse for them. Bonnie, was just changing shifts and passing off Igor's information to Mayelin Easton RN. Bonnie said she was asked to call the family when Igor woke up, and he hadn't woken up yet, so she hadn't called them. I let them know that Mayelin Easton is Igor's nurse for this afternoon.
--- NOTE | 2021-09-28 17:05 | CMPROGNOTE_ITS ---
- If Service Date Differs Date of service: 09/28/21 Time of Service: 17:05 Care Management Progress Note S/O: Igor was sleeping when CM attempted to meet with him. His family was not present in the room at the time. Per RN, his daughter has some questions for the Hospice provider, who will not be in to see him, as he is on respite currently, until tomorrow, for his expected discharge. Hospice arranged transportation for his return home tomorrow. Tanvi Veloz is considering him for admission at her retirement, but she would like to meet him and his family at home in order to make that determination. He will transport via EMS tomorrow at 1pm. CM called the Hospice provider with his daughter's concerns, who will reach out to his daughter this afternoon to discuss her concerns prior to discharge. CM will continue to follow. A: Igor is an 86 year old male admitted to [facility] on 09/24/21 for Hospice Respite. P: Igor will go to Tanvi Woodruff's home vs [facility] vs Home with continued support from Hospice, once his respite is complete. He will transport via family vs EMS. CM will continue to support Igor and his family with discharge planning considerations.
[2021-09-29] MEDS: MORPHine 2 MG/ML SYR SC (01:23)
[2021-09-29] MEDS: LORazepam 2 MG/ML VIAL 1 MG IM (02:15)
--- NOTE | 2021-09-29 10:00 | W.PM.DS.N ---
Date of service: 09/29/21 Time of Service: 10:01 DS: Diagnosis Discharge Diagnosis (1) Painful bladder spasm: Status: Acute (2) Hospice care patient: Status: Acute (3) Mixed Alzheimer's and vascular dementia: Status: Acute Discharge Plan Disposition Patient Disposition: HOME Condition: Stable Discharge Details Reason For Visit: Hospice Respite Admit Date/Time: 09/24/21 12:48 Admit Provider: Blanche Person Attending Provider: Blanche Person Primary Care Provider: Blanche Person Hospital Course Hospital Course: Igor is an 86 year old man with a past medical history significant for advanced dementia, for which he is on hospice, as well as urinary retention with a suprapubic catheter, frequent UTIs, HTN. He was recently admitted to [facility] from 09/09-09/16 for Sx management for agitation, bladder spasms, constipation. His family decided to take him home after that admission. He was home for about a week and his family requested a respite stay. He was admitted to [facility] for respite on 09/24/21. Nursing reports that he appears to be declining. He is eating very little. He has been sleeping more. He got up out of bed yesterday and ambulated a short distance with nursing but other than that, he has been spending all of his time in bed. He has been agitated and has appeared uncomfortable and required medication with lorazepam and morphine. He is having more difficulty taking oral medications. Nursing questioned initiating a morphine pump. He required a total of 29.5 mg of morphine over the last 24 hours (mostly oral, one subcutaneous dose of 2mg). The option of a pump was discussed with his daughter, Mariam, who agreed. A morphine pump has been ordered and he will transition home via ambulance with CADD pump in place. It has been requested that urology changes his catheter prior to discharge as well. Hospice is arranging to have a hospital bed set up in the home prior to his discharge home. Mariam has names of caregivers and plans to set up more help in the home. Hospice will continue to follow him Home Meds and New Rx's Prescriptions: No Action Myrbetriq 50 mg tablet extended release 24 hr 50 mg PO DAILY Qty: 90 3RF (DME) Urinary Leg Bag misc See Dose Instructions .ROUTE .MEDSUPPLY Qty: 4 12RF Dose Instruction: As directed Rx Instructions: change weekly - bag size 900ml divalproex [Depakote] 125 mg tablet,delayed release (DR/EC) 125 mg PO BID Qty: 60 2RF Rx Instructions: for mood stabilization docusate sodium [Enemeez] 283 mg/5 mL Enema 283 mg RI DAILY PRN0RF hyoscyamine sulfate 0.125 mg tablet, sublingual 0.125 mg PO Q4H 0RF Label Comments: TAKE 1 TO 2 TABLETS BY MOUTH/UNDER TONGUE EVERY 4 HOURS NEEDED FOR SECRETIONS Rx Instructions: has not taken in days cyclobenzaprine 10 mg tablet 10 mg PO PRN PRN (Reason: Bladder Spasms) 0RF Label Comments: TAKE ONE TABLET BY MOUTH THREE TIMES A DAY NEEDED FOR MUSCLE SPASM. Do not take with celexa Rx Instructions: at least 2 weeks morphine concentrate 100 mg/5 mL (20 mg/mL) solution 5 mg PO Q1H MDD 24 ml 0RF Rx Instructions: hospice Acetaminophen [Tylenol] 325 mg PO Q6H PRN PRNQty: 90 1RF amlodipine 2.5 mg Tablet 2.5 mg PO DAILY 14 Days Qty: 14 0RF Rx Instructions: has not used in a week ascorbic acid (vitamin C) [Vitamin C] 500 mg Tablet 500 mg PO TID Qty: 90 0RF sennosides [Senokot] 8.6 mg Tablet 8.6 mg PO BID Qty: 30 3RF polyethylene glycol 3350 17 gram Powder In Packet 17 g PO DAILY PRN PRN (Reason: Constipation) Qty: 14 0RF bisacodyl 10 mg Suppository 10 mg RI DAILY PRN PRNQty: 14 0RF Rx Instructions: has not used recently lorazepam 2 mg/mL Concentrate 0.5 - 1 mg PO QID PRN PRNQty: 30 2RF paliperidone 1.5 mg Tablet Extended Release 24 Hr 1.5 mg PO DAILY Qty: 14 0RF Discharge Instructions Instructions: Dementia (GEN) Additional Instructions: Call hospice with any questions or concerns. Stand Alone Forms: Nursing Discharge Form Referrals: Blanche Person MD [Primary Care Provider] - (Hospice will be coming to see you at home) Activity:: Activity as Tolerated Equipment/Supplies:: No Equipment Needed Diet:: As Tolerated Discharge Orders Discharge Orders: Discharge Order (Routine); Ordered 09/29/21 Ordered By: Amy Lopez DS: Summary Time Spent with Patient providing and/or coordinating discharge services: Greater than 30 minutes Status at Discharge Functional status at discharge: bed bound Overall status at discharge: patient is not back to baseline Mental Status: other Speech and Movement: other Mood: other Affect: other Exam Narrative Exam Narrative: General: elderly man, sleeping in bed while an EAR[employer]MOVING LABOURER was shaving his face, he did not awaken during the visit. He appears comfortable, in NAD. HEENT: normocephalic, atraumatic, mucous membranes dry. Respiratory: respirations appear even and unlabored. Extremities: thin, no edema. Psych Mental Status: other Speech and Movement: other Mood: other Affect: other DS: Data Vitals/I&O Vitals and I&O: Vital Signs Temperature 36.1 C L 09/28/21 15:44 Temperature Source Tympanic 09/28/21 15:44 Pulse 63 09/28/21 15:44 Pulse Rhythm Regular 09/25/21 03:50 Respiratory Rate 16 09/28/21 15:44 Respiratory Effort Non-Labored 09/25/21 03:50 Respiratory Depth Normal 09/25/21 03:50 Respiratory Pattern Normal 09/25/21 03:50 Blood Pressure 134/75 09/28/21 15:44 Pulse Oximetry 98 09/28/21 15:44 Oxygen Delivery Method Room Air 09/28/21 15:44 Oxygen Flow Rate 0 09/28/21 15:44 Pain Level 0 09/28/21 05:57 Intake & Output 09/28/21 09/28/21 09/29/21 11:59 23:59 11:59 Intake Total 240 / 240 Output Total 450 / 700 250 / 700 Balance -210 / -460 -250 / -460 Intake: Oral 240 / 240 Output: Urine 450 / 700 250 / 700 Other: Urine Color Dark Arabella Yellow Urine Appearance Sediment Clear Clear Comment Suprapubic catheter bag emptied with clear yellow urine with strong smell. 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 Bladder spasms (Chronic) Hearing aid worn (Chronic) Suprapubic catheter (Chronic) Vascular dementia (Chronic) his dementia is mixed AD and vascular Urinary retention (Acute) Advanced directives, counseling/discussion (Acute) DVT prophylaxis (Acute) Fever (Acute) Vascular dementia with behavior disturbance (Chronic) Gross hematuria (Acute) Advance directive discussed with patient (Acute) Delirium (Chronic) Sensorineural hearing loss, bilateral (Acute) Alzheimer's disease (Chronic) Malignant neoplasm of colon (Chronic) Hypertension (Chronic) Benign prostatic hyperplasia with lower urinary tract symptoms (Acute) Medical History BPH (benign prostatic hyperplasia) Counseling regarding advance directives and goals of care COVID-19 Discharge planning issues Hematuria History of colon cancer History of smoking 25-50 pack years Hypertension Mixed type delusional disorder Moderate dementia with behavioral disturbance Obtunded Palliative care patient Paranoia (psychosis) Underweight Unintentional weight loss Surgical History History of partial colectomy Family History Mother , age 87 from dementia Dementia Father , age 78 from COPD COPD (chronic obstructive pulmonary disease) Sister , age 70 from pancreatic cancer Pancreatic cancer Nephew Bladder cancer Brother , of COPD aged 80 COPD (chronic obstructive pulmonary disease) Daughter Visual acuity reduced Anxiety Caregiver stress Son Migraine Son Migraine Social History Smoking/Tobacco Use Status: Former Tobacco Use Tobacco: How many years used: 45 Second Hand Exposure: No Smoking risk assessment performed?: Yes Alcohol Intake: former Drug use: Never Substance use type: does not use Caregiver/Support person: Yes Household members: spouse Housing: house Number of Children: 3 number of grandchildren: 5 Communication Needs: Hard of Hearing and Corrective Lenses Education Level: high school Do you need help understanding health information?: Always current occupation: retired Pets and animals: No Current gender identity: male What is your relationship status?: How often do you talk on the phone with friends or family?: never How often do you get together with friends or relatives?: three or more times per week Panel score (0-1 are the most socially isolated patients): 2 What type of physical activity do you participate in: walking Duration: 30-45 minutes/day Frequency: daily Special carissa needs: No Agree to transfusion: No Seatbelt use: always Working smoke detector in home: Yes Fire extinguisher in home: Yes Do you feel safe at home: Yes Do you feel safe in your relationship?: Yes Additional Social history: daughter Mariam and Tila and his son Adam are his caregivers; Tila there all the time; Mariam lives across the street. Igor appeared to be actively dying on 10/14/20, at time of admission to hospice. He recovered. Remained on hospice due to his long history of advanced dementia, mixed AD and vascular. Daughter Mariam gets very stressed. Brother Adam tends to present as calmer.
[2021-09-29 10:11] VITALS: BP 134/75; PULSE 63; RESP 16; TEMP 36.6; O2SAT 98
[2021-09-29] MEDS: Divalproex 125 MG TABEC PO (10:44)
[2021-09-29] MEDS: Mirabegron 50 MG TABCR PO (10:44)
[2021-09-29] MEDS: Senna TAB PO (10:44)
[2021-09-29] MEDS: Ascorbic Acid 500 MG TAB PO (10:45)
[2021-09-29] MEDS: Citalopram 10 MG TAB PO (10:45)
[2021-09-29] MEDS: amLODIPine 2.5 MG TAB PO (10:45)
--- NOTE | 2021-09-29 11:45 | UCONE_ITS ---
Date of service: 09/29/21 Time of Service: 11:45 Assessment and Plan Assessment and plan (1) Urinary retention: Status: Acute (2) Suprapubic catheter: Status: Chronic Assessment and plan: Igor is a 86-year-old gentleman with a history of urinary retention requiring the use of a suprapubic catheter. He is under the care of hospice and will be discharged later today home with those services. Before leaving hospice provider requested patient suprapubic tube to be changed by urology. Suprapubic tube was changed by urology provider without complications. See bladder catheter change procedure section for more information. Dictation was done by [employer] voice recognition. Errors may be present within the note. A total of 20 minutes was spent reviewing this patient's EMR, [id number] time, and documenting. History of Present Illness History of Present Illness Chief Complaint: urinary retention Narrative: Igor is an 86-year-old male with history of urinary retention. He is well- known to the urology clinic. He is managed with a indwelling suprapubic catheter for continuous drainage. He has his history of bladder spasms that are triggered by catheter changes as well as catheter irrigation. Nursing reports today that the last time his catheter was changed there was note of blood in the urine and around the suprapubic site but it did clot rather quickly and not cause any problem. He is currently hospitalized as a respite patient. His and daughter are his primary caregivers at home and his behavior has made it difficult for them to manage him. Neither his or daughter are present at my time of visit with Igor today. The patient himself is sedated from pain medication per the report of nursing. Nursing also mentions that he has had limited food and water intake in the last 24 hours. With this limited food and water intake they also note that he has had little urinary output. Urology was asked to consult on this individual to change his suprapubic catheter before he returns home with hospice care. Consults Consult date: 09/29/21 Requesting physician: Amy Lopez Review of Systems Constitutional Constitutional: Reports as per HPI Genitourinary Genitourinary: Reports as per HPI PFSH All Active Problems Painful bladder spasm (Acute) Back pain (Acute) UTI (urinary tract infection) (Acute) Cachexia (Acute) Mixed Alzheimer's and vascular dementia (Acute) Hospice care patient (Acute) admitted 10/14/20 Recurrent UTI (Acute) Agitation due to dementia (Chronic) DNI (do not intubate) (Acute) DNR (do not resuscitate) (Acute) POLST (Physician Orders for Life-Sustaining Treatment) (Acute) Wandering behavior (Chronic) due to his dementia Anxiety (Chronic) 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 Bladder spasms (Chronic) Hearing aid worn (Chronic) Suprapubic catheter (Chronic) Vascular dementia (Chronic) his dementia is mixed AD and vascular Urinary retention (Acute) Advanced directives, counseling/discussion (Acute) DVT prophylaxis (Acute) Fever (Acute) Vascular dementia with behavior disturbance (Chronic) Gross hematuria (Acute) Advance directive discussed with patient (Acute) Delirium (Chronic) Sensorineural hearing loss, bilateral (Acute) Alzheimer's disease (Chronic) Malignant neoplasm of colon (Chronic) Hypertension (Chronic) Benign prostatic hyperplasia with lower urinary tract symptoms (Acute) Medical History BPH (benign prostatic hyperplasia) Counseling regarding advance directives and goals of care COVID-19 Discharge planning issues Hematuria History of colon cancer History of smoking 25-50 pack years Hypertension Mixed type delusional disorder Moderate dementia with behavioral disturbance Obtunded Palliative care patient Paranoia (psychosis) Underweight Unintentional weight loss Surgical History History of partial colectomy Family History Mother , age 87 from dementia Dementia Father , age 78 from COPD COPD (chronic obstructive pulmonary disease) Sister , age 70 from pancreatic cancer Pancreatic cancer Nephew Bladder cancer Brother , of COPD aged 80 COPD (chronic obstructive pulmonary disease) Daughter Visual acuity reduced Anxiety Caregiver stress Son Migraine Son Migraine Social History Smoking/Tobacco Use Status: Former Tobacco Use Tobacco: How many years used: 45 Second Hand Exposure: No Smoking risk assessment performed?: Yes Alcohol Intake: former Drug use: Never Substance use type: does not use Caregiver/Support person: Yes Household members: spouse Housing: house Number of Children: 3 number of grandchildren: 5 Communication Needs: Hard of Hearing and Corrective Lenses Education Level: high school Do you need help understanding health information?: Always current occupation: retired Pets and animals: No Current gender identity: male What is your relationship status?: How often do you talk on the phone with friends or family?: never How often do you get together with friends or relatives?: three or more times per week Panel score (0-1 are the most socially isolated patients): 2 What type of physical activity do you participate in: walking Duration: 30-45 minutes/day Frequency: daily Special carissa needs: No Agree to transfusion: No Seatbelt use: always Working smoke detector in home: Yes Fire extinguisher in home: Yes Do you feel safe at home: Yes Do you feel safe in your relationship?: Yes Additional Social history: daughter Mariam and Tila and his son Adam are his caregivers; Tila there all the time; Mariam lives across the street. Igor appeared to be actively dying on 10/14/20, at time of admission to hospice. He recovered. Remained on hospice due to his long history of advanced dementia, mixed AD and vascular. Daughter Mariam gets very stressed. Brother Adam tends to present as calmer. Exam Const General: comfortable, frail appearing and other (sedated) Orientation: not awake Resp Effort & Inspection: normal respiratory effort GI Inspection: normal to inspection and other (SPT intact) Palpation: soft and nontender Results Last Vital Signs Temp 97.9 F 09/29/21 10:11 Pulse 63 09/29/21 10:11 Resp 16 09/29/21 10:11 BP 134/75 09/29/21 10:11 Pulse Ox 98 09/29/21 10:11 Change Bladder Catheter Procedure performed by: Chyna Coello Indication for procedure: routine change Informed consent given: Yes Position of patient: supine Inplace catheter size (Fr): 18 Inplace catheter type: supra pubic Water amount removed from catheter balloon: 9cc Catheter removed: without difficulty Catheter intact: Yes Sterilizing agent: Yes Type of anesthesia: topical gel Catheter size (Fr): 18 Catheter type: supra pubic Lubrication: Yes Catheter inserted: without difficulty Volume instilled into catheter balloon: 10cc Urine clarity: clear Clots present: No Irrigation: No Catheter attached to: bedside drainage bag Patient tolerated procedure: well Complications: No
[2021-09-29] MEDS: HYDROmorphone 100 MG in CADD PUMP CASSETTE 1 EACH, Normal Saline 90 ML SC INF (12:49)
--- NOTE | 2021-09-29 16:35 | PDOC.CMDIS ---
- If Service Date Differs Date of service: 09/29/21 Time of Service: 16:35 LACE Index Scoring Tool - Questions: Length of Stay (in days): 4 - 6 Acuity (Admit via E.D.?): No Comorbidities: Dementia E.D. Visits: 4 - Answers: Total Score: 11 Risk of Readmission: High Risk Care Management Discharge Reason for Hospitalization: hospice respite Discharge Plan: Igor returned home today to be with his family for end of life care. He was started on a morphine pump to keep him comfortable, which will be continued at home. A hospital bed was brought in to their home as well. He was transported home via [employer], coordianted by Hospice. He will continue to be followed and supported by Hospice at home. Patient/Family Education Needs: Review medications and end of life care with family. Services Needed at Discharge: Home Health Care Services (hospice), Transportation ([facility])
== END 2021-09-29 13:31 | disposition home or self-care (01) | DRG 57 ==
PROVIDERS: Admitting Provider Family Medicine; PCP Family Medicine; Visit Provider Family Medicine
DX: G30.1 Alzheimer's disease with late onset (principal); R64 Cachexia; Z68.1 Body mass index [BMI] 19.9 or less, adult; F05 Delirium due to known physiological condition; G11.9 Hereditary ataxia, unspecified; F01.50 Vascular dementia, unspecified severity, without behavioral disturbance, psychotic disturbance, mood disturbance, and anxiety; R45.1 Restlessness and agitation; R30.1 Vesical tenesmus; F02.80 Dementia in other diseases classified elsewhere, unspecified severity, without behavioral disturbance, psychotic disturbance, mood disturbance, and anxiety; M54.9 Dorsalgia, unspecified; Z66 Do not resuscitate; Z51.5 Encounter for palliative care; I10 Essential (primary) hypertension; N32.89 Other specified disorders of bladder; K59.00 Constipation, unspecified; Z91.83 Wandering in diseases classified elsewhere; F41.9 Anxiety disorder, unspecified; R33.8 Other retention of urine; R31.0 Gross hematuria; N40.1 Benign prostatic hyperplasia with lower urinary tract symptoms; H90.3 Sensorineural hearing loss, bilateral; Z85.038 Personal history of other malignant neoplasm of large intestine; Z98.0 Intestinal bypass and anastomosis status
CPT/HCPCS: 51705; 87635; J1170; J2060; J2270; J3490